=== PATIENT | female | born 1985 | race Caucasian/White ===

== ENCOUNTER 2023-02-04 10:53 | Outpatient (OUT) | payer BC, SELFPAY ==
--- NOTE | 2023-02-04 10:56 | US_ITS ---
The [address] [address] Patient Name: CAROLINE SOLOMON MRN: [id number] date: 1985 Sex: F Assigned Patient Location: US Current Patient Location: US Accession/Order Number: [id number] Exam Date: 02/04/2023 11:00 Report Date: 02/04/2023 15:38 At the request of: CLAUDIA LAMAS Procedure: US thyroid US thyroid, 02/04/2023 11:00 AM EDT, OH001 INDICATION: Localized Swelling Mass Of Neck R22.1 COMPARISON: Thyroid ultrasound from 01/08/2022 TECHNIQUE: US of the thyroid gland was performed using a small parts transducer. Color flow vascular imaging was also done FINDINGS: The right lobe of the thyroid gland measures 4.7 x 1.2 x 1.2 cm. Echogenicity is normal. Vascularity is normal. The left lobe of the thyroid gland measures 4.2 x 1.0 x 0.9 cm. Echogenicity is normal. Vascularity is normal. The isthmus measures 3 mm in the midline. Echogenicity within the isthmus is normal. In the soft tissues on the right at the level of palpable abnormality, there is a 2.5 x 1.0 x 0.8 cm slightly lobulated hypoechoic focus most consistent with a lymph node with a benign configuration, not significantly changed compared to the prior study. US/US thyroid IMPRESSION: Normal thyroid ultrasound. Note is again made of a benign-appearing lymph node on the right at the level of clinical concern, not significantly changed. Electronically authenticated by: ARACELIS GARCIA Date: 02/04/2023 15:38
== END 2023-02-04 10:54 | disposition home or self-care (01) ==
LOC: US 10:53
PROVIDERS: PCP Family Medicine; Visit Provider Family Medicine
DX: R22.1 Localized swelling, mass and lump, neck (principal)
CPT/HCPCS: 76536

== ENCOUNTER 2023-03-07 07:46 | Outpatient (OUT) | payer BC, SELFPAY ==
--- NOTE | 2023-03-07 08:44 | CT_ITS ---
[address] [address] Patient Name: CAROLINE SOLOMON MRN: [id number] date: 1985 Sex: F Assigned Patient Location: CT Current Patient Location: CT Accession/Order Number: [id number] Exam Date: 03/07/2023 09:00 Report Date: 03/07/2023 10:44 At the request of: CAMI HICKS Procedure: CT soft tissue neck w con EXAM: CT soft tissue neck w con CLINICAL INDICATION: Neck Mass R22.1 COMPARISON: CT neck soft tissues 03/06/2022. Ultrasound 02/04/2023. TECHNIQUE: Standard enhanced CT of the neck following intravenous administration of 100 cc of Omnipaque 300. Axial sections with coronal and sagittal reformats were obtained. Dose reduction techniques were achieved by using automated exposure control and/or adjustment of mA and/or kV according to patient size and/or use of iterative reconstruction technique. FINDINGS: Lymph Nodes/Soft Tissues: No extranodal soft tissue mass, abnormal enhancement, or fat stranding. No enlarged or morphologically abnormal lymph nodes. Nasopharynx: Normal. Suprahyoid Neck: Oropharynx, oral cavity, parapharyngeal, and retropharyngeal spaces are clear and symmetric. Infrahyoid Neck: Larynx, hypopharynx, and supraglottic area are clear and symmetric. Vocal cords are symmetric. Parotid Glands: Normal. Submandibular Glands: Normal. Thyroid: Normal. Orbits: Normal. Paranasal Sinuses: Mild bilateral maxillary sinus mucosal thickening. Remainder of the paranasal sinuses and the mastoid air cells are well-aerated. Mastoid Air Cells: Well-aerated. Skull Base: Normal. Thoracic Inlet: Visualized lung apices are clear. Vascular Structures: Symmetric and patent. Musculoskeletal: No acute osseous abnormality. Mild multilevel cervical spondylotic changes. CT/CT soft tissue neck w con IMPRESSION: No extranodal soft tissue mass, abnormal enhancement, or lymphadenopathy in the neck. No soft tissue abnormality to correspond with palpable abnormality. No substantial change since 03/06/2022. Electronically authenticated by: STEFANO MARQUEZ Date: 03/07/2023 10:44
== END 2023-03-07 07:47 | disposition home or self-care (01) ==
LOC: CT 07:47
PROVIDERS: PCP Family Medicine; Visit Provider Otolaryngology
DX: R22.1 Localized swelling, mass and lump, neck (principal)
CPT/HCPCS: 70491; Q9967

== ENCOUNTER 2023-10-31 15:58 | Outpatient (OUT) | payer BC, SELFPAY ==
--- NOTE | 2023-10-31 | XR_ITS ---
The [address] [address] Patient Name: CAROLINE SOLOMON MRN: [id number] date: 1985 Sex: F Assigned Patient Location: [facility] Current Patient Location: Accession/Order Number: [id number] Exam Date: 10/31/2023 16:15 Report Date: 11/01/2023 07:08 At the request of: CLAUDIA LAMAS Procedure: XR lumbar spine min 4V EXAMINATION: XR lumbar spine min 4V, XR sacrum coccyx min 2V HISTORY: Coccyx pain COMPARISON: No relevant comparison available. FINDINGS: BONES: Normal. No significant spondylosis, scoliosis, fracture, or visible bony lesion. DISC SPACES: Normal. No significant disc height narrowing, subluxation, or endplate abnormality. PARASPINOUS: Negative. No paraspinous abnormality is seen. OTHER: Negative. XR/XR lumbar spine min 4V IMPRESSION: No acute abnormality of the lumbar spine, sacrum or coccyx Electronically authenticated by: RANDY STANTON Date: 11/01/2023 07:08
--- NOTE | 2023-10-31 | XR_ITS ---
The [address] [address] Patient Name: CAROLINE SOLOMON MRN: [id number] date: 1985 Sex: F Assigned Patient Location: [facility] Current Patient Location: Accession/Order Number: [id number] Exam Date: 10/31/2023 16:15 Report Date: 11/01/2023 07:08 At the request of: CLAUDIA LAMAS Procedure: XR sacrum coccyx min 2V EXAMINATION: XR lumbar spine min 4V, XR sacrum coccyx min 2V HISTORY: Coccyx pain COMPARISON: No relevant comparison available. FINDINGS: BONES: Normal. No significant spondylosis, scoliosis, fracture, or visible bony lesion. DISC SPACES: Normal. No significant disc height narrowing, subluxation, or endplate abnormality. PARASPINOUS: Negative. No paraspinous abnormality is seen. OTHER: Negative. XR/XR sacrum coccyx min 2V IMPRESSION: No acute abnormality of the lumbar spine, sacrum or coccyx Electronically authenticated by: RANDY STANTON Date: 11/01/2023 07:08
--- OUTSIDE RECORDS SUMMARY | 2023-10-31 16:11 | XMS_ITS ---
Patient Summarization (C-CDA 2.1 CCD) Created on: October 31, 2023 MANJU ALDANA : 1985 Sex: Female Author Organization Sample organization Care Team Providers Care Manufacturing Engineer Supervisor Name Role Phone Claudia Oro Primary Care Provider MD Manuel Augustin Attending Provider Claudia Oro MD Primary Care Provider [phone] Claudia Oro MD Primary Care Provider [phone] CLAUDIA ORO Primary Care Unavailable HOY, CLAUDIA M Referring Unavailable BABAR TOUSSAINT Referring Unavailable HOY, CLAUDIA M Primary Care Unavailable BABAR TOUSSAINT Referring Unavailable HOY, CLAUDIA M Primary Care Unavailable DRE MEDRANO Referring Unavailable HOY, CLAUDIA M Primary Care Unavailable GISEL VELA Referring Unavailabl e HOY, CLAUDIA M Primary Care Unavailable GISEL VELA Referring Unavailabl e HOY, CLAUDIA M Primary Care Unavailable PHILLY JACOBSEN Admitting Unavail able PHILLY JACOBSEN Attending Unavail able HOY, CLAUDIA M Primary Care Unavailable HOY, CLAUDIA M Primary Care Unavailable GISEL VELA Referring Unavailabl NBA Rivera Admitting Unavailable NBA HESTER Attending Unavailable ADAMS Herrera, DR TAYLOR Primary Care Unavailable DR SHERRIE PABLO Consulting Unavailable NBA HESTER Consulting Unavailable HARSHADY ., DR TAYLOR Admitting Unavailable HOY ., DR TYALOR Attending Unavailable HOY ., DR TAYLOR Primary Care Unavailable HOY ., DR TAYLOR Consulting Unavailable HOY ., DR TAYLOR Admitting Unavailable HOY ., DR TAYLOR Attending Unavailable HOY ., DR TAYLOR Primary Care Unavailable HOY ., DR TAYLOR Consulting Unavailable LUX OKEEFE Consulting Unavailable HOY ., DR TAYLOR Admitting Unavailable HOY ., DR TAYLOR Attending Unavailable HOY ., DR TAYLOR Primary Care Unavailable HOY ., DR TAYLOR Consulting Unavailable NBA MCNEIL Consulting Unavailable CHARLI, DR CHAWLA Admitting Unavailable CHARLI, DR CHAWLA Attending Unavailable ADAMS ., DR TAYLOR Primary Care Unavailable CHARLI, DR CHAWLA Consulting Unavailable ALANS, CAMI [place] Attending Unavailable CLAUDIA ORO Referring Unavailable Allergies Allergy Classification Reported Allergen(s) Allergy Type Date of Onset Reaction(s) Facility (10 sources) Ciprofloxacin Drug Allergy 10-13-2013 [place], [place] (1 source) Ciprofloxacin Drug Allergy 03-14-2014 [facility] Repository Encounters Encounter Date Encounter Type Care Provider Facility Start: 03-23-2023 End: 03-23-2023 ambulatory CAMI HICKS Not Available Start: 07-12-2022 Encounter for genera l adult medical examination without abnormal findings DR CLAUDIA ORO . [facility] Start: 07-08-2022 End: 07-09-[address] CLAUDIA ORO . Facility:[facility] Start: 07-08-2022 End: 07-09-2022 Encounter for general adult medical examination without abnormal findings DR CLAUDIA ORO . Facility:[facility] Start: 03-06-2022 End: 03-07-[address] CLAUDIA ORO . Facility:[facility] Start: 01-29-2022 End: 01-29-2022 ambulatory PHILLYJOSE CARROLL [facility] Start: 01-29-2022 End: 01-29-2022 Subsequent hospital visit by physician Philly Nguyễn DO Work Phone: [facility] Comment on above: Post-op pain (Primar y Dx); Menorrhagia with regular cycle Start: 01-08-2022 End: 01-09-[address] CLAUDIA ORO . Facility:[facility] Start: 11-28-2021 End: 11-29-[address] CAMMY AUGUSTIN Facility:[facility] Start: 11-27-2021 End: 11-28-2021 ambulatory NBA HESTER Facility:[facility] Start: 11-05-2021 End: 11-06-2021 [facility] Start: 11-05-2021 End: 11-05-2021 Subsequent hospital visit by physician Claudia Oro MD Work Phone: [facility] Comment on above: Menorrhagia with irr egular cycle Start: 10-14-2021 End: 10-17-2021 ambulatory [facility] Start: 10-14-2021 End: 10-16-2021 Subsequent hospital visit by physician Magdy Mri Scanner [facility] Laboratory Comment on above: Spontaneous ocular n ystagmus; Optic nerve hypoplasia of both eyes Start: 09-24-2021 End: 09-24-2021 Patient encounter procedure MD Manuel Augustin Work Phone: [facility] [address] Start: 09-09-2021 End: 09-10-2021 ambulatory GISEL VELA [facility] Start: 09-09-2021 End: 09-09-2021 Subsequent hospital visit by physician Claudia Oro MD Work Phone: [facility] Laboratory Comment on above: Vaginal irritation Start: 06-10-2021 End: 06-13-[address] [facility] Start: 02-26-2020 End: 02-26-2020 Subsequent hospital visit by physician Claudia Oro [facility] Laboratory Comment on above: Screening for cervic al cancer; Irregular menses Start: 11-26-2019 End: 11-28-2019 Subsequent hospital visit by physician Magdy [facility] Comment on above: Breast pain, right Arrived Start: 03-01-2019 End: 03-03-2019 Subsequent hospital visit by physician [facility] Radiology Immunizations Immunization Date Immunization Notes Care Provider Marco Antonio quinteros 10-21-2014 tetanus toxoid, redu bacilio diphtheria toxoid, and acellular pertussis vaccine, adsorbed [facility] [place], [place] 10-09-2004 tetanus toxoid, redu bacilio diphtheria toxoid, and acellular pertussis vaccine, adsorbed [facility] Medications Current Medications Medication Drug Class(es) Dates Sig (Normalized) Sig (Original) Acetaminophen / HYDROcodone (2 sources) Opioid Agonist Start: 01-29-2022 End: 01-30-2022 HYDROcodone-acetam inophen (NORCO) 5-325 MG per tablet 1 tablet Start: 01-29-2022 End: 02-01-2022 HYDROcodone-acetaminophen (N ORCO) 5-325 MG per tablet Indications: Post-op pain Take 1 tablet by mouth every 8 hours as needed for Pain for up to 3 days. Intended supply: 3 days. Take lowest dose possible to manage pain 6 tablet 0 01/29/2022 02/01/2022 Active ARIPiprazole 5 mg oral tablet (5 sources) Atypical Antipsychotic Start: 09-04-2021 take 1 tablet by mouth once daily ARIPiprazole (ABILIFY) 5 MG tablet take 1 tablet by mouth once daily 0 09/04/2021 Active calcium chloride 0.0014 meq/ml / potassium chloride 0.004 meq/ml / sodium chloride 0.103 meq/ml / sodium lactate 0.028 meq/ml injectable solution (2 sources) Start: 01-29-2022 lactated ringers infusion 2 ml fentaNYL 0.05 mg/ml injection (2 sources) Opioid Agonist Start: 01-29-2022 fentaNYL (SUBLIMAZE) injection 50 mcg Start: 01-29-2022 fentaNYL (SUBL IMAZE) injection 25 mcg ketorolac tromethamine 10 mg oral tablet (1 source) Nonsteroidal Anti-inflammatory Drug, Cyclooxygenase Inhibitor Start: 01-29-2022 take 1 tablet by mouth every six hours as needed for pain ketorolac (TORADOL) 10 MG tablet Take 1 tablet by mouth every 6 hours as needed for Pain 12 tablet 0 01/29/2022 Active latanoprost 0.05 mg/ml ophthalmic solution (2 sources) Prostaglandin Analog Start: 09-15-2021 take 1 drop(s) into the eye(s) at bedtime latanoprost (XALATAN) 0.005 % ophthalmic solution place 1 drop into both eyes at bedtime 0 09/15/2021 Active 2 ml ondansetron 2 mg/ml injection (1 source) Serotonin-3 Receptor Antagonist Start: 01-29-2022 End: 01-30-2022 ondansetron (ZOFRAN) injection 4 mg phentermine hydrochloride 37.5 mg oral tablet (2 sources) Sympathomimetic Amine Anorectic Start: 11-02-2021 take 1 tablet by mouth once daily phentermine (ADIPEX-P) 37.5 MG tablet take 1 tablet by mouth once daily 0 11/02/2021 Active 2 ml prochlorperazine 5 mg/ml injection (1 source) Phenothiazine Start: 01-29-2022 End: 01-30-2022 prochlorperazine (COMPAZINE) injection 5 mg 5 ml sodium chloride 9 mg/ml injection (3 sources) Start: 01-29-2022 sodium chloride flush 0.9 % injection 5-40 mL Start: 01-29-2022 0.9 % sodium c hloride infusion Start: 01-29-2022 sodium chlorid e flush 0.9 % injection 5-40 mL Completed/Discontinued Medications Medication Drug Class(es) Dates Sig (Normalized) Sig (Original) acetaminophen 325 mg oral tablet (1 source) Start: 01-29-2022 End: 01-29-2022 acetaminophen (TYLENOL) tablet 650 mg dimenhyDRINATE 50 mg oral tablet (1 source) Start: 01-29-2022 End: 01-29-2022 dimenhyDRINATE (DRAMAMINE) tablet 50 mg gadoteridol (PROHANCE) injection 20 mL (1 source) Start: 10-14-2021 End: 10-14-2021 gadoteridol (PROHANCE) injection 20 mL Payers Date Payer Category Payer Unknown [employer] [address] xxxxxxxxxxxx 2017-Present [phone] [address] [place] [address] xxxxxxxxxxxx [id number] 2017 Unknown [employer] [place] [address] [id number] 2017-Present [phone] [address] [place] [id number] 2017 Unknown [employer] M [place] [address] [id number] 2017-Present [phone] [address] [place] [id number] 1985 Unknown [id number] [id number] 1985 Unknown [id number] [id number] 1985 Unknown [id number] [id number] 1985 Unknown [id number] [id number] 1985 Unknown [id number] [id number] 1985 Unknown [id number] [id number] 1985 Unknown [id number] [id number] 1985 Unknown [id number] [id number] 1985 Unknown [id number] [id number] 1985 Unknown [id number] 2.16.840.1.911557.3.579.2.593 1985 Unknown [id number] 2.16.840.1.430962.3.579.2.593 1985 Unknown [id number] 2.16.840.1.029778.3.579.2.593 1985 Unknown [id number] 2.16.840.1.787263.3.579.2.593 1985 Unknown [id number] [id number] 9 1959 Unknown [id number] Self-pay Self Pay [id number] Plan of Treatment Date Care Activity Detail Author Start: 02-25-2025 Screening for malign ant neoplasm of cervix [facility] Start: 10-21-2024 DTaP/Tdap/Td vaccine (9 - Td or Tdap) DTaP/Tdap/Td vaccine (9 - Td or Tdap) [facility] Start: 10-21-2024 DTaP/Tdap/Td vaccine (9 - Td) DTaP/Tdap/Td vaccine (9 - Td) [facility] [place], [place] Start: 02-25-2023 Screening for malign ant neoplasm of cervix Pap smear [facility] Start: 09-14-2022 End: 09-14-2022 Patient encounter procedure 09/14/2022 Office Visit Obstetrics and Gynecology Gisel Vela, SUDARSHAN - JORDAN [address] [facility] [place] [address] [facility] OBSTETRICS & GYNECOLOGY [facility] Start: 05-05-2022 End: 05-05-2022 Patient encounter procedure 05/05/2022 Office Visit Obstetrics and Gynecology Sujey Bentley, NICOLASA [address] [place] [address] [facility] OBSTETRICS GYNECOLOGY [facility] Start: 01-29-2022 End: 01-29-2022 Hysteroscopy bx endometrium&/polypc w/wo d&c DILATATION AND CURETTAGE HYSTEROSCOPY CAUTERY ABLATION Menorrhagia with regular cycle 01/29/2022 3:14 PM EDT [facility] Start: 01-07-2022 Influenza vaccination [facility] Start: 11-30-2021 End: 11-30-2021 Patient encounter procedure 11/30/2021 Office Visit Obstetrics and Gynecology Philly Jacobsen DO [address] [place] [address] [facility] OBSTETR[facility] & GYNECOLOGY [facility] Start: 11-05-2021 End: 11-05-2021 Patient encounter procedure 11/05/2021 Routine Obstetrics and Gynecology Gisel Vela, CANINE DEPUTY - CNM [address] [facility] [place] [address] [facility] Start: 11-05-2021 End: 11-05-2021 Professional / ancillary services management 11/05/2021 Ancillary Procedure Obstetrics and Gynecology [facility] OBSTETRICS [facility] Start: 09-30-2021 End: 09-30-2021 Patient encounter procedure 09/30/2021 Office Visit Obstetrics and Gynecology Gisel Vela, CANINE DEPUTY - CNM [address] [facility] [place], [place] [id number] [facility] Start: 09-30-2021 End: 09-30-2021 Professional / ancillary services management 09/30/2021 Ancillary Procedure Obstetrics and Gynecology [facility] Start: 02-25-2021 Depression Screen Depression Screen [facility] Start: 2020 Diabetes screen Diabetes screen [facility] Start: 03-12-2020 End: 03-12-2020 Ancillary Procedure [facility]ST[facility]ICS & GYNECOLOGY Start: 01-08-2020 Influenza vaccination Flu vaccine (# 1) [place] Start: 01-07-2019 Influenza vaccination Flu vaccine (# 1) [place] Start: 2006 Cervical cancer screen Cervical canc er screen [place] Start: 2006 Screening for malign ant neoplasm of cervix Cervical cancer screen [place] Start: 10-20-2003 Hepatitis C screening Hepatitis C sc reen [facility] Start: 1998 Varicella Vaccine (1 of 2 - 13+ 2-dose series) Varicella Vaccine (1 of 2 - 13+ 2-dose series) [place] Start: 10-20-1991 Pneumococcal 0-64 ye ars Vaccine (1 - PCV) Pneumococcal 0-64 years Vaccine (1 - PCV) [facility] Start: 1990 COVID-19 Vaccine (1) COVID-19 Vaccin e (1) [facility] Start: 1986 Varicella vaccine (1 of 2 - 2-dose childhood series) Varicella vaccine (1 of 2 - 2-dose childhood series) [facility] Start: 04-20-1986 COVID-19 Vaccine (#1) COVID-19 Vacci ne (#1) [facility] Actin smooth muscle IgG Ab [Units/volume] in Serum [facility] Work Phone: Aldolase measurement [facility] Work Phone: aPTT.lupus sensitive (LA screen) [facility] Work Phone: aPTT.lupus sensitive W excess phospholipid actual/Normal (normalized LA confirm) [facility] Work Phone: aPTT.lupus sensitive/aPTT.lupus sensitive W excess phospholipid (screen to confirm ra [facility] Work Phone: End: 09-09-2021 C.trachomatis N.gonorrhoeae DNA [facility] Work Phone: Comment on above: 1 Occurrences starti ng 09/09/2021 until 09/09/2021 End: 11-05-2021 C.trachomatis N.gonorrhoeae DNA [facility] Work Phone: Comment on above: 1 Occurrences starti ng 11/05/2021 until 11/05/2021 End: 02-26-2020 C.trachomatis N.gonorrhoeae DNA, Thin Prep C.trachomatis N.gonorrhoeae DNA, Thin Prep Microbiology Routine Irregular menses 1 Occurrences starting 02/26/2020 until [facility]: 1 Occurrences starti ng 02/26/2020 until 02/26/2020 C.trachomatis N.gonorrhoeae DNA, Thin Prep C.trachomatis N.gonorrhoeae DNA, Thin Prep Microbiology Routine Irregular menses 02/26/2020 12:[address] [facility] [place] Chromatin Ab [Units/volume] in Serum or Plasma [facility] Work Phone: Complement C3 [Mass/volume] in Serum or Plasma [facility] Work Phone: Complement C4 [Mass/volume] in Serum or Plasma [facility] Work Phone: End: 09-09-2021 Culture, Genital [facility] Work Phone: Comment on above: 1 Occurrences starti ng 09/09/2021 until 09/09/2021 End: 02-26-2020 Cytopathology procedure, preparation of smear, genital source [facility] SMEAR Lab Routine Screening for cervical cancer 1 Occurrences starting 02/26/2020 until 02/26/2020 [facility] [place] Comment on above: 1 Occurrences starti ng 02/26/2020 until 02/26/2020 dRVVT (LA screen) [facility] Work Phone: Hemolytic complement CH50 level [facility] Work Phone: Homogenous nuclear A b pattern [Titer] in Serum [facility] Work Phone: End: 01-29-2022 INITIATE PACU OXYGEN THERAPY PROTOCOL Initiate PACU Oxygen Therapy Protocol Respiratory Care Routine Continuous until discontinued starting 01/29/2022 [facility] Work Phone: Comment on above: Continuous until dis continued starting 01/29/2022 Lupus anticoagulant [Interpretation] in Platelet poor plasma [facility] Work Phone: Mitochondria M2 IgG Ab [Units/volume] in Serum [facility] Work Phone: Myoglobin [Mass/volu me] in Serum or Plasma [facility] Work Phone: Nuclear Ab [Titer] i n Serum [facility] Work Phone: Oxygen therapy [Mini mum Data Set] Initiate Oxygen Therapy Protocol Respiratory Care Routine As Needed until discontinued starting 01/29/2022 [facility] Work Phone: Comment on above: As Needed until disc ontinued starting 01/29/2022 Reagin Ab [Presence] in Serum by RPR [facility] Work Phone: Surgical Pathology Surgical Path ology Lab Routine Menorrhagia with regular cycle Release Upon Ordering for 1 Occurrences starting 01/29/2022 [facility] Work Phone: Comment on above: Release Upon Orderin g for 1 Occurrences starting 01/29/2022 End: 01-29-2022 SURGICAL PATHOLOGY REPORT SURGICAL PATHOLOGY REPORT Lab Routine Once for 1 Occurrences starting 01/29/2022 until 01/29/2022 [facility] Work Phone: Comment on above: Once for 1 Occurrenc es starting 01/29/2022 until 01/29/[address] [facility] Work Phone: Thyroglobulin Ab [Units/volume] in Serum or Plasma [facility] Work Phone: Thyroperoxidase Ab [Units/volume] in Serum or Plasma [facility] Work Phone: Problems Active Problems Problem Classification Problem Date Documented Date Episodic/Chronic Anxiety disorders (1 source) Anxiety disorder; Translations: [Anxiety disorder, unspecified] Onset: 06-26-2021 01-27-2022 Chronic Congestive heart failure; nonhypertensive (1 source) Diastolic heart failure; Translations: [Unspecified diastolic (congestive) heart failure] Onset: 09-14-2018 01-27-2022 Chronic Esophageal disorders (1 source) Gastroesophageal reflux disease without esophagitis; Translations: [Gastro-esophageal reflux disease without esophagitis] Onset: 04-03-2019 01-27-2022 Chronic Hypertension with complications and secondary hypertension (1 source) Hypertensive heart failure; Translations: [Hypertensive heart disease with heart failure] Onset: 09-14-2018 01-27-2022 Chronic Menstrual disorders (6 sources) Irregular periods; Translations: [Menometrorrhagia] Onset: 11-05-2021 Chronic Nonmalignant breast conditions (2 sources) Mastodynia of right breast; Translations: [Breast pain, right] Other eye disorders (1 source) Visual deprivation nystagmus; 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 Other eye disorders (1 source) Hypoplasia of the optic nerve; 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, 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 Other eye disorders (3 sources) Optic nerve hypoplasia, bilateral; 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, bilateral] Onset: 10-14-2021 Chronic Other eye disorders (1 source) Other forms of nystagmus; Translations: [Other forms of nystagmus] Onset: 10-14-2021 Chronic Other female genital disorders (1 source) Vaginal irritation; Translations: [Other specified noninflammatory disorders of vagina] Episodic Other nervous system disorders (1 source) Postoperative pain ; Translations: [Other acute postprocedural pain] Episodic Other nervous system disorders (1 source) Other acute postprocedural pain; Translations: [Other acute postprocedural pain] Onset: 01-29-2022 Episodic Unclassified (1 source) Cancer cervix screening status; Translations: [Screening for cervical cancer] Past or Other Problems Problem Classification Problem Date Documented Date Episodic/Chronic Deficiency and other anemia (1 source) Anemia; Translations: [Anemia, unspecified] Onset: 09-14-2018 01-27-2022 Episodic Diseases of mouth; excluding dental (1 source) Disturbances of salivary secretion; Translations: [DISTURBANCES OF SALIVARY SECRETION] Onset: 12-01-2021 Episodic Immunizations and screening for infectious disease (4 sources) Raised antibody titer; Translations: [RAISED ANTIBODY TITER] Onset: 11-28-2021 Episodic Other aftercare (1 source) Other group home (current) drug therapy; Translations: [OTH [facility] CURRENT DRUG THERAPY] Onset: 12-01-2021 Episodic Other connective tissue disease (1 source) Pain in left foot; Translations: [PAIN IN LEFT FOOT] Onset: 12-01-2021 Episodic Other female genital disorders (1 source) Other specified noninflammatory disorders of vagina; Translations: [Other specified noninflammatory disorders of vagina] Onset: 09-09-2021 Episodic Other non-traumatic joint disorders (4 sources) Pain in left ankle and joints of left foot; Translations: [PAIN IN LEFT ANKLE] Onset: 11-27-2021 Episodic Other screening for suspected conditions (not mental disorders or infectious disease) (1 source) Encounter for screening mammogram for malignant neoplasm of breast; Translations: [Encounter for screening mammogram for malignant neoplasm of breast] Onset: 06-10-2021 Episodic Other skin disorders (4 sources) Localized swelling, mass and lump, neck; Translations: [LOCALIZED SWELLING MASS AND LUMP NECK] Onset: 03-06-2022 Episodic Procedures Date Procedure Procedure Detail Performing Clinician Start: 01-29-2022 Urine test visual color cmprsn meths Goyo Witt 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 Start: 10-14-2021 Mri brain brain stem w/o w/contrast material Babar Toussaint MD Work Phone: Start: 10-14-2021 Creatinine blood Babar Toussaint MD Work Phone: Start: 02-26-2020 Microscopic observat ion [Identifier] in Cervix by Cyto stain Claudia Oro MD Work Phone: Start: 11-26-2019 Us breast uni real t chintan with image complete Gisel Vela Work Phone: Start: 11-26-2019 Tomosynthesis, mammo screen Gisel Vela Work Phone: Results Test Name Value Interpretation Reference Range Facility INSULINon 07-09-2022 Insulin 24.5 uIU/mL Normal 2.6-24.9 [facility] Comment on above: Performed By: #### I NSULIN #### [facility] [address] [place] [address] [address] Wu Broderick CBC AUTO DIFFon 07-08-2022 BASO # 0.1 103/ul Normal 0.0-0.1 [facility] Comment on above: Performed By: #### C BC ####[facility] [address] [place] [address]DrSharon Broderick Basophils/100 WBC (Bld) 1.2 % Normal 0.2-2.0 [facility] Comment on above: Performed By: #### C BC ####[facility] [address] [place] [id number] Broderick EO # 0.2 103/ul Normal 0.0-0.7 [facility] Comment on above: Performed By: #### C BC ####[facility] [address] [place] [id number] Broderick Eosinophils/100 WBC (Bld) 2.9 % Normal 0.9-7.0 [facility] Comment on above: Performed By: #### C BC ####[facility] [address] [place] [address]Dr. Wu Broderick Erythrocyte distribution width (RBC) [Ratio] 12.8 % Normal 11.0-15.0 [facility] Comment on above: Performed By: #### C BC ####[facility] [address] [place], [place] [address]Dr. Wu Broderick Hematocrit (Bld) [Volume fraction] 44.0 % Normal 36.0-48.0 [facility] Comment on above: Performed By: #### C BC ####[facility] [address] [place], [place] [address]Dr. Wu Broderick Hemoglobin (Bld) [Mass/Vol] 14.6 g/dL Normal 12.0-16.0 [facility] Comment on above: Performed By: #### C BC ####[facility] [address] [place], [place] [address]Dr. Wu Broderick IG # 0.02 10e3/ul Normal 0.00-0.03 [facility] Comment on above: Performed By: #### C BC ####[facility] [address] [place], [place] [address]Dr. Wu Broderick IG % 0.3 % Normal 0.0-0.5 [facility] Comment on above: Performed By: #### C BC ####[facility] [address] [place], [place] [address]Dr. Wu Broderick LYMPH # 1.8 103/ul Normal 1.2-3.8 [facility] Comment on above: Performed By: #### C BC ####[facility] [address] [place], [place] [address]Dr. Wu Broderick Lymphocytes/100 WBC (Bld) 31.5 % Normal 20.5-60.0 [facility] Comment on above: Performed By: #### C BC ####[facility] [address] [place], [place] [address]Dr. Wu Broderick MANUAL DIFF REQ NO Normal [facility] Comment on above: Performed By: #### C BC ####[facility] [address] [place] [id number]. Wu Davie MCH (RBC) [Entitic mass] 28.3 pg Normal 26.7-34.0 [facility] Comment on above: Performed By: #### C BC ####[facility] [address] [place] [id number]. Wu Davie MCHC (RBC) [Mass/Vol] 33.2 g/dL Normal 29.9-35.2 [facility] Comment on above: Performed By: #### C BC ####[facility] [address] [place] [address]Dr. Wu Broderick MCV (RBC) [Entitic vol] 85.4 fL Normal 81.0-99.0 [facility] Comment on above: Performed By: #### C BC ####[facility] D[address] [place], [place] [address]Dr. Wu Broderick MONO # 0.4 103/ul Normal 0.3-0.8 [facility] Comment on above: Performed By: #### C BC ####[facility] B[address] [place], [place] [address]Dr. Wu Broderick Monocytes/100 WBC (Bld) 6.2 % Normal 1.7-12.0 [facility] Comment on above: Performed By: #### C BC ####[facility] [address] [place], [place] [address]Dr. Wu Broderick NEUT # 3.4 103/ul Normal 1.4-6.5 [facility] Comment on above: Performed By: #### C BC ####[facility] Hz[address] [place], [place] [address]Dr. Wu Broderick Neutrophils/100 WBC (Bld) 57.9 % Normal 43.0-75.0 [facility] Comment on above: Performed By: #### C BC ####[facility] [address] [place], [place] [address]Dr. Wu Broderick Platelet mean volume (Bld) [Entitic vol] 9.0 fL Critically low 9.5-13.5 [facility] Comment on above: Performed By: #### C BC ####[facility] [address] [place] [phone]. Wu Broderick PLT 309 103/ul Normal 150-450 [facility] Comment on above: Performed By: #### C BC ####[facility] [address] [place] [phone]. Wu Broderick RBC 5.15 106/ul Normal 4.20-5.40 [facility] Comment on above: Performed By: #### C BC ####[facility] [address] [place] [phone]. Wu Broderick WBC 5.9 103/ul Normal 4.0-11.0 [facility] Comment on above: Performed By: #### C BC ####[facility] [address] [place] [phone]. Wu Broderick FREE THYROXINE INDEX T7on FTI 2.75 Normal 1.30-4.50 [facility] Comment on above: Performed By: #### L IPID, TSH, CMP, T7 ####[facility] [address] [place] [phone]. Wu Broderick T3U 32.0 % Normal 30.0-39.0 [facility] Comment on above: Performed By: #### L IPID, TSH, CMP, T7 ####[facility] [address] [place] [phone]. Wu Broderick T4 [Mass/Vol] 8.60 ug/dL Normal 4.80-13.[address] [facility] Comment on above: Performed By: #### L IPID, TSH, CMP, T7 ####[facility] [address] [place] [phone]. Wu Broderick GLYCOHEMOGLOBIN A1Con 2022 ADA RECOMMENDATION SEE BELOW Normal [facility] Comment on above: Result Comment: ADA RECOMMENDED LIMIT 4.0 - 6.0 ADA THERAPEUTIC TARGET < 7.0 ACTION SUGGESTED > 7.0 Performed By: #### A 1C #### [facility] [address] [address] [address] Wu Broderick Glucose [Mass/Vol] 111 mg/dL Normal [facility] Comment on above: Performed By: #### A 1C #### [facility] [address] [address] [address] Wu Broderick HbA1c (Bld) [Mass fraction] 5.5 % Normal 4.5-6.2 [facility] Comment on above: Performed By: #### A 1C #### [facility] [address] [address] [address] Wu Broderick IRONon 07-08-2022 Iron [Mass/Vol] 60.0 ug/dL Normal 50.0-170.0 [facility] Comment on above: Performed By: #### I LYRIC #### [facility] [address] [address] [address] Wu Brdoerick LIPID PROFILEon 07-08-2022 CHOL-HDL RATIO NORM SEE BELOW Normal [facility] Comment on above: Result Comment: 3.3 - 4.4 LOW RISK 4.4 - 7.1 AVERAGE RISK 7.1 - 11.0 MODERATE RISK >11.0 HIGH RISK Performed By: #### L IPID, TSH, CMP, T7 ####[facility] [address] [place] [address]DrSharon Broderick Cholesterol [Mass/Vol] 216 mg/dL Critically high <=200 [facility] Comment on above: Performed By: #### L IPID, TSH, CMP, T7 ####[facility] [address] [place] [phone] Broderick Cholesterol in HDL [Mass/Vol] 60 mg/dL Normal 40-60 [facility] Comment on above: Performed By: #### L IPID, TSH, CMP, T7 ####[facility] [address] [place] [phone] Broderick Cholesterol in LDL [Mass/Vol] 137.4 mg/dL Normal [facility] Comment on above: Performed By: #### L IPID, TSH, CMP, T7 ####[facility] [address] [place] [phone] Broderick Cholesterol.total/Chol esterol in HDL [Mass ratio] 3.6 {ratio} Normal [facility] Comment on above: Performed By: #### L IPID, TSH, CMP, T7 ####[facility] [address] [place] [phone] Broderick HDL NORMAL > or = 60 mg/dl - LOW CARDIOVASCULAR RISK <40 mg/dl - HIGH CARDIOVASCULAR RISK Normal [facility] Comment on above: Performed By: #### L IPID, TSH, CMP, T7 ####[facility] [address] [place] [phone] Broderick LDL CALC NORMAL SEE BELOW Normal [facility] Comment on above: Result Comment: <100 mg/dl OPTIMAL 100 - 129 mg/dl NEAR OR ABOVE OPTIMAL 130 - 159 mg/dl BORDERLINE HIGH 160 - 189 mg/dl HIGH >190 mg/dl VERY HIGH Performed By: #### L IPID, TSH, CMP, T7 ####[facility] [address] [place] [address]Dr. Wu Broderick Triglyceride [Mass/Vol] 93 mg/dL Normal <=150 [facility] Comment on above: Performed By: #### L IPID, TSH, CMP, T7 ####[facility] [address] [place] [phone] Broderick VLDL CALC 18.6 mg/dL Normal [facility] Comment on above: Performed By: #### L IPID, TSH, CMP, T7 ####[facility] [address] [place] [phone] Broderick PROF 14(COMP METB)on 023 Albumin [Mass/Vol] 4.0 g/dL Normal 3.4-5.0 [facility] Comment on above: Performed By: #### L IPID, TSH, CMP, T7 #### [facility] [address] [place], [place] [address] Dr. Wu Broderick Albumin/Globulin [Mass ratio] 1.0 {ratio} Normal [facility] Comment on above: Performed By: #### L IPID, TSH, CMP, T7 #### [facility] [address] [address] [address] Wu Broderick ALP [Catalytic activity/Vol] 79 U/L Normal 46-116 [facility] Comment on above: Performed By: #### L IPID, TSH, CMP, T7 #### [facility] [address] [address] [address] Wu Broderick ALT [Catalytic activity/Vol] 20 U/L Normal 14-59 [facility] Comment on above: Performed By: #### L IPID, TSH, CMP, T7 #### [facility] [address] [address] [address] Wu Broderick Anion gap [Moles/Vol] 11.9 mmol/L Normal Th [facility] Comment on above: Performed By: #### L IPID, TSH, CMP, T7 #### [facility] [address] [place] [address] Dr. Wu Broderick AST [Catalytic activity/Vol] 12 U/L Critically low 15-37 [facility] Comment on above: Performed By: #### L IPID, TSH, CMP, T7 #### [facility] [address] [address] [address] Wu Broderick Bilirubin [Mass/Vol] 0.3 mg/dL Normal 0.2-1.0 [facility] Comment on above: Performed By: #### L IPID, TSH, CMP, T7 #### [facility] [address] [address] [address] Wu Broderick Calcium [Mass/Vol] 9.0 mg/dL Normal 8.5-10.1 [facility] Comment on above: Performed By: #### L IPID, TSH, CMP, T7 #### [facility] [address] [address] [address] Wu Broderick Chloride [Moles/Vol] 104 mmol/L Normal 98-107 [facility] Comment on above: Performed By: #### L IPID, TSH, CMP, T7 #### [facility] [address] [address] [address] Wu Broderick CO2 [Moles/Vol] 27.3 mmol/L Normal 21.0-32.0 [facility] Comment on above: Performed By: #### L IPID, TSH, CMP, T7 #### [facility] [address] [place] [address] Dr. Wu Broderick Creatinine [Mass/Vol] 0.75 mg/dL Normal 0.55-1.02 [facility] Comment on above: Performed By: #### L IPID, TSH, CMP, T7 #### [facility] [address] [place] [address] Dr. Wu Broderick EGFR-AF HAITIAN >60 Normal >=60 [facility] Comment on above: Performed By: #### L IPID, TSH, CMP, T7 #### [facility] [address] [place] [address] Dr. Wu Broderick EGFR-NON AF HAITIAN >60 Normal >=60 [facility] Comment on above: Performed By: #### L IPID, TSH, CMP, T7 #### [facility] [address] [place] [address] Dr. Wu Broderick Globulin (S) [Mass/Vol] 4.2 g/dL Normal [facility] Comment on above: Performed By: #### L IPID, TSH, CMP, T7 #### [facility] [address] [place] [address] Dr. Wu Broderick Glucose [Mass/Vol] 97 mg/dL Normal 74-106 [facility] Comment on above: Performed By: #### L IPID, TSH, CMP, T7 #### [facility] [address] [place] [address] Dr. Wu Broderick Potassium [Moles/Vol] 4.2 mmol/L Normal 3.5-5.1 [facility] Comment on above: Performed By: #### L IPID, TSH, CMP, T7 #### [facility] [address] [place] [address] Dr. Wu Broderick Protein [Mass/Vol] 8.2 g/dL Normal 6.4-8.2 [facility] Comment on above: Performed By: #### L IPID, TSH, CMP, T7 #### [facility] [address] [place], [place] [address] Dr. Wu Broderick Sodium [Moles/Vol] 139 mmol/L Normal 136-145 [facility] Comment on above: Performed By: #### L IPID, TSH, CMP, T7 #### [facility] [address] [place], [place] [address] Dr. Wu Broderick Urea nitrogen [Mass/Vol] 10.0 mg/dL Normal 7.0-18.0 [facility] Comment on above: Performed By: #### L IPID, TSH, CMP, T7 #### [facility] [address] [address] [address] Wu Broderick Urea nitrogen/Creatinine [Mass ratio] 13.3 mg/mg Normal [facility] Comment on above: Performed By: #### L IPID, TSH, CMP, T7 #### [facility] [address] [address] [address] Wu Broderick TSHon 07-08-2022 TSH 1.181 uIU/mL Normal 0.358-3.[address] [facility] Comment on above: Performed By: #### L IPID, TSH, CMP, T7 #### [facility] [address] [place], [place] [id number] Dr. Wu Broderick CT NECK ST W CONon [address] W CON EXAMINATION: CT NECK ST W CON HISTORY: Mass of neck COMPARISON: None. TECHNIQUE: CT examination of the soft tissues of the neck following the administration of intravenous contrast. Coronal and sagittal reformations were performed. Dose reduction techniques were achieved by using automated exposure control and/or adjustment of mA and/or kV according to patient size and/or use of iterative reconstruction technique. FINDINGS: Visualized intracranial contents unremarkable. Mild mucosal thickening in the maxillary sinuses. Remainder of the paranasal sinuses clear. Mastoid air cells clear. Middle ear cavities clear. Skull base normal. The orbital contents normal. [employer] spaces are normal. Parotid glands normal. Submandibular glands normal. The tongue and floor of the mouth are normal. Nasopharynx, oropharynx and retropharyngeal space normal. Epiglottis normal. Vocal cords symmetric. No laryngeal edema or laryngeal mass. Thyroid gland normal. Visualized portion of the trachea and esophagus normal. No neck mass. No lymphadenopathy in the neck. IMPRESSION: No neck masses. No lymphadenopathy. No acute findings. Electronically authenticated by: LUX OKEEFE Date: 2022-03-08 07:30 Normal [facility] US THYROIDon 02-22-2022 US THYROID Begin Addendum #1 The first sentence in the first paragraph under IMPRESSIONS should read as follows: A small nodular structure is seen in the left lobe of the thyroid gland, considered TI RADS 3. The remainder of the dictation is unchanged. Begin Addendum #2 The patient had an ultrasound study of the soft tissues of the neck on 03/16/2013. That study reported one small nodular structures within each lobe of the gland, and no other soft tissue nodule is readily identified in the images provided. Report is not available for correlation, however. The images of the thyroid gland in the prior study do not correspond to the lump on the right side of the neck seen in the current study. Begin Addendum #3 If further evaluation or correlation with other studies continues to be clinically indicated, then a repeat ultrasound or CT of the soft tissues of the neck is recommended. The prior ultrasound study of the neck performed 03/16/2013 is too remote in time for adequate clinical correlation, and the report is not available. Original Report EXAM: US THYROID HISTORY: Palpable Mass of neck on right. COMPARISON: None. TECHNIQUE: Multiple sonographic images of the thyroid gland were obtained, supplemented with Doppler. FINDINGS: The right lobe measures 4.9 x 1.3 x 1.3 cm. Homogeneous echoes are noted throughout. No cystic or solid mass is identified. The left lobe measures 5.1 x 1.0 x 1.1 cm. Homogeneous echoes are noted throughout. There is a solid nodular structure in the mid aspect measuring 0.7 x 0.6 x 0.5 cm. No other cystic or solid mass is identified in the left lobe. The isthmus measures 3 mm in diameter. No abnormal fluid collection is seen surrounding the gland. At the site indicated by the patient's there is a small nodular structure measuring 2.7 x 0.8 x 0.6 cm. This is probably a lymph node. IMPRESSION: A small nodule is seen in the left lobe of the liver, considered TI RADS 3. Biopsy is not recommended at this time. Comparison with a previous study may be helpful. A follow-up study in 12 months recommended. Along the right side of the neck at the site of reported lump there is an oval solid nodular mass present, which may indicate enlarged lymph nodes, although the exact etiology is uncertain. This is not associated with the thyroid gland. Perhaps biopsy would be prudent. Normal [facility] HCG, ,Urineon 01-29 Beta HCG ( test) Ql (U) Negative Normal NEG [facility] Comment on above: Result Comment: Spec imens with hCG levels near the threshold of the test (25 mIU/mL) may give a negative or indeterminate result. In such cases, another test should be performed with a new specimen in 48-72 hours. If early is suspected clinically in this setting, correlation with quantitative serum b-hCG level is suggested. [facility] has confirmed the use of plasma for this test. This has not been cleared or approved by the U.S. Food and Drug Administration. The FDA has determined that such clearance is not necessary. Performed By: #### U HCG #### [facility] [address] [place] [address] [place] [address] Paper Inserter: Ernesto Edwards MD , Urineon Beta HCG ( test) Ql (U) Negative NEGATIVE [facility] Comment on above: Specimens with hCG l evels near the threshold of the test (25 mIU/mL) may give a negative or indeterminate result. In such cases, another test should be performed with a new specimen in 48-72 hours. If early is suspected clinically in this setting, correlation with quantitative serum b-hCG level is suggested. [facility] has confirmed the use of plasma for this test. This has not been cleared or approved by the U.S. Food and Drug Administration. The FDA has determined that such clearance is not necessary. [facility] Surgical Pathologyon 022 Surgical Pathology (NOTE) -- Diagnosis -- ENDOMETRIUM, CURETTINGS: - CONSISTENT WITH FRAGMENTS OF LATE PROLIFERATIVE TO INTERVAL PHASE ENDOMETRIUM AND POLYP FRAGMENTS. - SCATTERED FRAGMENTS OF SQUAMOCOLUMNAR CERVICAL MUCOSA WITH ACUTE AND CHRONIC CERVICITIS AND MICROGLANDULAR HYPERPLASIA. - NEGATIVE FOR ATYPIA OR MALIGNANCY. Quintin Kaur M.D. Electronically Signed Out 02/02/2022 Clinical Information Pre-op Diagnosis: MENORRHAGIA, ENDOMETRIAL POLYP Operative Findings: ENDOMETRIAL CURETTINGS Operation Performed: DILATATION AND CURETTAGE HYSTEROSCOPY CAUTERY ABLATION-NOVASURE, ENDOMETRIAL ABLATION Source of Specimen A: ENDOMETRIAL CURETTINGS Gross Description MANJU ALDANA, ENDOMETRIAL CURETTINGS Red-brown fragments, 4.5 x 3.5 x 0.6 cm in aggregate. Entirely 2cs. tm Microscopic Description Sections of endometrium show subnuclear vacuoles and fragmented endometrium with blood clot. Occasional fragments show proliferative phase glands. Focal fragments show increased fibrovascular appearing stroma. Fragments of squamocolumnar cervical mucosa are also included, with acute and chronic inflammation and microglandular hyperplasia. There is no evidence of glandular complexity, atypia or malignancy. SURGICAL PATHOLOGY CONSULTATION Patient Name: MANJU ALDANA [facility] Rec: [id number] Path Number: [id number] [facility] ANATOMIC PATHOLOGY [address] [place] [id number] Normal [facility] Comment on above: Performed By: #### P PPVS #### [address] [address] Paper Inserter: Xavier Wilder MD ANTICARDIOLIPIN AB (CESAR) IGA /IGG/IGMon 11-30-2021 Anticardiolipin Ab,IgA,Qn <9 Normal 0-11 [facility] Comment on above: Result Comment: Nega tive: <12 Indeterminate: 12 - 20 Low-Med Positive: >20 - 80 High Positive: >80 Performed By: #### A CAQUAN #### [facility] [address] [place] [address] [address] [address] Wu Broderick Anticardiolipin Ab,IgG,Qn <9 Normal 0-14 [facility] Comment on above: Result Comment: Nega tive: <15 Indeterminate: 15 - 20 Low-Med Positive: >20 - 80 High Positive: >80 Performed By: #### A CAQUAN #### [facility] [address] [address] [address] Wu Broderick Anticardiolipin Ab,IgM,Qn 12 MPL U/mL Normal 0-12 [facility] Comment on above: Result Comment: Nega tive: <13 Indeterminate: 13 - 20 Low-Med Positive: >20 - 80 High Positive: >80 Performed By: #### A CAQUAN #### [facility] [address] [address] [address] Wu Broderick B2-GLYCOPROTEIN 1 AB IGA/IGG /IGMon 11-30-2021 Beta-2 Glycoprotein I Ab, IgG <9 Normal 0-20 [facility] Comment on above: Result Comment: The reference interval reflects a 3SD or 99th percentile interval, which is thought to represent a potentially clinically significant result in accordance with the International Consensus Statement on the classification criteria for definitive antiphospholipid syndrome (APS). J Thromb Haem 2006;4:295-306. Performed By: #### B GLYCOA ####[facility] [address] [place] [place] [address]Dr. Wu Broderick Beta-2 Glycoprotein I Ab, IgM <9 Normal 0-32 [facility] Comment on above: Result Comment: The reference interval reflects a 3SD or 99th percentile interval, which is thought to represent a potentially clinically significant result in accordance with the International Consensus Statement on the classification criteria for definitive antiphospholipid syndrome (APS). J Thromb Haem 2006;4:295-306. Performed By: #### B GLYCOA ####[facility] [address] [place] [place] [address]DrSharon Broderick Beta-2 IgA <9 Normal 0-25 [facility] Comment on above: Result Comment: The reference interval reflects a 3SD or 99th percentile interval, which is thought to represent a potentially clinically significant result in accordance with the International Consensus Statement on the classification criteria for definitive antiphospholipid syndrome (APS). J Thromb Haem 2006;4:295-306. Performed By: #### B GLYCOA ####[facility] [address] [place] [id number] Broderick US NON OB TRANSVAGINALon US NON OB TRANSVAGINAL Formatting of thi s result is different from the original. UTERUS:anteverted, inhomogeneous echo pattern ?? ENDO:1.3cm in thickness, echogenic finding visualized in endo, ? Polyp chrsitiano- 0.7cm x 0.5cm x 0.3cm ?? RT. OVARY:not visualized ?? LT. OVARY:not visualized ?? Attempted to visualize ovaries both TV AND TA, unable to visualize them on today's US Interpreted by: Gisel Vela, CANINE DEPUTY - CNM Philly Nguyễn DO Signed by: Philly Nguyễn DO 11/29/21 Final result Normal [facility] Chlamydia/GC,DNA Ampon 11-06 Chlamydia Probe Negative Normal NEG [facility] Comment on above: Result Comment: CHLA MYDIA TRACHOMATIS DNA not detected by nucleic acid amplification. This test is intended for medical purposes only and is not valid for the evaluation of suspected sexual abuse or for other forensic purposes. In certain contexts, culture may be required to meet applicable laws and regulations for diagnosis of C. trachomatis and N. gonorrhoeae infections. Per 2014 CDC recommendations, this test does not include confirmation of positive results by an alternative nucleic acid target. Performed By: #### S WCGP #### [facility] [address] [place] [id number] Paper Inserter: Xavier Wilder MD Gonorrhea Probe Negative Normal NEG [facility] Comment on above: Result Comment: NEIS SERIA GONORRHOEAE DNA not detected by nucleic acid amplification. This test is intended for medical purposes only and is not valid for the evaluation of suspected sexual abuse or for other forensic purposes. In certain contexts, culture may be required to meet applicable laws and regulations for diagnosis of C. trachomatis and N. gonorrhoeae infections. Per 2014 CDC recommendations, this test does not include confirmation of positive results by an alternative nucleic acid target. Performed By: #### S WCGP #### [facility] [address] [place] [id number] Paper Inserter: Xavier Wilder MD BUNon 10-14-2021 Urea nitrogen (BldV) [Mass/Vol] 10 mg/dL 6 - 20 mg/dL [facility] BUN (Urea N)on 10-14-2021 Urea nitrogen [Mass/Vol] 10 mg/dL Normal 6-20 [facility] Comment on above: Performed By: #### C REG, BUN #### [facility] [address] [place] [address] Paper Inserter: Ernesto Edwards MD Creatinineon 10-14-2021 Creatinine [Mass/Vol] 0.62 mg/dL 0.50 - 0.90 mg/dL [facility] GFR >60 >60 mL/min [facility] GFR Non- >60 >60 mL/min [facility] Creatinine w/GFRon 2 (cont.) Normal [facility] Comment on above: Result Comment: Aver age GFR for 30-39 years old: 107 mL/min/1.73sq m Chronic Kidney Disease: <60 mL/min/1.73sq m Kidney failure: <15 mL/min/1.73sq m eGFR calculated using average adult body mass. Additional eGFR calculator available at: [email or web address] Performed By: #### C REG, BUN #### [facility] [address] [place] [address] Paper Inserter: Ernesto Edwards MD Creatinine [Mass/Vol] 0.62 mg/dL Normal 0.50-0.90 [facility] Comment on above: Performed By: #### C REG, BUN #### [facility] [address] [place] [address] Paper Inserter: Ernesto Edwards MD GFR, Amer >60 Normal >60 [facility] Comment on above: Performed By: #### C REG, BUN #### [facility] [address] [place] [address] Paper Inserter: Ernesto Edwards MD GFR,non Amer >60 Normal >60 [facility] Comment on above: Performed By: #### C REG, BUN #### [facility] [address] [place], [place] [id number] Paper Inserter: Ernesto Edwards MD Staging: Normal [facility] Comment on above: Result Comment: Stag e 1: Some kidney damage normal GFR Stage 2: Mild kidney damage GFR 60-89 Stage 3: Moderate kidney damage GFR 30-59 Stage 4: Severe kidney damage GFR 15-29 Stage 5: Severe kidney damage GFR <15 ESRD - chronic treatment by dialysis or transplant Performed By: #### C REG, BUN #### [facility] [address] [place], [place] [id number] Paper Inserter: Ernesto Edwards MD Laboratory - Chemistry and C hemistry - challengeon 10-14-2021 GFR/1.73 sq M.predicted MDRD (S/P/Bld) [Vol rate/Area] [facility] Comment on above: Average GFR for 30-3 9 years old: 107 mL/min/1.73sq m Chronic Kidney Disease: <60 mL/min/1.73sq m Kidney failure: <15 mL/min/1.73sq m eGFR calculated using average adult body mass. Additional eGFR calculator available at: [email or web address] Stage 1: Some kidney damage normal GFR Stage 2: Mild kidney damage GFR 60-89 Stage 3: Moderate kidney damage GFR 30-59 Stage 4: Severe kidney damage GFR 15-29 Stage 5: Severe kidney damage GFR <15 ESRD - chronic treatment by dialysis or transplant MRI BRAIN W WO CONTRASTon MRI BRAIN W WO CONTRAST EXAMINATION: MRI OF THE BRAIN WITHOUT AND WITH CONTRAST; MRI OF THE BRAIN AND MRI OF THE ORBITS WITH AND WITHOUT CONTRAST 10/14/2021 9:29 am TECHNIQUE: Multiplanar multisequence MRI of the head/brain was performed without and with the administration of intravenous contrast.; Multiplanar multisequence MRI of the brain and MRI of the orbits was performed with and without intravenous contrast. COMPARISON: None. 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 The craniocervical junction is unremarkable. There is no acute hemorrhage, mass effect, or midline shift. There is satisfactory overall storm-white matter differentiation. The ventricular structures are symmetric and unremarkable. The infratentorial structures including the cerebellopontine angles and internal auditory canals are unremarkable. There is no abnormal restricted diffusion. There is no abnormal blooming artifact on susceptibility weighted imaging. There is no abnormal postcontrast enhancement. SINUSES: There is mild chronic sinusitis. The mastoid air cells are normally aerated. BONES/SOFT TISSUES: The bone marrow signal intensity appears normal. The soft tissues demonstrate no acute abnormality. MRI ORBITS: Globes are symmetric. The optic nerves and optic nerve sheaths are unremarkable. The intraconal fat is normal. The extraocular muscles are normal. The lacrimal glands are normal. Periorbital soft tissues are unremarkable. There is no abnormal postcontrast enhancement. IMPRESSION: Unremarkable pre and post-contrast MRI of the brain and orbital structures. RECOMMENDATIONS: Unavailable Interpreted by: Abel Taveras MD Signed by: Abel Taveras MD 10/14/21 Final result Normal [facility] Radiology Study observation (narrative) [facility] Work Phone: Unremarkable pre and post-contrast MRI of the brain and orbital structures. RECOMMENDATIONS: Unavailable [facility] EXAMINATION: MRI OF THE BRAIN WITHOUT AND WITH CONTRAST; MRI OF THE BRAIN AND MRI OF THE ORBITS WITH AND WITHOUT CONTRAST 10/14/2021 9:29 am TECHNIQUE: Multiplanar multisequence MRI of the head/brain was performed without and with the administration of intravenous contrast.; Multiplanar multisequence MRI of the brain and MRI of the orbits was performed with and without intravenous contrast. COMPARISON: None. 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 The craniocervical junction is unremarkable. There is no acute hemorrhage, mass effect, or midline shift. There is satisfactory overall storm-white matter differentiation. The ventricular structures are symmetric and unremarkable. The infratentorial structures including the cerebellopontine angles and internal auditory canals are unremarkable. There is no abnormal restricted diffusion. There is no abnormal blooming artifact on susceptibility weighted imaging. There is no abnormal postcontrast enhancement. SINUSES: There is mild chronic sinusitis. The mastoid air cells are normally aerated. BONES/SOFT TISSUES: The bone marrow signal intensity appears normal. The soft tissues demonstrate no acute abnormality. MRI ORBITS: Globes are symmetric. The optic nerves and optic nerve sheaths are unremarkable. The intraconal fat is normal. The extraocular muscles are normal. The lacrimal glands are normal. Periorbital soft tissues are unremarkable. There is no abnormal postcontrast enhancement. [facility] Abel Tillman MD - 10/14/2021 EXAMINATION: MRI OF THE BRAIN WITHOUT AND WITH CONTRAST; MRI OF THE BRAIN AND MRI OF THE ORBITS WITH AND WITHOUT CONTRAST 10/14/2021 9:29 am TECHNIQUE: Multiplanar multisequence MRI of the head/brain was performed without and with the administration of intravenous contrast.; Multiplanar multisequence MRI of the brain and MRI of the orbits was performed with and without intravenous contrast. COMPARISON: None. 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 The craniocervical junction is unremarkable. There is no acute hemorrhage, mass effect, or midline shift. There is satisfactory overall storm-white matter differentiation. The ventricular structures are symmetric and unremarkable. The infratentorial structures including the cerebellopontine angles and internal auditory canals are unremarkable. There is no abnormal restricted diffusion. There is no abnormal blooming artifact on susceptibility weighted imaging. There is no abnormal postcontrast enhancement. SINUSES: There is mild chronic sinusitis. The mastoid air cells are normally aerated. BONES/SOFT TISSUES: The bone marrow signal intensity appears normal. The soft tissues demonstrate no acute abnormality. MRI ORBITS: Globes are symmetric. The optic nerves and optic nerve sheaths are unremarkable. The intraconal fat is normal. The extraocular muscles are normal. The lacrimal glands are normal. Periorbital soft tissues are unremarkable. There is no abnormal postcontrast enhancement. IMPRESSION: Unremarkable pre and post-contrast MRI of the brain and orbital structures. RECOMMENDATIONS: Unavailable [facility] Work Phone: MRI BRAIN W WO CONTRASTOrder ed By: Abel Taveras on 10-14-2021 [employer] Phone: MRI ORBITS FACE NECK W WO CO NTRASTon 10-14-2021 MRI ORBITS FACE NECK W WO CONTRAST EXAMINATION: MRI OF THE BRAIN WITHOUT AND WITH CONTRAST; MRI OF THE BRAIN AND MRI OF THE ORBITS WITH AND WITHOUT CONTRAST 10/14/2021 9:29 am TECHNIQUE: Multiplanar multisequence MRI of the head/brain was performed without and with the administration of intravenous contrast.; Multiplanar multisequence MRI of the brain and MRI of the orbits was performed with and without intravenous contrast. COMPARISON: None. 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 The craniocervical junction is unremarkable. There is no acute hemorrhage, mass effect, or midline shift. There is satisfactory overall storm-white matter differentiation. The ventricular structures are symmetric and unremarkable. The infratentorial structures including the cerebellopontine angles and internal auditory canals are unremarkable. There is no abnormal restricted diffusion. There is no abnormal blooming artifact on susceptibility weighted imaging. There is no abnormal postcontrast enhancement. SINUSES: There is mild chronic sinusitis. The mastoid air cells are normally aerated. BONES/SOFT TISSUES: The bone marrow signal intensity appears normal. The soft tissues demonstrate no acute abnormality. MRI ORBITS: Globes are symmetric. The optic nerves and optic nerve sheaths are unremarkable. The intraconal fat is normal. The extraocular muscles are normal. The lacrimal glands are normal. Periorbital soft tissues are unremarkable. There is no abnormal postcontrast enhancement. IMPRESSION: Unremarkable pre and post-contrast MRI of the brain and orbital structures. RECOMMENDATIONS: Unavailable Interpreted by: Abel Taveras MD Signed by: Abel Taveras MD 10/14/21 Final result Normal [facility] No Panel Informationon 10-14 [facility] Antinuclear Antibodieson 09-24-2021 Antinuclear Abs, IFA Negative Normal . [facility] Comment on above: Result Comment: Nega tive <1:80 Borderline 1:80 Positive >1:80 ICAP nomenclature: [id number] For more information about Hep-2 cell patterns use ANApatterns.org, the official website for the International Consensus on Antinuclear Antibody (CHASE) Patterns (ICAP). Performed at: [place] [id number] Paper Inserter: Rich Ritchie PhD, Phone: [phone] Performed By: #### P TT, PT #### [address] #### ALDOLASE #### [facility] , Activated partial thrombopla stin time (aPTT) in platelet poor plasma by coagulation aOrdered By: Cammy Augustin on 09-24-2021 aPTT Coag (PPP) [Time] 32.6 s 25.1-36.5 [facility] Albumin [Mass/volume] in Ser um or PlasmaOrdered By: Cammy Augustin on 09-24-2021 Albumin [Mass/Vol] 4.0 g/dL 3.2-5.5 [facility] Aldolaseon 09-24-2021 Aldolase 3.7 U/L Normal 3.3-10.3 [facility] Comment on above: Result Comment: Perf ormed at: [facility] [id number] Paper Inserter: Rich Ritchie PhD, Phone: [phone] PERFORMED BY: [place] [address] PATHOLOGIST [employer] REGINE JACOBO M.D. Performed By: #### P TT, PT #### [place] [address] [place] #### ALDOLASE #### [facility] , Antithyroglobulin Abon 09-24 Antithyroglobulin Ab <1.0 Normal 0.0-0.9 [facility] Comment on above: Result Comment: Thyr oglobulin Antibody measured by [employer] Performed at: [address] [id number] Paper Inserter: Rich Ritchie PhD, Phone: [phone] Performed By: #### P TT, PT #### [address] #### ALDOLASE #### [facility] , Automated erythrocytes count in urine sediment (number/area)Ordered By: Cammy Augustin on 09-24-2021 RBC Auto (Urine sed) [#/Area] 0-1 [HPF] [facility] Automated leukocytes count i n urine sediment (number/area)Ordered By: Cammy Augustin on 09-24-2021 WBC Auto (Urine sed) [#/Area] 1-2 [HPF] [facility] Basophils Auto (Bld) [#/Vol] Ordered By: Cammy Augustin on 09-24-2021 Basophils (Bld) [#/Vol] 0.1 10*3/uL 0.0-0.2 [facility] Basophils/100 WBC Auto (Bld) Ordered By: Cammy Augustin on 09-24-2021 Basophils/100 WBC (Bld) 0.9 % [facility] Bilirubin Test strip Ql (U)O rdered By: Cammy Augustin on 09-24-2021 Bilirubin Ql (U) Negative Negative [facility] Blood hemoglobin measurement (mass/volume)Ordered By: Cammy Augustin on 09-24-2021 Hemoglobin (Bld) [Mass/Vol] 13.5 g/dL 11.8-15.4 [facility] Blood leukocytes automated c ount (number/volume)Ordered By: Cammy Augustin on 09-24-2021 WBC (Bld) [#/Vol] 7.1 10*3/uL 4.5-11.0 [facility] C-Reactive Proteinon 022 C-Reactive Protein 0.8 mg/dL Normal 0.0-1.0 [facility] Comment on above: Performed By: #### P TT, PT #### [address] #### ALDOLASE #### [facility] , Chromatin Antibodyon 022 Chromatin Antibody <0.2 Normal 0.0-0.9 [facility] Comment on above: Result Comment: Perf ormed at: [facility] [place] [address] Paper Inserter: Rich Ritchie PhD, Phone: [phone] Performed By: #### P TT, PT #### [facility] [address] [place] [address] #### ALDOLASE #### [facility] , Color Auto (U)Ordered By: Arti Augustin on 09-24-2021 Color (U) Yellow Yellow [facility] Complement C3on 09-24-2021 Complement C3 178 mg/dL High 82-167 [facility] Comment on above: Result Comment: Perf ormed at: [facility] [id number] Paper Inserter: Rich Ritchie PhD, Phone: [phone] Performed By: #### C H50, C3, C4 #### [facility] , #### ADDONUAPLUS #### [facility] [address] [place] [address] Complement C4on 09-24-2021 Complement C4 29 mg/dL Normal 12-38 [facility] Comment on above: Performed By: #### C H50, C3, C4 #### [facility] , #### ADDONUAPLUS #### [address] Complement Total (CH50)on Complement Total (CH50) >60 Normal >41 [facility] Comment on above: Result Comment: Age Male Female 1 - 30 days Not Estab. Not Estab. 31 days - 6 months >32 >20 7 months - 17 years >39 >39 >17 years >41 >41 NOTE: The adult ( >17 years ) reference interval range is used to flag abnormals on this report. If the patient is 17 years old or younger, use the table above to determine out of range values. Performed at: - [facility] [id number] Paper Inserter: Rich Ritchie PhD, Phone: [phone] PERFORMED BY: [place] [address] PATHOLOGIST [employer] REGINE JACOBO M.D. Performed By: #### C H50, C3, C4 #### [facility] , #### ADDONUAPLUS #### [address] Complete Blood Count Auto Di ffon 09-24-2021 Basophils (Bld) [#/Vol] 0.1 10*3/uL Normal 0.0-0.2 [facility] Comment on above: Performed By: #### C BC, ESR #### [place] [address] [place] #### LUPANTCOAG #### [facility] , Basophils/100 WBC (Bld) 0.9 % Normal . [facility] Comment on above: Performed By: #### C BC, ESR #### [place] [address] [place] #### LUPANTCOAG #### [facility] , Eosinophils (Bld) [#/Vol] 0.1 10*3/uL Normal 0.0-0.45 [facility] Comment on above: Performed By: #### C BC, ESR #### [place] [address] [place] #### LUPANTCOAG #### [facility] , Eosinophils/100 WBC (Bld) 1.9 % Normal . [facility] Comment on above: Performed By: #### C BC, ESR #### [place] [address] [place] #### LUPANTCOAG #### [facility] , Erythrocyte distribution width (RBC) [Ratio] 14.6 % Normal 11.9-15.3 [facility] Comment on above: Performed By: #### C BC, ESR #### [place] [address] [place] #### LUPANTCOAG #### [facility] , Hematocrit (Bld) [Volume fraction] 40.7 % Normal 34.0-46.4 [facility] Comment on above: Performed By: #### C BC, ESR #### [place] [address] [place] #### LUPANTCOAG #### [facility] , Hemoglobin (Bld) [Mass/Vol] 13.5 g/dL Normal 11.8-15.4 [facility] Comment on above: Performed By: #### C BC, ESR #### [facility] [address] [place] [address] [place] #### LUPANTCOAG #### [facility] , Lymphocytes (Bld) [#/Vol] 1.6 10*3/uL Normal 1.00-4.8 [facility] Comment on above: Performed By: #### C BC, ESR #### [place] [address] [place] #### LUPANTCOAG #### [facility] , Lymphocytes/100 WBC (Bld) 22.6 % Normal . [facility] Comment on above: Performed By: #### C BC, ESR #### [facility] [address] [place] [address] [place] #### LUPANTCOAG #### [facility] , MCH (RBC) [Entitic mass] 27.4 pg Normal 24.7-34.3 [facility] Comment on above: Performed By: #### C BC, ESR #### [place] [address] [place] #### LUPANTCOAG #### [facility] , MCV (RBC) [Entitic vol] 82.5 fL Normal 80-100 [facility] Comment on above: Performed By: #### C BC, ESR #### [place] [address] [place] #### LUPANTCOAG #### [facility] , Mean Corpuscular HGB Conc 33.2 g/dL Normal 32.0-35.0 [facility] Comment on above: Performed By: #### C BC, ESR #### [address] #### LUPANTCOAG #### [facility] , Monocytes (Bld) [#/Vol] 0.5 10*3/uL Normal 0.0-0.8 [facility] Comment on above: Performed By: #### C BC, ESR #### [facility] [address] [place] [address] [place] #### LUPANTCOAG #### [facility] , Monocytes/100 WBC (Bld) 6.4 % Normal . [facility] Comment on above: Performed By: #### C BC, ESR #### [facility] [address] [place] [address] [place] #### LUPANTCOAG #### [facility] , Neutrophils (Bld) [#/Vol] 4.8 10*3/uL Normal 1.8-7.7 [facility] Comment on above: Performed By: #### C BC, ESR #### [place] [address] [place] #### LUPANTCOAG #### [facility] , Neutrophils/100 WBC (Bld) 68.2 % Normal . [facility] Comment on above: Performed By: #### C BC, ESR #### [facility] [address] [place] [address] [place] #### LUPANTCOAG #### [facility] , Nucleated RBC/100 WBC (Bld) [Ratio] 0.0 % Normal 0-0.5 [facility] Comment on above: Performed By: #### C BC, ESR #### [facility] [address] [place] [address] [place] #### LUPANTCOAG #### [facility] , Platelet mean volume (Bld) [Entitic vol] 8.4 fL Normal 6.3-10.7 [facility] Comment on above: Performed By: #### C BC, ESR #### [facility] [address] [place] [address] [place] #### LUPANTCOAG #### [facility] , Platelets (Bld) [#/Vol] 309 10*3/uL Normal 150-450 [facility] Comment on above: Performed By: #### C BC, ESR #### [facility] [address] [place] [address] [place] #### LUPANTCOAG #### [facility] , RBC (Bld) [#/Vol] 4.94 10*6/uL Normal 3.60-5.00 [facility] Comment on above: Performed By: #### C BC, ESR #### [address] [address] [place] #### LUPANTCOAG #### [facility] , WBC (Bld) [#/Vol] 7.1 10*3/uL Normal 4.5-11.0 [facility] Comment on above: Performed By: #### C BC, ESR #### [facility] [address] [place] [address] #### LUPANTCOAG #### [facility] , Comprehensive Metabolic Pane porsha 09-24-2021 Albumin [Mass/Vol] 4.0 g/dL Normal 3.2-5.5 [facility] Comment on above: Performed By: #### P TT, PT #### [facility] [address] [place] [address] #### ALDOLASE #### [facility] , Albumin/Globulin [Mass ratio] 1.4 {ratio} Normal [facility] Comment on above: Performed By: #### P TT, PT #### [facility] [address] [place] [address] #### ALDOLASE #### [facility] , ALP [Catalytic activity/Vol] 68 U/L Normal 32-92 [facility] Comment on above: Performed By: #### P TT, PT #### [facility] [address] [place] [address] [place] #### ALDOLASE #### [facility] , ALT [Catalytic activity/Vol] 17 U/L Normal 10-60 [facility] Comment on above: Performed By: #### P TT, PT #### [facility] [address] [place] [address] [place] #### ALDOLASE #### [facility] , AST [Catalytic activity/Vol] 16 U/L Normal 10-42 [facility] Comment on above: Performed By: #### P TT, PT #### [facility] [address] [place] [address] [place] #### ALDOLASE #### [facility] , Bilirubin [Mass/Vol] 0.3 mg/dL Normal 0.3-1.2 [facility] Comment on above: Performed By: #### P TT, PT #### [facility] [address] [place] [address] [place] #### ALDOLASE #### [facility] , Calcium [Mass/Vol] 9.2 mg/dL Normal 8.2-10.2 [facility] Comment on above: Performed By: #### P TT, PT #### [facility] [address] [place] [address] [place] #### ALDOLASE #### [facility] , Chloride [Moles/Vol] 104 mmol/L Normal 95-114 [facility] Comment on above: Performed By: #### P TT, PT #### [facility] [address] [place] [address] [place] #### ALDOLASE #### [facility] , CO2 [Moles/Vol] 23.9 mmol/L Normal 22.0-30.0 [facility] Comment on above: Performed By: #### P TT, PT #### [facility] [address] [place] [address] [place] #### ALDOLASE #### [facility] , Creatinine [Mass/Vol] 0.72 mg/dL Normal 0.44-1.03 [facility] Comment on above: Performed By: #### P TT, PT #### [facility] [address] [place] [address] [place] #### ALDOLASE #### [facility] , Estimated GFR ( Makayla > 60 Normal [facility] Comment on above: Result Comment: GFR estimated reference range: According to KDOQI guidelines, <60 ml/min/1.73m2 is sufficient to diagnose a patient with chronic kidney disease. Performed By: #### P TT, PT #### [facility] [address] [place] [address] [place] #### ALDOLASE #### [facility] , Estimated GFR (Non- Am > 60 Normal [facility] Comment on above: Performed By: #### P TT, PT #### [facility] [address] [place] [address] [place] #### ALDOLASE #### [facility] , Globulin (S) [Mass/Vol] 2.9 g/dL Normal [facility] Comment on above: Performed By: #### P TT, PT #### [facility] [address] [place] [address] [place] #### ALDOLASE #### [facility] , Glucose [Mass/Vol] 95 mg/dL Normal 70-100 [facility] Comment on above: Result Comment: [place] Glucose Reference Range is dependent on time and content of last meal. Glucose of more than 200 mg/dL in a nonstressed, ambulatory subject supports the diagnosis of Diabetes Mellitus. ADA recommended reference range Performed By: #### P TT, PT #### [facility] [address] [place] [address] [place] #### ALDOLASE #### [facility] , Potassium [Moles/Vol] 4.1 mmol/L Normal 3.5-5.1 [facility] Comment on above: Performed By: #### P TT, PT #### [facility] [address] [place] [address] [place] #### ALDOLASE #### [facility] , Protein [Mass/Vol] 6.9 g/dL Normal 6.1-7.9 [facility] Comment on above: Performed By: #### P TT, PT #### [facility] [address] [place] [address] [place] #### ALDOLASE #### [facility] , Sodium [Moles/Vol] 136 mmol/L Normal 136-146 [facility] Comment on above: Performed By: #### P TT, PT #### [facility] [address] [place] [address] #### ALDOLASE #### [facility] , Urea nitrogen [Mass/Vol] 8 mg/dL Low 01-29 [facility] Comment on above: Performed By: #### P TT, PT #### [facility] [address] [place] [address] #### ALDOLASE #### [facility] , Creatine Kinaseon 09-24-2021 CK [Catalytic activity/Vol] 44 U/L Normal [facility] Comment on above: Result Comment: PERF ORMED BY: [place] [address] PATHOLOGIST [employer] REGINE JACOBO M.D. Performed By: #### P TT, PT #### [address] #### ALDOLASE #### [facility] , Creatine kinase [Enzymatic a ctivity/volume] in Serum or PlasmaOrdered By: Cammy Augustin on 09-24-2021 CK [Catalytic activity/Vol] 44 U/L [facility] Creatinine and Glomerular fi ltration rate.predicted panel (S/P/Bld)Ordered By: Cammy Augustin on 09-24-2021 Creatinine [Mass/Vol] 0.72 mg/dL 0.44-1.03 [facility] Dipstick and Microscopicon 0 09-24-2021 Appearance (U) Clear Normal Clear [facility] Comment on above: Order Comment: Name Collection Type:: Clean-Voided Midstream Performed By: #### C H50, C3, C4 #### [facility] , #### ADDONUAPLUS #### [address] Bacteria,Urine None Seen Normal None Seen [facility] Comment on above: Order Comment: Name Collection Type:: Clean-Voided Midstream Performed By: #### C H50, C3, C4 #### [facility] , #### ADDONUAPLUS #### [address] Bilirubin,Urine Negative Normal Negative [facility] Comment on above: Order Comment: Name Collection Type:: Clean-Voided Midstream Performed By: #### C H50, C3, C4 #### [facility] , #### ADDONUAPLUS #### [address] Color (U) Yellow Normal Yellow [facility] Comment on above: Order Comment: Name Collection Type:: Clean-Voided Midstream Performed By: #### C H50, C3, C4 #### [facility] , #### ADDONUAPLUS #### [address] Glucose Ql (U) Normal Normal Normal [facility] Comment on above: Order Comment: Name Collection Type:: Clean-Voided Midstream Performed By: #### C H50, C3, C4 #### [facility] , #### ADDONUAPLUS #### [address] Hyaline Casts,Urine 0-8 Normal 0-8 [facility] Comment on above: Order Comment: Name Collection Type:: Clean-Voided Midstream Result Comment: PERF ORMED BY: [place] [address] PATHOLOGIST [employer] REGINE JACOBO M.D. Performed By: #### C H50, C3, C4 #### [facility] , #### ADDONUAPLUS #### [address] Ketones Ql (U) Negative Normal Negative [facility] Comment on above: Order Comment: Name Collection Type:: Clean-Voided Midstream Performed By: #### C H50, C3, C4 #### [facility] , #### ADDONUAPLUS #### [address] Leukocyte esterase Test strip Ql (U) 1+ High Negative [facility] Comment on above: Order Comment: Name Collection Type:: Clean-Voided Midstream Performed By: #### C H50, C3, C4 #### [facility] , #### ADDONUAPLUS #### [address] Nitrite,Urine Negative Normal Negative [facility] Comment on above: Order Comment: Name Collection Type:: Clean-Voided Midstream Performed By: #### C H50, C3, C4 #### [facility] , #### ADDONUAPLUS #### [address] Occult Blood,Urine Negative Normal Negative [facility] Comment on above: Order Comment: Name Collection Type:: Clean-Voided Midstream Performed By: #### C H50, C3, C4 #### [facility] , #### ADDONUAPLUS #### [address] pH (U) 6.0 [pH] Normal 5.0-9.0 [facility] Comment on above: Order Comment: Name Collection Type:: Clean-Voided Midstream Performed By: #### C H50, C3, C4 #### [facility] , #### ADDONUAPLUS #### [address] Protein,Urine Negative Normal Negative [facility] Comment on above: Order Comment: Name Collection Type:: Clean-Voided Midstream Performed By: #### C H50, C3, C4 #### [facility] , #### ADDONUAPLUS #### [address] RBC LM.HPF (Urine sed) [#/Area] 0 /[HPF] Normal 0-4 [facility] Comment on above: Order Comment: Name Collection Type:: Clean-Voided Midstream Performed By: #### C H50, C3, C4 #### [facility] , #### ADDONUAPLUS #### [address] Specificy [place],Urine 1.005 Normal 1.001-1.030 [facility] Comment on above: Order Comment: Name Collection Type:: Clean-Voided Midstream Performed By: #### C H50, C3, C4 #### [facility] , #### ADDONUAPLUS #### [address] Squamous Epithelial Cell,Urine 0-1 Normal 0-2 [facility] Comment on above: Order Comment: Name Collection Type:: Clean-Voided Midstream Performed By: #### C H50, C3, C4 #### [facility] , #### ADDONUAPLUS #### [address] Urobilinogen,Urine Normal Normal Normal [facility] Comment on above: Order Comment: Name Collection Type:: Clean-Voided Midstream Performed By: #### C H50, C3, C4 #### [facility] , #### ADDONUAPLUS #### [address] WBC,Urine 1-2 Normal 0-4 [facility] Comment on above: Order Comment: Name Collection Type:: Clean-Voided Midstream Performed By: #### C H50, C3, C4 #### [facility] , #### ADDONUAPLUS #### [address] Eosinophils Auto (Bld) [#/Vo l]Ordered By: Cammy Augustin on 09-24-2021 Eosinophils (Bld) [#/Vol] 0.1 10*3/uL 0.0-0.45 [facility] Eosinophils/100 WBC Auto (Bl d)Ordered By: Cammy Augustin on 09-24-2021 Eosinophils/100 WBC (Bld) 1.9 % [facility] Erythrocyte Sedimentation Ra sidra 09-24-2021 ESR (Bld) [Velocity] 27 mm/h High [facility] Comment on above: Result Comment: PERF ORMED BY: [place] [address] PATHOLOGIST [employer] REGINE JACOBO M.D. Performed By: #### C BC, ESR #### [facility] [address] [place] [address] #### LUPANTCOAG #### [facility] , Erythrocyte distribution wid th Auto (RBC) [Ratio]Ordered By: Cammy Augustin on 09-24-2021 Erythrocyte distribution width (RBC) [Ratio] 14.6 % 11.9-15.3 [facility] Erythrocyte sedimentation ra te by Photometric methodOrdered By: Cammy Augustin on 09-24-2021 ESR Photometric method (Bld) [Velocity] 27 mm/hr [facility] Estimated glomerular filtrat ion rate (GFR) non- AmericanOrdered By: Cammy Augustin on 09-24-2021 GFR/1.73 sq M.predicted among non-blacks MDRD (S/P/Bld) [Vol rate/Area] > 60 mL/Min [facility] Free T4 (Free Thyroxine)on 0 09-24-2021 Free T4 [Mass/Vol] 0.66 ng/dL Normal 0.61-1.12 [facility] Comment on above: Performed By: #### P TT, PT #### [facility] [address] [place] [address] [place] #### ALDOLASE #### [facility] , Globulin Calc (S) [Mass/Vol] Ordered By: Cammy Augustin on 09-24-2021 Globulin (S) [Mass/Vol] 2.9 g/dL [facility] Hematocrit Auto (Bld) [Volum e fraction]Ordered By: Cammy Augustin on 09-24-2021 Hematocrit (Bld) [Volume fraction] 40.7 % 34.0-46.4 [facility] Ketones Auto test strip (U) [Mass/Vol]Ordered By: Cammy Augustin on 09-24-2021 Ketones (U) [Mass/Vol] Negative Negative Fi [facility] Laboratory - CoagulationOrde red By: Cammy Augustin on 09-24-2021 PT Coag (PPP) [Time] 13.1 s 9.0-12.9 [facility] Laboratory - Hematology and Cell countsOrdered By: Cammy Augustin on 09-24-2021 Nucleated RBC/100 WBC (Bld) [Ratio] 0.0 % 0-0.5 [facility] Laboratory - UrinalysisOrder ed By: Cammy Augustin on 09-24-2021 Hyaline casts LM Ql (Urine sed) 0-8 [LPF] [facility] Lupus Anticoagulant Compon 0 09-24-2021 Dilute Prothrombin Time (dPt) 41.5 Normal 0.0-47.6 [facility] Comment on above: Performed By: #### C BC, ESR #### [place] [address] [place] #### LUPANTCOAG #### [facility] , dPT Confirm Ratio 1.09 Normal 0.00-1.34 [facility] Comment on above: Performed By: #### C BC, ESR #### [facility] [address] [place] [address] [place] #### LUPANTCOAG #### [facility] , DRVVT Lupus 44.4 Normal 0.0-47.0 [facility] Comment on above: Performed By: #### C BC, ESR #### [facility] [address] [place] [address] [place] #### LUPANTCOAG #### [facility] , Interpretation Comment: Normal . [facility] Comment on above: Result Comment: No l upus anticoagulant was detected. Performed at: - [facility] [address] [id number] Paper Inserter: Dina Bowden MD, Phone: [phone] PERFORMED BY: [place] [address] PATHOLOGIST [employer] REGINE JACOBO M.D. Performed By: #### C BC, ESR #### [facility] [address] [place] [address] [place] #### LUPANTCOAG #### [facility] , PTT-LA 33.2 Normal 0.0-51.9 [facility] Comment on above: Performed By: #### C BC, ESR #### [facility] [address] [place] [address] [place] #### LUPANTCOAG #### [facility] , Thrombin Time 16.6 Normal 0.0-23.0 [facility] Comment on above: Performed By: #### C BC, ESR #### [facility] [address] [place] [address] [place] #### LUPANTCOAG #### [facility] , Lymphocytes Auto (Bld) [#/Vo l]Ordered By: Cammy Augustin on 09-24-2021 Lymphocytes (Bld) [#/Vol] 1.6 10*3/uL 1.00-4.8 [facility] Lymphocytes/100 WBC Auto (Bl d)Ordered By: Cammy Augustin on 09-24-2021 Lymphocytes/100 WBC (Bld) 22.6 % [facility] MCH Auto (RBC) [Entitic mass ]Ordered By: Cammy Augustin on 09-24-2021 MCH (RBC) [Entitic mass] 27.4 pg 24.7-34.3 [facility] MCHC Auto (RBC) [Mass/Vol]Or dered By: Cammy Augustin on 09-24-2021 MCHC (RBC) [Mass/Vol] 33.2 g/dL 32.0-35.0 [facility] MCV Auto (RBC) [Entitic vol] Ordered By: Cammy Augustin on 09-24-2021 MCV (RBC) [Entitic vol] 82.5 fL 80-100 [facility] Mitochondrial (M2) Antibodyo n 09-24-2021 Mitochondrial (M2) Antibody <20.0 Normal 0.0-20.0 [facility] Comment on above: Result Comment: Nega tive 0.0 - 20.0 Equivocal 20.1 - 24.9 Positive >24.9 Mitochondrial (M2) Antibodies are found in 90-96% of patients with primary biliary cirrhosis. Performed By: #### P TT, PT #### [facility] [address] [place] [address] #### ALDOLASE #### [facility] , Monocytes Auto (Bld) [#/Vol] Ordered By: Cammy Augustin on 09-24-2021 Monocytes (Bld) [#/Vol] 0.5 10*3/uL 0.0-0.8 [facility] Monocytes/100 WBC Auto (Bld) Ordered By: Cammy Augustin on 09-24-2021 Monocytes/100 WBC (Bld) 6.4 % [facility] Myoglobinon 09-24-2021 Myoglobin [Mass/Vol] ng/mL Low 25-58 [facility] Comment on above: Result Comment: Perf ormed at: - [facility] [address] [id number] Paper Inserter: Rich Ritchie PhD, Phone: [phone] Performed By: #### P TT, PT #### [facility] [address] [place] [address] [place] #### ALDOLASE #### [facility] , Neutrophils Auto (Bld) [#/Vo l]Ordered By: Cammy Augustin on 09-24-2021 Neutrophils (Bld) [#/Vol] 4.8 10*3/uL 1.8-7.7 [facility] Neutrophils/100 WBC Auto (Bl d)Ordered By: Cammy Augustin on 09-24-2021 Neutrophils/100 WBC (Bld) 68.2 % [facility] Nitrite Test strip Ql (U)Ord ered By: Cammy Augustin on 09-24-2021 Nitrite Ql (U) Negative Negative [facility] No Panel InformationOrdered By: Cammy Augustin on 09-24-2021 Estimated GFR () > 60 mL/Min [facility] Comment on above: GFR estimated refere nce range: According to KDOQI guidelines, <60 ml/min/1.73m2 is sufficient to diagnose a patient with chronic kidney disease. Pharmacy Creatinine Clearance (Chem N/A [facility] Partial Thromboplastin Timeo n 09-24-2021 aPTT Coag (Bld) [Time] 32.6 s Normal 25.1-36.5 [facility] Comment on above: Order Comment: List the anticoagulant: NONE Result Comment: PERF ORMED BY: [place] [address] PATHOLOGIST [employer] REGINE JACOBO M.D. Performed By: #### P TT, PT #### [facility] [address] [place] [address] #### ALDOLASE #### [facility] , Platelet mean volume Auto (B ld) [Entitic vol]Ordered By: Cammy Augustin on 09-24-2021 Platelet mean volume (Bld) [Entitic vol] 8.4 fL 6.3-10.7 [facility] Platelet poor plasma interna tional normalized ratio (INR) by coagulation assay (relatOrdered By: Cammy Augustin on 09-24-2021 INR Coag (PPP) [Relative time] 1.2 {INR} [facility] Comment on above: INR Therapeutic Rang e A) Pre- and Peroperative OAT started two weeks before surgery. NOT HIP SURGERY: 1.5 - 2.5 HIP SURGERY: 2 - 3 B) Primary and secondary prevention of venous THROMBOSIS: 2 - 3 C) Active venous thrombosis, pulmonary embolism and prevention of recurrent venous thrombosis: 2 - 3 D) Prevention of arterial thromboembolism including patients with mechanical heart valves: 3 - 4.5 Platelets Auto (Bld) [#/Vol] Ordered By: Cammy Augustin on 09-24-2021 Platelets (Bld) [#/Vol] 309 10*3/uL 150-450 [facility] Protein Auto test strip (U) [Mass/Vol]Ordered By: Cammy Augustin on 09-24-2021 Protein (U) [Mass/Vol] Negative Negative Fi [facility] Protein [Mass/volume] in Ser um or PlasmaOrdered By: Cammy Augustin on 09-24-2021 Protein [Mass/Vol] 6.9 g/dL 6.1-7.9 [facility] Prothrombin Time INRon 09-24 INR Coag (PPP) [Relative time] 1.2 {INR} Normal [facility] Comment on above: Order Comment: List the anticoagulant: NONE Result Comment: INR Therapeutic Range A) Pre- and Peroperative OAT started two weeks before surgery. NOT HIP SURGERY: 1.5 - 2.5 HIP SURGERY: 2 - 3 B) Primary and secondary prevention of venous THROMBOSIS: 2 - 3 C) Active venous thrombosis, pulmonary embolism and prevention of recurrent venous thrombosis: 2 - 3 D) Prevention of arterial thromboembolism including patients with mechanical heart valves: 3 - 4.5 Performed By: #### P TT, PT #### [facility] [address] [place] [address] #### ALDOLASE #### [facility] , PT Coag (PPP) [Time] 13.1 s High 9.0-12.9 [facility] Comment on above: Order Comment: List the anticoagulant: NONE Performed By: #### P TT, PT #### [facility] [address] [place] [address] [place] #### ALDOLASE #### [facility] , RBC Auto (Bld) [#/Vol]Ordere d By: Cammy Charli on 09-24-2021 RBC (Bld) [#/Vol] 4.94 10*6/uL 3.60-5.00 [facility] RPR w/rfx to Quant TP Abson 09-24-2021 RPR, Rfx Quant RPR Non-Reactive Normal Non Reactive Fi [facility] Comment on above: Result Comment: Perf ormed at: CB - [facility] [address] [id number] Paper Inserter: Rich Ritchie PhD, Phone: [phone] PERFORMED BY: [place] [address] PATHOLOGIST [employer] REGINE JACOBO M.D. Performed By: #### P TT, PT #### [address] #### ALDOLASE #### [facility] , Serum or plasma C reactive p rotein measurement (mass/volume)Ordered By: Cammy Augustin on 09-24-2021 CRP [Mass/Vol] 0.8 mg/dL 0.0-1.0 [facility] Serum or plasma alanine eckert otransferase measurement without P-5'-P (enzymatic activiOrdered By: Cammy Augustin on 09-24-2021 ALT No additional P-5'-P [Catalytic activity/Vol] 17 U/L 10-60 [facility] Serum or plasma albumin/glob ulin mass ratioOrdered By: Cammy Augustin on 09-24-2021 Albumin/Globulin [Mass ratio] 1.4 {ratio} [facility] Serum or plasma alkaline nat sphatase measurement (enzymatic activity/volume)Ordered By: Cammy Augustin on 09-24-2021 ALP [Catalytic activity/Vol] 68 U/L 32-92 [facility] Serum or plasma aspartate am inotransferase measurement (enzymatic activity/volume)Ordered By: Cammy Augustin on 09-24-2021 AST [Catalytic activity/Vol] 16 U/L 10-42 [facility] Serum or plasma calcium christiano urement (mass/volume)Ordered By: Cammy Augustin on 09-24-2021 Calcium [Mass/Vol] 9.2 mg/dL 8.2-10.2 [facility] Serum or plasma chloride kings surement (moles/volume)Ordered By: Cammy Augustin on 09-24-2021 Chloride [Moles/Vol] 104 mmol/L 95-114 [facility] Serum or plasma glucose christiano urement (mass/volume)Ordered By: Cammy Augustin on 09-24-2021 Glucose [Mass/Vol] 95 mg/dL 70-100 [facility] Comment on above: ADA recommended refe rence range Random Glucose Reference Range is dependent on time and content of last meal. Glucose of more than 200 mg/dL in a nonstressed, ambulatory subject supports the diagnosis of Diabetes Mellitus. Serum or plasma potassium me asurement (moles/volume)Ordered By: Cammy Augustin on 09-24-2021 Potassium [Moles/Vol] 4.1 mmol/L 3.5-5.1 [facility] Serum or plasma sodium measu rement (moles/volume)Ordered By: Cammy Augustin on 09-24-2021 Sodium [Moles/Vol] 136 mmol/L 136-146 [facility] Serum or plasma total biliru bin measurement (mass/volume)Ordered By: Cammy Augustin on 09-24-2021 Bilirubin [Mass/Vol] 0.3 mg/dL 0.3-1.2 [facility] Serum or plasma total carbon dioxide measurement (moles/volume)Ordered By: Cammy Augustin on 09-24-2021 CO2 [Moles/Vol] 23.9 mmol/L 22.0-30.0 [facility] Serum or plasma urea nitroge n measurement (mass/volume)Ordered By: Cammy Augustin on 09-24-2021 Urea nitrogen [Mass/Vol] 8 mg/dL 9-23 [facility] Smooth Muscle Antibodyon Smooth Muscle Antibody 7 Normal 0-19 [facility] Comment on above: Result Comment: Nega tive 0 - 19 Weak positive 20 - 30 Moderate to strong positive >30 Actin Antibodies are found in 52-85% of patients with autoimmune hepatitis or chronic active hepatitis and in 22% of patients with primary biliary cirrhosis. Performed By: #### P TT, PT #### [facility] [address] [place] [address] #### ALDOLASE #### [facility] , Specific gravity Auto test s trip (U) [Rel density]Ordered By: Cammy Augustin on 09-24-2021 Specific gravity (U) [Rel density] 1.005 1.001-1.030 [facility] Squamous epithelial cells de tection in urine sediment by light microscopyOrdered By: Cammy Augustin on 09-24-2021 Epithelial cells.squamous LM Ql (Urine sed) 0-1 [HPF] [facility] TSH DL <= 0.005 mIU/L QnOrde red By: Cammy Augustin on 09-24-2021 TSH Qn 1.34 m[IU]/L 0.45-5.33 [facility] Thyroid Peroxidase Antibodie son 09-24-2021 Thyroid Peroxidase Antibodies <8 Normal 0-34 [facility] Comment on above: Performed By: #### P TT, PT #### [facility] [address] [place] [address] [place] #### ALDOLASE #### [facility] , Thyroid Stimulating Hormoneo n 09-24-2021 TSH Qn 1.34 m[IU]/L Normal 0.45-5.33 [facility] Comment on above: Result Comment: PERF ORMED BY: [place] [address] PATHOLOGIST [employer] REGINE JACOBO M.D. Performed By: #### P TT, PT #### [facility] [address] [place] [address] [place] #### ALDOLASE #### [facility] , Thyroxine (T4) free [Mass/vo lume] in Serum or PlasmaOrdered By: Cammy Augustin on 09-24-2021 Free T4 [Mass/Vol] 0.66 ng/dL 0.61-1.12 [facility] Urine bacteria detection by automated methodOrdered By: Cammy Augustin on 09-24-2021 Bacteria Auto Ql (U) None seen None Seen [facility] Urine clarity by refractomet ry automatedOrdered By: Cammy Augustin on 09-24-2021 Clarity Refractometry automated (U) Clear Clear [facility] Urine glucose measurement by automated test strip (mass/volume)Ordered By: Cammy Augustin on 09-24-2021 Glucose Auto test strip (U) [Mass/Vol] Normal mg/dL Normal [facility] Urine hemoglobin detection b y automated test stripOrdered By: Cammy Augustin on 09-24-2021 Hemoglobin Auto test strip Ql (U) Negative Negative [facility] Urine leukocyte esterase det ection by automated test stripOrdered By: Cammy Augustin on 09-24-2021 Leukocyte esterase Auto test strip Ql (U) 1+ Negative [facility] Urobilinogen Auto test strip (U) [Mass/Vol]Ordered By: Cammy Augustin on 09-24-2021 Urobilinogen (U) [Mass/Vol] Normal mg/dL Normal [facility] pH Auto test strip (U)Ordere d By: Cammy Augustin on 09-24-2021 pH (U) 6.0 [pH] 5.0-9.0 [facility] Cult,Genitalon 09-12-2021 Cult,Genital Specimen Description .VAGINA Culture NORMAL URO-GENITAL BERENIEC NEGATIVE FOR NEISSERIA GONORRHOEAE NEGATIVE FOR GROUP B STREPTOCOCCI Report Status FINAL 09/12/2021 Normal [facility] Comment on above: Performed By: #### G EC #### [facility] [address] [place] [address] Paper Inserter: Xavier Wilder MD [facility] [address] [place] [address] [place] [address] Paper Inserter: Ernesto Edwards MD Chlamydia/GC,DNA Ampon 09-11 Chlamydia Probe Result indeterminate. Amplification of target nucleic acid may have been Abnormal NEG [facility] Comment on above: Result Comment: affe cted by inhibitory substances present in the specimen. This test is intended for medical purposes only and is not valid for the evaluation of suspected sexual abuse or for other forensic purposes. In certain contexts, culture may be required to meet applicable laws and regulations for diagnosis of C. trachomatis and N. gonorrhoeae infections. Per 2014 CDC recommendations, this test does not include confirmation of positive results by an alternative nucleic acid target. Performed By: #### S WCGP #### [facility] [address] [place] [id number] Paper Inserter: Xavier Wilder MD Gonorrhea Probe Result indeterminate. Amplification of target nucleic acid may have been Abnormal NEG [facility] Comment on above: Result Comment: affe cted by inhibitory substances present in the specimen. This test is intended for medical purposes only and is not valid for the evaluation of suspected sexual abuse or for other forensic purposes. In certain contexts, culture may be required to meet applicable laws and regulations for diagnosis of C. trachomatis and N. gonorrhoeae infections. Per 2014 CDC recommendations, this test does not include confirmation of positive results by an alternative nucleic acid target. Performed By: #### [facility] #### [place] [id number] [place] [id number] Paper Inserter: Xavier Wilder MD Pre-Certification Formon Pre-Certification Form [id number] 220 [id number] #1.00CD:127 [facility] Pre-Certification Form [id number] 220 [id number] #1.00CD:127 [facility] Pre-Certification Formon Pre-Certification Form [id number] 220 [id number] #1.00CD:127 [facility] Coding Summary.on 06-12-2021 Coding Summary. CD:[id number] Gh0bWw+PGhlYWQ+PE1FV DMjQ46gbSFnqL7PG9qHH I2OOJZMZRLBKG2ICD3nn CF0GTphY2SmlpWf JifeuJBoAN08AIo7VJH0 gAicHMtdfL1zjQYeW7s0 OkAtBP30kM83BHzkPUFm NgT9KpXjzzkoqFOo K0upXkAnrYHoGny+PHRh YmxlIHdpZHRoPScxMDAl YlKnwWiyDJ8nHx0nFYUg LWNvbGxhcHNlOiBj o1ssCJHfPMrmZL0qxTdj N4WpdUB5YSAyh4s2Sa95 dHI+ZOEzMOM2oSzfTRyp s123NqImd4mjAMY9 mMGlTVktCEE8W33hq3M8 MOJtEGHkSGT1hLX0nX5i uEaqsepmS3QpvAMpUeT8 ZSX3aHLcxD6jpFuh wsgtzC3gMbi+F60IVX9D PYANJD5XFhb1T5LiFips dHI+JR83TTMtRR62dYYd nLQrq2mcuCj5TqEh EXGeHKE7hEkeTKqnt7Ua SDExK46ivDDhl8F0LYYt vNkeaHYeWiOojCD7oC6v UFxidlrpk9wqfybm Eiboq1xccr54bU79G59j ZLirIHBfBHE8MTQpSHMq nWwcqt0pjA7xDj9+IDxj l9pis9rbiFk2KlSw NZWxbfQwkLlfKFJ9j5Tm Tx59V8XtfMhbm6HcMvr0 bd54nOTik8W0eES6NKwv QGPsgV0dGRtkZxB9 BHVcZxYjcG57aNOlPVft Rg6qrZnlxVteLW5uOPSp oxqpCOSnmO4qNMPxmMYi zFmsIU3lZKUnirha n379WrXiOJD4KCCrbLDr F3FezD1bQnUgKQWoHWNy Z2BlnGQhEHdsY823RBai TsP7QPFvloAcS9Kr IJAdgLdqGiN0w9R0Et8M j7HerdlmFQF5PRqyRRXt PlU8LwQiBmG8P7MxMun6 WDOieCcuSQ1eH6Qt PVKumliagxoxdWM2XWMt BXZpkF09lSHaDKklRv4m o9E5i802ZQXiKGNidL05 Aw9eaYvvOZHquHUT oU1fkvdcl9fbjpqvTlNw LZUhEWn6XLv0PFSzzCal EvCdQQS1RgV7CSX7jYNg rZ8dgOrccidfvL1o Oyc+R67bmD9kRTC9IIR2 acjeJBShfuHyGD48LT96 I0HfUwwfeUVzlSN+PGRp dyIfcCxvII3cKpTm e1hdi8EkJKciE6VrIROh LIpmOis9KFIsEOT7iNS8 zI2rYFCiUVvqg1Q4pAF6 T2YlmqMaoz3qu4tf UHCjBYaaX51lrQFpu5P7 WKOthPZ3MGGqnNetAeYu pC96Okc+SVEtvEbzl5Fw Enjwt6omh7orlGe2 IjMwJSIgdmFsaWduPSJ0 t1VkKw69X88sWAdyAPMp QZZnNJYxUAJgcGkeco2m rQ4kKm3+PGNvbCB3 xCT8vG5lSEYeHbZ5SKxj V265BhQvcIYjExnrg3uc a3beiIo2JwFoCPHpmeMw zSmiYOE2d0UvNp90 C47qWNsmDUXjBBSaGAHx JYMswJsawm3spL5lNv5+ EL2iz5ymel79eE02rEI+ JDEwTIE2zKhoSVoi RZAsaT4nKJgaZnH4LFBh DaPciV74aKEpLYhkTa9v zTadeFxsWZ0qQCQfphcl k129RrMcg4zbRNPs rDAtSFrcEML7H63gz1V3 XSHaQCHwMIV6oCZ4yP2u bGlnbjogbGVmdDsgdmVy jVhjNJjkBDqhZ282 IHRvcDsnPlBhdGllbnQg FmZoNEx9P0QnPaq7KSTc iMbdGP9kgNKbMPwhFz8t dYczqLkvIK0kGPUx frznk918GvKej0wfVKVh uRYcIBxjYYC4M62jp8A9 RLAnGKHhDSO8uKQ4yP2g bGlnbjogbGVmdDsg rcSxmOvqIVqjJFreG377 IHRvcDsnPkJpcnRoIERh wVO1ML52MH03nXZqh7M6 bAF2Z8SwPBZlgloo xzmgsGQ3JSIlIUCkdL54 Nx4evDeuAx0jIHGoQRJ3 FSJldKObE6QtiQ5mNuGz SYFtBFTeC9SubPSy VRcvF719BSxwPkG1MFXx koKdF9OnRXDkuDzaZxR7 m4R0Pg5HN6P4JI11FD25 cJUfe2D4cOQ5T5Ag QEFutjemqwvrdDY0GEAg NXVvfB31Fz4ikTnwZi0h FYGmNYP2FBMdwVVvC0Qq dG3zYeCnDMWcZFMh D5WddIJwZLfrH567AQju FqK0CLRrrnPpC6IgJWCh oQkcGcV1q4I1Zi1UNAr8 FB99SC68eSWiz2Q1 yBP7Z3XnDXIrajahclqm iDH3FJUkADOqtF73Pu1e zYttFz2cWOKeUPP9BTZt rKSeD0IbaY5tLpGb GGOvVOWfA8CbwVXqJRma B496IZtdQdS0UVVrleZw V6HcYQLbpEgvUiC7u3G9 Qe6LZOZsKJ35AVN3 tUO4IU64GM07Y5LuJrtp dGFibGU+PHRhYmxlIHdp ZHRoPScxMDAlJyBzdHls MM0mSo4dZYUnHJPk wEyhuJLcYrTlw6tqUIPn YFzrKD0mjYuwV9NbtDY4 JVWlf8j3Tp85X19cP2Uc dXA+QHNgvRF7fPG7 cD1vMrZeTlK0MRjcF297 VtQkeLGxNhjai3ruv9sh tBy6RgL5USDvvmGumKzs PJS7z0ChEm42R73j IHdpZHRoPSIxNSUiIHZh hHsozk4iuX5jCl6+PGNv eXR3bEI7oQ4gRyGkMwL7 TRjnT028ShRfrISr Cyfzk6znk3bqkVp3InPu LXJdlzPidGfqNOO1i3Eq Ee24U0TiyKriq0DqFtn0 au06jBMmo7N4aPT2 G8XfKIIcdzaxbAEcfYwr LQ3iIVUxpmopHKBjxP6b ABVwU9a5QsRsLlI0HSlq H8JkfxJ4SFManDOq FTtzBXI0H90xi7N1NVRc HQDbKOE7hPH2fL0dgNto bjogbGVmdDsgdmVydGlj PXuoMOhkB774ZMOk uQfhQRLboO5pPRFypMFl cLkkTD6hDNNblhojKrHB KboPTWMDOAQOGZL4K9Tv Fnq6AWCwbHuwOV1v xLGwPCwsVj6hhOkkwZpx SO5fJDFkseqfVEBpiV3l GTOnyIJlpTqxZK6tOVCe rmgkz689WtGvVXQ7 ERBwdAOqM7HmhR3cEiRf YBIbPEWuC8WzmWWbBSyy M410FAysKeV1JTJigcUm D7MiXHHlsQaoHwO5 w2E9Ye0eLg6eSd0bBDc7 QP79OE06dWFov1P1gZT3 Z4KqOFYfkjztgueruJX0 ZLJuTESxrZ58pPTq FVivZa0dr2X4b594ATJt MKKuuZ46Vo1sdTfcUDNk sOPXiU8namsgg0gxebwz TxGoYHMtDWb7ZSd8 BHZrmCtrLiIyDOG8ZfW7 KFW0kZMehR5oqEmnigvj cD3cCeg+MzUgWWVhcnM8 S4YqThq3XQRelByn GK2joIUrAEktKj7spPqo jCeaEG3sNFDwkyswKQFu zC5lSDIbaDPptBvoGS4f GVAgkgdvb443XyPm UJC1CPFsnQQsS9BcjV5w NpUpUSNvTBXlN5HvwBNi HBlhF610NOsfCeZ2WHDi vvPxC6TqBLSykKyj SfT9g9K6Gy9LYT3bzRT3 W3UqXqn8PTYcqWbvWA4t aRJwKXnuYk6pfDdzcUnc RN1qZJSfelogPQPl gV4vMSRidPOkqOkyDE1v TXOfvdomz538AeVvVUV2 MYKvzMErK8IbkQ1kHbDq OMYsSNYqE9RtyXQa DWqrP008KQijRyG8WLVu cjGtF4DhMHAtuNnyDcD6 z2I1Wt0BqUXeUJBiOV73 OY09XM13D8XaLhfs dGFibGU+PHRhYmxlIHdp ZHRoPScxMDAlJyBzdHls XV5lLw8dTANiSBXrfPek qDBcZuJex1nwGSQk XRaaPO3rrKcgM1UjjJM1 YFKnw5y8Vk24H28kI4Eu dXA+TIImzVO3tUR1eE6v KoLdKuL6XLtrM612 FrDvdAFdArnkn5cxe7uv bXb2BmBcNMSkgaNqxYzs XEQ9r9MqQq49O64tYDhw ZHRoPSIyMCUiIHZh kEgkph7jdH7xKe9+PGNv vLS0gPB3jU8mDrWpNvK9 DBeeP847NsDnfXCmHdpo V22xU4MmiHI+PHRy Gdp4MOZfbLmiYB4pjTBr HPrxGq6zRVG9WjPyUrZm RKfrN7LpUASgvmnfivzx aPR9BSCeDGCyqL28 Hm8waHgmSj0lTLCmJGU5 NXKrxIVgO6VaoB1eTaDv RBYzCWPvA1VeaISfKTat R518UClvVfO4XMSg bjDzM8CsNZEbiQodElA7 n3H9Kv0MiTuqoHOsQV1l DwOmEHt6V0OxSkz7UGAh bQdcDD2zpKVjRHbm Qg5qfMzkcIxdUN3xVNPq rgniw359UbRij0kiWJUb bQGfFAzjDVX4S62fv3O4 PNKqQDIfORO9kGP9 vZ0boVnvvnxemPPqlRwr ymYylRzzYAmqJUvvJ472 ZXNcqUeoMdOZEzp3F6Mh Bqa3HAIntNqsWC3k uQCfXFuwKi2ylUepgFki SV2lBUKywpviq182NsMa y6pnDYCraHIjLLzkMEQ7 T77oq5Z1QGVrRPFi LOG0dFS5uU2nxJdjvwtr bGVmdDsgdmVydGljYWwt NRvzN616AWIssUanSb7Y Asz0H2QsKpx6DQIf gYmlDZ6uxZUgNLmyNg8j lEctmUfxPK6dFERfuovd k707EqJts4lbKYDsbFCe DGaoGKI6U14bd4E4 YWYfAFDwGUX3cZB1uL2g bGlnbjogbGVmdDsgdmVy lYqsWXvdFLdkZ868LZVl cDsnPlBheWVyOjwv dGQ+HW24zp79B5BkRkuf Bgr5TVYbLDS8sVT0cK3d KRYnNPfrs4R2yLG9X4Sv xaVyzl4vq2rvHMLh ZTog (more content not included)... Normal [facility] CHANDRIKA DIGITAL SCREEN SELF REFERRAL W OR WO CAD BILATERALon 06-10-2021 [facility] CHANDRIKA DIGITAL SCREEN SELF REFERRAL W OR WO CAD BILATERAL EXAMINATION: SCREENING DIGITAL BILATERAL MAMMOGRAM WITH TOMOSYNTHESIS, 06/10/2021 TECHNIQUE: Screening mammography of the bilateral breasts was performed with tomosynthesis. 2D standard and 3D tomosynthesis combination imaging performed through both breasts in the MLO and CC projection. Computer aided detection was utilized in the interpretation of this exam. COMPARISON: November 25, 2018 and July 04, 2017 HISTORY: Screening. FINDINGS: The breasts are heterogeneously dense which can obscure small masses. There is no dominant mass, architectural distortion or concerning grouping of microcalcification in either breast IMPRESSION: No mammographic evidence of malignancy. BIRADS: BIRADS - CATEGORY 1 Negative. Normal interval follow-up is recommended in 12 months. OVERALL ASSESSMENT - NEGATIVE A letter of notification will be sent to the patient regarding the results. [employer] recommends annual mammograms for women 40 years and older. Interpreted by: Naldo Iyer DO Signed by: Naldo Iyer DO 06/10/21 Final result Normal [facility] Pre-Authorization for Medica l Treatmenton 06-09-2021 Pre-Authorization for Medical Treatment [id number] Normal [facility] Gastroenterology Office/Clin ic Noteon 06-08-2021 Gastroenterology Office/Clinic Note Chief Complaint epigastric pain and bloating HPI Staff This is a 35 year old female who presents today for a self referral for complaints of epigastric and bloating. History of Present Illness Manju Aldana is a 35-year-old white female who presents today for epigastric pain and bloating. She was last seen in 2013. The patient states that her epispastic pain has been present for an extended period and she no longer wants to eat due to discomfort. She feels extremely full shortly after eating and lying down improves her symptoms. 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 She had a liver scan performed on 04/01/2021 which revealed a 19.6 cm liver. She was told that she had mild hepatomegaly; however, no liver testing was performed. The patient reports that her bowel habits have not changed since her last visit in 2013. She states that her stools are little and floaty. At times, the stools will be thin and pencil-like. The patient has a history of anxiety for which she takes no medications. She has taken antidepressants in the past but states that she is not depressed. She found that antidepressants made her really shaky, nauseous, yawn frequently, and feel like she was outside of her body. Review of Systems PHQ Score Initial Depression Screen Score: 2 Constitutional: no fever, no chills, no sweats, no weakness Skin: no Jaundice, no rash, no lesions, no petechiae ENMT: no ear pain, no sore throat, no congestion, no hoarseness Respiratory: no shortness of breath, no cough, no orthopnea, no wheezing Cardiovascular: no chest pain, no palpitations, no edema Gastrointestinal: no nausea, no vomiting, no diarrhea, no constipation, no GI bleeding, no dysphagia, no bloating, no heartburn. Positive for epigastric pain and bloating. Genitourinary: no dysuria, no hematuria, no discharge, no pain Musculoskeletal: no back pain, no trauma Neurologic: no numbness, no sleeping problems Additional ROS info: Except as noted in the above Review of Systems and in the History of Present Illness all other systems have been reviewed and are negative or noncontributory. Physical Exam Vitals & Measurements T: 36.3 ?C(Temporal Artery) HR: 105(Peripheral) RR: 16 BP: 138/90 HT: 172.0 cm HT: 172 cm WT: 99.4 kg WT: 99.4 kg BMI: 33.6 Constitutional: Appearance: well developed Skin: Inspection: no rashes, ulcers, icterus, or telangiectasias. Eyes: Conjunctivae/lids: normal conjunctivae and lids. ENMT: Hearing: within normal limits. Lips/Teeth/Gums: normal oral mucosa Neck: Neck: normal motion, central trachea Respiratory: Percussion: thorax normoresonant. Auscultation: normal breath sounds; no rubs, wheezes, rale or ronchi. Cardiovascular: Auscultation: normal rhythm, S1 and S2; no rubs, murmurs or gallop. Peripheral: no edema Gastrointestinal/Abd omen: Abdomen: normal consistency and bowel sounds; no tenderness or masses. Liver/Spleen: normal size and consistency, not palpable. Rectal: deferred Musculoskeletal: Gait/station: normal gait Assessment/Plan 1. Epigastric pain (R10.13: Epigastric pain) Postprandial. It worsens after meals and is associated with bloating and a feeling of early satiety. We will proceed with an EGD to rule out peptic ulcer disease, esophagitis, or gastritis. We will also proceed with a gastric emptying scan to rule out gastroparesis which can cause those symptoms. 2. Early satiety (R68.81: Early satiety) 3. Hepatomegaly (R16.0: Hepatomegaly, not elsewhere classified) This was discovered on an outside CT scan. 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 I will proceed with iron testing, and we will get the records of her CT scan. 4. Anxiety (F41.9: Anxiety disorder, unspecified) She was tried before on multiple anti-anxiety medications, but she stopped them secondary to side effects. I believe her anxiety is probably contributing to her GI symptoms. She was advised to follow up with her primary care physician regarding restarting treatment. ATTESTATION: Documentation services were performed by ELTON after patient consented to recording for virtual qa specialist and provider reviewed before signing. ELTON: Melinda Mckenzie. Follow-up With When Contact Information Hari STANLEY MD, GAS, MED Within 6 weeks [facility] [address] [place] [address] [place] [address]- Additional Instructions: Problem List/Past Medical History Ongoing No qualifying data Historical No qualifying data Medications No active medications Allergies Cipro (Itchy) Social History Tobacco Never (less than 100 in lifetime) Tobacco Use:. Never Smokeless Tobacco Use:., 06/03/2021 Immunizations Vaccine Date Status Comments influenza virus vaccine, inactivated - Not Given Patient Refuses Normal [facility] Comment on above: Result Comment: Elec tronically Signed By: Hari STANLEY MD\.br\Date and Time Signed: 06/08/21 09:42 EST\.br\Electronically Co-Signed By: Melinad Mckenzie\.br\Date and Time Co-Signed: 06/03/21 12:23 EST Ambulatory Visit Summaryon 0 06-03-2021 Ambulatory Visit Summary MANJU ALDANA :1985 Visit Date:06/03/2021 Ambulatory Visit Instructions Your Diagnosis Epigastric pain Early satiety Hepatomegaly Anxiety Your Care Team Attending Physician - Hari STANLEY MD Primary Care Physician - Claudia Oro MD Vitals Temperature (Temporal Artery) 36.3 ?C Heart Rate (Peripheral) 105 Respiratory Rate 16 Blood Pressure 138/90 Height 172.0 cm Height 172 cm Weight 99.4 kg Weight 99.4 kg BMI 33.6 What to do next You Need to Schedule the Following Appointments Follow Up with SALAM MD, Noriega, GAS, MED When: Within 6 weeks Where: [facility] [address] [place] [address]- You Need to Complete the Following CBC w/ Auto Diff, Blood, Routine collect, 06/03/21, Order for future visit, Lab Collect, Hepatomegaly, Print Label By Order Location Comprehensive Metabolic Panel, Blood, Routine collect, 06/03/21, Order for future visit, Lab Collect, Hepatomegaly, Print Label By Order Location Ferritin, Blood, Routine collect, 06/03/21, Order for future visit, Lab Collect, Hepatomegaly, Print Label By Order Location Iron Level, Blood, Routine collect, 06/03/21, Order for future visit, Lab Collect, Hepatomegaly, Print Label By Order Location Reticulocyte Count, Blood, Routine collect, 06/03/21, Order for future visit, Lab Collect, Hepatomegaly, Print Label By Order Location TIBC Calculated, Blood, Routine collect, 06/03/21, Order for future visit, Lab Collect, Hepatomegaly, Print Label By Order Location Transferrin, Blood, Routine collect, 06/03/21, Order for future visit, Lab Collect, Hepatomegaly, Print Label By Order Location NM Gastric Emptying Study, 06/03/21, Routine, Order for Future Visit, Transport Mode: Ambulatory, Reason: Other (please specify), Reason: Gastroparesis suspected, Hepatomegaly, No, pp_set_radiology_sub specialty, [facility] Medications and Immunizations Administered Not Given influenza virus vaccine, inactivated, Patient Refuses Allergies Cipro (Itchy) Normal [facility] Auto Diffon 06-03-2021 Basophils/100 WBC (Bld) 0.8 % Normal 0.0-2.0 [facility] Comment on above: Order Comment: Order Added by Discern Expert. Performed By: #### 2 137204, [id number], 2674885, 9543294, 4861610, 3752442, 91768688, 2039176 #### [facility] [address] [place] [address] Basophils/Leukocytes Auto (Bld) [Pure # fraction] 0.1 E9/L Normal 0.0-0.2 [facility] Comment on above: Order Comment: Order Added by Discern Expert. Performed By: #### 2 522046, 55285273, 9613527, 0759519, 5069379, 8671901, 64714273, 9905517 #### [facility] [address] [place] [address] Eosinophils/100 WBC (Bld) 1.3 % Normal 0.0-8.0 [facility] Comment on above: Order Comment: Order Added by Discern Expert. Performed By: #### 2 337337, 86523585, 0820655, 3481962, 5313833, 6898709, 53475568, 9251142 #### [facility] [address] [place] [address] Eosinophils/Leukocytes Auto (Bld) [Pure # fraction] 0.1 E9/L Normal 0.0-0.5 [facility] Comment on above: Order Comment: Order Added by Discern Expert. Performed By: #### 2 684505, 07709468, 8663301, 4430821, 7831050, 8442214, 19921951, 0957457 #### [facility] [address] [place] [address] Lymphocytes/100 WBC (Bld) 19.3 % Normal 14.0-50.0 [facility] Comment on above: Order Comment: Order Added by Discern Expert. Performed By: #### 2 181017, 63929206, 9604787, 4207993, 2436355, 3122141, 83422621, 0986853 #### [facility] [address] [place] [address] Lymphocytes/Leukocytes Auto (Bld) [Pure # fraction] 1.7 E9/L Normal 1.0-4.0 [facility] Comment on above: Order Comment: Order Added by Discern Expert. Performed By: #### 2 871502, 21852526, 1338862, 6430616, 7846494, 4266399, 50957321, 5263399 #### [facility] [address] [place] [address] Monocytes/100 WBC (Bld) 6.9 % Normal 4.0-14.0 [facility] Comment on above: Order Comment: Order Added by Discern Expert. Performed By: #### 2 641720, 63231446, 4725234, 0781389, 0229188, 2338779, 64902601, 6191379 #### [facility] [address] [place] [address] Monocytes/Leukocytes Auto (Bld) [Pure # fraction] 0.6 E9/L Normal 0.2-1.0 [facility] Comment on above: Order Comment: Order Added by Discern Expert. Performed By: #### 2 631229, 10142044, 7586463, 1749027, 2630428, 0026309, 05377051, 1859540 #### [facility] [address] [place] [address] Neutrophils/100 WBC (Bld) 71.7 % Normal 36.0-75.0 [facility] Comment on above: Order Comment: Order Added by Discern Expert. Performed By: #### 2 156575, 64177069, 4361081, 3565724, 1334103, 9980488, 96937505, 3851237 #### [facility] [address] [place] [address] Neutrophils/Leukocytes Auto (Bld) [Pure # fraction] 6.5 E9/L Normal 2.0-7.5 [facility] Comment on above: Order Comment: Order Added by Discern Expert. Performed By: #### 2 292072, 90683493, 8231390, 4591704, 5659737, 1080887, 80983574, 4838562 #### [facility] [address] [place] [address] CBC w/ Auto Diffon 2 Erythrocyte distribution width (RBC) [Ratio] 14.5 % High 10.9-14.2 [facility] Comment on above: Performed By: #### 2 732085, 86706732, 2980280, 8775038, 3997405, 3464351, 22204514, 6469725 #### [facility] [address] [place] [address] Hematocrit (Bld) [Volume fraction] 39.9 % Normal 34.0-46.0 [facility] Comment on above: Performed By: #### 2 572125, 64121524, 9045678, 4628569, 6700200, 2769155, 54839955, 3524442 #### [facility] [address] [place] [address] Hemoglobin (Bld) [Mass/Vol] 13.8 g/dL Normal 12.0-16.0 [facility] Comment on above: Performed By: #### 2 712873, 40683663, 3156180, 3175943, 9447108, 6552513, 12023298, 3052386 #### [facility] [address] [place], [place] [address] MCH (RBC) [Entitic mass] 27.6 pg Normal 27.0-34.0 [facility] Comment on above: Performed By: #### 2 024202, 53614580, 5498087, 8783017, 9878671, 0474822, 81496538, 7416566 #### [facility] [address] [place] [address] MCHC (RBC) [Mass/Vol] 34.5 g/dL Normal 31.4-36.0 [facility] Comment on above: Performed By: #### 2 531662, 73884039, 3234198, 8270755, 3097494, 0741010, 10008097, 6203691 #### [facility] [address] [place] [address] MCV (RBC) [Entitic vol] 79.9 fL Low 80.0-100.0 [facility] Comment on above: Performed By: #### 2 575443, 75377215, 6263047, 7913904, 6166504, 9600571, 93363198, 4199310 #### [facility] [address] [place] [address] Platelet mean volume (Bld) [Entitic vol] 7.2 fL Normal 6.4-10.8 [facility] Comment on above: Performed By: #### 2 994682, 95154040, 2451169, 8357933, 9459367, 2104727, 02847917, 6092292 #### [facility] [address] [place] [address] Platelets (Bld) [#/Vol] 338.0 E9/L Normal 150.0-500.0 [facility] Comment on above: Performed By: #### 2 037530, 41250662, 3947896, 4406720, 2832784, 0182593, 88293803, 8532862 #### [facility] [address] [place] [address] RBC (Bld) [#/Vol] 5.0 E12/L Normal 4.3-5.9 [facility] Comment on above: Performed By: #### 2 270798, 01889020, 2883368, 9536514, 0505037, 3754595, 57840200, 6614711 #### [facility] [address] [place] [address] WBC corrected for nucl RBC Auto (Bld) [#/Vol] 9.1 E9/L Normal 4.0-11.0 [facility] Comment on above: Performed By: #### 2 434802, 23919608, 1190104, 9260401, 2338308, 0802849, 55521143, 5853195 #### [facility] [address] [place] [address] CMPon 06-03-2021 Albumin [Mass/Vol] 4.0 g/dL Normal 3.3-5.0 [facility] Comment on above: Performed By: #### 2 185408, 29822176, 8505454, 8900925, 4940814, 2117783, 38610323, 5057417 #### [facility] [address] [place] [address] Albumin/Globulin (S) [Mass conc ratio] 1.3 Normal 1.1-2.2 [facility] Comment on above: Performed By: #### 2 016891, 48422631, 4220272, 0647104, 9813519, 6049089, 03673174, 0252981 #### [facility] [address] [place] [address] ALP [Catalytic activity/Vol] 72 Int._Unit/L Normal 21-98 [facility] Comment on above: Performed By: #### 2 646862, 59786173, 1466682, 4421087, 6861385, 0502368, 04049814, 1375488 #### [facility] [address] [place] [address] ALT No additional P-5'-P [Catalytic activity/Vol] 17 Int._Unit/L Normal 6-46 [facility] Comment on above: Performed By: #### 2 454078, 73775472, 6286934, 5038923, 9019004, 4793499, 07929701, 7834809 #### [facility] [address] [place] [address] Anion gap [Moles/Vol] 14 mmol/L Normal 6-16 [facility] Comment on above: Performed By: #### 2 032321, 01722140, 1696366, 9562298, 9370938, 9793587, 01755568, 1378530 #### [facility] [address] [place] [address] AST [Catalytic activity/Vol] 14 Int._Unit/L Normal 5-43 [facility] Comment on above: Performed By: #### 2 736466, 57386840, 2888122, 8494799, 7810316, 5437082, 81788967, 3315812 #### [facility] [address] [place] [address] Bilirubin [Mass/Vol] 0.9 mg/dL Normal 0.0-1.1 [facility] Comment on above: Performed By: #### 2 668209, 80124382, 6911463, 9495918, 2227638, 5178490, 60487250, 1894852 #### [facility] [address] [place] [address] Calcium [Mass/Vol] 8.9 mg/dL Normal 8.9-11.1 [facility] Comment on above: Performed By: #### 2 685231, 79761379, 1725499, 5317206, 0002809, 3502186, 15708085, 1034533 #### [facility] [address] [place] [address] Chloride [Moles/Vol] 102 mmol/L Normal 101-111 [facility] Comment on above: Performed By: #### 2 712478, 61726112, 3590543, 9388574, 5280479, 5377878, 89533286, 3863638 #### [facility] [address] [place] [address] CO2 [Moles/Vol] 25 mmol/L Normal 21-31 [facility] Comment on above: Performed By: #### 2 835220, 66930470, 1316261, 4202012, 7241852, 7635444, 80550200, 2703557 #### [facility] [address] [place] [address] Creatinine [Mass/Vol] 0.7 mg/dL Normal 0.5-1.3 [facility] Comment on above: Performed By: #### 2 604634, 43657318, 2216404, 7721076, 8987800, 1224119, 09074206, 2424739 #### [facility] [address] [place] [address] Globulin (S) [Mass/Vol] 3.0 g/dL Normal 1.4-4.0 [facility] Comment on above: Performed By: #### 2 645263, [id number], 0106365, 2035913, 8219495, 3050049, 14046276, 5251143 #### [facility] [address] [place] [address] Glucose [Mass/Vol] 102 mg/dL Normal 55-199 [facility] Comment on above: Result Comment: If t his glucose result represents a fasting glucose, interpretation should refer to the following reference range: 55-99 mg/dL Performed By: #### 2 190883, 50128166, 9666631, 8276523, 9404336, 4318670, 65850800, 9289478 #### [facility] [address] [place] [address] Potassium [Moles/Vol] 4.2 mmol/L Normal 3.5-5.3 [facility] Comment on above: Performed By: #### 2 630779, 74350961, 7399364, 0807301, 7568635, 1942493, 05817387, 5856710 #### [facility] [address] [place] [address] Protein [Mass/Vol] 7.0 g/dL Normal 6.0-7.8 [facility] Comment on above: Performed By: #### 2 091500, 76920019, 3303119, 2639212, 7179154, 9868635, 98153094, 1844617 #### [facility] [address] [place] [address] Sodium [Moles/Vol] 137 mmol/L Normal 135-145 [facility] Comment on above: Performed By: #### 2 567747, 32686852, 1279887, 8500934, 4179332, 8084739, 42349343, 9078871 #### [facility] [address] [place] [address] Urea nitrogen [Mass/Vol] 11 mg/dL Normal 5-21 [facility] Comment on above: Performed By: #### 2 906045, 71464599, 7911172, 3807416, 9303027, 4370037, 80580637, 7129234 #### [facility] [address] [place] [address] Urea nitrogen/Creatinine [Mass ratio] 16 No Units Normal 10-20 [facility] Comment on above: Performed By: #### 2 092175, 49103473, 1955492, 4739440, 5859711, 0710204, 93544960, 0210134 #### [facility] [address] [place] [address] Consent for Procedure/Surger yon 06-03-2021 Consent for Procedure/Surgery [id number] 0#1.00CD:127 Normal [facility] Consent for Treatmenton 05-10 Consent for Treatment [id number] #1.00CD:127 Normal [facility] Ferritinon 06-03-2021 Ferritin [Mass/Vol] 34 ng/mL Normal 11-307 [facility] Comment on above: Result Comment: NORM ALS MEN <30 YRS 16-132 ng/mL MEN >30 YRS 8-338 ng/mL WOMEN (PREMEN) 6-104 ng/mL WOMEN (POSTMEN) 12-210 ng/mL Performed By: #### 2 434917, 01381111, 3788328, 3784960, 9670989, 6746381, 03076063, 7221759 ####[facility] [id number] [place] [address] Ironon 06-03-2021 Iron [Mass/Vol] 130 microgram/dL Normal 35-153 [facility] Comment on above: Performed By: #### 2 [id number], [id number], [id number], [id number], [id number], [id number], [id number], [id number] #### [facility] [address] [place] [address] Retic Counton 06-03-2021 Reticulocytes/100 RBC (Bld) 2.0 % High 0.5-1.5 [facility] Comment on above: Performed By: #### 2 [id number], [id number], [id number], [id number], [id number], [id number], [id number], [id number] #### [facility] [address] [place] [address] TIBC Calculatedon 06-03-2021 Iron binding capacity [Mass/Vol] 374 microgram/dL Normal 250-400 [facility] Comment on above: Performed By: #### 2 [id number], [id number], [id number], [id number], [id number], [id number], [id number], [id number] #### [facility] [address] [place] [address] Transferrin [Mass/Vol] 267 mg/dL Normal 200-370 [facility] Comment on above: Performed By: #### 2 [id number], [id number], [id number], [id number], [id number], 4760856, [id number], [id number] #### [facility] [address] [place] [address] eGFRon 06-03-2021 GFR/1.73 sq M.predicted among blacks MDRD (S/P/Bld) [Vol rate/Area] mL/min/{1.73_m2} Normal >=59 [facility] Comment on above: Order Comment: Order added by Discern Expert. Result Comment: eGFR is race adjusted. AA=. Performed By: #### 2 [id number], [id number], [id number], 0079438, [id number], [id number], [id number], [id number] #### [facility] [address] [place] [address] GFR/1.73 sq M.predicted among non-blacks MDRD (S/P/Bld) [Vol rate/Area] mL/min/{1.73_m2} Normal >=59 [facility] Comment on above: Order Comment: Order added by Discern Expert. Result Comment: Land Law Examiner amber kidney disease could be indicated at eGFR's of less than 60 mL/min/1.73m2. Kidney failure is indicated at less than 15 mL/min/1.73m2. Performed By: #### 2 [id number], [id number], [id number], [id number], [id number], [id number], [id number], [id number] #### [facility] [address] [place] [address] Otheron 11-26-2019 1. No evidence of malignancy in either breast on mammography. 2. Corresponding to area of breast pain right breast at 6 o'clock is an echogenically prominent band of fibrous tissue. No worrisome cystic or solid mass lesions right breast are noted. The patient may be followed clinically. Any follow-up studies can be obtained as clinically necessary. BREAST DENSITY SUMMARY C: The breasts are heterogeneously dense which may obscure small masses. BI-RADS 2 BIRADS: BIRADS - CATEGORY 2 Benign, no evidence of malignancy. Normal interval follow-up is recommended in 12 months. OVERALL ASSESSMENT - BENIGN A letter of notification will be sent to the patient regarding the results. [employer] recommends annual mammograms for women 40 years and older. [place], [place] EXAMINATION: BILATERAL DIGITAL DIAGNOSTIC MAMMOGRAM; TARGETED ULTRASOUND OF THE RIGHT BREAST 11/26/2019 2:27 pm; 11/26/2019 2:16 pm TECHNIQUE: Diagnostic mammography of the bilateral breasts was performed. Computer aided detection was utilized in the interpretation of this exam.; Targeted ultrasound of the right breast was performed. VIEWS: MLO and craniocaudal full field digital mammographic images obtained bilaterally with 3D tomosynthesis. COMPARISON: 06 July 2017 HISTORY: ORDERING SYSTEM PROVIDED HISTORY: Breast pain, right TECHNOLOGIST PROVIDED HISTORY: right breast pain Is the patient ?->No; ORDERING SYSTEM PROVIDED HISTORY: Breast pain, right Negative family history of breast cancer. 2-month history of oral contraceptive usage. Negative history of hormonal replacement therapy. No prior breast interventions. Patient is complaining about right breast pain x2 weeks. Patient is mid cycle. Pain is predominant in the right breast at 5-7 o'clock. FINDINGS: Mammogram: The breasts are heterogeneously dense which can obscure small masses. No skin thickening, nipple contour changes, malignant-type microcalcifications, areas of architectural distortion, or significant interval changes are noted. Ultrasound over the area of pain is advised. Ultrasound: Targeted ultrasonography 5-7 o'clock right breast was performed. In the area of maximal pain, a band of echogenic fibrous tissue is noted. No worrisome cystic or solid mass lesions are noted. Examination of the right axilla reveals no abnormality. A small benign-appearing lymph node is demonstrated. [facility], [place], [facility] Incoming Radiant Results From [employer] - 11/26/2019 7:00 PM EDT EXAMINATION: BILATERAL DIGITAL DIAGNOSTIC MAMMOGRAM; TARGETED ULTRASOUND OF THE RIGHT BREAST 11/26/2019 2:27 pm; 11/26/2019 2:16 pm TECHNIQUE: Diagnostic mammography of the bilateral breasts was performed. Computer aided detection was utilized in the interpretation of this exam.; Targeted ultrasound of the right breast was performed. VIEWS: MLO and craniocaudal full field digital mammographic images obtained bilaterally with 3D tomosynthesis. COMPARISON: 06 July 2017 HISTORY: ORDERING SYSTEM PROVIDED HISTORY: Breast pain, right TECHNOLOGIST PROVIDED HISTORY: right breast pain Is the patient ?->No; ORDERING SYSTEM PROVIDED HISTORY: Breast pain, right Negative family history of breast cancer. 2-month history of oral contraceptive usage. Negative history of hormonal replacement therapy. No prior breast interventions. Patient is complaining about right breast pain x2 weeks. Patient is mid cycle. Pain is predominant in the right breast at 5-7 o'clock. FINDINGS: Mammogram: The breasts are heterogeneously dense which can obscure small masses. No skin thickening, nipple contour changes, malignant-type microcalcifications, areas of architectural distortion, or significant interval changes are noted. Ultrasound over the area of pain is advised. Ultrasound: Targeted ultrasonography 5-7 o'clock right breast was performed. In the area of maximal pain, a band of echogenic fibrous tissue is noted. No worrisome cystic or solid mass lesions are noted. Examination of the right axilla reveals no abnormality. A small benign-appearing lymph node is demonstrated. IMPRESSION: 1. No evidence of malignancy in either breast on mammography. 2. Corresponding to area of breast pain right breast at 6 o'clock is an echogenically prominent band of fibrous tissue. No worrisome cystic or solid mass lesions right breast are noted. The patient may be followed clinically. Any follow-up studies can be obtained as clinically necessary. BREAST DENSITY SUMMARY C: The breasts are heterogeneously dense which may obscure small masses. BI-RADS 2 BIRADS: BIRADS - CATEGORY 2 Benign, no evidence of malignancy. Normal interval follow-up is recommended in 12 months. OVERALL ASSESSMENT - BENIGN A letter of notification will be sent to the patient regarding the results. [employer] recommends annual mammograms for women 40 years and older. [facility] [place], [place] Social History Date Type Detail Facility Start: 09-09-2021 End: 01-29-2022 Alcohol intake Current drinker of alcohol (finding) [employer] Phone: Start: 09-09-2021 History SDOH Alcohol Comment occasional [employer] Phone: Start: 08-30-2021 End: 01-29-2022 Exposure to SARS-CoV-2 (event) Not sure [facility] [place], [place] Start: 11-21-2019 End: 01-27-2022 Tobacco use and exposure [facility] [place] Start: 11-21-2019 End: 02-26-2020 Alcohol intake Current non-drinker of alcohol (finding) [facility] [place] Start: 08-02-2017 End: 01-27-2022 Tobacco smoking status NHIS Never smoker [place], [place] Start: 08-02-2017 Alcohol intake No [facility] [place] [place] Start: 1985 Sex Assigned At Not on file M [place], [place] Start: 1985 Sex Assigned At Female [facility] Vital Signs Date Time Vital Sign Value Performing Clinician Annette decker 01-29-2022 16:15-0400 Diastolic blood pressure 69 mm[Hg] Philly [employer] Work Phone: [employer] 01-29-2022 16:15-0400 Heart rate 66 /min [employer]ly [employer] Work Phone: [employer] 01-29-2022 16:15-0400 Respiratory rate 17 /min Philly [employer] Work Phone: [employer] 01-29-2022 16:15-0400 SaO2% (BldA) [Mass fraction] 98 % Philly [employer] Work Phone: [employer] 01-29-2022 16:15-0400 Systolic blood pressure 104 mm[Hg] Philly [address] Work Phone: [employer] [facility] [employer] 01-29-2022 15:45-0400 Body temperature 97.3 [degF] Philly Nguyễn DO Work Phone: [facility] [employer] 01-29-2022 14:30-0400 Body height 172.7 cm Philly Nguyễn DO Work Phone: [facility] [employer] 01-29-2022 14:30-0400 Body mass index (BMI) [Ratio] 30.65 kg/m2 Philly Nguyễn DO [facility] Phone[facility] [employer] 01-29-2022 14:30-0400 Body weight 91.44 kg Philly Nguyễn DO Work Phone: [facility] History of Present illness Narrative 01-29-2022 Sally Rogers RN - 01/29/2022 4:20 PM Cynthia Harper RN - 01/25/2022 2:32 PM Cynthia Harper RN - 01/25/2022 2:10 PM Cynthia Harper RN - 01/25/2022 1:53 PM EDT Note Date & Type Note Facility 01-29-2022 History of Present illness Narrative Patient verbalizes readiness for discharge. Discharge instructions given to patient and responsible adult, answered all questions, and verbalized understanding of discharge instructions. Discharge Criteria Inpatients must meet Criteria 1 through 7. All other patients are either YES or N/A. If a NO is chosen then Anesthesia or Surgeon must be notified. 1. Minimum 30 minutes after last dose of sedative medication, minimum 120 minutes after last dose of reversal agent. Yes 2. Systolic BP stable within 20 mmHg for 30 minutes & systolic BP between 90 & 180 or within 10 mmHg of baseline. Yes 3. Pulse between 60 and 100 or within 10 bpm of baseline. Yes 4. Spontaneous respiratory rate >/= 10 per minute. Yes 5. SaO2 >/= 95 or >/= baseline. Yes 6. Able to cough and swallow or return to baseline function. Yes 7. Alert and oriented or return to baseline mental status. Yes 8. Demonstrates controlled, coordinated movements, ambulates with steady gait, or return to baseline activity function. Yes 9. Minimal or no pain or nausea, or at a level tolerable and acceptable to patient. Yes 10. Takes and retains oral fluids as allowed. Yes 11. Procedural / perioperative site stable. Minimal or no bleeding. Yes 12. If GI endoscopy procedure, minimal or no abdominal distention or passing flatus. N/A 13. Written discharge instructions and emergency telephone number provided. Yes 14. Accompanied by a responsible adult. Yes Ok for surgery per Rolanda ALVAREZ. Pt notified and reminded to discontinue adipex until after surgery. Patient instructed on the pre-operative, intra-operative, and post-operative process. Patient instructed on NPO status. Medication instructions and pre operative instruction sheet reviewed with the patient. Instructed pt to stop taking adipex and to take abilify with a small sip of water prior to arriving to the hospital the day of surgery. Verifying with anesthesia that surgery can continue as planned with pt just stopping adipex Tuesday01/22/22. Awaiting direction from anesthesia. Attempted PAT phone call; no answer; message left to return PAT phone call. documented in this encounter [facility] Hospital Discharge instructions 01-29-2022 Discharge Instructions Note Date & Type Note Facility 01-29-2022 Hospital Discharg e instructions Sally Rogers RN - 01/29/2022 4:00 PM EDT SAME DAY SURGERY DISCHARGE INSTRUCTIONS 1. Do not drive or operate hazardous machinery for 24 hours. 2. Do not make important personal or business decisions for 24 hours. 3. Do not drink alcoholic beverages for 24 hours. 4. Do not smoke tobacco products for 24 hours. 5. Eat light foods (Jell-O, soups, etc....) and drink plenty of fluids (water, Sprite, etc...) up to 8 glasses per day, as you can tolerate. 6. Limit your activities for 24 hours. Do not engage in heavy work until your surgeon gives you permission. 7. Notify your doctor immediately of any of the following: Excessive swelling of, or around the wound area. Redness. Temperature of 100 degrees (F) or above. Excessive pain. Unable to urinate or empty bladder 4-6 hours after surgery. Excessive bleeding at incision site. 8. Call your surgeon for any questions regarding your surgery. POST-OPERATIVE INSTRUCTIONS Activity as tolerated; may shower and change dressings/pads as needed. Pain medication to be taken as directed for discomfort. No sexual relations, douches, tampons, tub baths, swimming in ponds/pools, or hot tubs for 2 weeks or until seen by the doctor for your follow-up appointment. May have some vaginal drainage for 1-2 weeks, call if excessive. Call the office at [phone] ([place]) [phone] ([place]) for an appointment in 2 weeks. documented in this encounter [employer] Phone: Clinical Note 11-28-2021 Note Date & Type Note Facility 11-28-2021 Note PROCEDURE: XR ANKLE LT MIN 3 V, XR FOOT LT MIN 3 VIEWS HISTORY: Pain of left ankle joint COMPARISON: None. FINDINGS: BONES:No fracture, acute abnormality, or significant arthropathy. Small degenerative enthesophyte at Achilles tendon insertion. SOFT TISSUES:No visible soft tissue swelling. EFFUSION:None visible. OTHER: Negative. IMPRESSION: 1. No acute bone abnormality or significant degenerative joint disease to account for patient's symptoms. Electronically authenticated by: SHERRIE PABLO Date: 2021-11-28 20:09 [facility] Clinical Note 11-28-2021 Note Date & Type Note Facility 11-28-2021 Note PROCEDURE: XR ANKLE LT MIN 3 V, XR FOOT LT MIN 3 VIEWS HISTORY: Pain of left ankle joint COMPARISON: None. FINDINGS: BONES:No fracture, acute abnormality, or significant arthropathy. Small degenerative enthesophyte at Achilles tendon insertion. SOFT TISSUES:No visible soft tissue swelling. EFFUSION:None visible. OTHER: Negative. IMPRESSION: 1. No acute bone abnormality or significant degenerative joint disease to account for patient's symptoms. 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 documented in this encounter [facility] [employer] Phone: Evaluation note Note Date & Type Note Facility Evaluation note Diagnosis Menorrhagia with irregular cycle Excessive or frequent menstruation documented in this encounter [employer] Phone: Evaluation note Note Date & Type Note Facility Evaluation note Diagnosis Post-op pain- Primary Other acute postoperative pain Menorrhagia with regular cycle Excessive or frequent menstruation documented in this encounter [facility] [employer] Phone: Advance Directives No Advanced Directives Records FoundDocuments on File Type Date Recorded 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 Tuber Operator Expl anation Advance Directives and Living Will Power of Supervisor Winding Department Latest Code Status on File Code Status Date Activated Date Inactivated Comments Full Code 11/16/2016 12:56 PM 11/17/2016 6:00 PM Full Code 11/16/2016 10:54 AM 11/16/2016 12:56 PM Full Code 11/15/2016 5:42 PM 11/16/2016 10:54 AM Full Code 11/15/2016 1:25 PM 11/15/2016 5:42 PM Documents on File Type Date Recorded Patient Tuber Operator Expl anation Advance Directives and Living Will Power of Supervisor Winding Department Latest Code Status on File Code Status Date Activated Date Inactivated Comments Full Code 11/16/2016 12:56 PM 11/17/2016 6:00 PM Full Code 11/16/2016 10:54 AM 11/16/2016 12:56 PM Full Code 11/15/2016 5:42 PM 11/16/2016 10:54 AM Full Code 11/15/2016 1:25 PM 11/15/2016 5:42 PM Documents on File Type Date Recorded Patient Tuber Operator Expl anation ACP-Advance Directive ACP-Power of Supervisor Winding Department Documents on File Type Date Recorded Patient Tuber Operator Expl anation ACP-Advance Directive ACP-Power of Supervisor Winding Department Latest Code Status on File Code Status Date Activated Date Inactivated Comments Full Code 01/29/2022 2:15 PM Full Code 11/16/2016 12:56 PM 11/17/2016 6:00 PM Reason for Referral Status Reason Specialty Diagnoses / Procedures Referre d By Contact Referred To Contact Closed Radiology Diagnoses Breast pain, right Procedures DEYSI DIGITAL DIAGNOSTIC W OR WO CAD BILATERAL DEYSI DIAGNOSTIC W OR WO CAD BILATERAL Gisel Vela, CANINE DEPUTY - CNM [address] 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 [place] [address] [place] [address] Referral ID Status Reason Start Date Expiration Date Visits Re quested Visits Authorized [id number] Closed 10/08/2021 11/06/2021 1 1 Assessments Diagnosis Breast pain, right Mastodynia Diagnosis Breast pain, right Mastodynia Diagnosis Screening for cervical cancer Screening for malignant neoplasm of the cervix Irregular menses Irregular menstrual cycle Summary Purpose Family History No Family History Records FoundNo Family History Records FoundNo Family History Records FoundNo Family History Records FoundNo Family History Records FoundNo Family History Records Found Additional Source Comments Reason for Visit (unrecogniz ed section and content) Status Reason Specialty Diagnoses / Procedures Referre d By Contact Referred To Contact Closed Radiology Diagnoses Breast pain, right Procedures DEYSI DIGITAL DIAGNOSTIC W OR WO CAD BILATERAL DEYSI DIAGNOSTIC W OR WO CAD BILATERAL Gisel Vela APRN - [address] [place] [address] Status Reason Specialty Diagnoses / Procedures Referred By Contact Referred To Contact Pending Review Radiology Diagnoses Breast pain, right Procedures US BREAST COMPLETE RIGHT US Breast Limited Right Gisel Vela APRN - JORDAN[address] [place] [address] [facility] Ultrasound [address] [place] [address] Specialty Diagnoses / Procedures Referred By Contac t Referred To Contact Radiology Diagnoses 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 [place] [address] [place] [address] Referral ID Status Reason Start Date Expiration Date Visits Re quested Visits Authorized [id number] Closed 10/08/2021 11/06/2021 1 1 Specialty Diagnoses / Procedures Referred By Contac t Referred To Contact Diagnoses Menorrhagia with regular cycle MENORRHAGIA, ENDOMETRIAL POYLP Procedures NE HYSTEROSCOPY,W/ENDO BX DILATATION AND CURETTAGE HYSTEROSCOPY CAUTERY ABLATION-NOVASURE, ENDOMETRIAL ABLATION Philly Jacobsen, DO [address] [place] [address] [facility] [id number] [place] [address] Referral ID Status Reason Start Date Expiration Date Visits Re quested Visits Authorized [id number] 1 1 INFORMATION SOURCE (unrecogn ized section and content) DATE CREATED AUTHOR [facility]/25/2021 [facility] DATE CREATED AUTHOR AUTHOR'S ORGANIZ ATION 10/12/2021 [facility] DATE CREATED AUTHOR AUTHOR'S ORGANIZ ATION 02/06/2022 [facility] DATE CREATED AUTHOR AUTHOR'S ORGANIZ ATION 05/04/2022 [facility] DATE CREATED AUTHOR AUTHOR'S ORGANIZ ATION 07/14/2022 [facility] DATE CREATED AUTHOR AUTHOR'S ORGANIZ ATION 03/24/2023 [facility] Care Teams (unrecognized sec tion and content) Manufacturing Engineer Supervisor Relationship Specialty Start Date End Date Claudia Oro MD [address] [phone] PCP - General 03/15/13 Team Status: Inactive Member Role Status Dates Manuel Augustin MD Attending Provider Active Manufacturing Engineer Supervisor Relationship Specialty Start Date End Date Claudia Oro MD [address] [phone] PCP - General 03/15/13 Manufacturing Engineer Supervisor Relationship Specialty Start Date End Date Claudia Oro MD [address] [place] [address] PCP - General 03/15/13 Manufacturing Engineer Supervisor Relationship Specialty Start Date End Date Claudia Oro MD [address] [place] [address] PCP - General 03/15/13 Manufacturing Engineer Supervisor Relationship Specialty Start Date End Date Claudia Oro MD [address] [phone] PCP - General 03/15/13 Goals (unrecognized section and content) Goals may be documented in a n alternate section Ordered Prescriptions (unrec ognized section and content) Prescription Sig Dispensed Refills Start Date End Da te HYDROcodone-acetaminophe n (NORCO) 5-325 MG per tabletIndications:Post-o p pain Take 1 tablet by mouth every 8 hours as needed for Pain for up to 3 days. Intended supply: 3 days. Take lowest dose possible to manage pain 6 tablet 0 01/29/2022 02/01/2022 ketorolac (TORADOL) 10 MG tablet Take 1 tablet by mouth every 6 hours as needed for Pain 12 tablet 0 01/29/2022 Scheduled Active and Recently Administ ered Medications (unrecognized section and content) Medication Order 01/27/2022 01/28/2022 01/29/2022 acetaminophen (TYLENOL) tablet 650 mg (COMPLETED) 650 mg, Oral, ONCE, 1 dose, On Tue01/29/22 at 1445, Maximum dose of acetaminophen is 4000 mg from all sources in 24 hours., Pre-op (day of surgery) 1445 (Given - Provid er: Agnes Erickson RN) dimenhyDRINATE (DRAMAMINE) tablet 50 mg (COMPLETED) 50 mg, Oral, ONCE, 1 dose, On Tue01/29/22 at 1445, Pre-op (day of surgery) 1445 (Given - Provid er: Agnes Erickson RN) sodium chloride flush 0.9 % injection 5-40 mL 5-40 mL, IntraVENous, EVERY 12 HOURS SCHEDULED (2 times per day), First dose on Tue01/29/22 at 2100, Until Discontinued, For Line Patency: Peripheral IV = 5 mL; Midline or Central Line = 10 mL/lumen. If following IV push medication, administer flush at same rate as the IV push. Flush volume is determined by type of infusion therapy being given. For non-viscous solutions use: Peripheral IV = 5 mL Midline or Central Line = 10 mL/lumen For viscous solutions (i.e. blood components, parenteral nutrition, contrast media, or after obtaining blood sample) use: Peripheral IV = 10 mL Midline or Central Line = 20 mL/lumen 2100 (Due) Continuous Medication Order 01/27/2022 01/28/2022 01/29/2022 lactated ringers infusion IntraVENous, at 100 mL/hr, CONTINUOUS, Starting on Tue01/29/22 at 1445, Pre-op (day of surgery) 1446 (New Bag - Prov ider: Agnes Erickson RN)1616 (Stopped - Provider: Sally Rogers RN) lactated ringers infusion IntraVENous, at 125 mL/hr, CONTINUOUS, Starting on Tue01/29/22 at 1630, PACU only 1630 (Due) PRN Medication Order 01/27/2022 01/28/2022 01/29/2022 0.9 % sodium chloride infusion IntraVENous, at 5-250 mL/hr, PRN, if patient receiving piggyback infusions and maintenance fluids are not ordered OR KVO fluids to protect IV site / prevent frequent line interruptions/ long duration, Starting on Tue01/29/22 at 1607, For piggyback infusion, administer at same rate as piggyback for a total of 25 mL. Enter 25 mL into dose field and piggyback rate into rate field of order. If piggyback is infusing at a rate less than 100 mL/hr, enter 25 mL into dose field and 100 mL/hr into rate field of order. For KVO fluids, enter rate of 20 mL/hr or less into rate field of order. fentaNYL (SUBLIMAZE) injection 25 mcg 25 mcg, IntraVENous, EVERY 5 MIN PRN, 4 doses, Starting on Tue01/29/22 at 1607, Until Discontinued, Pain Moderate (4-6), Phase I - Initial therapy for moderate pain., PACU only fentaNYL (SUBLIMAZE) injection 50 mcg 50 mcg, IntraVENous, EVERY 5 MIN PRN, 4 doses, Starting on Tue01/29/22 at 1607, Until Discontinued, Pain Severe (7-10), Phase I - Initial therapy for severe pain., PACU only HYDROcodone-acetaminophen (NORCO) 5-325 MG per tablet 1 tablet(Linked Group 1) 1 tablet, Oral, ONCE PRN, 1 dose, Starting on Tue01/29/22 at 1607, Until 01/30/22 at 1607, Pain Moderate (4-6), Maximum dose of acetaminophen is 4000 mg from all sources in 24 hours., PACU only HYDROcodone-acetaminophen (NORCO) 5-325 MG per tablet 2 tablet(Linked Group 1) 2 tablet, Oral, ONCE PRN, 1 dose, Starting on Tue01/29/22 at 1607, Until 01/30/22 at 1607, Pain Severe (7-10), Maximum dose of acetaminophen is 4000 mg from all sources in 24 hours., PACU only ondansetron (ZOFRAN) injection 4 mg 4 mg, IntraVENous, ONCE PRN, 1 dose, Starting on Tue01/29/22 at 1607, Until 01/30/22 at 1607, Nausea, Initial antiemetic therapy., PACU only prochlorperazine (COMPAZINE) injection 5 mg 5 mg, IntraVENous, ONCE PRN, 1 dose, Starting on Tue01/29/22 at 1607, Until 01/30/22 at 1607, Nausea, Secondary antiemetic therapy., PACU only sodium chloride flush 0.9 % injection 5-40 mL 5-40 mL, IntraVENous, PRN, Starting on Tue01/29/22 at 1607, Until Discontinued, Line Care, After every IV line use, For Line Patency: Peripheral IV = 5 mL; Midline or Central Line = 10 mL/lumen. If following IV push medication, administer flush at same rate as the IV push. Flush volume is determined by type of infusion therapy being given. For non-viscous solutions use: Peripheral IV = 5 mL Midline or Central Line = 10 mL/lumen For viscous solutions (i.e. blood components, parenteral nutrition, contrast media, or after obtaining blood sample) use: Peripheral IV = 10 mL Midline or Central Line = 20 mL/lumen Linked Groups Order Group 1: HYDROcodone-acetaminophen (NORCO) 5-325 MG per tablet 1 tabletJump to med 1 tablet, Oral, ONCE PRN, 1 dose, Starting on Tue01/29/22 at 1607, Until 01/30/22 at 1607, Pain Moderate (4-6)
Maximum dose of acetaminophen is 4000 mg from all sources in 24 hours.
PACU only Or HYDROcodone-acetaminophen (NORCO) 5-325 MG per tablet 2 tabletJump to med 2 tablet, Oral, ONCE PRN, 1 dose, Starting on Tue01/29/22 at 1607, Until 01/30/22 at 1607, Pain Severe (7-10)
Maximum dose of acetaminophen is 4000 mg from all sources in 24 hours.
PACU only FOR RECORDS PERTAINING TO PATIENTS WHO ARE OR HAVE BEEN ENROLLED IN A CHEMICAL DEPENDENCY/SUBSTANCEABUSE PROGRAM, SOME INFORMATION MAY BE OMITTED. This clinical summary was aggregated from multiple sources. Caution should be exercised in using it in the provision of clinical care. This summary normalizes information from multiple sources, and as a consequence, information in this document may materially change the coding, format and clinical context of patient data. In addition, data may be omitted in some cases. CLINICAL DECISIONS SHOULD BE BASED ON THE PRIMARY CLINICAL RECORDS. [facility] provides no warranty or guarantee of the accuracy or completeness of information in this document.
== END 2023-10-31 15:59 | disposition home or self-care (01) ==
LOC: RAD 16:00
PROVIDERS: PCP Family Medicine; Visit Provider Family Medicine
DX: M53.3 Sacrococcygeal disorders, not elsewhere classified (principal)
CPT/HCPCS: 72110; 72220

== ENCOUNTER 2024-09-21 08:33 | Outpatient (OUT) | payer OTHER, SELFPAY ==
[2024-09-21 09:04] LABS: Basophils Absolute Auto 0.1 10^3/uL (0.0-0.1); Basophils Percent Auto 1.3 % (0.2-2.0); Eosinophils Absolute Auto 0.2 10^3/uL (0.0-0.7); Hematocrit 42.6 % (36.0-48.0); Hemoglobin 14.4 g/dL (12.0-16.0); Immature Granulocytes Abs Auto 0.02 10^3/uL (0.00-0.03); Immature Granulocytes Pct Auto 0.3 % (0.0-0.5); Lymphocytes Absolute Auto 2.3 10^3/uL (1.2-3.8); Lymphocytes Percent Auto 29.9 % (20.5-60.0); Mean Corpuscular HGB Conc 33.8 g/dL (29.9-35.2); Mean Corpuscular Hemoglobin 29.3 pg (26.7-34.0); Mean Corpuscular Volume 86.8 fL (81.0-99.0); Mean Platelet Volume 9.2 fL (9.5-13.5); Monocytes Absolute Auto 0.5 10^3/uL (0.3-0.8); Monocytes Percent Auto 6.4 % (1.7-12.0); Neutrophils Absolute Auto 4.6 10^3/uL (1.4-6.5); Neutrophils Percent Auto 59.1 % (43.0-75.0); Platelet Count 289 10^3/uL (150-450); Red Blood Count 4.91 10^6/uL (4.20-5.40); Red Cell Distribution Width 12.3 % (11.0-15.0); White Blood Count 7.7 10^3/uL (4.0-11.0)
[2024-09-21 10:19] LABS: Alanine Aminotransferase 28 U/L (14-59); Albumin Level 3.7 g/dL (3.4-5.0); Alkaline Phosphatase 85 U/L (46-116); Anion Gap 13.1; Aspartate Amino Transferase 18 U/L (15-37); BUN Creatinine Ratio 17.1; Bilirubin Total 0.4 mg/dL (0.2-1.0); Carbon Dioxide 27.1 mmol/L (21.0-32.0); Chloride 104 mmol/L (98-107); Chol HDL Ratio 4.1; Cholesterol 225 mg/dL (<=200); Estimated GFR (African America >60 (>=60 mL/min/1.73m^2); Estimated GFR (Non-African Ame >60 (>=60 mL/min/1.73m^2); Free T3 2.79 pg/mL (2.18-3.98); Globulin 3.8 g/dL; Glucose 95 mg/dL (74-106); HDL Cholesterol 55 mg/dL (40-60); Potassium 4.2 mmol/L (3.5-5.1); Sodium 140 mmol/L (136-145); Total Protein 7.5 g/dL (6.4-8.2); Triglycerides 168 mg/dL (<=150); VLDL CHOLESTEROL 33.6 mg/dL
[2024-09-21 11:21] LABS: Estimated Average Glucose 114 mg/dL; Glycohemoglobin A1C 5.6 % (4.5-6.2)
[2024-09-22 08:09] LABS: Insulin 27.9 uIU/mL (2.6-24.9)
== END 2024-09-21 08:34 | disposition home or self-care (01) ==
LOC: LAB 08:36
PROVIDERS: PCP Family Medicine; Visit Provider Family Medicine
DX: Z00.00 Encounter for general adult medical examination without abnormal findings (principal)
CPT/HCPCS: 36415; 80053; 80061; 82306; 83036; 83525; 83540; 84436; 84443; 84481; 85025

== ENCOUNTER 2024-11-01 06:58 | Outpatient (OUT) | payer OTHER, SELFPAY ==
--- OUTSIDE RECORDS SUMMARY | 2024-11-01 07:01 | XMS_ITS | CCD ---
Author Organization [facility] Care Team Providers Care Aircraft Engineer Name Role Phone Claudia Oro Primary Care Provider MD Manuel Augustin Attending Provider [phone] Claudia Oro MD Primary Care Provider [phone] Claudia Oro MD Primary Care Provider [phone] NBA HESTER Admitting Unavailable NBA HESTER Attending Unavailable ADAMS ., DR TAYLOR Primary Care Unavailable BEV, DR SHERRIE Moore Consulting Unavailable NBA HESTER Consulting Unavailable HOY ., DR TAYLOR Admitting [...] Care Unavailable CHARLI, DR CHAWLA Consulting Unavailable CAMI HICKS Attending Unavailable CLAUDIA ORO Referring Unavailable Claudia Oro Primary Care Physician Darleen Renae Attending Unavailable CAMI HICKS Attending Unavailable CLAUDIA ORO Referring Unavailable Claudia Oro MD Primary Care Provider [phone] Claudia Oro MD Primary Care Provider [phone] Gisel Vela CNM Unavailable Sumit MANAGER FASHION-FITNESS SERVICES MANAGERPauilna Unavailable Claudia Oro MD Primary Care Provider GISEL VELA Referring Unavailable APULINA ARANA Attending Unavailable CLAUDIA ORO Primary Care Unavailable PAULINA ARANA Attending Unavailable CLAUDIA ORO Primary Care Unavailable GISEL VELA Referring Unavailable PAULINA ARANA Attending Unavailable CLAUDIA ORO Primary Care Unavailable GISEL VELA Referring Unavailable CLAUDIA ORO Primary Care Unavailable GISEL VELA Referring Unavailabl e KAILEY, GISEL LOPEZ Referring Unavailabl e ADAMS, CLAUDIA M Primary Care Unavailable GISEL VELA Referring Unavailabl e HOY, CLAUDIA M Primary Care Unavailable GISEL VELA Attending Unavailabl e GISEL VELA Referring Unavailabl e HARSHADY, CLAUDIA M Primary Care Unavailable GISEL VELA Referring Unavailabl e CLAUDIA ORO M Primary Care Unavailable Allergies Allergy Classification Reported Allergen(s) Allergy Type Date of Onset Reaction(s) Facility (18 sources) Ciprofloxacin; Translations: [ciprofloxacin] Drug Allergy 4 Hives, Itching (finding), Itching [place], [place] (2 sources) Ciprofloxacin; Translations: [Cipro] Drug Allergy 4 [facility] Medications Current Medications Medication Drug Class(es) Dates [...] 02/01/2022 Active ARIPiprazole 5 mg oral tablet (9 sources) Atypical Antipsychotic Start: 09-04-2021 ARIPiprazole (ABILIFY) 5 MG tablet 09/04/2021 Active betamethasone 0.5 mg/ml / clotrimazole 10 mg/ml topical cream (2 sources) Azole Antifungal, Corticosteroid Start: 10-11-2024 clotrimazole-betam ethasone (LOTRISONE) 1-0.05 % cream Indications: Acute vulvitis Apply topically 2 times daily. 15 g 1 10/11/2024 Active calcium chloride 0.0014 meq/ml / potassium chloride 0.004 meq/ml / sodium chloride 0.103 meq/ml / sodium lactate 0.028 meq/ml injectable solution (2 sources) Start: 01-29-2022 lactated ringers infusion diclofenac sodium 75 mg delayed release oral tablet (1 source) Nonsteroidal Anti-inflammatory Drug Start: 10-30-2023 take 1 tablet by mouth twice daily 2 ml fentaNYL 0.05 mg/ml injection (2 sources) Opioid Agonist Start: 01-29-2022 fentaNYL (SUBLIMAZE) injection 50 mcg Start: 01-29-2022 fentaNYL (SUBL IMAZE) injection 25 mcg hydrocortisone acetate 25 mg/ml / pramoxine hydrochloride 10 mg/ml topical cream (3 sources) Corticosteroid Start: 12-23-2022 Pramoxine-HC (HYDROCORTISONE-PRAMOXINE) 2.5-1 % CREA cream Indications: Anal fissure Apply topically 2 times daily 28.4 g 1 12/23/2022 Active ketorolac tromethamine 10 mg oral tablet (1 source) Nonsteroidal Anti-inflammatory Drug, Cyclooxygenase Inhibitor Start: 01-29-2022 take 1 tablet by mouth every six hours as needed for pain ketorolac (TORADOL) 10 MG tablet Take 1 tablet by mouth every 6 hours as needed for Pain 12 tablet 0 01/29/2022 Active latanoprost 0.05 mg/ml ophthalmic solution (6 sources) Prostaglandin Analog Start: 09-15-2021 take 1 drop(s) into the eye(s) at bedtime latanoprost (XALATAN) 0.005 % ophthalmic solution place 1 drop into both eyes at bedtime 09/15/2021 Active Meclizine (1 source) Antiemetic Start: 07-04-2023 Multiple Vitamin (multivitamin) capsule (4 sources) take 1 capsule by mouth once daily Multiple Vitamin (multivitamin) capsule Take 1 capsule by mouth daily. Active 2 ml ondansetron 2 mg/ml injection (1 source) Serotonin-3 Receptor Antagonist Start: 01-29-2022 End: 01-30-2022 ondansetron (ZOFRAN) injection 4 mg oxaprozin 600 mg oral tablet (1 source) Nonsteroidal Anti-inflammatory Drug Start: 11-20-2023 phenazopyridine hydrochloride 200 mg oral tablet (1 source) Start: 10-17-2024 take 1 tablet by mouth three times daily as needed for pain phenazopyridine (PYRIDIUM) 200 MG tablet Take 1 tablet by mouth 3 times daily as needed for Pain 9 tablet 10/17/2024 Active phentermine hydrochloride 37.5 mg oral capsule (6 sources) Sympathomimetic Amine Anorectic Start: 12-04-2022 take 1 capsule by mouth once daily phentermine 37.5 MG capsule Take 1 capsule by mouth daily. 12/04/2022 Active Start: 11-02-2021 take 1 tablet by arlene th once daily phentermine (ADIPEX-P) 37.5 MG tablet take 1 tablet by mouth once daily 0 11/02/2021 Active 2 ml prochlorperazine 5 mg/ml injection (1 source) Phenothiazine Start: 01-29-2022 End: 01-30-2022 prochlorperazine (COMPAZINE) injection 5 mg 5 ml sodium chloride 9 mg/ml injection (3 sources) Start: 01-29-2022 sodium chlorid e flush 0.9 % injection 5-40 mL Start: 01-29-2022 0.9 % sodium c hloride infusion Start: 01-29-2022 sodium chlorid e flush 0.9 % injection 5-40 mL sulfamethoxazole 800 mg / trimethoprim 160 mg oral tablet (1 source) Dihydrofolate Reductase Inhibitor Antibacterial, Sulfonamide Antimicrobial Start: 10-13-2024 End: 10-20-2024 take 1 tablet by mouth twice daily sulfamethoxazole-trimethoprim (BACTRIM DS;SEPTRA DS) 800-160 MG per tablet Indications: Urinary tract infection without hematuria, site unspecified Take 1 tablet by mouth 2 times daily for 7 days 14 tablet 10/13/2024 10/20/2024 Active Completed/Discontinued Medications Medication Drug Class(es) Dates Sig (Normalized) Sig (Original) acetaminophen 325 mg oral tablet (1 source) Start: 01-29-2022 End: 01-29-2022 acetaminophen (TYLENOL) tablet 650 mg dimenhyDRINATE 50 mg oral tablet (1 source) Start: 01-29-2022 End: 01-29-2022 dimenhyDRINATE (DRAMAMINE) tablet 50 mg gadoteridol (PROHANCE) injection 20 mL (1 source) Start: 10-14-2021 End: 10-14-2021 gadoteridol (PROHANCE) injection 20 mL Problems Active Problems Problem Classification Problem Date Documented Da te Episodic/Chronic Anxiety disorders (6 sources) Anxiety disorder; Translations: [Anxiety disorder, unspecified] Onset: 2 01-27-2022 Chronic Congestive heart failure; nonhypertensive (1 source) Diastolic heart failure; Translations: [Unspecified diastolic (congestive) heart failure] Onset: 9 01-27-2022 Chronic Esophageal disorders (5 sources) Gastroesophageal reflux disease without esophagitis; Translations: [Gastro-esophageal reflux disease without esophagitis] Onset: 9 01-27-2022 Chronic Genitourinary symptoms and ill-defined conditions (2 sources) Dysuria; Translations: [Dysuria] Onset: 5 10-18-2024 Episodic Hypertension with complications and secondary hypertension (1 source) Hypertensive heart failure; Translations: [Hypertensive heart disease with heart failure] Onset: 9 01-27-2022 Chronic Inflammatory diseases of female pelvic organs (4 sources) Abscess of labia; Translations: [Abscess of vulva] Onset: 4 12-14-2023 Episodic Menstrual disorders (4 sources) Irregular periods; Translations: [Menometrorrhagia] Chronic Miscellaneous mental health disorders (2 sources) Psychosomatic factor in physical condition; Translations: [Psychological and behavioral factors associated with disorders or diseases classified elsewhere] Onset: 4 Chronic Nonmalignant breast conditions (20 sources) Pain of breast; Translations: [Lump in upper outer quadrant of right breast] Onset: 5 08-10-2024 Episodic Nonmalignant breast conditions (2 sources) Mastodynia of right breast; Translations: [Breast pain, right] Other eye disorders (1 source) Visual deprivation nystagmus; 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 Other eye disorders (1 source) Hypoplasia of the optic nerve; 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, 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 Other female genital disorders (1 source) Vaginal irritation; Translations: [Other specified noninflammatory disorders of vagina] Episodic Other gastrointestinal disorders (1 source) Swollen abdomen; Translations: [Abdominal distension (gaseous)] Onset: 4 Episodic Other gastrointestinal disorders (2 sources) Altered bowel function; Translations: [Change in bowel habit] Onset: 4 Episodic Other gastrointestinal disorders (1 source) Abdominal bloating 12-05-2023 Episodic Other liver diseases (3 sources) Large liver; Translations: [Hepatomegaly, not elsewhere classified] Onset: 4 Episodic Other nervous system disorders (1 source) Postoperative pain ; Translations: [Other acute postprocedural pain] Episodic Other upper respiratory infections (1 source) Acute sinusitis 12-05-2023 Episodic Residual codes; unclassified (1 source) Chronic pain 12-05-2023 Episodic Residual codes; unclassified (1 source) Early satiety 12-05-2023 Episodic Residual codes; unclassified (1 source) Insomnia 12-05-2023 Episodic Spondylosis; intervertebral disc disorders; other back problems (1 source) Disorder of sacrum 12-05-2023 Episodic Unclassified (1 source) Cancer cervix screening status; Translations: [Screening for cervical cancer] Urinary tract infections (2 sources) Urinary tract infectious disease; Translations: [Urinary tract infection, site not specified] Onset: 10-18-2024 Episodic Past or Other Problems Problem Classification Problem Date Documented Da te Episodic/Chronic Abdominal pain (2 sources) Epigastric pain; Translations: [Pelvic and perineal pain] Onset: 06-03-2021 12-05-2023 Episodic Deficiency and other anemia (5 sources) Anemia; Translations: [Anemia, unspecified] Onset: 09-14-2018 01-27-2022 Episodic Diseases of mouth; excluding dental (1 source) Disturbances of salivary secretion; Translations: [DISTURBANCES OF SALIVARY SECRETION] Onset: 12-01-2021 Episodic Immunizations and screening for infectious disease (4 sources) Raised antibody titer; Translations: [RAISED ANTIBODY TITER] Onset: 11-28-2021 Episodic Other aftercare (1 source) Other detention (current) drug therapy; Translations: [OTH SKILLED NURSING CURRENT DRUG THERAPY] Onset: 12-01-2021 Episodic Other connective tissue disease (1 source) Pain in left foot; Translations: [PAIN IN LEFT FOOT] Onset: 12-01-2021 Episodic Other non-traumatic joint disorders (4 sources) Pain in left ankle and joints of left foot; Translations: [PAIN IN LEFT ANKLE] Onset: 11-27-2021 Episodic Other screening for suspected conditions (not mental disorders or infectious disease) (4 sources) Patient encounter status; Translations: [Encounter for screening mammogram for malignant neoplasm of breast] Onset: 12-14-2023 02-22-2024 Episodic Other skin disorders (4 sources) Localized swelling, mass and lump, neck; Translations: [LOCALIZED SWELLING MASS AND LUMP NECK] Onset: 03-06-2022 Episodic Unclassified (4 sources) Breast pain, right 08-10-2024 Results Test Name Value Interpretation Reference Range Facility Cult,Urineon 2024 Cult,Urine Specimen Description .CLEAN CATCH URINE Special Requests Site: Urine Culture NO SIGNIFICANT GROWTH Report Status FINAL 2024 Normal [facility] Comment on above: Performed By: #### U RC #### [facility] [address] [place] [address] Claim Trainee: Xavier Wilder MD [facility] [address] [place] [address] Claim Trainee: Ernesto Edwards MD Microscopic Urinalysison Epithelial cells LM.HPF (Urine sed) [#/Area] 0 TO 2 [facility] RBC LM.HPF (Urine sed) [#/Area] None [facility] WBC LM.HPF (Urine sed) [#/Area] None [facility] Bon [facility] Urinalysison 10-18-2024 Bilirubin Ql (U) Negative NEGATIVE [facility] Clarity (U) Clear Clear [facility] Color (U) Yellow Yellow [employer] [facility] Glucose Test strip (U) [Mass/Vol] Negative NEGATIVE mg/dL [facility] Hemoglobin Auto test strip Ql (U) TRACE Abnormal NEGATIVE [facility] Interpretation and review of laboratory results Abnormal [facility] Ketones (U) [Mass/Vol] Negative NEGATIVE mg/dL [facility] Leukocyte esterase Test strip Ql (U) Negative NEGATIVE [facility] Nitrite Ql (U) Negative NEGATIVE [facility] pH (U) 6 [pH] 5.0 - 9.0 [facility] Protein (U) [Mass/Vol] Negative NEGATIVE mg/dL [facility] Specific gravity (U) [Rel density] 1.01 1.010 - 1.020 [facility] Urobilinogen Qn (U) Normal 0.0 - 1. 0 EU/dL [facility] Urinalysis, Routineon 2024 Bilirubin, SemiQt,Ur Negative Normal NEG [facility] Comment on above: Performed By: #### U A, UMICAO #### [facility] [address] [place] [address] Claim Trainee: Ernesto Edwards MD Blood, Urine TRACE Abnormal NEG [facility] Comment on above: Performed By: #### U A, UMICAO #### [facility] [address] [place] [address] Claim Trainee: Ernesto Edwards MD Clarity (U) Clear Normal CLEAR [facility] Comment on above: Performed By: #### U A, UMICAO #### [facility] [address] [place], [facility] Claim Trainee: Ernesto Edwards MD Color (U) Yellow Normal YEL [facility] Comment on above: Performed By: #### U A, UMICAO #### [facility] [address] [place] [address] Claim Trainee: Ernesto Edwards MD Glucose Ql (U) Negative Normal NEG [facility] Comment on above: Performed By: #### U A, UMICAO #### [facility] [address] [place] [address] Claim Trainee: Ernesto Edwards MD Ketones Ql (U) Negative Normal NEG [facility] in Hospital Comment on above: Performed By: #### U A, UMICAO #### [facility] [address] [place], [place] [id number] Claim Trainee: Ernesto Edwards MD Leukocyte esterase Test strip Ql (U) Negative Normal NEG [facility] Comment on above: Performed By: #### U A, UMICAO #### [facility] [address] [place] [address] Claim Trainee: Ernesto Edwards MD Nitrite,Ur Negative Normal NEG [facility] Comment on above: Performed By: #### U A, UMICAO #### [facility] [address] [place] [address] Dr. [place], [place] [id number] Claim Trainee: Ernesto Edwards MD PH,Ur 6.0 Normal 5.0-9.0 [facility] Comment on above: Performed By: #### U A, UMICAO #### [facility] [address] [place] [address] Dr. [place], [place] [id number] Claim Trainee: Ernesto Edwards MD Protein Ql (U) Negative Normal NEG [facility] in Hospital Comment on above: Performed By: #### U A, UMICAO #### [facility] [address] [place] [address] [place] [address] Claim Trainee: Ernesto Edwards MD Spec. [place],Ur 1.010 Normal 1.010-1.020 [facility] Comment on above: Performed By: #### U A, UMICAO #### [facility] [address] [place] [address] [place] [address] Claim Trainee: Ernesto Edwards MD Urobilinogen,Ur Normal Normal 0.0-1.0 [facility] Comment on above: Performed By: #### U A, UMICAO #### [facility] [address] [place] [address] [place] [address] Claim Trainee: Ernesto Edwards MD Urinalysis,Microon Epithelial cells LM Ql (Urine sed) 0 TO 2 Normal 0-25 [facility] Comment on above: Performed By: #### U A, UMICAO #### [facility] [address] [place] [id number] Claim Trainee: Ernesto Edwards MD Urine RBC's None Normal 0-2 [facility] Comment on above: Performed By: #### U A, UMICAO #### [facility] [address] [place] [address] Claim Trainee: Ernesto Edwards MD Urine WBC's None Normal 0-5 [facility] Comment on above: Performed By: #### U A, UMICAO #### [facility] [address] [place], [place] [id number] Claim Trainee: Ernesto Edwards MD Cult,Genitalon 10-14-2024 Cult,Genital Specimen Description .VAGINA Special Requests Site: Genital Culture NEGATIVE FOR GROUP B STREPTOCOCCI NORMAL URO-GENITAL BERENICE NEGATIVE FOR NEISSERIA GONORRHOEAE Report Status FINAL 10/14/2024 Normal [facility] Comment on above: Performed By: #### G EC #### [facility] [address] [place] [address] Claim Trainee: Xavier Wilder MD [facility] [address] [place] [address] Claim Trainee: Ernesto Edwards MD Cult,Urineon 10-13-2024 Cult,Urine Specimen Description .VOIDED URINE Culture ESCHERICHIA COLI 10 to 50,000 CFU/ML Report Status FINAL 10/13/2024 SUSCEPTIBILITY Organism ESCHERICHIA COLI Method RAFI Ampicillin >=32 RESISTANT Cefazolin <=4 SUSCEPTIBLE Cefazolin sensitivity results can be used to predict the effectiveness of oral cephalosporins (eg. Cephalexin) in uncomplicated Urinary Tract Infections due to E. coli, K. pneumoniae, and P. mirabilis Ceftriaxone <=0.25 SUSCEPTIBLE ESBL NEGATIVE Gentamicin <=1 SUSCEPTIBLE Levofloxacin <=0.12 SUSCEPTIBLE Nitrofurantoin <=16 SUSCEPTIBLE Piperacillin/Tazobact am <=4 SUSCEPTIBLE Tobramycin <=1 SUSCEPTIBLE Trimethoprim/Sulfa <=20 SUSCEPTIBLE Susceptible [facility] Comment on above: Performed By: #### U #### [facility] [address] [place] [address] Claim Trainee: Xavier Wilder MD [facility] [address] [place] [address] Claim Trainee: Ernesto Edwards MD MAMMO DIAGNOSTIC WITH CHANDRIKA B ILATERALon 09-11-2024 MAMMO DIAGNOSTIC WITH CHANDRIKA BILATERAL ADDENDUM #1 The patient previously presented for a bilateral diagnostic mammogram and right breast ultrasound however at the time of interpretation prior breast imaging had not been submitted for comparison. Prior breast imaging is now been submitted for comparison including mammograms from February 22, 2024, June 10, 2021, and July 04, 2017. When comparing the recent mammogram to the prior studies there is no new dominant mass, distortion, or suspicious microcalcification either breast. BI-RADS: 2: Benign Recommendation: Clinical correlation/managemen t. Recommendation Laterality: Right ORIGINAL REPORT EXAM: MAMMO DIAGNOSTIC WITH CHANDRIKA BILATERAL, US BREAST LIMITED UNILATERAL RIGHT, 08/10/2024 11:19 AM (accession [id number]), 08/10/2024 11:33 AM (accession [id number]) CLINICAL INDICATIONS AND HISTORY: right breast pain and density at 10:00, 8 cm FTN, marked. New onset right nipple plain. N64.4:Nipple pain N64.4:Breast pain, right N63.11:Mass of upper outer quadrant of right breast 38-year-old female presents with complaints of a palpable area of concern in the right breast 10:00 axis and right nipple pain. COMPARISON: No prior studies available for comparison. The patient's prior breast imaging studies were not submitted for comparison. MAMMOGRAM TECHNIQUE: 2-D MLO and CC views were obtained of the bilateral breasts. 3-D MLO and CC digital tomosynthesis images were also acquired. Computer aided detection was utilized. MAMMOGRAM FINDINGS: Breast Density: The breasts are heterogeneously dense, which may obscure small masses. There are no suspicious masses, calcifications, or architectural distortions. ULTRASOUND TECHNIQUE: Multiple real-time storm-scale images of the right breast in the 10 o'clock axis and subareolar region were performed. Color Doppler was used to assess vascular flow. ULTRASOUND FINDINGS: In the palpable area of concern in the right breast 10:00 axis zone 3, there is normal appearing soft tissue. No evidence of mass lesions, architectural distortion, or abnormal blood flow. The area of pain in the right breast subareolar region was also imaged and demonstrated a few dilated ducts. No mass lesion or abnormal blood flow. IMPRESSION: 1. No current specific mammographic evidence of malignancy in either breast. 2. No sonographic findings in the palpable area concern in the right breast 10:00 axis. 3. The targeted right breast ultrasound also demonstrated dilated ducts in the subareolar region. 4. The evaluation is incomplete as prior breast imaging was not submitted for comparison. The patient should submit her prior mammograms and at that time a final impression can be made. BI-RADS: 0: Incomplete: Need prior mammograms for comparison Recommendation: Comparison with prior examinations. Recommendation Laterality: Bilateral MQSA Facility: [facility] [place] [id number], I personally viewed and interpreted these images and I have reviewed and approved this report. Table formatting from the original result was not included. MAMMO STANDARD RISK MQSA SITE BEGIN The [address] [place] [address] MQSA SITE END Normal [facility] US BREAST LIMITED UNILATERAL RIGHTon 09-11-2024 US BREAST LIMITED UNILATERAL RIGHT ADDENDUM #1 The patient previously presented for a bilateral diagnostic mammogram and right breast ultrasound however at the time of interpretation prior breast imaging had not been submitted for comparison. Prior breast imaging is now been submitted for comparison including mammograms from February 22, 2024, June 10, 2021, and July 04, 2017. When comparing the recent mammogram to the prior studies there is no new dominant mass, distortion, or suspicious microcalcification either breast. BI-RADS: 2: Benign Recommendation: Clinical correlation/managemen t. Recommendation Laterality: Right ORIGINAL REPORT EXAM: MAMMO DIAGNOSTIC WITH CHANDRIKA BILATERAL, US BREAST LIMITED UNILATERAL RIGHT, 08/10/2024 11:19 AM (accession [id number]), 08/10/2024 11:33 AM (accession [id number]) CLINICAL INDICATIONS AND HISTORY: right breast pain and density at 10:00, 8 cm FTN, marked. New onset right nipple plain. N64.4:Nipple pain N64.4:Breast pain, right N63.11:Mass of upper outer quadrant of right breast 38-year-old female presents with complaints of a palpable area of concern in the right breast 10:00 axis and right nipple pain. COMPARISON: No prior studies available for comparison. The patient's prior breast imaging studies were not submitted for comparison. MAMMOGRAM TECHNIQUE: 2-D MLO and CC views were obtained of the bilateral breasts. 3-D MLO and CC digital tomosynthesis images were also acquired. Computer aided detection was utilized. MAMMOGRAM FINDINGS: Breast Density: The breasts are heterogeneously dense, which may obscure small masses. There are no suspicious masses, calcifications, or architectural distortions. ULTRASOUND TECHNIQUE: Multiple real-time storm-scale images of the right breast in the 10 o'clock axis and subareolar region were performed. Color Doppler was used to assess vascular flow. ULTRASOUND FINDINGS: In the palpable area of concern in the right breast 10:00 axis zone 3, there is normal appearing soft tissue. No evidence of mass lesions, architectural distortion, or abnormal blood flow. The area of pain in the right breast subareolar region was also imaged and demonstrated a few dilated ducts. No mass lesion or abnormal blood flow. IMPRESSION: 1. No current specific mammographic evidence of malignancy in either breast. 2. No sonographic findings in the palpable area concern in the right breast 10:00 axis. 3. The targeted right breast ultrasound also demonstrated dilated ducts in the subareolar region. 4. The evaluation is incomplete as prior breast imaging was not submitted for comparison. The patient should submit her prior mammograms and at that time a final impression can be made. BI-RADS: 0: Incomplete: Need prior mammograms for comparison Recommendation: Comparison with prior examinations. Recommendation Laterality: Bilateral MQSA Facility: The [address] , [place], [place] [address], I personally viewed and interpreted these images and I have reviewed and approved this report. Normal [facility] MG Breast - bilateral Diagno sticon 08-10-2024 Harris Bonds M D - 08/10/2024 EXAM: MAMMO DIAGNOSTIC WITH CHANDRIKA BILATERAL, US BREAST LIMITED UNILATERAL RIGHT, 08/10/2024 11:19 AM (accession [id number]), 08/10/2024 11:33 AM (accession [id number]) CLINICAL INDICATIONS AND HISTORY: right breast pain and density at 10:00, 8 cm FTN, marked. New onset right nipple plain. N64.4:Nipple pain N64.4:Breast pain, right N63.11:Mass of upper outer quadrant of right breast 38-year-old female presents with complaints of a palpable area of concern in the right breast 10:00 axis and right nipple pain. COMPARISON: No prior studies available for comparison. The patient's prior breast imaging studies were not submitted for comparison. MAMMOGRAM TECHNIQUE: 2-D MLO and CC views were obtained of the bilateral breasts. 3-D MLO and CC digital tomosynthesis images were also acquired. Computer aided detection was utilized. MAMMOGRAM FINDINGS: Breast Density: The breasts are heterogeneously dense, which may obscure small masses. There are no suspicious masses, calcifications, or architectural distortions. ULTRASOUND TECHNIQUE: Multiple real-time storm-scale images of the right breast in the 10 o'clock axis and subareolar region were performed. Color Doppler was used to assess vascular flow. ULTRASOUND FINDINGS: In the palpable area of concern in the right breast 10:00 axis zone 3, there is normal appearing soft tissue. No evidence of mass lesions, architectural distortion, or abnormal blood flow. The area of pain in the right breast subareolar region was also imaged and demonstrated a few dilated ducts. No mass lesion or abnormal blood flow. IMPRESSION IMPRESSION: 1. No current specific mammographic evidence of malignancy in either breast. 2. No sonographic findings in the palpable area concern in the right breast 10:00 axis. 3. The targeted right breast ultrasound also demonstrated dilated ducts in the subareolar region. 4. The evaluation is incomplete as prior breast imaging was not submitted for comparison. The patient should submit her prior mammograms and at that time a final impression can be made. BI-RADS: 0: Incomplete: Need prior mammograms for comparison Recommendation: Comparison with prior examinations. Recommendation Laterality: Bilateral MQSA Facility: The [place] [address], I personally viewed and interpreted these images and I have reviewed and approved this report. [facility] Radiology Study observation (narrative) [facility] No Panel Informationon 08-10 IMPRESSION: 1. No current specific mammographic evidence of malignancy in either breast. 2. No sonographic findings in the palpable area concern in the right breast 10:00 axis. 3. The targeted right breast ultrasound also demonstrated dilated ducts in the subareolar region. 4. The evaluation is incomplete as prior breast imaging was not submitted for comparison. The patient should submit her prior mammograms and at that time a final impression can be made. BI-RADS: 0: Incomplete: Need prior mammograms for comparison Recommendation: Comparison with prior examinations. Recommendation Laterality: Bilateral MQSA Facility: The [address] [place] [address], I personally viewed and interpreted these images and I have reviewed and approved this report. OLOGY EXAM: MAMMO DIAGNOSTIC WITH CHANDRIKA BILATERAL, US BREAST LIMITED UNILATERAL RIGHT, 08/10/2024 11:19 AM (accession [id number]), 08/10/2024 11:33 AM (accession [id number]) CLINICAL INDICATIONS AND HISTORY: right breast pain and density at 10:00, 8 cm FTN, marked. New onset right nipple plain. N64.4:Nipple pain N64.4:Breast pain, right N63.11:Mass of upper outer quadrant of right breast 38-year-old female presents with complaints of a palpable area of concern in the right breast 10:00 axis and right nipple pain. COMPARISON: No prior studies available for comparison. The patient's prior breast imaging studies were not submitted for comparison. MAMMOGRAM TECHNIQUE: 2-D MLO and CC views were obtained of the bilateral breasts. 3-D MLO and CC digital tomosynthesis images were also acquired. Computer aided detection was utilized. MAMMOGRAM FINDINGS: Breast Density: The breasts are heterogeneously dense, which may obscure small masses. There are no suspicious masses, calcifications, or architectural distortions. ULTRASOUND TECHNIQUE: Multiple real-time storm-scale images of the right breast in the 10 o'clock axis and subareolar region were performed. Color Doppler was used to assess vascular flow. ULTRASOUND FINDINGS: In the palpable area of concern in the right breast 10:00 axis zone 3, there is normal appearing soft tissue. No evidence of mass lesions, architectural distortion, or abnormal blood flow. The area of pain in the right breast subareolar region was also imaged and demonstrated a few dilated ducts. No mass lesion or abnormal blood flow. RADIOLOGY No Panel InformationOrdered By: Harris Bonds on 08-10-2024 [facility] Work Phone: US Breast - right limitedon 08-10-2024 Radiology Study observation (narrative) [facility] DBT Breast - bilateral colby camacho 02-22-2024 No mammographic evidence of malignancy BIRADS: BIRADS - CATEGORY 1 Negative. Normal interval follow-up is recommended in 12 months. OVERALL ASSESSMENT - NEGATIVE A letter of notification will be sent to the patient regarding the results. The [employer] recommends annual mammograms for women 40 years and older. Performing Facility: [place] [address] [facility] EXAMINATION: SCREENING DIGITAL BILATERAL MAMMOGRAM WITH TOMOSYNTHESIS, 02/22/2024 TECHNIQUE: Screening mammography of the bilateral breasts was performed with tomosynthesis. 2D standard and 3D tomosynthesis combination imaging performed through both breasts in the MLO and CC projection. Computer aided detection was utilized in the interpretation of this exam. COMPARISON: June 10, 2021 November 26, 2019 HISTORY: Screening. FINDINGS: The breasts are heterogeneously dense, which may obscure small masses. There is no dominant mass, architectural distortion or concerning grouping of microcalcification in either breast. [facility] Radiology Study observation (narrative) [facility] DBT Breast - bilateral scree ningOrdered By: Naldo Iyer on 02-22-2024 [facility] Work Phone: [facility] CHANDRIKA DIGITAL SCREEN SELF REFERRAL W OR WO CAD BILATERALon 02-22-2024 [facility] CHANDRIKA DIGITAL SCREEN SELF REFERRAL W OR WO CAD BILATERAL EXAMINATION: SCREENING DIGITAL BILATERAL MAMMOGRAM WITH TOMOSYNTHESIS, 02/22/2024 TECHNIQUE: Screening mammography of the bilateral breasts was performed with tomosynthesis. 2D standard and 3D tomosynthesis combination imaging performed through both breasts in the MLO and CC projection. Computer aided detection was utilized in the interpretation of this exam. COMPARISON: June 10, 2021 November 26, 2019 HISTORY: Screening. FINDINGS: The breasts are heterogeneously dense, which may obscure small masses. There is no dominant mass, architectural distortion or concerning grouping of microcalcification in either breast. IMPRESSION: No mammographic evidence of malignancy BIRADS: BIRADS - CATEGORY 1 Negative. Normal interval follow-up is recommended in 12 months. OVERALL ASSESSMENT - NEGATIVE A letter of notification will be sent to the patient regarding the results. The [employer] recommends annual mammograms for women 40 years and older. Performing Facility: [place] [address] Interpreted by: Naldo Iyer DO Signed by: Naldo Iyer DO 02/22/24 Final result Normal [facility] CT Pelvis w/ Contraston 12-07 CT Pelvis w/ Contrast Exam Performed at: [facility] Patient Name: Manju Aldana Patient : 1985 Referring Physician: Claudia Oro Exam Date: 11/17/2023 Exam Description: CT Pelvis w/ Contrast HISTORY: F 38 y/o c/o pain to the left of coccyx near rectum. no prev fx/sx or prior scan. chronic bilat radiculopathy. f/u tbd. denies preg. luan. mrs TECHNICAL FACTORS: Standard CT technique was utilized after contrast administration. Radiation Dosage (if supplied by facility): DLP = () mGycm. COMPARISON: CT scan 07/17/2021. FINDINGS: OSSEOUS PELVIS: Anatomically normal. Visualized sacrum/coccyx normal. No fracture. No erosive changes. RIGHT HIP: Minimal right hip degenerative osteoarthritis. No fractures or dislocation. No evidence of avascular necrosis. LEFT HIP: Minimal left hip degenerative osteoarthritis. No fractures or dislocation. No evidence of avascular necrosis. CONCLUSION: Minimal bilateral hip osteoarthritis without acute injury Harris Gloria MD A: LETICIA 11/19/2023 5:59 PM EST ADDENDUM, 12/20/2023: Visualized coccygeal segments are normal. No fracture. No bone destruction/periostit is. Thank you for the opportunity to provide your interpretation. Harris Gloria MD A: LETICIA 12/19/2023 7:55 PM EST Normal [facility] Cult,Woundon 12-17-2023 Cult,Wound Specimen Description .LABIA LEFT Direct Exam MANY GRAM NEGATIVE RODS RARE GRAM POSITIVE COCCI IN CLUSTERS NO NEUTROPHILS Culture ESCHERICHIA COLI MODERATE GROWTH Identification by MALDI-TOF NORMAL URO-GENITAL BERENICE LIGHT GROWTH Report Status FINAL 12/17/2023 SUSCEPTIBILITY Organism ESCHERICHIA COLI Method RAFI Ampicillin >=32 RESISTANT Cefazolin <=4 SUSCEPTIBLE Ceftriaxone <=0.25 SUSCEPTIBLE ESBL NEGATIVE Gentamicin <=1 SUSCEPTIBLE Levofloxacin <=0.12 SUSCEPTIBLE Piperacillin/Tazobact am <=4 SUSCEPTIBLE Tobramycin <=1 SUSCEPTIBLE Trimethoprim/Sulfa <=20 SUSCEPTIBLE Susceptible [facility] Comment on above: Performed By: #### W DC #### [employer] [address] [place] [address] Claim Trainee: Xavier Wilder MD US NON OB TRANSVAGINALon US NON OB TRANSVAGINAL UTERUS:anteverted, heterogeneous echo pattern; s/p ablation ENDO:8mm in thickness RT. OVARY:seen transabdominal, wnl LT. OVARY:attempted TA AND TV, ovary not visualized - due to overlying bowel Interpreted by: Gisel Vela APRN - Philly George DO Signed by: Philly Jacobsen DO 12/16/23 Final result Normal [facility] Cytology Reporton 12-14-2023 Cytology report Cyto stain.thin prep Doc (Cvx/Vag) (NOTE) Path Number: [id number] DIAGNOSIS Imaged ThinPrep Pap - Cervical (1 monolayer slide): Specimen Adequacy: Satisfactory for evaluation. - Endocervical/transfor mation zone component present. Descriptive Diagnosis: Negative for intraepithelial lesion or malignancy. Cytotech Screener: EY Electronically Signed Out Jyoti HERNANDEZ(ASCP) ey/12/22/2023 Source of Specimen: A: Imaged ThinPrep Pap - Cervical (1 monolayer slide) HPV Reflex?.............. ........HPV if ASCUS Clinical History Z12.4 Encounter for screening for malignant neoplasm of cervix LMP: 11/21/23 Processing Lab: [address] [address] Interpretation performed at [address] [address] This Pap Test has been evaluated with the assistance of the ThinPrep Pap Test Imaging System. The Pap smear is a screening test primarily for squamous epithelial lesions, which is subject to both false negative and false positive results. Your patient should be reminded to consult you immediately if she experiences any suspicious signs or symptoms, regardless of her Pap smear result. GYNECOLOGIC CYTOLOGY REPORT Patient Name: MANJU ALDANA [facility] Rec: [id number] [facility] [employer] [facility] ANATOMIC PATHOLOGY [address] [place] [address]. [place], [place] [address] Normal [facility] Ambulatory Visit Summaryon 0 12-05-2023 Ambulatory Visit Summary Ambulatory Visit Summary MANJU ALDANA :1985 Visit Date:12/05/2023 Ambulatory Visit Instructions Your Diagnosis Change in bowel habit Hepatomegaly Stress-related physiological response affecting medical condition Bloating Your Care Team Attending Physician - Darleen Renae MD Primary Care Physician - Claudia Oro MD This Is Your Medications List Contact prescribing physician if questions or concerns diclofenac (diclofenac sodium 75 mg Oral EC Tab) meclizine (meclizine 25 mg Tab) oxaprozin (Daypro 600 mg Tab) Procedures Performed Colonoscopy. Discharge Vitals Heart Rate (Peripheral) 79 Blood Pressure 123/87 Height 172 cm Height 68 in Weight 95.2 kg Weight 209.44 lb BMI 32.18 Medications What When Instructions Unchanged diclofenac (diclofenac sodium 75 mg Oral EC Tab) 2 times a day 1 Unknown, 0 Refill(s) Contact prescribing physician if questions or concerns Unchanged meclizine (meclizine 25 mg Tab) 4 times a day 1 Unknown, 0 Refill(s) Contact prescribing physician if questions or concerns Unchanged oxaprozin (Daypro 600 mg Tab) 2 Unknown, 0 Refill(s) Contact prescribing physician if questions or concerns Allergies Cipro (Itchy) Problems Ongoing - Any problem that you are currently receiving treatment for. Acute sinusitis Anxiety Bloating Change in bowel habit Chronic pain Disorder of sacrum Early satiety Epigastric pain Hepatomegaly Insomnia Irregular periods Large liver Stress-related physiological response affecting medical condition Patient Survey You may receive a survey via text or e-mail asking about your office visit. Please share your experience with us by completing your survey. We appreciate your feedback and thank you for choosing us for your care. Normal [facility] Gastroenterology Office/Clin ic Noteon 12-05-2023 Gastroenterology Office/Clinic Note Gastroenterology Office/Clinic Note Chief Complaint Change in bowel habits. HPI Staff Patient is a 38 year old female who is an established patient being referred by [facility] for change in bowel habits. Tailbone pain. Was scheduled for an EGD in 2021 - insurance denied. Does not feel like she is completely emptying - PCP started Metamucil. How many BM a day (normal <4): 2 is normal. When did it start: A little over a month. Constant? Or alternate with normal BM or constipation: Alternating with mucus. Associated symptoms: Pressure in pelvic area when pushing. Last visit 06/03/21 w/Dr. De Jesus: Assessment/Plan 1. Epigastric pain (R10.13: Epigastric pain) [...] her primary care physician regarding restarting treatment. Upper GI w/air 2015 @ [facility]: CONCLUSION: 1. Prominent gastroesophageal reflux which may account for the patient's symptoms. Colonoscopy w/ Dr De Jesus 03/22/14 Endoscopic diagnosis: 1. Normal TI, biopsy taken 2. Normal colonic mucosa 3. Small nonbleeding internal hemorrhoids Final diagnosis: TI, biopsy: -Ileal mucosa with no significant pathologic changes History of Present Illness I have reviewed HPI staff note, most recent labs and imaging, more than 30 minutes spent reviewing the chart, during encounter, placing orders and counseling the patient. Pt with low back pain preceded with some stress for multiple reasons was having issues with constipation tried miralax but stopped mucous and fishy smell BMs straining and some incomplete evacuation pt with some bugle when she is pushing moving bowels every day pt with good bowel movements adding more vegetables gave her more skins ++bloating all the times some stress Review of Systems PHQ Score Initial Depression Screen Score: 0 SCORE All systems reviewed, negative except as mentioned above Physical Exam Vitals & Measurements HR: 79(Peripheral) BP: 123/87 HT: 68 in HT: 172 cm WT: 95.2 kg WT: 209.44 lb BMI: 32.18 General: alert, no acute distress HEENT: atraumatic normocephalic Cardiovascular: regular rate and rhythm, normal peripheral perfusion Respiratory: Lungs CTA, respirations non labored Extremities: no deformity, no trauma Abdomen: Benign, soft, nontender nondistended Assessment/Plan 1. Change in bowel habit (R19.4: Change in bowel habit) 2. Hepatomegaly (R16.0: Hepatomegaly, not elsewhere classified) 3. Stress-related physiological response affecting medical condition (F54: Psychological and behavioral factors associated with disorders or diseases classified elsewhere) 4. Bloating (R14.0: Abdominal distension (gaseous)) Advised to get squatty potty and massage the colon Advised to consume prunes and kiwi fruits Advised to use MiraLAX/senna and titrate to have 1-2 bowel moods every day Advised to get stress under control Will get a second read at [facility] for her CAT scan to assess tailbone pain Will start on low FODMAP diet Might benefit from neuromodulator in the future Might benefit from an rectal manometry in the future Follow-up No qualifying data available Problem List/Past Medical History Ongoing Acute sinusitis Anxiety Bloating Change in bowel habit Chronic pain Disorder of sacrum Early satiety Epigastric pain Hepatomegaly Insomnia Irregular periods Large liver Stress-related physiological response affecting medical condition Historical No qualifying data Procedure/Surgical History Colonoscopy. Medications Daypro 600 mg Tab diclofenac sodium 75 mg Oral EC Tab, BID meclizine 25 mg Tab, QID Allergies Cipro (Itchy) Social History Tobacco Never (less than 100 in lifetime) Tobacco Use:. Never Smokeless Tobacco Use:., 12/05/2023 Family History Primary malignant neoplasm of colon: Grandparent. Immunizations Vaccine Date Status Comments influenza virus vaccine, inactivated - Not Given Patient Refuses Normal [facility] Comment on above: Result Comment: Elec tronically Signed By: Batool ALTAMIRANO, Darleen Daigle\.br\Date and Time Signed: 12/05/23 14:25 EDT INSULINon 07-09-2022 Insulin 24.5 uIU/mL Normal 2.6-24.9 The [facility] Comment on above: Performed By: #### I NSULIN #### [facility] Laboratory [address] [place], [place] [address] Dr. Wu Broderick CBC AUTO DIFFon 07-08-2022 BASO # 0.1 103/ul Normal 0.0-0.1 [facility] Comment on above: Performed By: #### C BC ####[facility] [address] [place] [id number] Broderick Basophils/100 WBC (Bld) 1.2 % Normal 0.2-2.0 The [facility] Comment on above: Performed By: #### C BC ####[facility] [address] [place] [address]DrSharon Broderick EO # 0.2 103/ul Normal 0.0-0.7 [facility] Comment on above: Performed By: #### C BC ####[facility] [address] [place] [address]DrSharon Broderick Eosinophils/100 WBC (Bld) 2.9 % Normal 0.9-7.0 The [facility] Comment on above: Performed By: #### C BC ####[facility] [address] [place] [address]DrSharon Broderick Erythrocyte distribution width (RBC) [Ratio] 12.8 % Normal 11.0-15.0 [facility] Comment on above: Performed By: #### C BC ####[facility] [address]ft[address] [place] [id number] Broderick Hematocrit (Bld) [Volume fraction] 44.0 % Normal 36.0-48.0 [facility] Comment on above: Performed By: #### C BC ####[facility] [address]haal[address] [place] [id number] Broderick Hemoglobin (Bld) [Mass/Vol] 14.6 g/dL Normal 12.0-16.0 The [facility] Comment on above: Performed By: #### C BC ####[facility] [address]eds60[address] [place] [address]DrSharon Broderick IG # 0.02 10e3/ul Normal 0.00-0.03 [facility] Comment on above: Performed By: #### C BC ####[facility] T[address]qib[address] [place] [id number]. Donnadestinee Broderick IG % 0.3 % Normal 0.0-0.5 [facility] Comment on above: Performed By: #### C BC ####[facility] [address] [place] [id number]. Donnadestinee Broderick LYMPH # 1.8 103/ul Normal 1.2-3.8 The [facility] Comment on above: Performed By: #### C BC ####[facility] [address]tvctbm[address] [place] [address]Dr. Donnadestinee Broderick Lymphocytes/100 WBC (Bld) 31.5 % Normal 20.5-60.0 [facility] Comment on above: Performed By: #### C BC ####[facility] [address] [place], [place] [address]Dr. Wu Broderick MANUAL DIFF REQ NO Normal [facility] Comment on above: Performed By: #### C BC ####[facility] [address] [place] [id number]. Wu Davie MCH (RBC) [Entitic mass] 28.3 pg Normal 26.7-34.0 [facility] Comment on above: Performed By: #### C BC ####[facility] [address]ou[address]pmbiw[address] [place] [address]Dr. Wu Davie MCHC (RBC) [Mass/Vol] 33.2 g/dL Normal 29.9-35.2 [facility] Comment on above: Performed By: #### C BC ####[facility] [address] [place] [address]Dr. Donnadestinee Broderick MCV (RBC) [Entitic vol] 85.4 fL Normal 81.0-99.0 The [facility] Comment on above: Performed By: #### C BC ####[facility] [address] [place], [place] [address]Dr. Wu Broderick MONO # 0.4 103/ul Normal 0.3-0.8 [facility] Comment on above: Performed By: #### C BC ####[facility] [address]fxxaspr5[address] [place] [id number]. Wu Broderick Monocytes/100 WBC (Bld) 6.2 % Normal 1.7-12.0 [facility] Comment on above: Performed By: #### C BC ####[facility] [address]av[address] [place] [id number]. Wu Broderick NEUT # 3.4 103/ul Normal 1.4-6.5 [facility] Comment on above: Performed By: #### C BC ####[facility] Xnoxqsstop7378 [place] [id number]. Wu Broderick Neutrophils/100 WBC (Bld) 57.9 % Normal 43.0-75.0 [facility] Comment on above: Performed By: #### C BC ####[facility] Figqqiuvex9928 [place] [address]Dr. Wu Broderick Platelet mean volume (Bld) [Entitic vol] 9.0 fL Critically low 9.5-13.5 [facility] Comment on above: Performed By: #### C BC ####[facility] [address]pmuskr[address] [place] [address]Dr. Wu Broderick PLT 309 103/ul Normal 150-450 [facility] Comment on above: Performed By: #### C BC ####[facility] Rhasvdumue[address] [place] [id number]. Wu Broderick RBC 5.15 106/ul Normal 4.20-5.40 [facility] Comment on above: Performed By: #### C BC ####[facility] R[address]wfkzxyu2386 [place] [id number]. Wu Brodreick WBC 5.9 103/ul Normal 4.0-11.0 [facility] Comment on above: Performed By: #### C BC ####[facility] [address]ib[address]ialpb[address] [place] [address]Dr. Wu Broderick FREE THYROXINE INDEX T7on FTI 2.75 Normal 1.30-4.50 [facility] Comment on above: Performed By: #### L IPID, TSH, CMP, T7 ####[facility] [address] [place], [place] [address]SjDr. Wu Broderick T3U 32.0 % Normal 30.0-39.0 [facility] Comment on above: Performed By: #### L IPID, TSH, CMP, T7 ####[facility] [address] [place], [place] [address]DyDr. Wu Broderick T4 [Mass/Vol] 8.60 ug/dL Normal 4.80-13.90 [facility] Comment on above: Performed By: #### L IPID, TSH, CMP, T7 ####[facility] [address]mcg[address] [place] [id number]. Wu Broderick GLYCOHEMOGLOBIN A1Con 2022 ADA RECOMMENDATION SEE BELOW Normal [facility] Comment on above: Result Comment: ADA RECOMMENDED LIMIT 4.0 - 6.0 ADA THERAPEUTIC TARGET < 7.0 ACTION SUGGESTED > 7.0 Performed By: #### A 1C #### [facility] [address] [place] [address] [address] Wu Broderick Glucose [Mass/Vol] 111 mg/dL Normal [facility] Comment on above: Performed By: #### A 1C #### [facility] Laboratory [address] [address] [address] Wu Broderick HbA1c (Bld) [Mass fraction] 5.5 % Normal 4.5-6.2 [facility] Comment on above: Performed By: #### A 1C #### [facility] Laboratory [address] [address] [address] Wu Broderick IRONon 07-08-2022 Iron [Mass/Vol] 60.0 ug/dL Normal 50.0-170.0 [facility] Comment on above: Performed By: #### I LYRIC #### [facility] Laboratory [address] [address] [address] Wu Broderick LIPID PROFILEon 07-08-2022 CHOL-HDL RATIO NORM SEE BELOW Normal [facility] Comment on above: Result Comment: 3.3 - 4.4 LOW RISK 4.4 - 7.1 AVERAGE RISK 7.1 - 11.0 MODERATE RISK >11.0 HIGH RISK Performed By: #### L IPID, TSH, CMP, T7 ####[facility] [address] [id number]. Wu Broderick Cholesterol [Mass/Vol] 216 mg/dL Critically high <=200 [facility] Comment on above: Performed By: #### L IPID, TSH, CMP, T7 ####[facility] [address] [id number]. Wu Broderick Cholesterol in HDL [Mass/Vol] 60 mg/dL Normal 40-60 [facility] Comment on above: Performed By: #### L IPID, TSH, CMP, T7 ####[facility] [address] [id number]. Donnadestinee Davie Cholesterol in LDL [Mass/Vol] 137.4 mg/dL Normal [facility] Comment on above: Performed By: #### L IPID, TSH, CMP, T7 ####[facility] [address] [id number]. Wu Broderick Cholesterol.total/Cho lesterol in HDL [Mass ratio] 3.6 {ratio} Normal [facility] Comment on above: Performed By: #### L IPID, TSH, CMP, T7 ####[facility] [address] [id number]. Donnadestinee Broderick HDL NORMAL > or = 60 mg/dl - LO W CARDIOVASCULAR RISK <40 mg/dl - HIGH CARDIOVASCULAR RISK Normal [facility] Comment on above: Performed By: #### L IPID, TSH, CMP, T7 ####[facility] [address] [id number]. Wu Broderick LDL CALC NORMAL SEE BELOW Normal [facility] Comment on above: Result Comment: <100 mg/dl OPTIMAL 100 - 129 mg/dl NEAR OR ABOVE OPTIMAL 130 - 159 mg/dl BORDERLINE HIGH 160 - 189 mg/dl HIGH >190 mg/dl VERY HIGH Performed By: #### L IPID, TSH, CMP, T7 ####[facility] [address] [id number]. Wu Broderick Triglyceride [Mass/Vol] 93 mg/dL Normal <=150 [facility] Comment on above: Performed By: #### L IPID, TSH, CMP, T7 ####[facility] [address] [place], [place] [address]XzDr. Wu Broderick VLDL CALC 18.6 mg/dL Normal [facility] Comment on above: Performed By: #### L IPID, TSH, CMP, T7 ####[facility] [address] [place], [place] [address]Dr. Wu Broedrick PROF 14(COMP METB)on 023 Albumin [Mass/Vol] 4.0 g/dL Normal 3.4-5.0 [facility] Comment on above: Performed By: #### L IPID, TSH, CMP, T7 #### [facility] Laboratory [address] [address] [address] Wu Broderick Albumin/Globulin [Mass ratio] 1.0 {ratio} Normal [facility] Comment on above: Performed By: #### L IPID, TSH, CMP, T7 #### [facility] Laboratory [address] [address] [address] Wu Broderick ALP [Catalytic activity/Vol] 79 U/L Normal 46-116 [facility] Comment on above: Performed By: #### L IPID, TSH, CMP, T7 #### [facility] Laboratory [address] [address] [address] Wu Broderick ALT [Catalytic activity/Vol] 20 U/L Normal 14-59 [facility] Comment on above: Performed By: #### L IPID, TSH, CMP, T7 #### [facility] Laboratory [address] [address] [address] Wu Broderick Anion gap [Moles/Vol] 11.9 mmol/L Normal [facility] Comment on above: Performed By: #### L IPID, TSH, CMP, T7 #### [facility] Laboratory [address] [address] [address] Wu Broderick AST [Catalytic activity/Vol] 12 U/L Critically low 15-37 [facility] Comment on above: Performed By: #### L IPID, TSH, CMP, T7 #### [facility] Laboratory [address] [place] [address] Dr. Wu Broderick Bilirubin [Mass/Vol] 0.3 mg/dL Normal 0.2-1.0 [facility] Comment on above: Performed By: #### L IPID, TSH, CMP, T7 #### [facility] Laboratory [address] [place] [address] Dr. Wu Broderick Calcium [Mass/Vol] 9.0 mg/dL Normal 8.5-10.1 [facility] Comment on above: Performed By: #### L IPID, TSH, CMP, T7 #### [facility] [address] [place] [address] Dr. Wu Broderick Chloride [Moles/Vol] 104 mmol/L Normal 98-107 [facility] Comment on above: Performed By: #### L IPID, TSH, CMP, T7 #### [facility] Laboratory [address] [place] [address] Dr. Wu Broderick CO2 [Moles/Vol] 27.3 mmol/L Normal 21.0-32.0 [facility] Comment on above: Performed By: #### L IPID, TSH, CMP, T7 #### [facility] Laboratory [address] [place] [address] Dr. Wu Broderick Creatinine [Mass/Vol] 0.75 mg/dL Normal 0.55-1.02 [facility] Comment on above: Performed By: #### L IPID, TSH, CMP, T7 #### [facility] Laboratory [address] [place] [address] Dr. Wu Broderick EGFR-AF FAROESE >60 Normal >=60 [facility] Comment on above: Performed By: #### L IPID, TSH, CMP, T7 #### [facility] Laboratory [address] [place] [address] Dr. Wu Broderick EGFR-NON AF FAROESE >60 Normal >=60 [facility] Comment on above: Performed By: #### L IPID, TSH, CMP, T7 #### [facility] [address] [place] [address] Dr. Wu Broderick Globulin (S) [Mass/Vol] 4.2 g/dL Normal [facility] Comment on above: Performed By: #### L IPID, TSH, CMP, T7 #### [facility] [address] [address] [address] Wu Broderick Glucose [Mass/Vol] 97 mg/dL Normal 74-106 [facility] Comment on above: Performed By: #### L IPID, TSH, CMP, T7 #### [facility] Laboratory [address] [address] [address] Wu Broderick Potassium [Moles/Vol] 4.2 mmol/L Normal 3.5-5.1 [facility] Comment on above: Performed By: #### L IPID, TSH, CMP, T7 #### [facility] Laboratory [address] [address] [address] Wu Broderick Protein [Mass/Vol] 8.2 g/dL Normal 6.4-8.2 [facility] Comment on above: Performed By: #### L IPID, TSH, CMP, T7 #### [facility] [address] [address] [address] Wu Broderick Sodium [Moles/Vol] 139 mmol/L Normal 136-145 [facility] Comment on above: Performed By: #### L IPID, TSH, CMP, T7 #### [facility] [address] [address] [address] Wu Broderick Urea nitrogen [Mass/Vol] 10.0 mg/dL Normal 7.0-18.0 [facility] Comment on above: Performed By: #### L IPID, TSH, CMP, T7 #### [facility] Laboratory [address] [address] [address] Wu Broderick Urea nitrogen/Creatinine [Mass ratio] 13.3 mg/mg Normal [facility] Comment on above: Performed By: #### L IPID, TSH, CMP, T7 #### [facility] Laboratory [address] [address] [address] Wu Broderick TSHon 07-08-2022 TSH 1.181 uIU/mL Normal 0.358-3.740 [facility] Comment on above: Performed By: #### L IPID, TSH, CMP, T7 #### [facility] Laboratory [address] [address] [address] NECK ST W CONon CT NECK ST W CON EXAMINATION: CT [...] Skull base normal. The orbital contents normal. 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 Parotid glands normal. Submandibular [...] LUX [place]EE[place] Date: 2022-03-08 07:30 Normal [facility] US THYROIDon 02-22-2022 US THYROID Begin Addendum # 1 The first sentence in the first paragraph [...] Perhaps biopsy would be prudent. Normal [facility] , Urineon 2 Beta HCG ( test) Ql (U) Negative NEGATIVE [facility] Comment on above: Specimens with hCG l evels near the threshold of the test (25 mIU/mL) may give a negative or indeterminate result. In such cases, another test should be performed with a new specimen in 48-72 hours. If early is suspected clinically in this setting, correlation with quantitative serum b-hCG level is suggested. [employer] has confirmed the use of plasma for this test. This has not been cleared or approved by the U.S. Food and Drug Administration. The FDA has determined that such clearance is not necessary. [facility] ANTICARDIOLIPIN AB (CESAR) IGA /IGG/IGMon 11-30-2021 Anticardiolipin Ab,IgA,Qn <9 Normal 0-11 [facility] Comment on above: Result Comment: Nega tive: <12 Indeterminate: 12 - 20 Low-Med Positive: >20 - 80 High Positive: >80 Performed By: #### A CAQUAN #### [facility] [address] [address] [address] Wu Broderick Anticardiolipin Ab,IgG,Qn <9 Normal 0-14 [facility] Comment on above: Result Comment: Nega tive: <15 Indeterminate: 15 - 20 Low-Med Positive: >20 - 80 High Positive: >80 Performed By: #### A CAQUAN #### [facility] [address] [address] [address] Wu Broderick Anticardiolipin Ab,IgM,Qn 12 MPL U/mL Normal 0-12 [facility] Comment on above: Result Comment: Nega tive: <13 Indeterminate: 13 - 20 Low-Med Positive: >20 - 80 High Positive: >80 Performed By: #### A CAQUAN #### [facility] [address] [address] [address] Wu Broderick B2-GLYCOPROTEIN 1 AB IGA/IGG /IGMon 11-30-2021 Beta-2 Glycoprotein I Ab, IgG <9 Normal 0-20 [facility] Comment on above: Result Comment: The reference interval reflects a 3SD or 99th percentile interval, which is thought to represent a potentially clinically significant result in accordance with the International Consensus Statement on the classification criteria for definitive antiphospholipid syndrome (APS). J Thromb Haem 2006;4:295-306. Performed By: #### B GLYCOA ####[facility] [address] [place], [place] [address]RtDr. Wu Broderick Beta-2 Glycoprotein I Ab, IgM <9 Normal 0-32 [facility] Comment on above: Result Comment: The reference interval reflects a 3SD or 99th percentile interval, which is thought to represent a potentially clinically significant result in accordance with the International Consensus Statement on the classification criteria for definitive antiphospholipid syndrome (APS). J Thromb Haem 2006;4:295-306. Performed By: #### B GLYCOA ####[facility] [address] [place], [place] [address]Ec. Wu Broderick Beta-2 IgA <9 Normal 0-25 [facility] Comment on above: Result Comment: The reference interval reflects a 3SD or 99th percentile interval, which is thought to represent a potentially clinically significant result in accordance with the International Consensus Statement on the classification criteria for definitive antiphospholipid syndrome (APS). J Thromb Haem 2006;4:295-306. Performed By: #### B GLYCOA ####[facility] [address] [place], [place] [address]Yn. Wu Broderick BUNon 10-14-2021 Urea nitrogen (BldV) [Mass/Vol] 10 mg/dL 6 - 20 mg/dL [facility] Creatinineon 10-14-2021 Creatinine [Mass/Vol] 0.62 mg/dL 0.50 - 0.90 mg/dL [facility] GFR >60 >60 mL/min [facility] GFR Non- >60 >60 mL/min [facility] Laboratory - Chemistry and C hemistry - challengeon 10-14-2021 GFR/1.73 sq M.predicted MDRD (S/P/Bld) [Vol rate/Area] [facility] Comment on above: Average GFR for 30-3 9 years old: 107 mL/min/1.73sq m Chronic Kidney Disease: <60 mL/min/1.73sq m Kidney failure: <15 mL/min/1.73sq m eGFR calculated using average adult body mass. Additional eGFR calculator available at: http://www.PLAXD.Clipyoo/multiple_crcl_2012.htm Stage 1: Some kidney damage normal GFR Stage 2: Mild kidney damage GFR 60-89 Stage 3: Moderate kidney damage GFR 30-59 Stage 4: Severe kidney damage GFR 15-29 Stage 5: Severe kidney damage GFR <15 ESRD - chronic treatment by dialysis or transplant MRI BRAIN W WO CONTRASTon Unremarkable pre and post-contrast MRI of the brain and orbital structures. RECOMMENDATIONS: [facility] RIS CONSOLIDATED EXAMINATION: MRI OF THE BRAIN WITHOUT [...] the sedation requirement?->None FINDINGS: MRI BRAIN: INTRACRANIAL STRUCTURES/VENTRICLES : The sellar and suprasellar structures, optic chiasm, [...] unremarkable. There is no abnormal postcontrast enhancement. [facility] Abel Tillman MD - 10/14/2021 EXAMINATION: MRI [...] the sedation requirement?->None FINDINGS: MRI BRAIN: INTRACRANIAL STRUCTURES/VENTRICLES : The sellar and suprasellar structures, optic chiasm, [...] the brain and orbital structures. RECOMMENDATIONS: Unavailable [employer] Phone: Radiology Study observation (narrative) [employer] Phone: MRI BRAIN W WO CONTRASTOrder ed By: Abel Tavears on 10-14-2021 [employer] Phone: No Panel Informationon 10-14 [facility]ASE Antinuclear Antibodieson 09-24-2021 Antinuclear Abs, IFA Negative Normal . [facility] Comment on above: Result Comment: Nega tive <1:80 Borderline 1:80 Positive >1:80 ICAP nomenclature: [id number] For more information about Hep-2 cell patterns use ANApatterns.org, the official website for the International Consensus on Antinuclear Antibody (CHASE) Patterns (ICAP). Performed at: [address] [id number] Claim Trainee: Rich Ritchie PhD, Phone: [phone] Performed By: #### P TT, PT #### [address] #### ALDOLASE #### [facility] , Activated partial thrombopla stin time (aPTT) in platelet poor plasma by coagulation aOrdered By: Cammy Augustin on 09-24-2021 aPTT Coag (PPP) [Time] 32.6 s 25.1-36.5 [facility] Albumin [Mass/volume] in Ser um or PlasmaOrdered By: Cammy Augustin on 09-24-2021 Albumin [Mass/Vol] 4.0 g/dL 3.2-5.5 [facility] Aldolaseon 09-24-2021 Aldolase 3.7 U/L Normal 3.3-10.3 [facility] Comment on above: Result Comment: Perf ormed at: [facility] [employer] [id number] Claim Trainee: Rich Ritchie PhD, Phone: [phone] PERFORMED BY: [place] [address] PATHOLOGIST RELOCATION DIRECTOR REGINE JACOBO M.D. Performed By: #### P TT, PT #### [address] #### ALDOLASE #### [facility] , Antithyroglobulin Abon 09-24 Antithyroglobulin Ab <1.0 Normal 0.0-0.9 [facility] Comment on above: Result Comment: Thyr oglobulin Antibody measured by [employer] Methodology Performed at: [employer] [id number] Claim Trainee: Rich Ritchie PhD, Phone: [phone] Performed By: #### P TT, PT #### [address] #### ALDOLASE #### [facility] , Automated erythrocytes count in urine sediment (number/area)Ordered By: Cammy Augustin on 09-24-2021 RBC Auto (Urine sed) [#/Area] 0-1 [HPF] [facility] Automated leukocytes count i n urine sediment (number/area)Ordered By: Cammy Augustin on 09-24-2021 WBC Auto (Urine sed) [#/Area] 1-2 [HPF] [facility] Basophils Auto (Bld) [#/Vol] Ordered By: Cammy Augustin on 09-24-2021 Basophils (Bld) [#/Vol] 0.1 10*3/uL 0.0-0.2 [facility] Basophils/100 WBC Auto (Bld) Ordered By: Cammy Augustin on 09-24-2021 Basophils/100 WBC (Bld) 0.9 % [facility] Bilirubin Test strip Ql (U)O rdered By: Cammy Augustin on 09-24-2021 Bilirubin Ql (U) Negative Negative [facility] Blood hemoglobin measurement (mass/volume)Ordered By: Cammy Augustin on 09-24-2021 Hemoglobin (Bld) [Mass/Vol] 13.5 g/dL 11.8-15.4 [facility] Blood leukocytes automated c ount (number/volume)Ordered By: Cammy Augustin on 09-24-2021 WBC (Bld) [#/Vol] 7.1 10*3/uL 4.5-11.0 [facility] C-Reactive Proteinon 022 C-Reactive Protein 0.8 mg/dL Normal 0.0-1.0 [facility] Comment on above: Performed By: #### P TT, PT #### [facility] [address] [place] [address] #### ALDOLASE #### [facility] , Chromatin Antibodyon 022 Chromatin Antibody <0.2 Normal 0.0-0.9 [facility] Comment on above: Result Comment: Perf ormed at: CB - [facility] [address] [id number] Claim Trainee: Rich Ritchie PhD, Phone: [phone] Performed By: #### P TT, PT #### [facility] [address] [place] [address] #### ALDOLASE #### [facility] , Color Auto (U)Ordered By: Arti reid Augustin on 09-24-2021 Color (U) Yellow Yellow [facility] Complement C3on 09-24-2021 Complement C3 178 mg/dL High 82-167 [facility] Comment on above: Result Comment: Perf ormed at: - [facility] [id number] Claim Trainee: Rich Ritchie PhD, Phone: [phone] Performed By: #### C H50, C3, C4 #### [facility] , #### ADDONUAPLUS #### [facility] [address] [place] [address] Complement C4on 09-24-2021 Complement C4 29 mg/dL Normal 12-38 [facility] Comment on above: Performed By: #### C H50, C3, C4 #### [facility] , #### ADDONUAPLUS #### [address] Complement Total (CH50)on Complement Total (CH50) >60 Normal >41 [facility] Comment on above: Result Comment: Age [...] determine out of range values. Performed at: [facility] [address] [id number] Claim Trainee: Rich Ritchie PhD, Phone: [phone] PERFORMED BY: [place] [address] PATHOLOGIST RELOCATION DIRECTOR REGINE JACOBO M.D. Performed By: #### C H50, C3, C4 #### [facility] , #### ADDONUAPLUS #### [address] Complete Blood Count Auto Di ffon 09-24-2021 Basophils (Bld) [#/Vol] 0.1 10*3/uL Normal 0.0-0.2 [facility] Comment on above: Performed By: #### C BC, ESR #### [place] [address] [place] #### LUPANTCOAG #### [facility] , Basophils/100 WBC (Bld) 0.9 % Normal . [facility] Comment on above: Performed By: #### C BC, ESR #### [address] #### LUPANTCOAG #### [facility] , Eosinophils (Bld) [#/Vol] 0.1 10*3/uL Normal 0.0-0.45 [facility] Comment on above: Performed By: #### C BC, ESR #### [place] [address] [place] #### LUPANTCOAG #### [facility] , Eosinophils/100 WBC (Bld) 1.9 % Normal . [facility] Comment on above: Performed By: #### C BC, ESR #### [place] [address] [place] #### LUPANTCOAG #### [facility] , Erythrocyte distribution width (RBC) [Ratio] 14.6 % Normal 11.9-15.3 [facility] Comment on above: Performed By: #### C BC, ESR #### [place] [address] [place] #### LUPANTCOAG #### [facility] , Hematocrit (Bld) [Volume fraction] 40.7 % Normal 34.0-46.4 [facility] Comment on above: Performed By: #### C BC, ESR #### [place] [address] [place] #### LUPANTCOAG #### [facility] , Hemoglobin (Bld) [Mass/Vol] 13.5 g/dL Normal 11.8-15.4 [facility] Comment on above: Performed By: #### C BC, ESR #### [place] [address] [place] #### LUPANTCOAG #### [facility] , Lymphocytes (Bld) [#/Vol] 1.6 10*3/uL Normal 1.00-4.8 [facility] Comment on above: Performed By: #### C BC, ESR #### [place] [address] [place] #### LUPANTCOAG #### [facility] , Lymphocytes/100 WBC (Bld) 22.6 % Normal . [facility] Comment on above: Performed By: #### C BC, ESR #### [place] [address] [place] #### LUPANTCOAG #### [facility] , MCH (RBC) [Entitic mass] 27.4 pg Normal 24.7-34.3 [facility] Comment on above: Performed By: #### C BC, ESR #### [place] [address] [place] #### LUPANTCOAG #### [facility] , MCV (RBC) [Entitic vol] 82.5 fL Normal 80-100 [facility] Comment on above: Performed By: #### C BC, ESR #### [place] [address] [place] #### LUPANTCOAG #### [facility] , Mean Corpuscular HGB Conc 33.2 g/dL Normal 32.0-35.0 [facility] Comment on above: Performed By: #### C BC, ESR #### [facility] [address] [place] [address] [place] #### LUPANTCOAG #### [facility] , Monocytes (Bld) [#/Vol] 0.5 10*3/uL Normal 0.0-0.8 [facility] Comment on above: Performed By: #### C BC, ESR #### [place] [address] [place] #### LUPANTCOAG #### [facility] , Monocytes/100 WBC (Bld) 6.4 % Normal . [facility] Comment on above: Performed By: #### C BC, ESR #### [place] [address] [place] #### LUPANTCOAG #### [facility] , Neutrophils (Bld) [#/Vol] 4.8 10*3/uL Normal 1.8-7.7 [facility] Comment on above: Performed By: #### C BC, ESR #### [place] [address] [place] #### LUPANTCOAG #### [facility] , Neutrophils/100 WBC (Bld) 68.2 % Normal . [facility] Comment on above: Performed By: #### C BC, ESR #### [facility] [address] [place] [address] [place] #### LUPANTCOAG #### [facility] , Nucleated RBC/100 WBC (Bld) [Ratio] 0.0 % Normal 0-0.5 [facility] Comment on above: Performed By: #### C BC, ESR #### [place] [address] [place] #### LUPANTCOAG #### [facility] , Platelet mean volume (Bld) [Entitic vol] 8.4 fL Normal 6.3-10.7 [facility] Comment on above: Performed By: #### C BC, ESR #### [facility] [address] [place] [address] [place] #### LUPANTCOAG #### [facility] , Platelets (Bld) [#/Vol] 309 10*3/uL Normal 150-450 [facility] Comment on above: Performed By: #### C BC, ESR #### [place] [address] [place] #### LUPANTCOAG #### [facility] , RBC (Bld) [#/Vol] 4.94 10*6/uL Normal 3.60-5.00 [facility] Comment on above: Performed By: #### C BC, ESR #### [place] [address] [place] #### LUPANTCOAG #### [facility] , WBC (Bld) [#/Vol] 7.1 10*3/uL Normal 4.5-11.0 [facility] Comment on above: Performed By: #### C BC, ESR #### [place] [address] [place] #### LUPANTCOAG #### [facility] , Comprehensive Metabolic Pane porsha 09-24-2021 Albumin [Mass/Vol] 4.0 g/dL Normal 3.2-5.5 [facility] Comment on above: Performed By: #### P TT, PT #### [facility] [address] [place] [address] [place] #### ALDOLASE #### [facility] , Albumin/Globulin [Mass ratio] 1.4 {ratio} Normal [facility] Comment on above: Performed By: #### P TT, PT #### [facility] [address] [place] [address] [place] #### ALDOLASE #### [facility] , ALP [Catalytic activity/Vol] 68 U/L Normal 32-92 [facility] Comment on above: Performed By: #### P TT, PT #### [facility] [address] [place] [address] [place] #### ALDOLASE #### [facility] , ALT [Catalytic activity/Vol] 17 U/L Normal 10-60 [facility] Comment on above: Performed By: #### P TT, PT #### [facility] [address] [place] [address] [place] #### ALDOLASE #### [facility] , AST [Catalytic activity/Vol] 16 U/L Normal 10-42 [facility] Comment on above: Performed By: #### P TT, PT #### [facility] [address] [place] [address] [place] #### ALDOLASE #### [facility] , Bilirubin [Mass/Vol] 0.3 mg/dL Normal 0.3-1.2 [facility] Comment on above: Performed By: #### P TT, PT #### [facility] [address] [place] [address] [place] #### ALDOLASE #### [facility] , Calcium [Mass/Vol] 9.2 mg/dL Normal 8.2-10.2 [facility] Comment on above: Performed By: #### P TT, PT #### [facility] [address] [place] [address] [place] #### ALDOLASE #### [facility] , Chloride [Moles/Vol] 104 mmol/L Normal 95-114 [facility] Comment on above: Performed By: #### P TT, PT #### [facility] [address] [place] [address] [place] #### ALDOLASE #### [facility] , CO2 [Moles/Vol] 23.9 mmol/L Normal 22.0-30.0 [facility] Comment on above: Performed By: #### P TT, PT #### [facility] [address] [place] [address] [place] #### ALDOLASE #### [facility] , Creatinine [Mass/Vol] 0.72 mg/dL Normal 0.44-1.03 [facility] Comment on above: Performed By: #### P TT, PT #### [facility] [address] [place] [address] [place] #### ALDOLASE #### [facility] , Estimated GFR ( Makayla > 60 [facility] Comment on above: Result Comment: GFR estimated reference range: According to KDOQI guidelines, <60 ml/min/1.73m2 is sufficient to diagnose a patient with chronic kidney disease. Performed By: #### P TT, PT #### [facility] [address] [place] [address] [place] #### ALDOLASE #### [facility] , Estimated GFR (Non- Am > 60 [facility] Comment on above: Performed By: #### P TT, PT #### [facility] [address] [place] [address] [place] #### ALDOLASE #### [facility] , Globulin (S) [Mass/Vol] 2.9 g/dL Normal [facility] Comment on above: Performed By: #### P TT, PT #### [facility] [address] [place] [address] [place] #### ALDOLASE #### [facility] , Glucose [Mass/Vol] 95 mg/dL Normal 70-100 [facility] Comment on above: Result Comment: [place] om Glucose Reference Range is dependent on time and content of last meal. Glucose of more than 200 mg/dL in a nonstressed, ambulatory subject supports the diagnosis of Diabetes Mellitus. ADA recommended reference range Performed By: #### P TT, PT #### [facility] [address] [place] [address] [place] #### ALDOLASE #### [facility] , Potassium [Moles/Vol] 4.1 mmol/L Normal 3.5-5.1 [facility] Comment on above: Performed By: #### P TT, PT #### [facility] [address] [place] [address] #### ALDOLASE #### [facility] , Protein [Mass/Vol] 6.9 g/dL Normal 6.1-7.9 [facility] Comment on above: Performed By: #### P TT, PT #### [facility] [address] [place] [address] [place] #### ALDOLASE #### [facility] , Sodium [Moles/Vol] 136 mmol/L Normal 136-146 [facility] Comment on above: Performed By: #### P TT, PT #### [facility] [address] [place] [address] #### ALDOLASE #### [facility] , Urea nitrogen [Mass/Vol] 8 mg/dL Low 9-23 [facility] Comment on above: Performed By: #### P TT, PT #### [facility] [address] [place] [address] #### ALDOLASE #### [facility] , Creatine Kinaseon 09-24-2021 CK [Catalytic activity/Vol] 44 U/L Normal 22-269 [facility] Comment on above: Result Comment: PERF ORMED BY: [place] [address] PATHOLOGIST RELOCATION DIRECTOR REGINE JACOBO M.D. Performed By: #### P TT, PT #### [facility] [address] [place] [address] [place] #### ALDOLASE #### [facility] , Creatine kinase [Enzymatic a ctivity/volume] in Serum or PlasmaOrdered By: Cammy Augustin on 09-24-2021 CK [Catalytic activity/Vol] 44 U/L 22-269 [facility] Creatinine and Glomerular fi ltration rate.predicted panel (S/P/Bld)Ordered By: Cammy Augustin on 09-24-2021 Creatinine [Mass/Vol] 0.72 mg/dL 0.44-1.03 [facility] Dipstick and Microscopicon 0 09-24-2021 Appearance (U) Clear Normal Clear [facility] Comment on above: Order Comment: Name Collection Type:: Clean-Voided Midstream Performed By: #### C H50, C3, C4 #### [facility] , #### ADDONUAPLUS #### [facility] [address] [place] [address] [place] Bacteria,Urine None Seen Normal None Seen [facility] Comment on above: Order Comment: Name Collection Type:: Clean-Voided Midstream Performed By: #### C H50, C3, C4 #### [facility] , #### ADDONUAPLUS #### [facility] [address] [place] [address] [place] Bilirubin,Urine Negative Normal Negative [facility] Comment on above: Order Comment: Name Collection Type:: Clean-Voided Midstream Performed By: #### C H50, C3, C4 #### [facility] , #### ADDONUAPLUS #### [facility] [address] [place] [address] [place] Color (U) Yellow Normal Yellow [facility] Comment on above: Order Comment: Name Collection Type:: Clean-Voided Midstream Performed By: #### C H50, C3, C4 #### [facility] , #### ADDONUAPLUS #### [facility] [address] [place] [address] [place] Glucose Ql (U) Normal Normal Normal [facility] Comment on above: Order Comment: Name Collection Type:: Clean-Voided Midstream Performed By: #### C H50, C3, C4 #### [facility] , #### ADDONUAPLUS #### [facility] [address] Hyaline Casts,Urine 0-8 Normal 0-8 [facility] Comment on above: Order Comment: Name Collection Type:: Clean-Voided Midstream Result Comment: PERF ORMED BY: [place] [address] PATHOLOGIST RELOCATION DIRECTOR REGINE JACOBO M.D. Performed By: #### C H50, C3, C4 #### [facility] , #### ADDONUAPLUS #### [address] Ketones Ql (U) Negative Normal Negative [facility] Comment on above: Order Comment: Name Collection Type:: Clean-Voided Midstream Performed By: #### C H50, C3, C4 #### [facility] , #### ADDONUAPLUS #### [address] Leukocyte esterase Test strip Ql (U) 1+ High Negative [facility] Comment on above: Order Comment: Name Collection Type:: Clean-Voided Midstream Performed By: #### C H50, C3, C4 #### [facility] , #### ADDONUAPLUS #### [facility] [address] [place] [address] Nitrite,Urine Negative Normal Negative [facility] Comment on above: Order Comment: Name Collection Type:: Clean-Voided Midstream Performed By: #### C H50, C3, C4 #### [facility] , #### ADDONUAPLUS #### [facility] [address] [place] [address] Occult Blood,Urine Negative Normal Negative [facility] Comment on above: Order Comment: Name Collection Type:: Clean-Voided Midstream Performed By: #### C H50, C3, C4 #### [facility] , #### ADDONUAPLUS #### [address] pH (U) 6.0 [pH] Normal 5.0-9.0 [facility] Comment on above: Order Comment: Name Collection Type:: Clean-Voided Midstream Performed By: #### C H50, C3, C4 #### [facility] , #### ADDONUAPLUS #### [address] Protein,Urine Negative Normal Negative [facility] Comment on above: Order Comment: Name Collection Type:: Clean-Voided Midstream Performed By: #### C H50, C3, C4 #### [facility] , #### ADDONUAPLUS #### [address] RBC LM.HPF (Urine sed) [#/Area] 0 /[HPF] Normal 0-4 [facility] Comment on above: Order Comment: Name Collection Type:: Clean-Voided Midstream Performed By: #### C H50, C3, C4 #### [facility] , #### ADDONUAPLUS #### [address] Specificy [place],Urine 1.005 Normal 1.001-1.030 [facility] Comment on above: Order Comment: Name Collection Type:: Clean-Voided Midstream Performed By: #### C H50, C3, C4 #### [facility] , #### ADDONUAPLUS #### [address] Squamous Epithelial Cell,Urine 0-1 Normal 0-2 [facility] Comment on above: Order Comment: Name Collection Type:: Clean-Voided Midstream Performed By: #### C H50, C3, C4 #### [facility] , #### ADDONUAPLUS #### [address] Urobilinogen,Urine Normal Normal Normal [facility] Comment on above: Order Comment: Name Collection Type:: Clean-Voided Midstream Performed By: #### C H50, C3, C4 #### [facility] , #### ADDONUAPLUS #### [facility] [address] [place] [address] WBC,Urine 1-2 Normal 0-4 [facility] Comment on above: Order Comment: Name Collection Type:: Clean-Voided Midstream Performed By: #### C H50, C3, C4 #### [facility] , #### ADDONUAPLUS #### [facility] [address] [place] [address] Eosinophils Auto (Bld) [#/Vo l]Ordered By: Cammy Augustin on 09-24-2021 Eosinophils (Bld) [#/Vol] 0.1 10*3/uL 0.0-0.45 [facility] Eosinophils/100 WBC Auto (Bl d)Ordered By: Cammy Augustin on 09-24-2021 Eosinophils/100 WBC (Bld) 1.9 % [facility] Erythrocyte Sedimentation Ra sidra 09-24-2021 ESR (Bld) [Velocity] 27 mm/h High [address] Comment on above: Result Comment: PERF ORMED BY: [place] [address] PATHOLOGIST RELOCATION DIRECTOR REGINE JACOBO M.D. Performed By: #### C BC, ESR #### [facility] [address] [place] [address] #### LUPANTCOAG #### [facility] , Erythrocyte distribution wid th Auto (RBC) [Ratio]Ordered By: Cammy Augustin on 09-24-2021 Erythrocyte distribution width (RBC) [Ratio] 14.6 % 11.9-15.3 [facility] Erythrocyte sedimentation ra te by Photometric methodOrdered By: Cammy Augustin on 09-24-2021 ESR Photometric method (Bld) [Velocity] 27 mm/hr [facility] Estimated glomerular filtrat ion rate (GFR) non- AmericanOrdered By: Cammy Augustin on 09-24-2021 GFR/1.73 sq M.predicted among non-blacks MDRD (S/P/Bld) [Vol rate/Area] > 60 mL/Min [facility] Free T4 (Free Thyroxine)on 0 09-24-2021 Free T4 [Mass/Vol] 0.66 ng/dL Normal 0.61-1.12 [facility] Comment on above: Performed By: #### P TT, PT #### [facility] [address] [place] [address] [place] #### ALDOLASE #### [facility] , Globulin Calc (S) [Mass/Vol] Ordered By: Cammy Augustin on 09-24-2021 Globulin (S) [Mass/Vol] 2.9 g/dL [facility] Hematocrit Auto (Bld) [Volum e fraction]Ordered By: Cammy Augustin on 09-24-2021 Hematocrit (Bld) [Volume fraction] 40.7 % 34.0-46.4 [facility] Ketones Auto test strip (U) [Mass/Vol]Ordered By: Cammy Augustin on 09-24-2021 Ketones (U) [Mass/Vol] Negative Negative [facility] - CoagulationOrde red By: Cammy Augustin on 09-24-2021 PT Coag (PPP) [Time] 13.1 s 9.0-12.9 [facility] - Hematology and Cell countsOrdered By: Cammy Augustin on 09-24-2021 Nucleated RBC/100 WBC (Bld) [Ratio] 0.0 % 0-0.5 [facility] - UrinalysisOrder ed By: Cammy Augustin on 09-24-2021 Hyaline casts LM Ql (Urine sed) 0-8 [LPF] [facility] Lupus Anticoagulant Compon 0 09-24-2021 Dilute Prothrombin Time (dPt) 41.5 Normal 0.0-47.6 [facility] Comment on above: Performed By: #### C BC, ESR #### [facility] [address] [place] [address] [place] #### LUPANTCOAG #### [facility] , dPT Confirm Ratio 1.09 Normal 0.00-1.34 [facility] Comment on above: Performed By: #### C BC, ESR #### [address] #### LUPANTCOAG #### [facility] , DRVVT Lupus 44.4 Normal 0.0-47.0 [facility] Comment on above: Performed By: #### C BC, ESR #### [facility] [address] [place] [address] #### LUPANTCOAG #### [facility] , Interpretation Comment: Normal . [facility] Comment on above: Result Comment: No l upus anticoagulant was detected. Performed at: - [address] [id number] Claim Trainee: Dian Bowden MD, Phone: [phone] PERFORMED BY: [place] [address] PATHOLOGIST RELOCATION DIRECTOR REGINE JACOBO M.D. Performed By: #### C BC, ESR #### [address] #### LUPANTCOAG #### [facility] , PTT-LA 33.2 Normal 0.0-51.9 [facility] Comment on above: Performed By: #### C BC, ESR #### [facility] [address] [place] [address] [place] #### LUPANTCOAG #### [facility] , Thrombin Time 16.6 Normal 0.0-23.0 [facility] Comment on above: Performed By: #### C BC, ESR #### [facility] [address] [place] [address] [place] #### LUPANTCOAG #### [facility] , Lymphocytes Auto (Bld) [#/Vo l]Ordered By: Cammy Augustin on 09-24-2021 Lymphocytes (Bld) [#/Vol] 1.6 10*3/uL 1.00-4.8 [facility] Lymphocytes/100 WBC Auto (Bl d)Ordered By: Cammy Augustin on 09-24-2021 Lymphocytes/100 WBC (Bld) 22.6 % [facility] MCH Auto (RBC) [Entitic mass ]Ordered By: Cammy Augustin on 09-24-2021 MCH (RBC) [Entitic mass] 27.4 pg 24.7-34.3 [facility] MCHC Auto (RBC) [Mass/Vol]Or dered By: Cammy Augustin on 09-24-2021 MCHC (RBC) [Mass/Vol] 33.2 g/dL 32.0-35.0 [facility] MCV Auto (RBC) [Entitic vol] Ordered By: Cammy Augustin on 09-24-2021 MCV (RBC) [Entitic vol] 82.5 fL 80-100 [facility] Mitochondrial (M2) Antibodyo n 09-24-2021 Mitochondrial (M2) Antibody <20.0 Normal 0.0-20.0 [facility] Comment on above: Result Comment: Nega tive 0.0 - 20.0 Equivocal 20.1 - 24.9 Positive >24.9 Mitochondrial (M2) Antibodies are found in 90-96% of patients with primary biliary cirrhosis. Performed By: #### P TT, PT #### [address] #### ALDOLASE #### [facility] , Monocytes Auto (Bld) [#/Vol] Ordered By: Cammy Augustin on 09-24-2021 Monocytes (Bld) [#/Vol] 0.5 10*3/uL 0.0-0.8 [facility] Monocytes/100 WBC Auto (Bld) Ordered By: Cammy Augustin on 09-24-2021 Monocytes/100 WBC (Bld) 6.4 % [facility] Myoglobinon 09-24-2021 Myoglobin [Mass/Vol] ng/mL Low 25-58 [facility] Comment on above: Result Comment: Perf ormed at: CB - [facility] [address] [id number] Claim Trainee: Rich Ritchie PhD, Phone: [phone] Performed By: #### P TT, PT #### [facility] [address] [place] [address] #### ALDOLASE #### [facility] , Neutrophils Auto (Bld) [#/Vo l]Ordered By: Cammy Augustin on 09-24-2021 Neutrophils (Bld) [#/Vol] 4.8 10*3/uL 1.8-7.7 [facility] Neutrophils/100 WBC Auto (Bl d)Ordered By: Cammy Augustin on 09-24-2021 Neutrophils/100 WBC (Bld) 68.2 % [facility] Nitrite Test strip Ql (U)Ord ered By: Cammy Augustin on 09-24-2021 Nitrite Ql (U) Negative Negative [facility] No Panel InformationOrdered By: Cammy Augustin on 09-24-2021 Estimated GFR () > 60 mL/Min [facility] Comment on above: GFR estimated refere nce range: According to KDOQI guidelines, <60 ml/min/1.73m2 is sufficient to diagnose a patient with chronic kidney disease. Pharmacy Creatinine Clearance (Chem N/A [facility] Partial Thromboplastin Timeo n 09-24-2021 aPTT Coag (Bld) [Time] 32.6 s Normal 25.1-36.5 [facility] Comment on above: Order Comment: List the anticoagulant: NONE Result Comment: PERF ORMED BY: [place] [address] PATHOLOGIST RELOCATION DIRECTOR REGINE JACOBO M.D. Performed By: #### P TT, PT #### [facility] [address] [place] [address] #### ALDOLASE #### [facility] , Platelet mean volume Auto (B ld) [Entitic vol]Ordered By: Cammy Augustin on 09-24-2021 Platelet mean volume (Bld) [Entitic vol] 8.4 fL 6.3-10.7 [facility] Platelet poor plasma interna tional normalized ratio (INR) by coagulation assay (relatOrdered By: Cammy Augustin on 09-24-2021 INR Coag (PPP) [Relative time] 1.2 {INR} [facility] Comment on above: INR Therapeutic Rang [...] 09-24-2021 Platelets (Bld) [#/Vol] 309 10*3/uL 150-450 [facility] Protein Auto test strip (U) [Mass/Vol]Ordered By: Cammy Augustin on 09-24-2021 Protein (U) [Mass/Vol] Negative Negative [facility] Protein [Mass/volume] in Ser um or PlasmaOrdered By: Cammy Augustin on 09-24-2021 Protein [Mass/Vol] 6.9 g/dL 6.1-7.9 [facility] Prothrombin Time INRon 09-24 INR Coag (PPP) [Relative time] 1.2 {INR} Normal [facility] Comment on above: Order Comment: List [...] Performed By: #### P TT, PT #### [address] #### ALDOLASE #### [facility] , PT Coag (PPP) [Time] 13.1 s High 9.0-12.9 [facility] Comment on above: Order Comment: List the anticoagulant: NONE Performed By: #### P TT, PT #### [facility] [address] [place] [address] [place] #### ALDOLASE #### [facility] , RBC Auto (Bld) [#/Vol]Ordere d By: Cammy Augustin on 09-24-2021 RBC (Bld) [#/Vol] 4.94 10*6/uL 3.60-5.00 [facility] RPR w/rfx to Quant TP Abson 09-24-2021 RPR, Rfx Quant RPR Non-Reactive Normal Non Reactive [facility] Comment on above: Result Comment: Perf ormed at: - [facility] [address] [id number] Claim Trainee: Rich Ritchie PhD, Phone: [phone] PERFORMED BY: [place] [address] PATHOLOGIST RELOCATION DIRECTOR REGINE JACOBO M.D. Performed By: #### P TT, PT #### [facility] [address] [place] [address] #### ALDOLASE #### [facility] , Serum or plasma C reactive p rotein measurement (mass/volume)Ordered By: Cammy Augustin on 09-24-2021 CRP [Mass/Vol] 0.8 mg/dL 0.0-1.0 [facility] Serum or plasma alanine eckert otransferase measurement without P-5'-P (enzymatic activiOrdered By: Cammy Augustin on 09-24-2021 ALT No additional P-5'-P [Catalytic activity/Vol] 17 U/L 10-60 [facility] Serum or plasma albumin/glob ulin mass ratioOrdered By: Cammy Augustin on 09-24-2021 Albumin/Globulin [Mass ratio] 1.4 {ratio} [facility] Serum or plasma alkaline nat sphatase measurement (enzymatic activity/volume)Ordered By: Cammy Augustin on 09-24-2021 ALP [Catalytic activity/Vol] 68 U/L 32-92 [facility] Serum or plasma aspartate am inotransferase measurement (enzymatic activity/volume)Ordered By: Cammy Augustin on 09-24-2021 AST [Catalytic activity/Vol] 16 U/L 10-42 [facility] Serum or plasma calcium christiano urement (mass/volume)Ordered By: Cammy Augustin on 09-24-2021 Calcium [Mass/Vol] 9.2 mg/dL 8.2-10.2 [facility] Serum or plasma chloride kings surement (moles/volume)Ordered By: Cammy Augustin on 09-24-2021 Chloride [Moles/Vol] 104 mmol/L 95-114 [facility] Serum or plasma glucose christiano urement (mass/volume)Ordered By: Cammy Augustin on 09-24-2021 Glucose [Mass/Vol] 95 mg/dL 70-100 [facility] Comment on above: ADA recommended refe rence range Random Glucose Reference Range is dependent on time and content of last meal. Glucose of more than 200 mg/dL in a nonstressed, ambulatory subject supports the diagnosis of Diabetes Mellitus. Serum or plasma potassium me asurement (moles/volume)Ordered By: Cammy Augustin on 09-24-2021 Potassium [Moles/Vol] 4.1 mmol/L 3.5-5.1 [facility] Serum or plasma sodium measu rement (moles/volume)Ordered By: Cammy Augustin on 09-24-2021 Sodium [Moles/Vol] 136 mmol/L 136-146 [facility] Serum or plasma total biliru bin measurement (mass/volume)Ordered By: Cammy Augustin on 09-24-2021 Bilirubin [Mass/Vol] 0.3 mg/dL 0.3-1.2 [facility] Serum or plasma total carbon dioxide measurement (moles/volume)Ordered By: Cammy Augustin on 09-24-2021 CO2 [Moles/Vol] 23.9 mmol/L 22.0-30.0 [facility] Serum or plasma urea nitroge n measurement (mass/volume)Ordered By: Cammy Augustin on 09-24-2021 Urea nitrogen [Mass/Vol] 8 mg/dL 9- [facility] Smooth Muscle Antibodyon Smooth Muscle Antibody 7 Normal 0-19 [facility] Comment on above: Result Comment: Nega tive 0 - 19 Weak positive 20 - 30 Moderate to strong positive >30 Actin Antibodies are found in 52-85% of patients with autoimmune hepatitis or chronic active hepatitis and in 22% of patients with primary biliary cirrhosis. Performed By: #### P TT, PT #### [facility] [address] [place] [address] [place] #### ALDOLASE #### [facility] , Specific gravity Auto test s trip (U) [Rel density]Ordered By: Cammy Augustin on 09-24-2021 Specific gravity (U) [Rel density] 1.005 1.001-1.030 [facility] Squamous epithelial cells de tection in urine sediment by light microscopyOrdered By: Cammy Augustin on 09-24-2021 Epithelial cells.squamous LM Ql (Urine sed) 0-1 [HPF] [facility] TSH DL <= 0.005 mIU/L QnOrde red By: Cammy Augustin on 09-24-2021 TSH Qn 1.34 m[IU]/L 0.45-5.33 [facility] Thyroid Peroxidase Antibodie son 09-24-2021 Thyroid Peroxidase Antibodies <8 Normal 0-34 [facility] Comment on above: Performed By: #### P TT, PT #### [facility] [address] [place] [address] [place] #### ALDOLASE #### [facility] , Thyroid Stimulating Hormoneo n 09-24-2021 TSH Qn 1.34 m[IU]/L Normal 0.45-5.33 [facility] Comment on above: Result Comment: PERF ORMED BY: [place] [address] PATHOLOGIST RELOCATION DIRECTOR REGINE JACOBO M.D. Performed By: #### P TT, PT #### [facility] [address] [place] [address] [place] #### ALDOLASE #### [facility] , Thyroxine (T4) free [Mass/vo lume] in Serum or PlasmaOrdered By: Cammy Augustin on 09-24-2021 Free T4 [Mass/Vol] 0.66 ng/dL 0.61-1.12 [facility] Urine bacteria detection by automated methodOrdered By: Cammy Augustin on 09-24-2021 Bacteria Auto Ql (U) None seen None Seen [facility] Urine clarity by refractomet ry automatedOrdered By: Cammy Augustin on 09-24-2021 Clarity Refractometry automated (U) Clear Clear [facility] Urine glucose measurement by automated test strip (mass/volume)Ordered By: Cammy Augustin on 09-24-2021 Glucose Auto test strip (U) [Mass/Vol] Normal mg/dL Normal [facility] Urine hemoglobin detection b y automated test stripOrdered By: Cammy Augustin on 09-24-2021 Hemoglobin Auto test strip Ql (U) Negative Negative [facility] Urine leukocyte esterase det ection by automated test stripOrdered By: Cammy Augustin on 09-24-2021 Leukocyte esterase Auto test strip Ql (U) 1+ Negative [facility] Urobilinogen Auto test strip (U) [Mass/Vol]Ordered By: Cammy Augutsin on 09-24-2021 Urobilinogen (U) [Mass/Vol] Normal mg/dL Normal [facility] pH Auto test strip (U)Ordere d By: Cammy Augustin on 09-24-2021 pH (U) 6.0 [pH] 5.0-9.0 [facility] Otheron 11-26-2019 1. No evidence of malignancy [...] to the patient regarding the results. [employer] recommends annual mammograms for women 40 years and older. [place], [place] EXAMINATION: BILATERAL DIGITAL DIAGNOSTIC MAMMOGRAM; TARGETED [...] A small benign-appearing lymph node is demonstrated. [place], [place], pn Incoming Radiant Results From [email or web address] - 11/26/2019 7:00 PM EDT EXAMINATION: BILATERAL [...] to the patient regarding the results. [employer] recommends annual mammograms for women 40 years and older. [place], [place] Vital Signs Date Time Vital Sign Value Performing Clinician Annette decker 08-10-2024 10: Body height 170.2 cm Paulina PEREZ Work Phone: [facility] 08-10-2024 10:040 Body mass index (BMI) [Ratio] 34.77 kg/m2 Paulina PEREZ Work Phone: [facility] 08-10-2024 10:040 Body weight 100.7 kg Paulina Sumit MANAGER FASHION-FITNESS SERVICES MANAGER Work Phone: [facility] 08-10-2024 10:24-0400 Diastolic blood pressure 77 mm[Hg] Paulina Arana MANAGER FASHION-FITNESS SERVICES MANAGER Work Phone: [facility] 08-10-2024 10:24-0400 Heart rate 70 /min Paulina Arana MANAGER FASHION-FITNESS SERVICES MANAGER Work Phone: [facility] 08-10-2024 10:24-0400 Systolic blood pressure 134 mm[Hg] Paulina Arana MANAGER FASHION-FITNESS SERVICES MANAGER Work Phone: [facility] 02-22-2024 10:45-0400 Body height 172.7 cm Gisel Monique CNBola Work Phone: [facility] 02-22-2024 10:45-0400 Body mass index (BMI) [Ratio] 31.93 kg/m2 Gisel Monique CNBola Work Phone: [facility] 02-22-2024 10:45-0400 Body weight 95.25 kg Gisel Monique CNBola Work Phone: [facility] 12-05-2023 13:55-0400 Blood Pressure Location Darleen Renae [facility] 12-05-2023 13:55-0400 Diastolic blood pressure 87 mm[Hg] Darleen Renae [facility] 12-05-2023 13:55-0400 Heart rate 79 /min Darleen Renae [facility] 12-05-2023 13:55-0400 Systolic blood pressure 123 mm[Hg] Darleen Renae [facility] 01-29-2022 16:15-0400 Diastolic blood pressure 69 mm[Hg] Philly Bojorquezg DO [facility] 01-29-2022 16:15-0400 Heart rate 66 /min Philly Bojorquezg DO [facility] 01-29-2022 16:15-0400 Respiratory rate 17 /min Philly Bojorquezg DO [facility] 01-29-2022 16:15-0400 SaO2% (BldA) [Mass fraction] 98 % Philly Nguyễn DO Work Phone: [facility] [employer] 01-29-2022 16:15-0400 Systolic blood pressure 104 mm[Hg] Philly Bojorquezg DO [facility] 01-29-2022 15:45-0400 Body temperature 97.3 [degF] Philly Nguyễn DO [facility] 01-29-2022 14:30-0400 Body height 172.7 cm Philly Nguyễn DO [facility] 01-29-2022 14:30-0400 Body mass index (BMI) [Ratio] 30.65 kg/m2 Philly Nguyễn DO [facility] 01-29-2022 14:30-0400 Body weight 91.44 kg Philly Nguyễn DO [facility] En[facility] Encounter Date Encounter Type Care Provider Facility Start: 10-18-2024 End: 10-18-2024 [facility] Start: 10-18-2024 End: 10-18-2024 Subsequent hospital visit by physician Claudia Oro MD Work Phone: [facility] Comment on above: Urinary tract infect ion without hematuria, site unspecified; Dysuria Start: 10-11-2024 End: 10-11-2024 [facility] Start: 10-11-2024 End: 10-11-2024 Subsequent hospital visit by physician Claudia Oro MD Work Phone: [facility] Comment on above: Acute vulvitis Start: 09-12-2024 End: 09-12-2024 Follow-up encounter Paulina Arana MANAGER FASHION-FITNESS SERVICES MANAGER Work Phone: Division of Surgical Oncology Comment on above: US BREAST LIMITED UN ILATERAL RIGHT Start: 08-10-2024 End: 08-10-2024 Office outpatient new 30 minutes Paulina Arana MANAGER FASHION-FITNESS SERVICES MANAGER Work Phone: Division of Surgical On[facility] Comment on above: Nipple pain (Primary Dx); Breast pain, right; Mass of upper outer quadrant of right breast; Macromastia Start: 08-10-2024 End: 08-10-2024 Subsequent hospital visit by physician Paulina Arana MANAGER FASHION-FITNESS SERVICES MANAGER Work Phone: [facility] Comment on above: Arrived Start: 08-10-2024 ambulatory GISEL VELA Facility:[facility] Start: 02-22-2024 End: 02-24-2024 [facility] Start: 02-22-2024 End: 02-24-2024 Subsequent hospital visit by physician Gisel Vela MANAGER FASHION - CNM Work Phone: [facility] Comment on above: Screening mammogram, encounter for Start: 12-14-2023 End: 12-14-2023 ambulatory [facility]EL [facility] Start: 12-14-2023 End: 12-14-2023 Subsequent hospital visit by physician Claudia Oro MD Work Phone: [facility] Comment on above: Left genital labial abscess; Screening for malignant neoplasm of cervix Start: 12-14-2023 End: 12-14-2023 ambulatory [facility] Start: 12-05-2023 End: 12-05-2023 ambulatory Darleen Renae Facility:[facility] Start: 12-05-2023 End: 12-05-2023 Patient encounter procedure Darleen Renae [facility] Start: 03-23-2023 End: 03-23-2023 ambulatory CAMI H TIMMIS Not Available Start: 03-23-2023 End: 03-23-2023 ambulatory CAMI H TIMMIS Not Available Start: 07-12-2022 Encounter for genera l adult medical examination without abnormal findings DR CLAUDIA ORO . [facility] Start: 07-08-2022 End: 07-09-[address] CLAUDIA ORO . Facility:[facility] Start: 07-08-2022 End: 07-09-2022 Encounter for general adult medical examination without abnormal findings DR CLAUDIA ORO . Facility:[facility] Start: 03-06-2022 End: 03-07-[address] CLAUDIA ORO . Facility:[facility] Start: 01-29-2022 End: 01-29-2022 Subsequent hospital visit by physician Philly Nguyễn DO Work Phone: [facility] Comment on above: Post-op pain (Primar y Dx); Menorrhagia with regular cycle Start: 01-08-2022 End: 01-09-[address] CLAUDIA ORO . Facility:[facility] Start: 11-28-2021 End: 11-29-[address] CAMMY AUGUSTIN Facility:[facility] Start: 11-27-2021 End: 11-28-2021 ambulatory NBA HESTER Facility:[facility] Start: 11-05-2021 End: 11-05-2021 Subsequent hospital visit by physician Claudia Oro MD Work Phone: [facility] Comment on above: Menorrhagia with irr egular cycle Start: 10-14-2021 End: 10-16-2021 Subsequent hospital visit by physician [facility] Mri Scanner [facility] Comment on above: Spontaneous ocular n ystagmus; Optic nerve hypoplasia of both eyes Start: 09-24-2021 End: 09-24-2021 Patient encounter procedure MD Manuel Augustin Work Phone: [facility] [address] Start: 09-09-2021 End: 09-09-2021 Subsequent hospital visit by physician Claudia Oro MD Work Phone: [facility] Comment on above: Vaginal irritation Start: 02-26-2020 End: 02-26-2020 Subsequent hospital visit by physician Claudia Oro [facility] Comment on above: Screening for cervic al cancer; Irregular menses Start: 11-26-2019 End: 11-28-2019 Subsequent hospital visit by physician [facility] Mammography [facility] Mamm[facility] Comment on above: Breast pain, right Arrived Start: 03-01-2019 End: 03-03-2019 Subsequent hospital visit by physician Claudia maren [facility] Radiology Procedures Date Procedure Procedure Detail Performing Clinician Start: 10-18-2024 Urinalysis microscop ic only Gisel Vela MANAGER FASHION - CN Work Phone: Start: 10-18-2024 Urnls dip stick/tabl et rgnt auto w/o microscopy Gisel Vela MANAGER FASHION - CNM Work Phone: Start: 08-10-2024 Us breast uni real t chintan with image limited Paulina Arana MANAGER FASHION-FITNESS SERVICES MANAGER Work Phone: Start: 08-10-2024 Diagnostic mammograp hy computer-aided detcj bi Paulina Arana MANAGER FASHION-FITNESS SERVICES MANAGER Work Phone: Start: 02-22-2024 Screening mammograph y bi 2-view breast inc cad Gisel Vela MANAGER FASHION - CN Work Phone: Start: 12-14-2023 Microscopic observat ion [Identifier] in Cervix by Cyto stain Gisel Vela MANAGER FASHION - CNM Work Phone: Start: 01-29-2022 Urine test visual color cmprsn lyn Witt MANAGER FASHION - CLOTH [employer] BACK TENDER Start: 10-14-2021 Mri brain brain stem w/o w/contrast material Jacques Toussaint MD Work Phone: Start: 10-14-2021 Creatinine blood Jacques Toussaint MD Work Phone: Start: 02-26-2020 Microscopic observat ion [Identifier] in Cervix by Cyto stain Claudia Oro MD Work Phone: Start: 11-26-2019 Us breast uni real t chintan with image complete Gisel Vela Work Phone: Start: 11-26-2019 Tomosynthesis, mammo screen Gisel Vela Work Phone: Colonoscopy Darleen Renae Comment on above: 2013 Plan of Treatment Date Care Activity Detail Author Start: 12-13-2026 Screening for malign ant neoplasm of cervix [facility] Start: 07-26-2025 Depression Screen Depression Screen [facility] Start: 04-03-2025 End: 04-03-2025 Patient encounter procedure 04/03/2025 9:45 AM EST Office Visit [facility]ECOLOG[facility] [address] [place] [address] Gisel Vela, MANAGER FASHION - CN [address] [facility] [address] [place] [address] yearly [facility]ST[facility] Comment on above: yearly Start: 02-25-2025 Screening for malign ant neoplasm of cervix [facility] Start: 01-10-2025 End: 01-10-2025 Patient encounter procedure 01/10/2025 11:30 AM EDT Office Visit [facility] [address] [place] [address] [address] [place] [address] [facility] Start: 01-07-2025 Influenza vaccination INFLUENZ A VACCINE (Season Ended) [facility] Start: 12-13-2024 Depression Screen Depression Screen [facility] Start: 12-07-2024 Influenza vaccination Flu vacc ine (Season Ended) [facility] Start: 10-21-2024 DTaP/Tdap/Td vaccine (9 - Td or Tdap) DTaP/Tdap/Td vaccine (9 - Td or Tdap) [facility] Start: 10-21-2024 DTaP/Tdap/Td vaccine (9 - Td) DTaP/Tdap/Td vaccine (9 - Td) [place] Start: 10-21-2024 Tetanus vaccination TETANUS [facility] Start: 01-23-2024 End: 01-23-2024 Patient encounter procedure 01/23/2024 3:00 PM EDT Office Visit [facility] GENERAL SURGERY [facility] [address] [facility] [address] [place] [address] Harris Yancey MD [address] [place] [id number] skin [facility] Comment on above: skin tag. anal fissu re Start: 01-08-2024 COVID-19 Vaccine ( season) COVID-19 Vaccine ( season) [facility] Start: 01-08-2024 COVID-19 VACCINE ( season) COVID-19 VACCINE ( season) [facility] Start: 12-08-2023 Influenza vaccination Flu vaccine (# 1) [facility] Start: 02-25-2023 Screening for malign ant neoplasm of cervix Pap smear [facility] Start: 09-14-2022 End: 09-14-2022 Patient encounter procedure 09/14/2022 Office Visit Obstetrics and Gynecology Gisel Vela, SUDARSHAN - DEVANTE [address] [place] [address] [facility]YNECOLOG[facility] Start: 05-05-2022 End: 05-05-2022 Patient encounter procedure 05/05/2022 Office Visit Obstetrics and Gynecology Sujey Bentley PA-C [address] [place] [address] [facility]ST[facility]YNECOLOGY [facility] Start: 01-29-2022 End: 01-29-2022 Hysteroscopy bx endometrium&/polypc w/wo d&c DILATATION AND CURETTAGE HYSTEROSCOPY CAUTERY ABLATION Menorrhagia with regular cycle 01/29/2022 3:14 PM EDT [facility] Start: 01-07-2022 Influenza vaccination [facility] Start: 11-30-2021 End: 11-30-2021 Patient encounter procedure 11/30/2021 Office Visit Obstetrics and Gynecology Philly Jacobsen, DO [address] [place] [address] [facility]ST[facility]YNECOLOG[facility] Start: 11-05-2021 End: 11-05-2021 Patient encounter procedure 11/05/2021 Routine Obstetrics and Gynecology Gisel Vela, MANAGER FASHION - CNM [address] [place], [place] [id number] [facility] OBSTETRICS GYNECOLOGY [facility] Start: 11-05-2021 End: 11-05-2021 Professional / ancillary services management 11/05/2021 Ancillary Procedure Obstetrics and Gynecology [facility] OBSTETRICS [facility] Start: 09-30-2021 End: 09-30-2021 Patient encounter procedure 09/30/2021 Office Visit Obstetrics and Gynecology Gisel Vela, MANAGER FASHION - CNM [address] [place] [address] [facility] Start: 09-30-2021 End: 09-30-2021 Professional / ancillary services management 09/30/2021 Ancillary Procedure Obstetrics and Gynecology [facility] Start: 02-25-2021 Depression Screen Depression Screen [facility] Start: 2020 Diabetes screen Diabetes screen [facility] Start: 03-12-2020 End: 03-12-2020 Ancillary Procedure [facility]ST[facility]YNECOLOGY Start: 01-08-2020 Influenza vaccination Flu vaccine (# 1) [facility] [place], [place] Start: 01-07-2019 Influenza vaccination Flu vaccine (# 1) [place], [place] Start: 2006 Cervical cancer screen Cervical canc er screen [place], [place] Start: 2006 Screening for malign ant neoplasm of cervix [facility] Start: 2004 Hepatitis B vaccine (1 of 3 - 19+ 3-dose series) Hepatitis B vaccine (1 of 3 - 19+ 3-dose series) [facility] Start: 10-20-2003 Hepatitis C screening Hepatitis C sc reen [facility] Start: 2000 HIV screening HIV SCREENING DISCUSSION [facility] Start: 1998 Varicella Vaccine (1 of 2 - 13+ 2-dose series) Varicella Vaccine (1 of 2 - 13+ 2-dose series) [facility] Start: 10-20-1991 Pneumococcal 0-64 ye ars Vaccine (1 - PCV) Pneumococcal 0-64 years Vaccine (1 - PCV) [facility] Start: 1990 COVID-19 Vaccine (1) COVID-19 Vaccin e (1) [facility] Start: 1986 Varicella vaccine (1 of 2 - 2-dose childhood series) Varicella vaccine (1 of 2 - 2-dose childhood series) [facility] Start: 04-20-1986 COVID-19 Vaccine (#1) COVID-19 Vacci ne (#1) [facility] Start: 1985 Hepatitis B vaccine (1 of 3 - 3-dose series) Hepatitis B vaccine (1 of 3 - 3-dose series) [facility] Start: 1985 Hepatitis C screening HEPATITI S C VIRUS SCREENING [facility] Actin smooth muscle IgG Ab [Units/volume] in Serum [facility] Work Phone: Aldolase measurement [facility] Work Phone: aPTT.lupus sensitive (LA screen) [facility] Work Phone: aPTT.lupus sensitive W excess phospholipid actual/Normal (normalized LA confirm) [facility] Work Phone: aPTT.lupus sensitive/aPTT.lupus sensitive W excess phospholipid (screen to confirm ra [facility] Work Phone: End: 09-09-2021 C.trachomatis N.gonorrhoeae DNA [facility] Work Phone: Comment on above: 1 Occurrences starti ng 09/09/2021 until 09/09/2021 End: 11-05-2021 C.trachomatis N.gonorrhoeae DNA [facility] Work Phone: Comment on above: 1 Occurrences starti ng 11/05/2021 until 11/05/2021 End: 02-26-2020 C.trachomatis N.gonorrhoeae DNA, Thin Prep C.trachomatis N.gonorrhoeae DNA, Thin Prep Microbiology Routine Irregular menses 1 Occurrences starting 02/26/2020 until 02/26/2020 [facility], [place] Comment on above: 1 Occurrences starti ng 02/26/2020 until 02/26/2020 C.trachomatis N.gonorrhoeae DNA, Thin Prep C.trachomatis N.gonorrhoeae DNA, Thin Prep Microbiology Routine Irregular menses 02/26/2020 12:19 PM EDT [place] Chromatin Ab [Units/volume] in Serum or Plasma [facility] Work Phone: Complement C3 [Mass/volume] in Serum or Plasma [facility] Work Phone: Complement C4 [Mass/volume] in Serum or Plasma [facility] Work Phone: End: 09-09-2021 Culture, Genital [facility] Work Phone: Comment on above: 1 Occurrences starti ng 09/09/2021 until 09/09/2021 End: 10-11-2024 Culture, Genital (with Gram Stain) [facility] Comment on above: 1 Occurrences starti ng 10/11/2024 until 10/11/2024 End: 10-11-2024 Culture, [facility]rine [facility] Comment on above: Once for 1 Occurrenc es starting 10/11/2024 until 10/11/2024 End: 10-18-2024 Culture, [facility]rine [facility] on above: 1 Occurrences starti ng 10/18/2024 until 10/18/2024 End: 12-14-2023 Culture, Wound [facility] Comment on above: 1 Occurrences starti ng 12/14/2023 until 12/14/2023 End: 02-26-2020 Cytopathology procedure, preparation of smear, genital source PAP SMEAR Lab Routine Screening for cervical cancer 1 Occurrences starting 02/26/2020 until 02/26/2020 [facility], [place] Comment on above: 1 Occurrences starti ng 02/26/2020 until 02/26/2020 End: 12-14-2023 Cytopathology procedure, preparation of smear, genital source PAP SMEAR Lab Routine Screening for malignant neoplasm of cervix 1 Occurrences starting 12/14/2023 until 12/14/2023 [facility] Comment on above: 1 Occurrences starti ng 12/14/2023 until 12/14/2023 dRVVT (LA screen) [facility] Work Phone: Hemolytic complement CH50 level [facility] Work Phone: Homogenous nuclear A b pattern [Titer] in Serum [facility] Work Phone: End: 01-29-2022 INITIATE PACU OXYGEN THERAPY PROTOCOL Initiate PACU Oxygen Therapy Protocol Respiratory Care Routine Continuous until discontinued starting 01/29/2022 [facility] Work Phone: Comment on above: Continuous until dis continued starting 01/29/2022 Lupus anticoagulant [Interpretation] in Platelet poor plasma [facility] Work Phone: Mitochondria M2 IgG Ab [Units/volume] in Serum [facility] Work Phone: Myoglobin [Mass/volu me] in Serum or Plasma [facility] Work Phone: Nuclear Ab [Titer] i n Serum [facility] Work Phone: Oxygen therapy [Mini mum Data Set] Initiate Oxygen Therapy Protocol Respiratory Care Routine As Needed until discontinued starting 01/29/2022 [facility] Work Phone: Comment on above: As Needed until disc ontinued starting 01/29/2022 Reagin Ab [Presence] in Serum by RPR [facility] Work Phone: Surgical Pathology Surgical Path ology Lab Routine Menorrhagia with regular cycle Release Upon Ordering for 1 Occurrences starting 01/29/2022 [employer] Work Phone: Comment on above: Release Upon Orderin g for 1 Occurrences starting 01/29/2022 End: 01-29-2022 SURGICAL PATHOLOGY REPORT SURGICAL PATHOLOGY REPORT Lab Routine Once for 1 Occurrences starting 01/29/2022 until 01/29/2022 [employer] Work Phone: Comment on above: Once for 1 Occurrenc es starting 01/29/2022 until 01/29/2022 Thrombin time [facility] Work Phone: Thyroglobulin Ab [Units/volume] in Serum or Plasma [facility] Work Phone: Thyroperoxidase Ab [Units/volume] in Serum or Plasma [facility] Work Phone: Immunizations Immunization Date Immunization Notes Care Provider [facility] 05-08-2019 influenza virus vaccine, unspecified formulation Paulina Arana APRN-FITNESS SERVICES MANAGER Work Phone: [facility] 10-21-2014 tetanus toxoid, reduced diphtheria toxoid, and acellular pertussis vaccine, adsorbed [facility], [place] 10-09-2004 tetanus toxoid, reduced diphtheria toxoid, and acellular pertussis vaccine, adsorbed [facility] NEGATED: Highlighted row has not occurred!06-03-2021 influenza virus vaccine, unspecified formulation Darleen Renae [facility] Payers Date Payer Category Payer Managed Care (unspecified) MMO [id number] 2017 Unknown [employer] M [employer] [address] xxxxxxxxxxxx 2017-Present [phone] [address] [place] [address] xxxxxxxxxxxx [id number] 2017 Unknown [employer] M [employer] [address] [id number] 2017-Present [phone] [address] [place] [address] [id number] 2017 Unknown [id number]. [id number] 1985 Unknown [id number] 2.16.840.1.520554.3.579.2. 593 1985 Unknown [id number] 2.16.840.1.971270.3.579.2. 593 1985 Unknown [id number] 2.16.840.1.976250.3.579.2. 593 1985 Unknown [id number] 2.16.840.1.051080.3.579.2. 593 1985 Unknown [id number] 2.16.840.1.506328.3.579.2. 593 1985 Unknown [id number] 2.16.840.1.575434.3.579.2. 1259 1985 Unknown [id number] 2.16.840.1.109917.3.579.2. 727 1985 Unknown [id number] 2.16.840.1.922964.3.579.2. 594 1985 Unknown [id number] 2.16.840.1.621414.3.579.2. 594 1985 Unknown [id number] 2.16.840.1.796382.3.579.2. 594 1985 Unknown [id number] 2.16.840.1.121736.3.579.2. 175 1985 Unknown [id number] 2.16.840.1.069785.3.579.2. 173 1985 Unknown [id number] 2.16.840.1.832460.3.579.2. 173 1985 Unknown [id number] 2.16.840.1.536878.3.579.2. 173 1985 Unknown [id number] 2.16.840.1.934695.3.579.2. 173 1959 Unknown [id number]. [id number] Self-pay Self Pay [id number] Social History Date Type Detail Facility Start: 08-02-2017 End: 01-27-2022 Tobacco smoking status NHIS Never smoker [place] Start: 08-02-2017 End: 07-26-2024 Alcohol intake No [facility] Start: 1985 Sex Assigned At Not on file [place] Start: 11-21-2019 End: 01-27-2022 Tobacco use and exposure Never used [place], [place] Start: 11-21-2019 End: 02-26-2020 Alcohol intake Current non-drinker of alcohol (finding) [place] Start: 08-30-2021 End: 01-29-2022 Exposure to SARS-CoV-2 (event) Not sure [place] Start: 09-09-2021 End: 12-14-2023 Alcohol intake Current drinker of alcohol (finding) [facility] Work Phone: Start: 09-09-2021 History SDOH Alcohol Comment occasional [employer] Work Phone: Start: 1985 Sex Assigned At Female F [facility] Tobacco smoking status Never [facility] Start: 02-22-2024 End: 07-26-2024 History of Social function [place] Start: 08-10-2024 End: 10-11-2024 Alcoholic beverage intake Ex-drinker (finding) [facility] Start: 06-18-2012 End: 07-26-2024 Sex Female (finding) [facility] Has the [employer], oil, or water [employer] threatened to shut off services in your home in past 12Mo No [place] (I/We) worried [facility] (my/our) food would run out before (I/we) got money to buy more. Never true [facility] [place] Functional Status Date Assessment Result Facility 12-05-2023 Functional Status N/A [facility] Clinical Notes 11-28-2021 to 09-12-2024 Telephone Encounter - ANA Nunez - 09/12/2024 3:57 PM EDTTelephone Encounter - ANA Nunez - 09/12/2024 3:57 PM EDTTpraneeth Miller - 08/10/2024 11:30 AM EDTAttachments Note Date & Type Note Facility 09-12-2024 Telephone encounter Note Returned call to Manju Aldana. We discussed BR 2 finding. No additional follow up is recommended. ANA Nunez [facility] Work Phone: 09-12-2024 Miscellaneous Notes Returned call to Manju Aldana. We discussed BR 2 finding. No additional follow up is recommended. ANA Nunez Patient is returning Paulina's call and shared that she has some additional follow up questions regarding her results. She is hoping to get another call back when possible and states she is free anytime this afternoon. Call placed to Manju Hamlin [facility]. Prior outside imaging was obtained for comparison. Reports from breast imaging 08/10/24 were completed and note benign imaging. Annual mammogram was recommended. Follow up with any breast changes. ANA Nunez documented in this encounter [facility] 09-12-2024 Telephone encounter Note Patient is returning Paulina's call and shared that she has some additional follow up questions regarding her results. She is hoping to get another call back when possible and states she is free anytime this afternoon. [facility] 09-12-2024 Telephone encounter Note Call placed to Manju Hamlin [facility]. Prior outside imaging was obtained for comparison. Reports from breast imaging 08/10/24 were completed and note benign imaging. Annual mammogram was recommended. Follow up with any breast changes. ANA Nunez [facility] 08-10-2024 History of Presen t illness Narrative Patient offered a medical payroll and benefits manager for sensitive exam. Pt declined documented in this encounter [facility] 08-10-2024 History of Presen t illness Narrative Diagnostic Breast Clinic Date of Service: 08/10/2024 History of Present Illness: Chief Complaint Patient presents with New Patient Chronic bilateral breast pain; nipple itching/ burning of rt breast. States the chronic pain in breasts has been going on for 10 years but the rt breast itching has been for last 4-5 months. States she has lumpy breasts, so not sure if anything new; denies any nipple discharge or skin discoloration. Manju Aldana is a 38 y.o. pre menopausal female who presents to the [facility] Diagnostic Breast Clinic on 08/10/2024 for evaluation regarding chronic breast pain and right nipple itching. She started mammograms in 2017 and was told she has dense fibrous breast tissue. Her last mammogram was in February 2024. She notes difficulty with breast feeding with the pain. She notes her breasts were red and tender. She notes the breast pain was occurring prior to lacating. In the right breast she notes increased breast itching. She can put nystatin cream and tenderness to the nipples. She notes her right breast is very tender. She denies new concerning masses but reports that she has lumpy breasts. She reports a history of breast cancer in maternal great aunt in her later years. She is getting evlauated fro Sjogren's. She lost weight with Adipex and she has regained weight recently. Medical/Surgical History: Past Medical History: Diagnosis Date Depression Past Surgical History: Procedure Laterality Date ABLATION ENDOMETRIUM HYSTEROSCOPIC HYDROTHERMAL FOOT SURGERY TONSILLECTOMY ADENOIDECTOMY Breast/MANAGER TRANSFER History: Social History Social History Narrative MANAGER TRANSFER: No LMP recorded. Patient has had an ablation.. Last PAP: 2023 Para: 3 Age at of first child: 19 Age of menarche: 13 Age of menopause: Patient denies hormonal therapy at this time. BREAST (GENERAL): Patient admits to self-breast exams and does them intermittently. Date of patient's first mammogram: 2017 Date of most recent mammogram: 02/22/24 Bra/Cup Size: BREAST(HISTORICAL BIOPSY/THERAPY/TREATMENT) Patient denies previous breast biopsy(s). Patient denies being told they personally have breast cancer or a breast malignancy. Patient denies chemotherapy, hormone therapy or radiation therapy during the last month. Family/Social History: She reports that she has never smoked. She has never used smokeless tobacco. She reports that she does not currently use alcohol. She reports that she does not use drugs. Family History Problem Relation Age of Onset Cancer- Other Maternal Grandfather 60 - 69 bladder Lung Cancer Maternal Grandmother 80 - 89 Breast Cancer Maternal Great Aunt postmenopausal Non-Hodgkins Lymphoma Maternal Cousin 36 Cancer- Other Maternal Great Uncle pancreas Ovarian Cancer Neg Hx Uterine Cancer Neg Hx Colorectal Cancer Neg Hx Prostate Cancer Neg Hx Medications/Allergies/Immunizat ions: Current Outpatient Medications Medication Sig Multiple Vitamin (multivitamin) capsule Take 1 capsule by mouth daily. Allergies Allergen Reactions Ciprofloxacin Hives and Itching Other Reaction(s): Unknown There is no immunization history on file for this patient. Review of Systems: The patient specifically denies unintentional weight loss, chest pain, shortness of breath, cough, or severe headaches. Other symptoms, per HPI. Physical Exam: Vital Signs: BP 134/77 Pulse 70 Ht 1.702 m (5' 7 ) Wt 100.7 kg (222 lb) BMI 34.77 kg/m Smoking Status Never , General/Constitutional: Well developed, well nourished female, who looks their stated age of 38 y.o.. No acute distress. HEENT: Head: Normocephalic and atraumatic. Eyes: Sclerae are anicteric. Neck: Supple, non-tender, with no lymphadenopathy. Pulmonary/Chest: Unlabored breathing on RA. Speaking in full sentences. Breast/ChestWall: Breasts appear symmetric. There are no nipple abnormalities or skin changes bilaterally. There is no supraclavicular or axillary adenopathy present. There is no significant breast pain or tenderness on exam today. Right breast with nodularity and pain at 10:00 8 cm FTN, marked. Left breast with no dominant masses Extremities: Normal range of motion in all four extremities, with normal strength equally and symmetrically. No cyanosis or clubbing or peripheral edema. Neurological: Conscious, alert and oriented. No focal neurologic deficit. Skin: Skin is warm and dry. She is not diaphoretic. Psychiatric: Appropiate mood and affect for her clinical situation. Imaging Data: MAMMO DIAGNOSTIC WITH CHANDRIKA BILATERAL, US BREAST LIMITED UNILATERAL RIGHT, 08/10/2024 11:19 AM (accession [id number]), 08/10/2024 11:33 AM (accession [id number]) CLINICAL INDICATIONS AND HISTORY: right breast pain and density at 10:00, 8 cm FTN, marked. New onset right nipple plain. N64.4:Nipple pain N64.4:Breast pain, right N63.11:Mass of upper outer quadrant of right breast 38-year-old female presents with complaints of a palpable area of concern in the right breast 10:00 axis and right nipple pain. COMPARISON: No prior studies available for comparison. The patient's prior breast imaging studies were not submitted for comparison. MAMMOGRAM TECHNIQUE: 2-D MLO and CC views were obtained of the bilateral breasts. 3-D MLO and CC digital tomosynthesis images were also acquired. Computer aided detection was utilized. MAMMOGRAM FINDINGS: Breast Density: The breasts are heterogeneously dense, which may obscure small masses. There are no suspicious masses, calcifications, or architectural distortions. ULTRASOUND TECHNIQUE: Multiple real-time storm-scale images of the right breast in the 10 o'clock axis and subareolar region were performed. Color Doppler was used to assess vascular flow. ULTRASOUND FINDINGS: In the palpable area of concern in the right breast 10:00 axis zone 3, there is normal appearing soft tissue. No evidence of mass lesions, architectural distortion, or abnormal blood flow. The area of pain in the right breast subareolar region was also imaged and demonstrated a few dilated ducts. No mass lesion or abnormal blood flow. IMPRESSION IMPRESSION: 1. No current specific mammographic evidence of malignancy in either breast. 2. No sonographic findings in the palpable area concern in the right breast 10:00 axis. 3. The targeted right breast ultrasound also demonstrated dilated ducts in the subareolar region. 4. The evaluation is incomplete as prior breast imaging was not submitted for comparison. The patient should submit her prior mammograms and at that time a final impression can be made. BI-RADS: 0: Incomplete: Need prior mammograms for comparison Recommendation: Comparison with prior examinations. Recommendation Laterality: Bilateral Impression and Plan: Impression: Manju Aldana is a 38 y.o. female who presented with right nipple itching and pain. She completed a diagnostic mammogram and targeted right ultrasound today with no concerning findings. However, her outside images are not available for comparison. Plan: Right breast pain - imaging today without concerns, however, no outside imaging available for comparison. Will continue to request outside records. - Today we discussed cyclical/noncyclical breast pain. I provided reassurance that breast pain is not a common sign of breast cancer and that today's clinical breast exam and breast imaging are without suspicious findings. We reviewed common causes of breast pain. - We discussed that chronic breast pain can be a difficult problem to manage and treat, both from the perspective of the patient and from the perspective of the treating provider as often times no clear etiology can be found. We reviewed strategies to mitigate breast pain including obtaining/maintaining a healthy weight which may lower circulating endogeneous estrogen levels thus decreasing chronic breast pain, elimination/reduction of caffeine, smoking cessation, participation in moderate physical activity, addition of oral Flax Seed 25 grams daily if deemed safe by a healthcare provider, decreasing sodium intake, and decreasing alcohol intake. I encouraged the utilization of a well fitting supportive bra, such as a sports bra. I advised that utilization of over the counter (OTC) analgesics could be helpful if deemed safe by a healthcare provider. Further, I advised that topical OTC Voltaren Gel 1% could be a helpful analgesic. Jacques patient education literature was provided regarding breast pain (mastalgia). Urged to call for any breast related changes or if the breast pain failed to improve or worsened. Contact information was provided. Macromastia - she is interested in a breast reduction, referral to plastics placed Return if symptoms worsen or fail to improve. ANA Nunez This patient was seen and evaluated in the Diagnostic Breast Clinic in the Division of Surgical Oncology at the [facility] at [facility]. documented in this encounter [facility] 08-10-2024 Instructions Izabella Pickens RN - 08/10/2024 10:15 AM EDT Patient Satisfaction Surveys: Your opinion matters! If you receive a patient satisfaction survey in the mail, we would appreciate your thoughts. Please help us get better! The following attachments cannot be sent through Care Everywhere.Breast Pain (Mastalgia) (The Jacques) ([place])documented in this encounter [facility] 01-29-2022 History of Presen t illness Narrative Patient verbalizes readiness for discharge. [...] adult. Yes Ok for surgery per Rolanda CLOTH MERCERIZER BACK TENDER. Pt notified and reminded to discontinue adipex [...] PAT phone call. documented [facility]: 01-29-2022 Hospital Discharg e instructions Sally Rogers [...] call if excessive. Call the office at [phone] ([place]) [phone] ([place]) for an appointment in 2 weeks. documented in this encounter [employer] Work Phone: 11-28-2021 Note PROCEDURE: XR ANKLE LT MIN [...] authenticated by: SHERRIE PABLO Date: 2021-11-28 20:09 [facility] 11-28-2021 Note PROCEDURE: XR ANKLE LT MIN [...] authenticated by: SHERRIE PABLO Date: 2021-11-28 20:09 [facility] Evaluation + Plan note No data available for this section [facility] Evaluation note Diagnosis Vaginal irritation Unspecified noninflammatory disorder of vagina documented in this encounter [employer] Work Phone: evaluation noteNo assessment information available [facility] Work Phone: Evaluation note* 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 documented in this encounter [employer] Phone: evaluation note* Diagnosis Menorrhagia with irregular cycle Excessive or frequent menstruation documented in this encounter [employer] Phone: evaluation note* Diagnosis Post-op pain- Primary Other acute postoperative pain Menorrhagia with regular cycle Excessive or frequent menstruation documented in this encounter [facility] [employer] Work Phone: evaluation note* Diagnosis Screening mammogram, encounter for [facility] Diagnosis Left genital labial abscess Other abscess of vulva Screening for malignant neoplasm of cervix Screening for malignant neoplasm of the cervix documented in this encounter [facility] note* Diagnosis Nipple pain Other sign and symptom in breast Breast pain, right Mastodynia Mass of upper outer quadrant of right breast [facility] Diagnosis Nipple pain Other sign and symptom in breast Breast pain, right Mastodynia Mass of upper outer quadrant of right breast [facility] Diagnosis Nipple pain- Primary Other sign and symptom in breast Breast pain, right Mastodynia Mass of upper outer quadrant of right breast Macromastia Hypertrophy of breast Nipple pain Other sign and symptom in breast Breast pain, right Mastodynia Mass of upper outer quadrant of right breast Nipple pain Other sign and symptom in breast Breast pain, right Mastodynia Mass of upper outer quadrant of right breast documented [facility] Diagnosis Acute vulvitis Vaginitis and vulvovaginitis, unspecified documented in this encounter [facility] note* Diagnosis Urinary tract infection without hematuria, site unspecified Dysuria [facility] No data available for this section [facility] Progress note No data available for this section [facility] Reason for visit Narrative* Consultation (Routine) - Pending Review Specialty Diagnoses / Procedures Referred By Contjulissa t Referred To Contact General Surgery Diagnoses Chronic breast pain Procedures [id number] ([email or web address]) - External Referral To Breast Clinic Gisel Vela CNM [address] [facility] [address] [place] [address] Phone: tel: fax: Joann Summers MD [address] [place] [address] [address]rd Floor, [address] [place] [address] Phone: tel: fax: Referral ID Status Reason Start Date Expiration Date V isits Requested Visits Authorized [id number] Pending Review 07/26/2024 01/22/2025 1 1 [facility] Advance Directives No Advanced Directives Records FoundDocuments on File Type Date Recorded Patient Contract Associate Expl anation Advance Directives and Living Will Power of Sanitation Manager Latest Code Status on File Code Status Date Activated Date Inactivated Comments Full Code 11/16/2016 12:56 PM 11/17/2016 6:00 PM Full Code 11/16/2016 10:54 AM 11/16/2016 12:56 PM Full Code 11/15/2016 5:42 PM 11/16/2016 10:54 AM Full Code 11/15/2016 1:25 PM 11/15/2016 5:42 PM Documents on File Type Date Recorded Patient Contract Associate Expl anation Advance Directives and Living Will Power of Sanitation Manager Latest Code Status on File Code Status Date Activated Date Inactivated Comments Full Code 11/16/2016 12:56 PM 11/17/2016 6:00 PM Full Code 11/16/2016 10:54 AM 11/16/2016 12:56 PM Full Code 11/15/2016 5:42 PM 11/16/2016 10:54 AM Full Code 11/15/2016 1:25 PM 11/15/2016 5:42 PM Documents on File Type Date Recorded Patient Contract Associate Expl anation ACP-Advance Directive ACP-Power of Sanitation Manager Documents on File Type Date Recorded Patient Contract Associate Expl anation ACP-Advance Directive ACP-Power of Sanitation Manager Latest Code Status on File Code Status Date Activated Date Inactivated Comments Full Code 01/29/2022 2:15 PM Full Code 11/16/2016 12:56 PM 11/17/2016 6:00 PM Date Activated Date Inactivated Comments 01/29/2022 2:15 PM 01/29/2022 6:33 PM Date Activated Date Inactivated Comments 11/16/2016 12:56 PM 11/17/2016 6:00 PM Date Activated Date Inactivated Comments 11/16/2016 10:54 AM 11/16/2016 12:56 PM Date Activated Date Inactivated Comments 11/15/2016 5:42 PM 11/16/2016 10:54 AM Date Activated Date Inactivated Comments 11/15/2016 1:25 PM 11/15/2016 5:42 PM Latest Code Status on File Code Status Date Activated Date Inactivated Comments Full Code 01/29/2022 2:15 PM 01/29/2022 6:33 PM Code Status History Code Status Date Activated Date Inactivated Comments Full Code 11/16/2016 12:56 PM 11/17/2016 6:00 PM Full Code 11/16/2016 10:54 AM 11/16/2016 12:56 PM Full Code 11/15/2016 5:42 PM 11/16/2016 10:54 AM Full Code 11/15/2016 1:25 PM 11/15/2016 5:42 PM Date Activated Date Inactivated Comments 01/29/2022 2:15 PM 01/29/2022 6:33 PM Date Activated Date Inactivated Comments 11/16/2016 12:56 PM 11/17/2016 6:00 PM Date Activated Date Inactivated Comments 11/16/2016 10:54 AM 11/16/2016 12:56 PM Date Activated Date Inactivated Comments 11/15/2016 5:42 PM 11/16/2016 10:54 AM Date Activated Date Inactivated Comments 11/15/2016 1:25 PM 11/15/2016 5:42 PM Reason for Referral Status Reason Specialty Diagnoses / Procedures Referre d By Contact Referred To Contact Closed Radiology Diagnoses Breast pain, right Procedures DEYSI DIGITAL DIAGNOSTIC W OR WO CAD BILATERAL DEYSI DIAGNOSTIC W OR WO CAD BILATERAL Gisel Vela, MANAGER FASHION - CNM [address] [place] [address] Specialty Diagnoses / Procedures Referred By Contac t Referred To Contact Radiology Diagnoses 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 [place] [address] [facility] [address] [place] [address] Referral ID Status Reason Start Date Expiration Date Visits Re quested Visits Authorized [id number] Closed 10/08/2021 11/06/2021 1 1 Assessments Diagnosis Breast pain, right Mastodynia Diagnosis Breast pain, right Mastodynia Diagnosis Screening for cervical cancer Screening for malignant neoplasm of the cervix Irregular menses Irregular menstrual cycle Summary Purpose Family History No Family History Records FoundNo Family History Records FoundNo Family History Records Found No data available for this section No Family History Records FoundNo Family History [...] WO CAD BILATERAL Gisel Vela APRN - [address] [place] [address] Status Reason Specialty Diagnoses / Procedures Referred By Contact Referred To Contact Pending Review Radiology Diagnoses Breast pain, right Procedures US BREAST COMPLETE RIGHT US Breast Limited Right [facility]N [facility] [address] [place] [address] [address] [place] [address] [facility] Ultrasound [address] [place] [address] Specialty Diagnoses / Procedures Referred By Contac t Referred To Contact Radiology Diagnoses 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 [place] [address] [place] [address] Referral ID Status Reason Start Date Expiration Date Visits Re quested Visits Authorized [id number] Closed 10/08/2021 11/06/2021 1 1 Specialty Diagnoses / Procedures Referred By Contac t Referred To Contact Diagnoses Menorrhagia with regular cycle MENORRHAGIA, ENDOMETRIAL POYLP Procedures WI HYSTEROSCOPY,W/ENDO BX DILATATION AND CURETTAGE HYSTEROSCOPY CAUTERY ABLATION-NOVASURE, ENDOMETRIAL ABLATION Philly Jacobsen, DO [address] [place] [address] [facility] [address] [place] [address] Referral ID Status Reason Start Date Expiration Date Visits Re quested Visits Authorized [id number] 1 1 Specialty Diagnoses / Procedures Referred By Shane campbell Referred To Contact Radiology Diagnoses Screening mammogram, encounter for Procedures DEYSI CHANDRIKA DIGITAL SCREEN SELF REFERRAL W OR WO CAD BILATERAL DEYSI CHANDRIKA DIGITAL SCREEN BILATERAL Gisel Vela APRN - [address] [place] [address] Referral ID Status Reason Start Date Expiration Date Visits Re quested Visits Authorized [id number] Closed 12/23/2022 12/23/2023 1 1 Reason Comments New Patient Chronic bilateral br east pain; nipple itching/ burning of rt breast. States the chronic pain in breasts has been going on for 10 years but the rt breast itching has been for last 4-5 months. States she has lumpy breasts, so not sure if anything new; denies any nipple discharge or skin discoloration. Specialty Diagnoses / Procedures Referred By Shane campbell Referred To Contact General Surgery Diagnoses Chronic breast pain Procedures [id number] ([email or web address]) - External Referral To Breast Clinic Gisel Vela CNM [address] [place] [address] [address] [place] [address] Phone: tel: fax: Joann Summers MD [address] [facility] 3rd Floor, [address] [place] [address] Phone: tel: fax: Referral ID Status Reason Start Date Expiration Date V isits Requested Visits Authorized [id number] Pending Review 07/26/2024 01/22/2025 1 1 Care Teams (unrecognized sec tion and content) Aircraft Engineer Relationship Specialty Start Date End Date Claudia Oro MD [address] [place] [address] PCP - General 03/15/13 Team Status: Inactive Member Role Status Dates Manuel Augustin MD Attending Provider Active Aircraft Engineer Relationship Specialty Start Date End Date Claudia Oro MD [address] [place] [address] PCP - General 03/15/13 Aircraft Engineer Relationship Specialty Start Date End Date Claudia Oro MD [address] [place] [address] PCP - General 03/15/13 Aircraft Engineer Relationship Specialty Start Date End Date Claudia Oro MD [address] [place] [address] PCP - General 03/15/13 Aircraft Engineer Relationship Specialty Start Date End Date Claudia Oro MD [address] [place] [address] PCP - General 03/15/13 Aircraft Engineer Relationship Specialty Start Date End Date Claudia Oro MD [address] [place] [address] PCP - General 03/15/13 Aircraft Engineer Relationship Specialty Start Date End Date Claudia Oro MD [address] [place] [address] (Work) PCP - General 03/15/13 Aircraft Engineer Relationship Specialty Start Date End Date Claudia Oro MD [address] [place] [address] PCP - General Family Medicine 08/10/24 Gisel Vela CNM [address] [place] [address] [place] [address] Case Management Rn Certified Nurse Case Management Rn 08/10/24 Paulina Arana, MANAGER FASHION-FITNESS SERVICES MANAGER [address] [address] Surgeon Certified Nurse Practitioner 08/10/24 Aircraft Engineer Relationship Specialty Start Date End Date Claudia Oro MD [address] [facility] [address] PCP - General Family Medicine 08/10/24 Gisel Vela CNM [address] [place] [address] [address] [place] [address] Case Management Rn Certified Nurse Case Management Rn 08/10/24 Paulina Arana MANAGER FASHION-FITNESS SERVICES MANAGER [address] [place] [address] Surgeon Certified Nurse Practitioner 08/10/24 Aircraft Engineer Relationship Specialty Start Date End Date Claudia Oro MD [address] [facility] [address] PCP - General Family Medicine 08/10/24 Gisel Vela CNM [address] [place] [address] [address] [place] [address] Case Management Rn Certified Nurse Case Management Rn 08/10/24 Paulina Arana MANAGER FASHION-FITNESS SERVICES MANAGER [facility] [address] [address] Surgeon Certified Nurse Practitioner 08/10/24 Aircraft Engineer Relationship Specialty Start Date End Date Claudia Oro MD PCP - General Family Medicine 08/10/24 Gisel Vela CNM [address] [place] [address] [address] [place] [address] Case Management Rn Certified Nurse Case Management Rn 08/10/24 Paulina Arana APRN-CHARMAINE [address] [facility] [address] [place] [address] Surgeon Certified Nurse Practitioner 08/10/24 Aircraft Engineer Relationship Specialty Start Date End Date Claudia Oro MD [address] [place] [address] PCP - General 03/15/13 Aircraft Engineer Relationship Specialty Start Date End Date Claudia Oro MD [address] [place] [address] PCP - General 03/15/13 Goals (unrecognized section and content) Goals may be documented in a n alternate section No data available for this section INFORMATION SOURCE (unrecogn ized section and content) DATE CREATED AUTHOR 10/12/2021 [facility] DATE CREATED AUTHOR AUTHOR'S ORGANIZ ATION 07/14/2022 [facility] DATE CREATED AUTHOR AUTHOR'S ORGANIZ ATION 03/24/2023 [facility] EPIC DATE CREATED AUTHOR AUTHOR'S ORGANIZ ATION 12/07/2023 Mayen Radu [facility] DATE CREATED AUTHOR AUTHOR'S ORGANIZ ATION 12/21/2023 [facility] DATE CREATED AUTHOR AUTHOR'S ORGANIZ ATION 02/25/2024 [facility] EPIC DATE CREATED AUTHOR AUTHOR'S ORGANIZ ATION 09/14/2024 [facility] DATE CREATED AUTHOR AUTHOR'S ORGANIZ ATION 10/14/[address] [facility] DATE CREATED AUTHOR AUTHOR'S ORGANIZ ATION 10/21/2024 [facility] Ordered Prescriptions (unrec ognized section and content) [...] Agnes Erickson RN)1616 (Stopped - Provider: Sally A Rogers, RN) lactated ringers infusion IntraVENous, at 125 [...] BE BASED ON THE PRIMARY CLINICAL RECORDS. [facility] [employer] [facility]. provides no warranty or guarantee of the accuracy or completeness of information in this document.
--- NOTE | 2024-11-01 07:02 | US_ITS ---
The [address] [address] Patient Name: CAROLINE SOLOMON MRN: [id number] date: 1985 Sex: F Assigned Patient Location: US Current Patient Location: US Accession/Order Number: [id number] Exam Date: 11/01/2024 08:38 Report Date: 11/01/2024 08:46 At the request of: CLAUDIA LAMAS MD Procedure: US pelvis w/ transvaginal PELVIC ULTRASOUND WITH TRANSVAGINAL CLINICAL DATA: Pelvic pain for the past few weeks. History of ablation. COMPARISON: None Real-time ultrasound evaluation the pelvis was performed utilizing both a transabdominal and transvaginal approach. TRANSABDOMINAL: Estimated uterine size is approximately 8.7 x 3.6 x 6.4 cm. No focal myometrial abnormalities are seen. The endometrial lining is estimated at 3 mm in thickness. Only the left ovary was identified. TRANSVAGINAL: Transvaginal imaging was performed to better evaluate the uterus and adnexa. By this approach, there is a subtle hypoechoic nodular area within the anterior myometrium slightly to the right of midline measuring 10 x 8 x 13 mm. This might be a fibroid. The endometrial lining is estimated at 4 - 5 mm. There are nabothian cysts. There are also hyperechoic foci at the cervix that might be calcification. Both ovaries are visualized. The right measures 2.3 x 1.4 x 1.5 cm. The left ovary measures 2.6 x 1.6 x 2.3 cm. There are small follicles measuring up to 1 cm. There are no dominant adnexal cysts. There is documentation of ovarian blood flow with resistive indices of 0.42 on the right and 0.53 on the left. No free fluid is seen. US/US pelvis w/ transvaginal IMPRESSION: POSSIBLE TINY UTERINE FIBROID. NABOTHIAN CYSTS. NO ADNEXAL CYSTS. Impression dictated by: Franny Gregorio M.D. 11/01/2024 8:46 AM Dictation Location: [place] [address] Electronically authenticated by: [id number] Y Date: 11/01/2024 08:46
== END 2024-11-01 06:59 | disposition home or self-care (01) ==
LOC: US 06:59
PROVIDERS: PCP Family Medicine; Visit Provider Family Medicine
DX: R10.2 Pelvic and perineal pain (principal); N88.8 Other specified noninflammatory disorders of cervix uteri
CPT/HCPCS: 76830; 76856

== ENCOUNTER 2025-04-12 07:10 | Outpatient (OUT) | payer OTHER, SELFPAY ==
--- OUTSIDE RECORDS SUMMARY | 2025-04-08 11:30 | XMS_ITS ---
Author Organization The [facility] in [place] Address [address] [place] [address] Care Team Providers Care Streaming Media Specialist Name Role Phone Salas Oro Primary Care Provider Allergies Allergen (clinical drug ingredient) Drug/Non Drug Allergy documented on EMR Reaction Allergy Type Onset Date Status ciprofloxacin Cipro itching Drug Allergy ActivesumatriptanImitrexunknownDrug AllergyActive REASON FOR VISIT BLOATED, WEIGHT LOSS, NOT FEELING WELL, lasting 2 weeks Medications Medication SIG (Take, Route, Frequency, Duration) Notes Start Date End Date Status CeleXA 20 MG 1 tablet Orally Once a day; Dura tion: 30 days 5ActiveTolterodine Tartrate ER 2 MG1 capsule Orally Once a day; Duration: 30 days10/26/2024Not-TakingProtonix 40 MG1 tablet Orally Once a day; Duration: 30 days5ActiveDiclofenac Sodium 75 MG1 tablet as needed Orally Twice a day; Duration: 30 days09/19/2024Not-TakingtiZANidine HCl 4 MG2 tabs Orally qhs; Duration: 30 days09/19/2024Not-Taking Social History Tobacco Use: Social History Observation Description Date Details (start date - stop date) Never Smoker NA - NA Tobacco Use/Smoking Question Answer Notes Patient is a nonsmoker AUDIT-C (Standard) Question Answer Notes Did you have a drink containing alcohol in the p ast year? No Gfkzah6RtejkeskndpawpScphaozu Vital Signs Weight 219 lbs 04/08/2025 Height 67 in 04/08/2025 Blood pressure systolic 110 mm Hg 04/08/20 25 Blood pressure diastolic 62 mm Hg 025 BMI 34.3 kg/m2 04/08/2025 Encounters Encounter Location Date Provider Diagnosis [facility] [address] [place] [address] 04/08/2025 Salas Oro Gastroenteritis K52. 9 Assessments Encounter Date Diagnosis (ICD Code) Assessment Notes Treatment Notes Treatment Clinical Notes Section Notes 04/08/2025 Gastroenteritis (ICD-10 - K52.9) Get plenty of rest. Stay hydrated by sucking on ice chips or taking small sips of water. You can also try drinking clear soda, clear broths or noncaffeinated sports drinks. Stop eating solid foods for a few hours to let your stomach settle. East back into eating by eating bland, njlk-gp-dnynut foods like crackers, toast, gelatin, bananas, rice and chicken. Try to avoid foods/substances including dairy products, caffeine, alcohol, nicotine and fatty or highly seasoned foods. Medications such as ibuprofen or tylenol can make your stomach more upset, so use sparingly if at all. Also avoid wrls-jul-bhzqfer anti-diarrheal medications because it can make it harder for your body to eliminate the virus. Plan Of Treatment Medication Medication Name Sig Start Date Stop Date Notes CeleXA 20 MG 1 tablet Orally Once a day; Duration: 30 days 04/08/2025 Protonix 40 MG1 tablet Orally Once a day; Duration: 30 days04/08/2025Treatment Notes Assessment Notes Gastroenteritis Get plenty of rest. Stay hydrated by sucking on ice chips or taking small sips of water. You can also try drinking clear soda, clear broths or noncaffeinated sports drinks. Stop eating solid foods for a few hours to let your stomach settle. East back into eating by eating bland, jets-ta-osifce foods like crackers, toast, gelatin, bananas, rice and chicken. Try to avoid foods/substances including dairy products, caffeine, alcohol, nicotine and fatty or highly seasoned foods. Medications such as ibuprofen or tylenol can make your stomach more upset, so use sparingly if at all. Also avoid jqel-bob-bphmmhj anti-diarrheal medications because it can make it harder for your body to eliminate the virus. Pending Test Test Name Order Date AMYLASE 04/08/2025 CBC AUTO DIFF 04/08/2025 LIPASE 04/08/2025 PROF 14(COMP METB) 04/08/2025 US ABD 04/08/2025 XR acute abdomen series 04/08/2025 Progress Notes * Manju ALDANA RDOB: 6 (39 yo F)Acc No.[id number]:04/08/2025 Progress Note Patient: Manju MOCTEZUMA :?Oscar Oro ([facility]), MDDOB:1985???Age: 39 Y???Sex:FemaleDate:04/08/2025Phone:[phone]:[address] [place] [address], [facility]-[id number] In:04:11 PM ESTCheck Out:05:05 PM EST Subjective: * Chief Complaints: * B LOATED, WEIGHT LOSS, NOT FEELING WELL, lasting 2 weeks * HPI: ???General:? 2 weeks - Reflux getting way woerse - tums at helps some omeprazole - helps some - but now that is not worsking pain into left side some constipation. ???Gastroenteritis:?The patient complains of?symptoms of the stomach flu.?The symptoms have been present for?1-2 days.?The symptoms are?moderate.?The patient?has not been exposed to sick contacts.?Symptomatic treatment has included?OTC medication.?Associated symptoms include?abdominal pain, diarrhea, stomach cramps, nausea, vomiting, chills, fever.? * ROS: ???General/Constitutional:?Recent Weight Gain?denies.?Skin:?Rash?denies.?Cardiovascular:?Edema?denies.?Palpitations?denies.?Gastrointestinal:?Comments?See HPI for details.? * Active Problem List R22.1 Localized swelling, mass and lump, neck Modified On:02/07/2023 Status:lakadozpnL50.81Early satiety Modified On:04/27/2023 Status:idkzlayoiY43.0Enlarged liver Modified On:04/27/2023 Status:ypfdttwyqP03.00Adult general medical exam Modified On:07/30/2022 Status:tavqfwtwgU76.9Post COVID-19 condition, unspecified Modified On:07/30/2022 Status:kfaylmvuvP05.29Other chronic pain Modified On:09/06/2022 Status:zfwapwcawU70.9Anxiety Modified On:03/28/2023 Status:lanskdrimW06.0Ventricular septal defect Modified On:07/30/2022 Status:dozamlhcuU50.9Depression Modified On:02/25/2023 Status:oxnzzztfsD55.00Insomnia Modified On:03/28/2023 Status:ymujcyncdY60.90Acute sinusitis Modified On:05/23/2023 Status:rzhaojyyaN71.3Sacral pain Modified On:11/03/2023 Status:tqbzzpysvW26.2Paresthesia Modified On:09/19/2024 Status:wzpnlckwqA25.83Snorings Modified On:09/19/2024 Status:agtwcagiqF77.83Fatigue Modified On:09/19/2024 Status:qsaiwdwwaO72.2Pelvic pain Modified On:10/26/2024 Status:otiivahnuT56.9Vaginal bleeding Modified On:10/26/2024 Status:confirmed * Medical History: * Surgical History: c yst removal (wrist) right foot surgery, left foot surgery tonsillectomy * Hospitalization/Major Diagno stic Procedure: s ee above * Family History: F ather: alive. M other: alive, diagnosed with Hypertension, Diabetes. B rother(s): alive. S ister(s): alive. P aternal Grandmother: stroke. P aternal Grandfather: diagnosed with Heart Disease. M aternal Grandfather: diagnosed with Cancer. M aternal Grandmother: diagnosed with Cancer, Diabetes. 1 brother(s) , 1 sister(s) - healthy. . * Social History: ???Tobacco Use:?Tobacco Use/Smoking?Patient is a?nonsmoker ???Drug/Alcohol:?AUDIT-C (Standard)?Did you have a drink containing alcohol in the past year??No ?Points?0 ?Interpretation?Negative * Medications: N ot-Taking/PRNDiclofenac Sodium 75 MG Tablet Delayed Release 1 tablet as needed Orally Twice a day tiZANidine HCl 4 MG Tablet 2 tabs Orally qhs Tolterodine Tartrate ER 2 MG Capsule Extended Release 24 Hour 1 capsule Orally Once a day Medication List reviewed and reconciled with the patientNot-Taking/PRN Diclofenac Sodium 75 MG Tablet Delayed Release 1 tablet as needed Orally Twice a day Not-Taking/PRN tiZANidine HCl 4 MG Tablet 2 tabs Orally qhs Not-Taking/PRN Tolterodine Tartrate ER 2 MG Capsule Extended Release 24 Hour 1 capsule Orally Once a day Medication List reviewed and reconciled with the patient * Allergies: C ipro: itchingImitrex: unknownno[Allergies Verified] Objective: * Vitals: W t:219lbs, Ht: 67 in, BP:110/62mm Hg, BMI:34.3Index, Ht-cm: 170.18 cm, Wt-k.34 kg. * Examination: ???General Examination: ?GENERAL APPEARANCE:? well developed, well nourished, in noacute distress.?ENT:? Normocephalic , Atraumatic.?EYES:? pupils equal, round, reactive to light and accomodations, sclera non-icteric.?EARS:? normal.?ORAL CAVITY:? mucosa moist.?THROAT:? clear.?LUNGS:? clear to auscultation bilaterally.?CARDIO:? regular rate and rhythm, S1, S2 normal, no murmurs.?ABDOMEN:? liver nontender, ___soft, no significant tenderness, liver, spleen not felt, no rebound, negative Back's sign, no guarding or rigidity, no hepatosplenomegaly, no hernias present, no masses palpable, no rebound tenderness.?SKIN:? warm and dry, no suspicious lesions.?EXTREMITIES:? no clubbing, cyanosis, or edema.?NEUROLOGIC:? nonfocal, motor strength of upper/lower extremities intact , sensory exam intact.?NECK/THYROID:? neck supple, full range of motion, no cervical lymphadenopathy.? Assessment: * Assessment: 1.?Gastroenteritis - K52.9 (Primary)??? Plan: * Treatment: Start Protonix Tablet Delayed Release, 40 MG, 1 tablet, Orally, Once a day, 30 days, 30, Refills 11;?Start CeleXA Tablet, 20 MG, 1 tablet, Orally, Once a day, 30 days, 30 Tablet, Refills 11. ?LAB: AMYLASE ?LAB: CBC AUTO DIFF ?LAB: LIPASE ?LAB: PROF 14(COMP METB) ?Imaging: US ABD ?Imaging: XR acute abdomen series Notes: Get plenty of rest. Stay hydrated by sucking on ice chips or taking small sips of water. Youcan also try drinking clear soda, clear broths or noncaffeinated sports drinks. Stop eating solid foods for a few hours to let your stomach settle. East back into eating by eating bland, jagh-np-eyxetn foods like crackers, toast, gelatin, bananas, rice and chicken. Try to avoid foods/substances including dairy products, caffeine, alcohol, nicotine and fatty or highly seasoned foods. Medications such as ibuprofen or tylenol can make your stomach more upset, so use sparingly if at all. Also llaamggxh-gva-ezntwoa anti- diarrheal medications because it can make it harder for your body to eliminate the virus.?? * Procedure Codes: * Preventive Medicine: ??Screenings/Counseling:?BMI ACTION PLAN?Above Normal BMI Follow-up?Dietary management education, guidance, and counseling * * Sign off status: CompletedVisit Status:?CHK (Check Out) true * Provider: Gato Oro ([facility])MD Date: 1 06/09/2024 Generated for Printing/FaAOI Medicalg/eTransmitting on:?04/12/2025 07:16 AM EST History and Physical Notes * HPI (History of Present Illness) CategorySub-CategoryDetailNotesCategory NotesGeneral 2 weeks - Reflux getting way woerse - tums at hs helps some omeprazole - helps some - but now that is not worsking pain into left side some constipation GastroenteritisThe patient complains ofsymptoms of the stomach fluThe symptoms have been present for1-2 daysThe symptoms aremoderateThe patienthas not been exposed to sick contactsSymptomatic treatment has includedOTC medication Associated symptoms includeabdominal pain, diarrhea, stomach cramps, nausea, vomiting, chills, fever Examination CategorySub-CategoryDetailNotesCategory NotesGeneral ExaminationGENERAL APPEARANCE:well developed, well nourished, in no acute distressENT:Normocephalic , AtraumaticEYES:pupils equal, round, reactive to light and accomodations, sclera non-ictericEARS:normalTHROAT:clearCARDIO:regular rate and rhythm, S1, S2 normal, no murmursLUNGS:clear to auscultation bilaterallyABDOMEN:liver nontender, ___soft, no significant tenderness, liver, spleen not felt, no rebound, negative Back's sign, no guarding or rigidity, no hepatosplenomegaly, no hernias present, no masses palpable, no rebound tendernessNEUROLOGIC: nonfocal, motor strength of upper/lower extremities intact , sensory exam intact SKIN:warm and dry, no suspicious lesionsEXTREMITIES:no clubbing, cyanosis, or edemaORAL CAVITY:mucosa moistNECK/THYROID:neck supple, full range of motion, no cervical lymphadenopathy
--- OUTSIDE RECORDS SUMMARY | 2025-04-12 07:14 | XMS_ITS | Clinical Summary ---
Author Organization [facility] Address [address] [place] [address] [place] [address] Care Team Providers Care Driver Guard Name Role Phone Oscar Oro MD Primary Care Provider [phone] Oanh Vela Unavailable Paulina Arana [facility] Unavailable Allergies Active AllergyReactionsCriticalityNoted DateCommentsCiprofloxacinHives,Itching 10/13/2013 Other Reaction(s): Unknown Medications MedicationSigDispense QuantityRefillsLast FilledStart DateEnd DateStatus Multiple Vitamin (multivitamin) capsule Take 1 capsule by mouth daily.Active Active Problems ProblemNoted DateDiagnosed DateObesity (BMI 30.0-34.9)01/10/2025 Family History Medical HistoryRelationNameCommentsNon-Hodgkins LymphomaMaternal CousinCancer- OtherMaternal GrandfatherBladderbladderLung CancerMaternal GrandmotherRoseVision ProblemsMaternal GrandmotherRoseBreast CancerMaternal Great Auntpostmenopausal Cancer- OtherMaternal Great UnclepancreasDiabetesMotherPamHeart Disease - Other Paternal GrandfatherRogerColorectal CancerNeg HxOvarian CancerNeg HxProstate CancerNeg HxUterine CancerNeg HxRelationNameStatusCommentsMaternal CousinAlive Maternal GrandfatherBladderDeceasedMaternal GrandmotherRoseDeceasedMaternal Great AuntDeceasedMaternal Great UncleMotherPamAlivePaternal GrandfatherRoger Alive Social History Tobacco UseTypesPacks/DayYears UsedDateSmoking Tobacco: NeverSmokeless Tobacco: NeverAlcohol UseStandard Drinks/WeekCommentsNot Currently0 (1 standard drink = 0.6 oz pure alcohol)CommentsNoSex and Gender InformationValueDate RecordedSex Assigned at BirthNot on fileLegal RasJmgwre59/20/2025 2:35 PM EDT Gender IdentityNot on fileSexual OrientationNot on file Last Filed Vital Signs Vital SignReadingTime TakenCommentsBlood Tbloalod045/7704 10:24 AM EDT Cbcdx2536 10:24 AM EDTTemperature--Respiratory Rate--Oxygen Saturation-- Inhaled Oxygen Concentration--Yuszqv88.6 kg (215 lb 3.2 oz)01/10/2025 11:35 AM SBUApxwjp565.7 cm (5' 8 )01/10/2025 11:35 AM EDTVerbalBody Mass Index32.72 01/10/2025 11:35 AM EDT Plan of Treatment Health MaintenanceDue DateLast DoneCommentsHEPATITIS C VIRUS RPALBSMUR03/13/1986 HIV SCREENING LPYHQTQQFY12/13/2001CERVICAL CANCER SCREENING WTDIZUXNZF62/13/2007 HPV VACCINE (1 - 3-dose SCDM series)10/19/20121402NJANHSW82, 03/23/2013, 10/09/2004COVID-19 VACCINE ( season)2025INFLUENZA VACCINE (#1), 03/21/2015, 04/18/2013HEP B VACCINECompleted 09/21/2013, 06/04/2013, 03/23/2013TDAP (ADULT)Lzbnrswno53/15/2015, 03/23/2013, 10/09/2004PNEUMOCOCCAL VACCINE SERIESAged OutNo longer eligible based on patient's age to complete this topic Insurance Care Teams Team MemberRelationshipSpecialtyStart DateEnd Oscar Oro MD PCP - GeneralFamily Medicine08/10/24 Oanh Vela CNM [address] [place] [address] [address] [place] [address] MidwifeCertified Nurse Midwife08/10/24 Paulina Arana APRN-LEGAL TECHNICIAN [address] [facility] [address] [place] [address] SurgeonCertified Nurse Practitioner08/10/24
--- OUTSIDE RECORDS SUMMARY | 2025-04-12 07:14 | XMS_ITS | CCD ---
Author Organization [facility] Care Team Providers Care Ems Driver Name Role Phone Claudia Lamas Primary Care Provider [phone] MD Manuel Augustin Attending Provider Claudia Lamas MD Primary Care Provider [phone] Claudia Lamas MD Primary Care Provider [phone] NBA HESTER Admitting Unavailable NBA HESTER Attending [...] Consulting Unavailable CAMI HICKS Attending Unavailable CLAUDIA LAMAS Referring Unavailable Claudia Lamas Primary Care Physician Claudia Lamas MD Primary Care Provider [phone] Claudia Lamas MD Primary Care Provider Gisel Vela CNM Unavailable Sumit HEATON-Paulina MONTANO Unavailable Claudia Lamas MD Primary Care Provider [phone] ADAMSCLAUDIA M Primary Care Unavailable GISEL VELA Referring Unavailadam stinson Vela Gisel LOW Unavailable Sumit DEVELOPMENT ENGINEER-ACADEMY EDUCATION DIRECTORPaulina Unavailable PAULINA ARANA Attending Unavailable ADAMSCLAUDIA M Primary Care Unavailable GISEL VELA Referring Unavailable KAILEY, GISEL Referring Unavailable PAULINA ARANA Attending Unavailable ADAMS CLAUDIA M Primary Care Unavailable KAILEY, GISEL Referring Unavailable PAULINA ARANA Attending Unavailable ADAMS CLAUDIA Plaza Primary Care Unavailable PAULINA ARANA Referring Unavailable ADAMS CLAUDIA Bola Primary Care Unavailable Claudia Lamas MD Primary Care Provider [phone] MARGARET ROSAS Attending Unavailable Chris BALDWIN, Silvina Rendon Attending Unavail able Adams ALTAMIRANO, Claudia Buck Primary Care Unavailjuan Saenz Jr., MD, Moises Couch Attending Mechlele adeline Lamas MD, Claudia Buck Primary Care Unavaila caitlyn Lamas MD, [facility] Unavaila caitlyn Hope MD, Jeremy Attending Unavailable Adams ALTAMIRANO, Cluadia Buck Primary Care Unavaila caitlyn Saenz Jr., MD, Moises Couch Attending Mechelle adeline Lamas MD, Claudia Buck Primary Care Unavaila caitlyn Perez PA-C, Silvina Rendon Attending Unavail able Chris BALDWIN, Silvina Rendon Attending Unavail able Adams ALTAMIRANO, Claudia Buck Primary Care Unavaila GISEL Rosenberg Referring Unavailabl e ADAMS, CLAUDIA M Primary Care Unavailable ADAMS, CLAUDIA M Primary Care Unavailable GISEL VELA Referring Unavailabl e HARSHADY, CLAUDIA M Primary Care Unavailable RENATO DOVER Referring Unavailable ADAMS CLAUIDA M Primary Care Unavailable GISEL VELA Referring Unavailabl e ADAMS, CLAUDIA M Primary Care Unavailable Bharti Banuelos Attending Unavailable Bharti Banuelos Attending Unavailable Bharti Banuelos Admitting Unavailable Allergies Allergy ClassificationReported Allergen(s)Allergy TypeDate of OnsetReaction(s) Facility (20 sources)Ciprofloxacin; Translations: [ciprofloxacin]Drug Ladsthf53-63-7021 Hives, Itching (finding), [facility] [place] (2 sources)Ciprofloxacin; Translations: [Cipro]Drug Pbukslh05-86-7308Yzc [facility] (3 sources)SUMAtriptanDrug Xtdrayc62-87-4524J[facility] Medications Current Medications MedicationDrug Class(es)DatesSig (Normalized)Sig (Original)Acetaminophen / HYDROcodone (2 sources)Opioid AgonistStart: 01-29-2022 End: 13-97-9058TBSATvqaqxt-acetaminophen (NORCO) 5-325 MG per tablet 1 tablet Start: 01-29-2022 End: 48-06-5601ZWSUOjbabqd-acetaminophen (NORCO) 5-325 MG per tablet Indications: Post-op pain Take 1 tablet by mouth every 8 hours as needed for Pain for up to 3 days. Intended supply: 3 days. Take lowest dose possible to manage pain 6 tablet 0 01/29/2022 02/01/2022 ActiveARIPiprazole 5 mg oral tablet (15 sources)Atypical AntipsychoticStart: 33-63-6255TQMBssoosvcy (ABILIFY) 5 MG tablet 09/04/2021 Activetake 1 tablet by mouth in the morningARIPiprazole (Abilify) 2 MG tablet Take 2 mg by mouth in the morning. Activebetamethasone 0.5 mg/ml / clotrimazole 10 mg/ml topical cream (5 sources)Azole Antifungal, CorticosteroidStart: 10-08-9911lstpgpupulcz- betamethasone (LOTRISONE) 1-0.05 % cream Indications: Acute vulvitis Apply topically 2times daily. 15 g 1 10/11/2024 Activecalcium chloride 0.0014 meq/ml / potassium chloride 0.004 meq/ml / sodium chloride 0.103 meq/ml / sodium lactate 0.028 meq/ml injectable solution (2 sources)Start: 95-03-9444dqbziemj ringers infusionclobetasol propionate 0.0005 mg/mg topical ointment (1 source)CorticosteroidStart: 46-47-1519oidzwromdl (TEMOVATE) 0.05 % ointment Indications: Acute vulvitis Apply topically 2 times daily. 45g 1 02/21/2025 Activedexamethasone 1 mg/ml / neomycin 3.5 mg/ml / polymyxin b 60168 unt/ml ophthalmic suspension (3 sources)Aminoglycoside Antibacterial, Polymyxin-class Antibacterial, CorticosteroidStart: 16-80-0077zqtg 2 drop(s) into the eye(s) every eight hours nrcwojfc-ruxciemys-hatZNYXVsubdm (Maxitrol) 3.5-67675-1.1 ophthalmic suspension 2 drops every 8 (eight) hours. 03/09/2022 Activediclofenac sodium 75 mg delayed release oral tablet (2 sources)Nonsteroidal Anti-inflammatory DrugStart: 36-46-9287lgik 1 tablet by mouth twice dailyDULoxetine 60 mg delayed release oral capsule (3 sources)Serotonin and Norepinephrine Reuptake Inhibitortake 1 capsule by mouth in the morningDULoxetine (Cymbalta) [address] capsule Take 60 mg by mouth in the morning. Do not crush or chew. . Active2 ml fentaNYL 0.05 mg/ml injection (2 sources)Opioid AgonistStart: 78-11-6097shmlgQZG (SUBLIMAZE) injection 50 mcg Start: 22-85-5800kuusqZNW (SUBLIMAZE) injection 25 mcgfluticasone propionate 0.05 mg/actuat metered dose nasal spray (3 sources)Corticosteroidtake 1 spray(s) nasal route once dailyfluticasone (Flonase) 50 MCG/ACT nasal spray Administer 1 spray into each nostril Daily Shake gently. Before first use, prime pump. After use, clean tip and replace cap. Activetake 1 spray(s) nasal route in the morningfluticasone (Flonase) 50 MCG/ACT nasal spray Administer 1 spray into each nostril in the morning. Shake gently. Before first use, prime pump. After use, clean tip and replace cap.. Activehydrocortisone acetate 25 mg/ml / pramoxine hydrochloride 10 mg/ml topical cream (3 sources)CorticosteroidStart: 94-37-9661Yqbbsrbve-HC (HYDROCORTISONE- PRAMOXINE) 2.5-1 % CREA cream Indications: Anal fissure Apply topically 2 times daily 28.4 g 1 12/23/2022 Activeketorolac tromethamine 10 mg oral tablet (1 source)Nonsteroidal Anti-inflammatory Drug, Cyclooxygenase InhibitorStart: 51-47-6849ivzj 1 tablet by mouth every six hours as needed for painketorolac (TORADOL) 10 MG tablet Take 1 tablet by mouth every 6 hours as needed for Pain 12 tablet 0 01/29/2022 Activelatanoprost 0.05 mg/ml ophthalmic solution (12 sources)Prostaglandin AnalogStart: 13-17-5723zrcj 1 drop(s) into the eye(s) at bedtimelatanoprost (Xalatan) 0.005 % ophthalmic solution Administer 1 drop into both eyes at bedtime. 09/07/2022 ActiveStart: 05-67-3900xqyc 1 drop(s) into the eye(s) at bedtimelatanoprost (XALATAN) 0.005 % ophthalmic solution place 1 drop into both eyes at bedtime 09/15/2021ctivemeclizine hydrochloride 25 mg oral tablet (2 sources)AntiemeticStart: 55-63-4990Kgpqu: hr methylphenidate 1.11 mg/hr transdermal system (3 sources)Central Nervous System Stimulantapply 1 dose transdermal route once in the morningmethylphenidate (Daytrana) 10 MG/9HR patch Place 1 patch on the skin in the morning. wear patch for9 hours only each day. ActiveMultiple Vitamin (multivitamin) capsule (5 sources)take 1 capsule by mouth once dailyMultiple Vitamin (multivitamin) capsule Take 1 capsule by mouth daily. ActiveMultivitamin preparation (1 source)Start: 31-11-2087oxumsuipvcyb Refill(s) 0 Start Date: 12/05/24 Status: Ordered Repeat number: 12 ml ondansetron 2 mg/ml injection (1 source)Serotonin-3 Receptor AntagonistStart: 01-29-2022 End: 83-74-1661qehzpstzzdw (ZOFRAN) injection 4 mgoxaprozin 600 mg oral tablet (2 sources)Nonsteroidal Anti-inflammatory DrugStart: 11-20-2023 perfluorohexyloctane 1340 MG/ML Ophthalmic Solution [Miebo] (1 source)Start: 46-15-6116Xfyjz ophthalmic solution Refill(s) 0 Start Date: 12/05/24 Status: Ordered Repeat number: 1phenazopyridine hydrochloride 200 mg oral tablet (4 sources)Start: 40-21-3430aayj 1 tablet by mouth three times daily as needed for painphenazopyridine (PYRIDIUM) 200 MG tablet Take 1 tablet by mouth 3 times daily as needed for Pain 9 tablet 10/17/2024 Activephentermine hydrochloride 37.5 mg oral capsule (9 sources)Sympathomimetic Amine AnorecticStart: 73-99-0805lpnn 1 capsule by mouth once dailyphentermine 37.5 MG capsule Take 1 capsule by mouth daily. 12/04/2022 ActiveStart: 68-73-8257bjbl 1 tablet by mouth once dailyphentermine (ADIPEX-P) 37.5 MG tablet take 1 tablet by mouth once daily 0 11/02/2021 Active2 ml prochlorperazine 5 mg/ml injection (1 source)PhenothiazineStart: 01-29-2022 End: 29-43-2901lvqdnqvaowqctwrb (COMPAZINE) injection 5 mg5 ml sodium chloride 9 mg/ml injection (3 sources)Start: 99-62-9178jvqggj chloride flush 0.9 % injection 5-40 mLStart: .9 % sodium chloride infusionStart: 29-53-8042mulhmq chloride flush 0.9 % injection 5-40 mLsulfamethoxazole 800 mg / trimethoprim 160 mg oral tablet (1 source)Dihydrofolate Reductase Inhibitor Antibacterial, Sulfonamide AntimicrobialStart: 10-13-2024 End: 77-38-8821akqx 1 tablet by mouth twice dailysulfamethoxazole-trimethoprim (BACTRIM DS;SEPTRA DS) 800-160 MG per tablet Indications: Urinary tract infection without hematuria, site unspecified Take 1 tablet by mouth 2 times daily for 7 days 14 tablet 10/13/2024 10/20/2024 Active Completed/Discontinued Medications MedicationDrug Class(es)DatesSig (Normalized)Sig (Original)acetaminophen 325 mg oral tablet (1 source)Start: 01-29-2022 End: 66-91-5541yjhtjxvmqvztc (TYLENOL) tablet 650 mgdimenhyDRINATE 50 mg oral tablet (1 source)Start: 01-29-2022 End: 01-21-2514vcqyrkdCDWKNNN (DRAMAMINE) tablet 50 mggadoteridol (PROHANCE) injection 20 mL (1 source)Start: 10-14-2021 End: 62-62-3546gvdqryzeghv (PROHANCE) injection 20 mL Problems Active Problems Problem ClassificationProblemDateDocumented DateEpisodic/ChronicAnxiety disorders (13 sources)Anxiety disorder; Translations: [Anxiety disorder, unspecified] Onset: 544012-11-2109QnhykovMnglmfx and circulatory congenital anomalies (3 sources)Ventricular septal defect; Translations: [Ventricular septal defect] Onset: 893406-01-8392PqhlpkgXccaxlwexb heart failure; nonhypertensive (1 source)Diastolic heart failure; Translations: [Unspecified diastolic (congestive) heart failure]Onset: 246311-87-2927PnroyjxTeajzoqqpi disorders (11 sources)Gastroesophageal reflux disease without esophagitis; Translations: [Gastro-esophageal reflux disease without esophagitis]Onset: 04-03-2019 84-52-1978GefaoimXqewmsfogqjm with complications and secondary hypertension (1 source)Hypertensive heart failure; Translations: [Hypertensive heart disease with heart failure]Onset: 476796-05-3029FffcdqiFjsntxvkaoif diseases of female pelvic organs (5 sources)Abscess of labia; Translations: [Abscess of vulva]Onset: 10-11-2024 97-64-2718BrhrzzgmJwvmoezib disorders (5 sources)Irregular periods; Translations: [Menometrorrhagia]Chronic Miscellaneous mental health disorders (3 sources)Psychosomatic factor in physical condition; Translations: [Psychological and behavioral factors associated with disorders or diseases classified elsewhere]Onset: 49-90-2853GupsdywHnmu disorders (3 sources)Depressive disorder; Translations: [Depression]Onset: 02-17-2023 14-74-6070TjmrulwWjvkfiqnryha breast conditions (20 sources)Pain of breast; Translations: [Lump in upper outer quadrant of right breast]Onset: 690932-79-1291LychemcvHiwxlnxokaqq breast conditions (2 sources)Mastodynia of right breast; Translations: [Breast pain, right]Other and unspecified benign neoplasm (1 source)Melanocytic nevus of trunk; Translations: [Melanocytic nevi of trunk] 36-65-8902RfapsxseUbdzj and unspecified benign neoplasm (1 source)Senile angioma; Translations: [Hemangioma of skin and subcutaneous tissue]70-61-8996RxqdbxflAgkwe eye disorders (1 source)Visual deprivation nystagmus; 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Other eye disorders (1 source)Hypoplasia of the optic nerve; 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, bilateral]ChronicOther female genital disorders (1 source)Vaginal irritation; Translations: [Other specified noninflammatory disorders of vagina]EpisodicOther gastrointestinal disorders (1 source)Swollen abdomen; Translations: [Abdominal distension (gaseous)]Onset: 25-08-1983YksoigdaBbetj gastrointestinal disorders (3 sources)Altered bowel function; Translations: [Change in bowel habit]Onset: 41-27-4145UumwvkshDnlhy gastrointestinal disorders (2 sources)Abdominal fucierlg01-24-9499BhinugsbFjooj nervous system disorders (1 source)Postoperative pain ; Translations: [Other acute postprocedural pain] EpisodicOther nutritional; endocrine; and metabolic disorders (1 source)Obese class I; Translations: [Obesity (BMI 30.0-34.9)]Onset: 707374-69-0970QdbaqxfBnppn screening for suspected conditions (not mental disorders or infectious disease) (2 sources)Patient encounter status; Translations: [Encounter for screening mammogram for malignant neoplasm of breast]89-85-8949XskxxatcWpakz skin disorders (1 source)Acne vulgaris; Translations: [Acne vulgaris]94-84-3598VrvhwzxvYzsct skin disorders (1 source)Inflamed seborrheic keratosis; Translations: [Inflamed seborrheic keratosis]94-13-7003FtpoxnuiHkata skin disorders (1 source)Keratosis; Translations: [Epidermal thickening, unspecified]02-08-2025 EpisodicOther upper respiratory infections (2 sources)Acute mcqihehst90-48-3443CqrlinmqXpefjlxj codes; unclassified (2 sources)Chronic ablg55-77-7699NocfklwdRdtsofsk codes; unclassified (2 sources)Early qenailw15-40-0062AucrcrmySyialevu codes; unclassified (2 sources)Pwggujzb11-30-6103ZnstaklmQxxobzpzfls; intervertebral disc disorders; other back problems (2 sources)Disorder of mwdsue61-12-7742WxnvpjpsFujdzlo and strains (2 sources)Sprain of left ankle; Translations: [Sprain of unspecified ligament of left ankle, initial encounter]Onset: 801440-53-1845XslkkyvjRiuwccqctakg (1 source)Cancer cervix screening status; Translations: [Screening for cervical cancer] Past or Other Problems Problem ClassificationProblemDateDocumented DateEpisodic/ChronicAbdominal pain (3 sources)Epigastric pain; Translations: [Pelvic and perineal pain]Onset: 862669-52-8080PeamwohxFhsumkahbv and other anemia (11 sources)Anemia; Translations: [Anemia, unspecified]Onset: 09-14-2018 95-91-8515OgglthfuUrhkyzxq of mouth; excluding dental (1 source)Disturbances of salivary secretion; Translations: [DISTURBANCES OF SALIVARY SECRETION]Onset: 73-18-9407UobukwdsPizzvqnpluqtm symptoms and ill- defined conditions (14 sources)Dysuria; Translations: [Dysuria]Onset: 547294-73-4128Dvhganbw Immunizations and screening for infectious disease (4 sources)Raised antibody titer; Translations: [RAISED ANTIBODY TITER]Onset: 23-67-4574FssnqgnnBagtm aftercare (1 source)Other terminal operations manager (current) drug therapy; Translations: [OTH DETENTION CURRENT DRUG THERAPY]Onset: 33-73-2000JybuaqpiOipne connective tissue disease (1 source)Pain in left foot; Translations: [PAIN IN LEFT FOOT]Onset: 12-01-2021 EpisodicOther liver diseases (8 sources)Large liver; Translations: [Hepatomegaly, not elsewhere classified] Onset: 84-05-0468GvvuhhxaOepmu non-traumatic joint disorders (4 sources)Pain in left ankle and joints of left foot; Translations: [PAIN IN LEFT ANKLE]Onset: 55-09-7041VdwwhynwNzidy skin disorders (4 sources)Localized swelling, mass and lump, neck; Translations: [LOCALIZED SWELLING MASS AND LUMP NECK]Onset: 98-69-5961HrvudtpwKpwsq skin disorders (3 sources)Mass of neck; Translations: [Localized swelling, mass and lump, neck] Onset: 192909-92-3096ViwiqzswXcyhledbmdjo (4 sources)Breast pain, tbams59-30-9860Flguksx tract infections (2 sources)Urinary tract infectious disease; Translations: [Urinary tract infection, site not specified]Onset: 563522-03-2064Bvbpxpkw Results Test NameValueInterpretationReference RangeFacilityReminderson 03-01-2025 RemindersReminders From: Phuong Pena To: EU - Administrative; Sent: 12/05/2024 14:36:45 EDT Show up: 12/26/2024 14:36:00 EDT Subject: Ambulatory Reminder Due Date/Time: 02/25/2025 14:36:00 EDT Reminder/Recall Please schedule patient with LT for a 3 month F/U when schedule is built. Due back in late February [employer] assistant director of residence life answered and said PT will call back later. Left VM asking PT to call back and get scheduled. LVM to schedule f/u unable to contact letter was sent 02/26, PT is not trackable.[facility] HospitalProvider Letteron [phone] LetterProvider Letter February 26, 20[address]NA [address] [place] [phone] : 1985 Dear Manju , We have been trying to reach you with no success. It is important that you return our call regarding your appointment with Bharti Banuelos upon receiving this letter. Also, at the time of your call, please provide us with your current information. Thank you for your prompt attention to this matter. Sincerely, ;;sigNClermont County HospitalCult,Genitalon 14-07-9737Cets,Genital Specimen Description .VAGINA Special Requests Site: Genital Culture NORMAL URO-GENITAL BERENICE MODERATE GROWTH NEGATIVE FOR BETA HEMOLYTIC STREPTOCOCCI NEGATIVE FOR NEISSERIA GONORRHOEAE ENTERIC BERENICE PRESENT Report Status FINAL 02/24/2025NormalMerBristol HospitalComment on above: Performed By: #### GE #### [facility] 15MinutesNOW [address] [place] [address] Offset Lithographic Press Setter: Xavier Wilder MD [facility] [address] [place] [address] Offset Lithographic Press Setter: Gregg Kearneyginitis DNA Probeon 64-68-4291OzalxxjXavnwljj NormalNEGPremier Health Miami Valley HospitalComment on above:Result Comment: for Ana sp. Method of testing is a DNA probe intended for detection and identification of Ana species, Gardnerella vaginalis, and Trichomonas vaginalis nucleic acid in vaginal fluid specimens from patients with symptoms of vaginitis/vaginosis. Performed By: #### VAGP #### [address] [address] Offset Lithographic Press Setter: Xavier Wilder MD [address] [place], [place] [id number] Offset Lithographic Press Setter: Ernesto Edwards MDGardnerellaPositiveAbCleveland Clinic Children's Hospital for RehabilitationComment on above:Result Comment: for Gardnerella vaginalisPerformed By: #### VAGP #### [address] [address] Offset Lithographic Press Setter: Xavier Wilder MD [address] [place], [place] [id number] Offset Lithographic Press Setter: Ernesto Edwards MDTrichomonasNegSouthern [facility] Medical Center Comment on above:Result Comment: for Trichomonas VaginalisPerformed By: #### VAGP #### [address] [address] Offset Lithographic Press Setter: Xavier Wilder MD [address] [place] [address] Offset Lithographic Press Setter: Gregg Kearneyginitis DNA Probeon 22-05-6217Xdsayc.VAGINAL SWABNoThe MetroHealth SystemComment on above:Performed By: #### VAGP #### [address] [address] Offset Lithographic Press Setter: Xavier Wilder MD [facility] [address] [place] [address] [place] [address] Offset Lithographic Press Setter: Ernesto Edwards MDUrology Office/Clinic Noteon 54-53-6983Xekyogt Office/Clinic NoteChief Complaint Patient states here for cystoscopy, review RBUS, UA, UCX History of Present Illness 01/02/2025 The patient is a 39-year-old female with a history of IBS and uterine ablation, presenting with urethral burning and persistent urinary symptoms. Hematuria and Persistent Urinary Symptoms Since the end of September, the patient has experienced pain, burning, and itchiness near the urethra, along with bladder stiffness, soreness, and achiness during urination and bowel movements. She reportsurinary urgency, especially during the day when standing, and sometimes needs to double void or notices a sluggish stream, though this is infrequent. Nocturia occurs two to three times nightly but isnot concerning to her. She notes no improvement with antibiotics and feels symptoms may worsen during antibiotic courses. She has attempted to reduce caffeine and increase water intake, perceiving slight improvement. Family history is notable for a grandfather with bladder cancer. She notes no improvement with antibiotics and feels symptoms may worsen during antibiotic courses. She has attempted to reduce caffeine and increase water intake, perceiving slight improvement. Previous evaluations include urinalyses and urine cultures, with a positive E. coli culture in with Bactrim, and subsequent minimal findings on repeat testing. She also received Flagyl empirically and for bacterial vaginosis, with no symptom resolution. A transvaginal and bladder ultrasound revealed a midline fibroid but no other abnormalities. Vaginal cultures were negative for group B strep and gonorrhea. She denies any history of urethral instrumentation or endometriosis. She underwent uterine ablation in March 2022. 02/12/2025 Manju Aldana is a 39 Years old Female being followed for urethral/bladder pain. Patient came alone. Patient has been doing better. She has had intermittent dysuria. Minimal today. Urine Patient denies interval UTI. _ _ _ Patient PRESENTS dysuria. Patient denies gross hematuria. Patient PRESENTS nocturia x 3-4 Patient PRESENTS urinary frequency. Patient PRESENTS urinary urgency. Patient denies urge-incontinence. Patient denies stress incontinence. _ _ Recent tests done includes: 01/04/2025 Renal/bladder ultrasound. Urology she normal ultrasound. No hydronephrosis. PVR 28 mL. 01/02/2025 Urinalysis 0 RBC 0 WBC, urine culture- Negative Maternal Grandfather Bladder cancer Patient denies prior urologic surgery(ies); _ Cystoscopy carried out as below described. Review of Systems Constitutional: No fevers. No chills. Cardiovascular: No chest pain. Respiratory: No shortness of breath. Gastrointestinal: No abdominal pain. No nausea. Genitourinary: No difficulty voiding. No hematuria._Yes Nocturia. Yes Dysuria. No Weak Stream. Yes Urgency. Physical Exam Vitals & Measurements HT: 173 cm WT: 98.6 kg WT: 98.6 kg (Dosing) BMI: 32.94 Multisystem physical exam: Constitutional: Well-nourished, No physical deformities. Normally developed. Good grooming. Respiratory: No labored breathing, no use of accessory muscle. Skin: No paleness, no jaundice, no cyanosis. Neurologic / Psychiatric: Oriented to time, oriented to place, oriented to person. No depression, no anxiety, no agitation. Head-normocephalic, atraumatic. Eyes-normal conjunctivae. Normal eyelids. Neck-neck is symmetrical, not swollen. Gastrointestinal: No mass, no tenderness, no rigidity. Musculoskeletal: No cyanosis. _ CYSTOSCOPY Discussed with the patient about the procedure, risks, benefits and expected outcomes including butnot limited to bleeding and infection. Antibiotic prophylactic: Bactrim DS tab given. DETAILS OF OPERATION: The patient was taken to the procedure room. She was placed on the procedure table in the dorsolithotomy position. The perineal and genital area was prepped and draped in the usual sterile manner. After lubricating the urethra with lidocaine gel and let this sit for a few minutes, cystoscopy was carried out with the flexible cystoscope. Patient tolerated well. (shown on the monitor to the patient). Findings: Meatus: normal Urethra: no strictures, no masses, normal mucosa. Bladder: The bladder mucosa was normal with no tumor or any exophytic mass; both ureteral orifices were visualized with efflux of clear urine. Urethra: No masses no tenderness. [All examination done in the presence of a female supervisor blood donor recruiters nurse]. Assessment/Plan 1. Urethral pain The patient stated that her urethral discomfort improved significantly. No trigger mechanism. Urinalysis results came back normal as well as negative urine culture. Cystoscopy done today?unremarkable. Normal urethra and bladder. 2. Urinary frequency Discussed with the patient some behavior changes including avoiding bladder irritants excess caffeine and carbonation [she drinks 3 cans of soda daily]. This may improve her frequency. Also to limit her fluid intake in the evening. Sh (more content not included)...[facility], skin lesionon [id number] St. LouisXR ANKLE LEFT (MIN 3 VIEWS) on [id number] ANKLE LEFT (MIN 3 VIEWS)EXAMINATION: THREE XRAY VIEWS OF THE LEFT FOOT; THREE XRAY VIEWS OF THE LEFT ANKLE 01/26/2025 6:42 pm COMPARISON: None. HISTORY: ORDERING SYSTEM PROVIDED HISTORY: injury TECHNOLOGIST PROVIDED HISTORY: injury; ORDERING SYSTEM PROVIDED HISTORY: injury TECHNOLOGIST PROVIDED HISTORY: Patient currently in ER waiting room injury FINDINGS: Ankle: No fracture or malalignment identified. The joint spaces are maintained. No discrete soft tissue abnormality identified. Foot: No fracture or malalignment identified. The joint spaces are maintained. No discrete soft tissue abnormality identified. IMPRESSION: 1. No acute osseous abnormality identified in the ankle. 2. No acute osseous abnormality identified in the foot. Interpreted by: Sunny Matias MD Signed by: Sunny Matias MD 01/26/25 Final resultNormalPremier Health Miami Valley HospitalXR FOOT LEFT (MIN 3 VIEWS)on [id number] FOOT LEFT (MIN 3 VIEWS)EXAMINATION: THREE XRAY VIEWS OF THE LEFT FOOT; THREE XRAY VIEWS OF THE LEFT ANKLE 01/26/2025 6:42 pm COMPARISON: None. HISTORY: ORDERING SYSTEM PROVIDED HISTORY: injury TECHNOLOGIST PROVIDED HISTORY: injury; ORDERING SYSTEM PROVIDED HISTORY: injury TECHNOLOGIST PROVIDED HISTORY: Patient currently in ER waiting room injury FINDINGS: Ankle: No fracture or malalignment identified. The joint spaces are maintained. No discrete soft tissue abnormality identified. Foot: No fracture or malalignment identified. The joint spaces are maintained. No discrete soft tissue abnormality identified. IMPRESSION: 1. No acute osseous abnormality identified in the ankle. 2. No acute osseous abnormality identified in the foot. Interpreted by: Sunny Matias MD Signed by: Sunny Matias MD 01/26/25 Final resultNormalPremier Health Miami Valley HospitalUS Renal and Bladderon [id number] Renal and BladderEXAM: US Renal and Bladder HISTORY: UTI. Urinary tract infection. COMPARISON: None. TECHNIQUE: Sonography of the kidneys and urinary bladder was obtained. FINDINGS: Study limited by patient related factors. In particular, there is limited sensitivity for the assessment of potential underlying renal masses. Right Kidney: 12.7 x 6.1 x 4.9 cm. Normal echogenicity and preserved renal parenchymal thickness. No hydronephrosis. Left Kidney: 11.5 x 6.3 x 6.2 cm. Normal echogenicity and preserved renal parenchymal thickness. Nohydronephrosis. Bladder: Prevoid bladder volume of 302 mL. Small post void bladder residual of 29 mL. Bilateral ureteral jets are noted. Mild increased echogenicity of the liver, a nonspecific finding, most often due to hepatic steatosis. IMPRESSION: 1. Small post void bladder residual. 2. No hydronephrosis. Final Dictated by: Vernon Rios MD Dictated DT/TM: 01/07/2025 3:50 pm Signed by: Vernon Rios MD Signed (Electronic Signature): 01/07/2025 4:00 pm (If Report Is Signed, Electronically Signed in Other Vendor System)Normal [facility] HospitalC Urineon 01-03-2025 Urine Final No growth of uropathogensNoMcKitrick HospitalComment on above: Performed By: #### URC #### [place] [address]. Microscp Aon [id number] MucusPresentNormalAbsentElyria Memorial HospitalComment on above:Performed By: #### .Urinalysis Microscopic Auto #### [place] [id number] RBC Quant0 /HPFNormal0-5BTrinity Health System Comment on above:Performed By: #### .Urinalysis Microscopic Auto #### [place], [place] [address]UA Squepi Cells Quant1 /HPFNormal0-29[facility] HospitalComment on above:Performed By: #### .Urinalysis Microscopic Auto #### [address] [address]HX WBC Quant0 /HPFNormal0-5BTrinity Health System Comment on above:Performed By: #### .Urinalysis Microscopic Auto #### [address] [address]UY w Culture if Indon [id number] (U)Light-YellowNormal YellowElyria Memorial HospitalComment on above:Performed By: #### [facility]CI #### [address] [address]Nqcnpxg Ql (U)NegativeNormalNegativeElyria Memorial HospitalComment on above:Performed By: #### [facility]CI #### [address] [address]TR BloodNegativeNormalNegativeElyria Memorial Hospital Comment on above:Performed By: #### [facility]CI #### [address] [address]HL ClarityClearNormalClearElyria Memorial HospitalComment on above:Performed By: #### [facility]CI #### [address] [place] [address]FY GlucoseNormalNormalNegativeElyria Memorial Hospital Comment on above:Performed By: #### [facility]CI #### [address], [place] [address]FM Leukocyte EsteraseNegativeNormalNegativeElyria Memorial HospitalComment on above:Performed By: #### UCI #### [address] [address]IN NitriteNegativeNormalNegClinton Memorial Hospital Comment on above:Performed By: #### UCI #### [address] [address]TE pH6.8Cismkk8.5 - 7.8BTrinity Health SystemComment on above:Performed By: #### [facility]CI #### [address], [place] [address]BM ProteinNegativeNormalNegativeElyria Memorial Hospital Comment on above:Performed By: #### UCI #### [address] [address]QN SourceClean CatchNormalOhiohealth Van Wert Hospital SystemComment on above:Performed By: #### UCI #### [address], [place] [address]OL Spec Grav1.456Ooavgx4.003-1.035[facility] HospitalComment on above:Performed By: #### UCI #### [address] [address]JO UrobilinogenNormalNormal0.2 - 1.0[facility] HospitalComment on above:Performed By: #### UCI #### [address] [address]Aqhusiraaqny (U) [Mass/Vol]NegativeNormalNegativeElyria Memorial HospitalComment on above:Performed By: #### UCI #### [address] [address]Fjihatp Office/Clinic Noteon [id number] Office/Clinic NoteThe content of this note was generated by an artificial intelligence (AI) language dictation. The patient or guardian has given their consent for the use of AI technology during the visit to capture and process the conversation. The AI will assist in providing information and support throughout thediscussion. The AI will not store personal or sensitive information beyond the scope of this session, and the purpose is solely to facilitate the conversation. Chief Complaint New patient states here for a referral per Gisel Vela due to urethral pain. History of Present Illness The patient or guardian has given their consent for the use of AI technology during the visit to capture and process the conversation. The AI will assist in providing information and support throughout the discussion. The AI will not store personal or sensitive information beyond the scope of this session, and the purpose is solely to facilitate the conversation. The patient is a 39-year-old female with a history of IBS and uterine ablation, presenting with urethral burning and persistent urinary symptoms. Hematuria and Persistent Urinary Symptoms Since the end of September, the patient has experienced pain, burning, and itchiness near the urethra, along with bladder stiffness, soreness, and achiness during urination and bowel movements. She reportsurinary urgency, especially during the day when standing, and sometimes needs to double void or notices a sluggish stream, though this is infrequent. Nocturia occurs two to three times nightly but isnot concerning to her. She notes no improvement with antibiotics and feels symptoms may worsen during antibiotic courses. She has attempted to reduce caffeine and increase water intake, perceiving slight improvement. Family history is notable for a grandfather with bladder cancer. She notes no improvement with antibiotics and feels symptoms may worsen during antibiotic courses. She has attempted to reduce caffeine and increase water intake, perceiving slight improvement. Previous evaluations include urinalyses and urine cultures, with a positive E. coli culture in with Bactrim, and subsequent minimal findings on repeat testing. She also received Flagyl empirically and for bacterial vaginosis, with no symptom resolution. A transvaginal and bladder ultrasound revealed a midline fibroid but no other abnormalities. Vaginal cultures were negative for group B strep and gonorrhea. She denies any history of urethral instrumentation or endometriosis. She underwent uterine ablation in March 2022. Review of Systems Cardiovascular Chest pain: No High blood pressure: No Varicose Veins: No Constitutional Chills: No Fever: No Headache: No Endocrine Heat intolerance: No Tired/sluggish: No ENMT Ear infection: No Sinus Problems: No Sore Throat: No Eyes Gastrointestinal Abdominal Pain: No Constipation: No Diarrhea: No Digestion/heartburn: No Nausea/vomiting: No Genitourinary Bloody urine: Yes Burning to urinate: Yes Dribbling: Yes Other Genitourine: Yes Slowing stream: Yes Urinary Frequency_Specialty Intake & Hx: Yes Urinary frequent at night: Yes Urinary Hesitancy: No Urinary retention: No Hematology/Lymphatic Blood clotting problems: No Swollen glands: No Integumentary/Skin Boils: No Persistent itching: Yes Skin rash: No Musculoskeletal Joint pain: No Neck pain: No Neurological Dizzy spells: No Numbness: No Tingling: No Tremors: No Psychiatric Depression: No Suicidal thoughts: No Respiratory Frequent cough: No Shortness of Breath: No Wheezing: No Physical Exam Vitals & Measurements BP: 116/72 HT: 173.0 cm WT: 100.8 kg WT: 100.8 kg (Dosing) BMI: 33.68 Ypkecaasjvpstf-ccbt-wusowbutx. No physical deformities. Normally developed. Good grooming. Neurologic/Psychiatric-oriented to time, oriented to place, oriented to person. No depression, anxiety or agitation. Head-normocephalic, atraumatic. Eyes-normal conjunctivae. Normal eyelids. Neck-neck is symmetrical, not swollen. Respiratory-no labored breathing, no use of accessory muscles. Skin-no paleness, no jaundice, no cyanosis. Musculoskeletal-normal gait and station of head and neck. Abdomen?soft, nontender, nondistended. Genitourinary- External genitalia-no rash, no scarring, no cyst, no erythematous lesion, no papillary lesion, no blanched lesion, no warty lesion and no edema. Vagina-no atrophy, no stenosis. No rectocele, no cystocele or enterocele. Cervix-nontender. Uterus-nontender. No descent. Urethra-no tenderness, no mass, no scarring. No hypermobility. No leakage. Bladder-normal to palpation, no tenderness, no mass, normal size. Additional Vitals BP Position/Location: Sitting, Left arm Assessment/Plan Patient is a 39-year-old female presenting today for evaluation of urinary burning, pain, and hematuria. 1. Urethral pain - Microscopic hematuria not clinically significant; dips (more content not included)...NormalElyria Memorial HospitalUTI (P4 Labs)on [id number] Reportsee referenceInvalid Interpretation [facility] CenterComment on above:Performed By: #### [id number] #### [facility] [address] [place], [place] [address]Arqehhlomu Visit Summaryon [id number] Visit Summary Ambulatory Visit Summary MANJU ALDANA :1985 Visit Date:12/05/2024 Ambulatory Visit Instructions Your Diagnosis UTI symptoms Dysuria Hx of urinary tract infection Urinary urgency Your Care Team Attending Physician - Lakisha BALDWIN, Bharti Primary Care Physician - Adams ALTAMIRANO, Claudia This Is Your Medications List diclofenac (diclofenac sodium 75 mg Oral EC Tab) meclizine (meclizine 25 mg Tab) multivitamin oxaprozin (Daypro 600 mg Tab) perfluorohexyloctane ophthalmic (Miebo ophthalmic solution) Procedures Performed Colonoscopy. Discharge Vitals Heart Rate (Peripheral) 77 Blood Pressure 123/83 Height 173 cm Height 68 in Weight 100.7 kg Weight 222.005 lb BMI 33.65 Medications What When Instructions Unchanged diclofenac (diclofenac sodium 75 mg Oral EC Tab) 2 times a day 1 Unknown, 0 Refill(s) Unchanged meclizine (meclizine 25 mg Tab) 4 times a day 1 Unknown, 0 Refill(s) Unchanged multivitamin Unchanged oxaprozin (Daypro 600 mg Tab) 2 Unknown, 0 Refill(s) Unchanged perfluorohexyloctane ophthalmic (Miebo ophthalmic solution) Allergies Cipro (Itchy) Problems Ongoing - Any problem that you are currently receiving treatment for. Acute sinusitis Anxiety Bloating Change in bowel habit Chronic pain Disorder of sacrum Dysuria Early satiety Epigastric pain Hepatomegaly Hx of urinary tract infection Insomnia Irregular periods Large liver Stress-related physiological response affecting medical condition Urinary urgency UTI symptoms Patient Survey You may receive a survey via text or e-mail asking about your office visit. Please share your experience with us by completing your survey. We appreciate your feedback and thank you for choosing us for your care. Patient Portal You may access all of your results and other medical record information on our secure patient portal. If you are not signed up for this yet, please contact [employer] at [phone] to get signed up today. Language Information Language assistance services are available as needed. NormalBucyrus Community HospitalUTI (P4 Labs)on [id number] Method of ExtractionVoidedNormalBucyrus Community HospitalComment on above: Performed By: #### [id number] #### [facility] [address] [place], [place] [address]XSF Number of Bzny6Srgjaez Interpretation CodeBucyrus Community HospitalComment on above:Performed By: #### [id number] #### [facility] [address] [place], [place] [address]QGX SpecimenUrineNoOhioHealth Berger HospitalComment on above:Performed By: #### [id number] #### [facility] [address] [place], [place] [address]MEX Type of ServiceGlobalNClermont County Hospital Comment on above:Performed By: #### [id number] #### [facility] [address] [place], [place] [address]Kjaffci Office/Clinic Noteon [id number] Office/Clinic NoteUrology Office/Clinic Note Chief Complaint new patient HPI Staff 39 year old female new patient self referral for recurrent utis Patient denies any gross hematuria. Denies any flank pain. Patient has dysuria, soreness in lower abdomen, discomfort left front of urethra, urgency, frequency History of Present Illness I have reviewed and verified the staff HPI to be accurate for this encounter. Review of Systems PHQ Score Initial Depression Screen Score: 0 SCORE no fever, chills, malaise, myalgia. no abdominal pain, nausea, vomiting. Physical Exam Vitals & Measurements HR: 77(Peripheral) BP: 123/83 HT: 173 cm HT: 68 in WT: 222.005 lb WT: 100.7 kg BMI: 33.65 General: Well developed, well nourished, in no acute distress. 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 UTI symptoms (R39.9: Unspecified symptoms and signs involving the genitourinary system) UCX: 10/11/24 - 10-50K E. Coli, tx w/ Bactrim 10/18/24 - no growth 11/24/24 - no growth Vaginitis panel 10/11/24 - negative TVUS 11/01/24 - possible small uterine fibroid, nabothian cysts, no adnexal cysts BBSQ 17 UA today w/ trace-intact blood only PVR 0 ml today Shares she has a hx of IBS. She had a bout of loose BM in September 2024, which resulted in a UTI. Tx with Bactrim at this time. Shares after this UTI, she has continued to have dysuria near left upper region of urethra. Pain felt w/ urination. She also has intermittent suprapubic pain and urgency since. She has been evaluated by PCP (Dr. Lamas) and Gynecology for her symptoms. Shares she is drinks very little water and ~20 oz diet pepsi daily. Discussed bladder irritants w/ patient. Recommend increasing water intake significantly to see if this helps with dysuria. Shares she also holds her urine at times due to occupation. Recommend timed voids q2-3 hours. Denies painful intercourse. Does not feel she strains with urination. Denies constipation. Reviewed UA today w/ patient. Not highly suspicious for infection. However, given symptoms, offeredto send urine for UTiD given recent standard cultures have been negative. She is agreeable. All questions answered. No concerns for STIs today. Pelvic exam offered to evaluate for abnormalities, but she declines. If she continues to have bothersome urinary symptoms, discussed possible suspicion for voiding dysfunction. She shares she would be interested in formal PFPT w/ biofeedback. She would like to research PFPT facilities closer to her home and will contact our office to fax referral if needed. -Send urine for UTiD, tx if infection present -OTC AZO for dysuria -Increase water intake, avoid bladder irritants -Timed voids q2-3h, emptying maneuvers -Consider formal PFPT w/ biofeedback in future. Pt to notify our office if interested. -F/U in 3 months, or sooner if needed Ordered: UTI (P4 Labs) 2. Dysuria (R30.0: Dysuria) -See #1 Ordered: UTI (P4 Labs) 3. Hx of urinary tract infection (Z87.440: Personal history of urinary (tract) infections) UCX: 10/11/24 - 10-50K E. Coli, tx w/ Bactrim 10/18/24 - no growth 11/24/24 - no growth -See #1 Ordered: UTI (P4 Labs) 4. Urinary urgency (R39.15: Urgency of urination) -See #1 Ordered: UTI (P4 Labs) Orders: [id number] Measure Post Void residual urine and/or bladder capacity by US- non-imaging Urnls Dip Stick Auto w/o Microscopy POC 31439 Follow-up With When Contact Information Bharti Banuelos PA-C, URL In 3 months Additional Instructions: Problem List/Past Medical History Ongoing Acute sinusitis Anxiety Bloating Change in bowel habit Chronic pain Disorder of sacrum Dysuria Early satiety Epigastric pain Hepatomegaly Hx of urinary tract infection Insomnia Irregular periods Large liver Stress-related physiological response affecting medical condition Urinary urgency UTI symptoms Historical No qualifying data Procedure/Surgical History Colonoscopy. Medications Daypro 600 mg Tab diclofenac sodium 75 mg Oral EC Tab, BID meclizine 25 mg Tab, QID Miebo ophthalmic solution multivitamin Allergies Cipro (Itchy) Social History Alcohol - Denies Alcohol Use, 12/05/2024 Tobacco - Denies Tobacco Use, 12/05/2024 Never (less than 100 in lifetime) Tobacco Use:. Never Smokeless Tobacco Use:., 12/05/2023 Family History Primary malignant neoplasm of colon: Grandparent. Immunizations Vaccine Date Status Comments influenza virus vaccine, inactivated - Not Given Patient Refuses Lab Results Ambulatory Point of Care Results Bilirubin Urine Dipstick: Negative (12/05/24 13:31:00) Blood Urine Dipstick: Trace-intact (12/05/24 13:31:00) Glucose Urine Dipstick: Negative (12/05/24 13:31:00) Ketones Urine Dipstick: Negative (12/05/24 13:31:00) Leukocytes Urine Dipstick: Negative (12/05/24 13:31:00) Nitrite Urine Dipstick: Negative (12/05/24 13:31:00) Protein Urine Dipstick: Ne (more content not included)...[facility] HospitalComment on above:Result Comment: Electronically Signed By: Lakisha BALDWIN, Bharti\.br\Date and Time Signed: 12/05/24 15:39 EDTCult,Urineon 11-24-2024 Cult,UrineSpecimen Description .CLEAN CATCH URINE Special Requests Site: Urine Culture NO GROWTH Report Status FINAL 11/24/2024NoThe MetroHealth SystemComment on above: Performed By: #### UR #### [facility] 15MinutesNOW [address] [place] [address] [employer] Lithographic Press Setter: Xavier Wilder MD [facility] [address] [place] [address] Offset Lithographic Press Setter: Ernesto Edwards MDUrinalysis w/ Microon [id number], SemiQt,UrNegativeNormalNEGPremier Health Miami Valley HospitalComment on above:Performed By: #### UAMIC #### [facility] [address] [place], [place] [address]83 [employer] Setter: Abram Kearney, UrineNegativeNorthwest Medical CenteralGalion Community Hospital Comment on above:Performed By: #### UAMIC #### [facility] [address] [place], [place] [address] [employer] Press Setter: STEPH Kearneylarity (U)ClearNormalCLEARPremier Health Miami Valley Hospital Comment on above:Performed By: #### UAMIC #### [facility] [address] [place] [address] Dr[address] [place], [place] 32[address] [employer] Setter: STEPH Kearneyolor (U)YellowNoalYMercy Health St. [facility] Comment on above:Performed By: #### UAMIC #### [facility] [address] [place] [address] Dr[address] [place], [place] 43[address] [employer] Setter: Ernesto Edwards MDEpithelial cells LM Ql (Urine sed)2 TO 8Vnkgvx5-48 [facility] HospitalComment on above:Performed By: #### UAMIC #### [facility] [address] [place] [address] [address] [place], [place] 267[address] [employer] Setter: Ernesto Edwards MDGlucose Ql (U)NegativeNormalNEGPremier Health Miami Valley HospitalComment on above:Performed By: #### UAMIC #### [facility] [address] [place], [place] [address] [employer] Setter: Ernesto Edwards MDKetones Ql (U)NegativeNormalNEGPremier Health Miami Valley HospitalComment on above:Performed By: #### UAMIC #### [facility] [address] [place], [place] [address] [employer] Setter: Ernesto Edwards MDLeukocyte esterase Test strip Ql (U)NegativeNormal NEGPremier Health Miami Valley HospitalComment on above:Performed By: #### UAMIC #### [facility] [address] [place] [address] [address] [place], [place] 288[address] [employer] Setter: Ernseto Edwards MDNitrite,UrNegativeNormalNEGPremier Health Miami Valley Hospital Comment on above:Performed By: #### UAMIC #### [facility] [address] [place] [address] Dr[address] [place], [place] [address] [employer] Setter: LASHANDA Kearney,Ur6.7Indohp1.0-9.0[facility] HospitalComment on above:Performed By: #### UAMIC #### [facility] [address] [place] [address] [place] [address] Offset [employer] Press Setter: Brunilda Kearney Ql (U)NegativeNormalNEGPremier Health Miami Valley HospitalComment on above:Performed By: #### UAMIC #### [facility] [address] [place] [address] [address] [place], [place] 9308383 [employer] Setter: DURAN Kearneypec. [place],Ur<1.247Reh6.010-1.020[facility] HospitalComment on above:Performed By: #### UAMIC #### [facility] [address] [place] [address] [place] [address] [employer] Press Setter: Brooks Kearney RBC's0 TO 1Yomfpz6-1ShryxFirelands Regional Medical Center [facility] Campus Comment on above:Performed By: #### UAMIC #### [facility] [address] [place] [address] Offset [employer] Press Setter: Brooks Kearney WBC's0 TO 5Sxkfgx1-1VzazkPremier Health Miami Valley Hospital Comment on above:Performed By: #### UAMIC #### [facility] [address] [place] [address] [place] [address] [employer] Setter: Ernesto Edwards MDUrobilinogen,UrNormalNormal0.0-1.0[facility] HospitalComment on above:Performed By: #### UAMIC #### [facility] [address] [place] [address] Offset [employer]ographic Press Setter: Ernesto Edwards MDUrinalysis with Microscopicon [id number] Ql (U)NegativeNEGATIVEBon Secours Mercy HealthClarity (U)ClearClearBon Secours Mercy HealthColor (U)YellowYellowBon Secours Mercy HealthEpithelial cells LM.HPF (Urine sed) [#/Area]2 TO 5[facility] Centery HealthGlucose Test strip (U) [Mass/Vol]NegativeNEGATIVE mg/dLBon Secours Mercy HealthHemoglobin Auto test strip Ql (U)NegativeNEGATIVEBon Secours Mercy HealthInterpretation and review of laboratory resultsAbnormalBon Secours Mercy HealthKetones (U) [Mass/Vol] NegativeNEGATIVE mg/dLBon Secours Mercy HealthLeukocyte esterase Test strip Ql (U)NegativeNEGATIVEBon Secours Mercy HealthNitrite Ql (U)NegativeNEGATIVEBon Secours Mercy HealthpH (U)6 [pH]5.0 - 9.0[facility] HealthProtein (U) [Mass/Vol]NegativeNEGATIVE mg/dLBon Secours Mercy HealthRBC LM.HPF (Urine sed) [#/Area]0 TO 2[facility] Mercy HealthSpecific gravity (U) [Rel density]Low1.010 - 1.020[facility] Centery HealthUrobilinogen Qn (U)Normal0.0 - 1.0 EU/dLBon Secours Mercy HealthWBC LM.HPF (Urine sed) [#/Area]0 TO 2[facility] HealthBon [facility] Centery HealthCult,Urineon 94-49-8775Mwgf,UrineSpecimen Description .CLEAN CATCH URINE Special Requests Site: Urine Culture NO SIGNIFICANT GROWTH Report Status FINAL 2024NoThe MetroHealth SystemComment on above: Performed By: #### URC #### [facility] [address] [place] [address] Offset Lithographic Press Setter: Xavier Wilder MD [facility] [address] [place] [address] Offset Lithographic Press Setter: BRANNON Kearneyicroscopic Urinalysison 68-94-1994Keaegwokcm cells LM.HPF (Urine sed) [#/Area]0 TO 2Bon SecPremier Health Miami [facility] Hospital SouthRBC LM.HPF (Urine sed) [#/Area]NoneBon [facility] HospitalWBC LM.HPF (Urine sed) [#/Area]NoneBon [facility] HealthBon SecPremier Health Miami Valley Hospital SouthUrinalysison 49-78-0918Lppiumeka Ql (U)NegativeNEGATIVEBon SecGlen[facility] HealthClarity (U)ClearClearBon SecGlenwood [facility] Center HealthColor (U)YellowYellowBon [facility] HospitalGlucose Test strip (U) [Mass/Vol]NegativeNEGATIVE mg/dLBon [facility] Memorial HospitalHemoglobin Auto test strip Ql (U)TRACEAbnormalNEGATIVEBon [facility] HospitalInterpretation and review of laboratory resultsAbnormalBon [facility] Memorial HospitalKetones (U) [Mass/Vol]NegativeNEGATIVE mg/dLBon [facility] HospitalLeukocyte esterase Test strip Ql (U)NegativeNEGATIVEBon SecPremier Health Miami Valley Hospital SouthNitrite Ql (U)Negative NEGATIVEBon [facility] HealthpH (U)6 [pH]5.0 - 9.0[facility] Protein (U) [Mass/Vol]NegativeNEGATIVE mg/dLBon [facility] HospitalSpecific gravity (U) [Rel density]1.011.010 - 1.020Bon [facility] Memorial HospitalUrobilinogen Qn (U)Normal0.0 - 1.0 EU/dLBon [facility] Urinalysis, Routineon 38-73-5663Pigdapvfr, SemiQt,UrNegativeNormalNEGPremier Health Miami Valley HospitalComment on above:Performed By: #### MAURICE GARCIA #### [facility] [address] [place] [address] Offset Lithographic Press Setter: Abram Kearney, UrineTRACEAbnormalGalion Community Hospital Comment on above:Performed By: #### MAURICE GARCIA #### [facility] [address] [place], [place] [address] Offset Lithographic Press Setter: STEPH Kearneylarity (U)ClearNormalCLEARPremier Health Miami Valley Hospital Comment on above:Performed By: #### UA, UMICAO #### [facility] [address] [place] [address] Dr[address] [place], [place] 488[address]83 [employer] Lithographic Press Setter: STEPH Kearneyolor (U)YellowNormalYELMerBristol Hospital Comment on above:Performed By: #### UA, UMICAO #### [address] [place], [place] [address]483 Offset Lithographic Press Setter: Ernesto Edwards MDGlucose Ql (U)NegativeNormalNEGPremier Health Miami Valley HospitalComment on above:Performed By: #### JOSE, UMICAO #### [facility] [address] [place] [address] Dr. [place], [place] 7322283 Offset Lithographic Press Setter: Ernesto Edwards MDKetones Ql (U)NegativeNormalNEGPremier Health Miami Valley HospitalComment on above:Performed By: #### JOSE, UMICAO #### [facility] [address] [place] [address] Dr. [place], [place] 1329483 Offset Lithographic Press Setter: Ernesto Edwards MDLeukocyte esterase Test strip Ql (U)NegativeNormal NEGPremier Health Miami Valley HospitalComment on above:Performed By: #### UA, UMICAO #### [facility] [address] [place] [address] Dr. [place], [place] [address]83 Offset Lithographic Press Setter: Ernesto Edwards MDNitrite,UrNegativeSalem Regional Medical Center Comment on above:Performed By: #### UA, UMICAO #### [facility] [address] [place], [place] 2249383 Offset Lithographic Press Setter: LASHANDA Kearney,Ur6.7Eljcee6.0-9.0Prem[facility] HospitalComment on above:Performed By: #### UA, UMICAO #### [facility] [address] [place] [address] Offset Lithographic Press Setter: LASHANDA Kearneyrotein Ql (U)NegativeNormalNEGPremier Health Miami Valley HospitalComment on above:Performed By: #### UA, UMICAO #### [facility] [address] [place] [address] Offset Lithographic Press Setter: DURAN Kearneypec. [place],Ur1.366Xwkioj6.010-1.020Prem[facility] Valley HospitalComment on above:Performed By: #### UA, UMICAO #### [address] [place], [place] [address]83 Offset Lithographic Press Setter: Ernesto Edwards MDUrobilinogen,UrNormalNormal0.0-1.0Prem[facility] Valley HospitalComment on above:Performed By: #### UA, UMICAO #### [facility] [address] [place] [address] [place] [address] Offset Lithographic Press Setter: Ernesto Edwards MDUrinalysis,Microon 35-83-1126Bmxhabffyt cells LM Ql (Urine sed)0 TO 9Jstooq7-78XffycPremier Health Miami Valley HospitalComment on above:Performed By: #### UA, UMICAO #### [facility] [address] [place] [address] [place] [address] Offset Lithographic Press Setter: Brooks Kearney RBC'sNoneNormal0-2MFirelands Regional Medical Center [facility] Campus Comment on above:Performed By: #### JOSE, UMICAO #### [facility] [address] [place] [address] Offset Lithographic Press Setter: Brooks Kearney WBC'sNoneNormal0-5[facility] Comment on above:Performed By: #### UA, UMICAO #### [facility] [address] [place], [facility] Offset Lithographic Press Setter: Tamra Kearney,Genitalon [id number],GenitalSpecimen Description .VAGINA Special Requests Site: Genital Culture NEGATIVE FOR GROUP B STREPTOCOCCI NORMAL URO-GENITAL BERENICE NEGATIVE FOR NEISSERIA GONORRHOEAE Report Status FINAL 10/14/2024NormalPremier Health Miami Valley HospitalComment on above: Performed By: #### GEC #### [facility] [address] [place] [address] Offset Lithographic Press Setter: Xavier Wilder MD [facility] [address] [place] [address] [place] [address] Offset Lithographic Press Setter: Tamra Kearney,Urineon 93-04-8320Shwg,UrineSpecimen Description .VOIDED URINE Culture ESCHERICHIA COLI 10 [...] SUSCEPTIBLE Levofloxacin <=0.12 SUSCEPTIBLE Nitrofurantoin <=16 SUSCEPTIBLE Piperacillin/Tazobactam <=4 SUSCEPTIBLE Tobramycin <=1 SUSCEPTIBLE Trimethoprim/Sulfa <=20 SUSCEPTIBLESusceptDunlap Memorial HospitalComment on above:Performed By: #### UR #### [facility] [address] [place] [address] Offset Lithographic Press Setter: Xavier Wilder MD [facility] [address] [place] [address] [place] [address] Offset Lithographic Press Setter: SHIRA KearneyMMO DIAGNOSTIC WITH CHANDRIKA BILATERALon 09-11-2024 MAMMO DIAGNOSTIC WITH CHANDRIKA BILATERAL ADDENDUM [...] either breast. BI-RADS: 2: Benign Recommendation: Clinical correlation/management. Recommendation Laterality: Right ORIGINAL REPORT EXAM: MAMMO DIAGNOSTIC WITH CHANDRIKA BILATERAL, US BREAST LIMITED UNILATERAL RIGHT, 08/10/2024 11:19 AM (accession [id number]), 08/10/2024 11:33 AM (accession [id number]) CLINICAL INDICATIONS AND HISTORY: right breast pain [...] examinations. Recommendation Laterality: Bilateral MQSA Facility: The [address] , [place], [place] [address], I personally viewed and interpreted these images and I have reviewed and approved this report. Table formatting from the original result was not included. MAMMO STANDARD RISK MQSA SITE BEGIN The [address] [place] [address] MQSA SITE [place] [facility] HospitalUS BREAST LIMITED UNILATERAL RIGHTon 03-05-4344XQ BREAST LIMITED UNILATERAL RIGHT ADDENDUM #1 The [...] either breast. BI-RADS: 2: Benign Recommendation: Clinical correlation/management. Recommendation Laterality: Right ORIGINAL REPORT EXAM: MAMMO DIAGNOSTIC WITH CHANDRIKA BILATERAL, US BREAST LIMITED UNILATERAL RIGHT, 08/10/2024 11:19 AM (accession [id number]), 08/10/2024 11:33 AM (accession [id number]) CLINICAL INDICATIONS AND HISTORY: right breast pain [...] examinations. Recommendation Laterality: Bilateral MQSA Facility: The [address] , [place], [place] [address], I personally viewed and interpreted these images and I have reviewed and approved this report. [facility]MG Breast - bilateral Diagnosticon 45-23-0672ZyjpqkHarris Bonds MD - 08/10/2024 EXAM: MAMMO DIAGNOSTIC WITH CHANDRIKA BILATERAL, US BREAST LIMITED UNILATERAL RIGHT, 08/10/2024 11:19 AM (accession [id number]), 08/10/2024 11:33 AM (accession [id number]) CLINICAL INDICATIONS AND HISTORY: right breast pain [...] Comparison with prior examinations. Recommendation Laterality: Bilateral SA Facility: The [address] , [place] [address], I personally viewed and interpreted these images and I have reviewed and approved this report. [facility] HospitalRadiology Study observation (narrative)[facility] HospitalNo Panel Informationon 70-86-3089ZBMKYDVFDF: 1. No current specific mammographic evidence of [...] examinations. Recommendation Laterality: Bilateral MQSA Facility: The [address], [place], [place] [address], I personally viewed and interpreted these images and I have reviewed and approved this report. RADIOLOGYEXAM: MAMMO DIAGNOSTIC WITH CHANDRIKA BILATERAL, US BREAST LIMITED UNILATERAL RIGHT, 08/10/2024 11:19 AM (accession [id number]), 08/10/2024 11:33 AM (accession [id number]) CLINICAL INDICATIONS AND HISTORY: right breast pain [...] No mass lesion or abnormal blood flow. RADIOLOGYNo Panel InformationOrdered By: Harris Bonds on 82-78-5729FIUAdams County Hospital Work Phone: us Breast - right limitedon 75-14-4140Ezykerurr Study observation (narrative)[facility] HospitalT Breast - bilateral screening on 92-98-1355Eg mammographic evidence of malignancy BIRADS: BIRADS - CATEGORY 1 Negative. Normal interval follow-up is recommended in 12 months. OVERALL ASSESSMENT - NEGATIVE A letter of notification will be sent to the patient regarding the results. The [employer] recommends annual mammograms for women 40 years and older. Performing Facility: [place] [address] [facility] CONSOLIDATEDEXAMINATION: SCREENING DIGITAL BILATERAL MAMMOGRAM WITH TOMOSYNTHESIS, 02/22/2024 [...] concerning grouping of microcalcification in either breast. [facility] CONSOLIDATEDRadiology Study observation (narrative)[facility] Breast - bilateral screeningOrdered By: Naldo Iyer on 02-22-2024 [facility] Work Phone: CT Pelvis w/ Contraston [id number] Pelvis w/ ContrastExam Performed at: [facility] Patient Name: Manju Aldana Patient : 1985 Referring Physician: Claudia Lamas Exam Date: 11/17/2023 Exam Description: CT Pelvis [...] osteoarthritis. No fractures or dislocation. No evidence ofavascular necrosis. CONCLUSION: Minimal bilateral hip osteoarthritis without acute injury Harris Gloria MD A: LETICIA 11/19/2023 5:59 PM EST ADDENDUM, 12/20/2023: Visualized coccygeal segments are normal. No fracture. No bone destruction/periostitis. Thank you for the opportunity to provide your interpretation. Harris Gloria MD A: LETICIA 12/19/2023 7:55 PM ESTNormalProScan ImagingUS NON OB TRANSVAGINALon 64-13-6785OL NON OB TRANSVAGINALUTERUS:anteverted, heterogeneous echo pattern; s/p ablation ENDO:8mm in thickness RT. OVARY:seen transabdominal, wnl LT. OVARY:attempted TA AND TV, ovary not visualized - due to overlying bowel Interpreted by: Gisel Vela APRN - CNM Doty Armstrong, Carmen F, DO Signed by: Philly Jacobsen DO 12/16/23 Final resultNormalMercy Los Angeles Community HospitalCT Neck W contrast Enrique [id number], [place] [address] CT Scan Report Signed Patient: MANJU ALDANA MR#: [id number] : 1985 Acct:[id number] Age/Sex: 37 / F ADM Date: 03/07/23 Loc: CT Attending Dr: Cami Hicks M.D. Ordering Physician: Cami Hicks M.D. Date of Service: 03/07/23 Procedure(s): CT soft tissue neck w con Accession Number(s): [id number] cc: Claudia Lamas M.D. [place] [address] Patient Name: MANJU ALDANA MRN: [id number] date: 1985 Sex: F Assigned Patient Location: CT Current Patient Location: CT Accession/Order Number: [id number] Exam Date: 03/07/2023 09:00 Report Date: 03/07/2023 10:44 At the request of: CAMI HICKS Procedure: CT soft tissue neck w con EXAM: CT soft tissue neck w con CLINICAL INDICATION: Neck Mass R22.1 COMPARISON: CT neck soft tissues 03/06/2022. Ultrasound 02/04/2023. TECHNIQUE: Standard enhanced CT of the neck following intravenous administration of 100 cc of Omnipaque 300. Axial sections with coronal and sagittal reformats were obtained. Dose reduction techniques were achieved by using automated exposure control and/or adjustment of mA and/or kV according to patient size and/or use of iterative reconstruction technique. FINDINGS: Lymph Nodes/Soft Tissues: No extranodal soft tissue mass, abnormal enhancement, or fat stranding. No enlarged or morphologically abnormal lymph nodes. Nasopharynx: Normal. Suprahyoid Neck: Oropharynx, oral cavity, parapharyngeal, and retropharyngeal spaces are clear and symmetric. Infrahyoid Neck: Larynx, hypopharynx, and supraglottic area are clear and symmetric. Vocal cords are symmetric. Parotid Glands: Normal. Submandibular Glands: Normal. Thyroid: Normal. Orbits: Normal. Paranasal Sinuses: Mild bilateral maxillary sinus mucosal thickening. Remainder of the paranasal sinuses and the mastoid air cells are well-aerated. Mastoid Air Cells: Well-aerated. Skull Base: Normal. Thoracic Inlet: Visualized lung apices are clear. Vascular Structures: Symmetric and patent. Musculoskeletal: No acute osseous abnormality. Mild multilevel cervical spondylotic changes. CT/CT soft tissue neck w con IMPRESSION: No extranodal soft tissue mass, abnormal enhancement, or lymphadenopathy in the neck. No soft tissue abnormality to correspond with palpable abnormality. No substantial change since 03/06/2022. Electronically authenticated by: STEFANO MARQUEZ Date: 03/07/2023 10:44 Dictated By: Stefano Marquez M.D. Signed By: 03/07/23 1048 DD/ 1044 TD/TT: Risk Control Field Representative:TBHRadiology, Radiologist, MD - 03/07/2023 [place] [address] CT Scan Report Signed Patient: MANJU ALDANA MR#: [id number] : 1985 Acct:[id number] Age/Sex: 37 / F ADM Date: 03/07/23 Loc: CT Attending Dr: Cami Hicks M.D. Ordering Physician: Cami Hicks M.D. Date of Service: 03/07/23 Procedure(s): CT soft tissue neck w con Accession Number(s): [id number] cc: Claudia Lamas M.D. [place] [address] Patient Name: MANJU ALDANA MRN: [id number] date: 1985 Sex: F Assigned Patient Location: CT Current Patient Location: CT Accession/Order Number: [id number] Exam Date: 03/07/2023 09:00 Report Date: 03/07/2023 10:44 At the request of: CAMI HICKS Procedure: CT soft tissue neck w con EXAM: CT soft tissue neck w con CLINICAL INDICATION: Neck Mass R22.1 COMPARISON: CT neck soft tissues 03/06/2022. Ultrasound 02/04/2023. TECHNIQUE: Standard enhanced CT of the neck following intravenous administration of 100 cc of Omnipaque 300. Axial sections with coronal and sagittal reformats were obtained. Dose reduction techniques were achieved by using automated exposure control and/or adjustment of mA and/or kV according to patient size and/or use of iterative reconstruction technique. FINDINGS: Lymph Nodes/Soft Tissues: No extranodal soft tissue mass, abnormal enhancement, or fat stranding. No enlarged or morphologically abnormal lymph nodes. Nasopharynx: Normal. Suprahyoid Neck: Oropharynx, oral cavity, parapharyngeal, and retropharyngeal spaces are clear and symmetric. Infrahyoid Neck: Larynx, hypopharynx, and supraglottic area are clear and symmetric. Vocal cords are symmetric. Parotid Glands: Normal. Submandibular Glands: Normal. Thyroid: Normal. Orbits: Normal. Paranasal Sinuses: Mild bilateral maxillary sinus mucosal thickening. Remainder of the paranasal sinuses and the mastoid air cells are well-aerated. Mastoid Air Cells: Well-aerated. Skull Base: Normal. Thoracic Inlet: Visualized lung apices are clear. Vascular Structures: Symmetric and patent. Musculoskeletal: No acute osseous abnormality. Mild multilevel cervical spondylotic changes. CT/CT soft tissue neck w con IMPRESSION: No extranodal soft tissue mass, abnormal enhancement, or lymphadenopathy in the neck. No soft tissue abnormality to correspond with palpable abnormality. No substantial change since 03/06/2022. Electronically authenticated by: STEFANO MARQUEZ Date: 03/07/2023 10:44 Dictated By: Stefano Marquez M.D. Signed By: 03/07/23 1048 DD/ 1044 TD/TT: Risk Control Field Representative: [facility] HealthcareRadiology Study observation (narrative)[facility] HealthcareCT Neck W contrast IVOrdered By: Radiologist Radiology on 60-23-0598QWILTenet St. [facility] Work Phone: INSULINon 92-37-1758Obfgklc37.5 uIU/mLNormal2.6-24.9 The [facility] HospitalComment on above:Performed By: #### INSULIN #### [facility] [address] [place], [place] [address] Dr. Wu White AUTO DIFFon 98-17-3570NGHT #0.1 103/ulNormal0.0-0.1The [facility] HospitalComment on above:Performed By: #### CBC ####[facility] [address] [place], [place] [address]Dr.Wu ChangBasophils/100 WBC (Bld)1.2 %Normal0.2-2.0The [facility] HospitalComment on above:Performed By: #### CBC ####[facility] [address] [place], [place] [address]Dr.Yilan ChangEO #0.2 103/ulNormal0.0-0.7The Armstrong HospitalComment on above:Performed By: #### CBC ####[facility] [address] [place], [place] [address]Dr.Donnalan ChangEosinophils/100 WBC (Bld)2.9 %Normal 0.9-7.0The [facility] HospitalComment on above:Performed By: #### CBC ####[facility] [address] [place], [place] [address]Dr.Donnadestinee Broderick Erythrocyte distribution width (RBC) [Ratio]12.8 %Dextdl12.0-15.0The [facility] HospitalComment on above:Performed By: #### CBC ####[facility] [address] [place], [place] [address]Dr.Wu ChangHematocrit (Bld) [Volume fraction]44.0 %Qrndtn32.0-48.0The [facility] HospitalComment on above:Performed By: #### CBC ####[facility] [address] [place], [place] [address]Dr.Wu ChangHemoglobin (Bld) [Mass/Vol]14.6 g/dL Syolmw85.0-16.0The [facility] HospitalComment on above:Performed By: #### CBC ####[facility] [address] [place], [place] [address]Dr. Yilan ChangIG #0.02 10e3/ulNormal0.00-0.03The [facility] HospitalComment on above: Performed By: #### CBC ####[facility] [address] [place], [place] [address]Dr.Yilan ChangIG %0.3 %Normal0.0-0.5The [facility] HospitalComment on above:Performed By: #### CBC ####[facility] [address] [place] [address]Dr.Wu DavieLYMPH #1.8 103/ulNormal1.2-3.8The [facility] HospitalComment on above:Performed By: #### CBC ####[facility] [address] [place] [address]Dr. Wu BroderickLymphocytes/100 WBC (Bld)31.5 %Lssxri43.5-60.0The [facility] Comment on above:Performed By: #### CBC ####[facility] [address] [place], [place] [address]Dr.Wu BroderickMANUAL DIFF REQNONormalThe [facility] HospitalComment on above:Performed By: #### CBC ####[facility] [address] [place], [place] [address]Dr.Wu BroderickH (RBC) [Entitic mass]28.3 vqBojgqq28.7-34.0The [facility] HospitalComment on above: Performed By: #### CBC ####[facility] [address] [place], [place] [address]Dr.Donnadestinee BroderickMCHC (RBC) [Mass/Vol]33.2 g/dLNormal 29.9-35.2The [facility] HospitalComment on above:Performed By: #### CBC ####[facility] [address] [place], [place] [address]Dr. Wu BroderickV (RBC) [Entitic vol]85.4 yZHgqhey04.0-99.0[facility] Comment on above:Performed By: #### CBC ####[facility] Af[address] [place], [place] [address]Dr.Wu DavieMONO #0.4 103/ulNormal0.3-0.8 The [facility] HospitalComment on above:Performed By: #### CBC ####[facility] [address] [place], [place] [address]Dr.Donnadestinee Broderick Monocytes/100 WBC (Bld)6.2 %Normal1.7-12.0The [facility] HospitalComment on above: Performed By: #### CBC ####[facility] [address] [place] [address]Dr.Wu BroderickNEUT #3.4 103/ulNormal1.4-6.5The [facility] HospitalComment on above:Performed By: #### CBC ####[facility] [address] [place], [place] [address]Dr.Wu BroderickNeutrophils/100 WBC (Bld)57.9 %Mmduuw41.0-75.0The Armstrong HospitalComment on above:Performed By: #### CBC ####[facility] [address] [place], [place] [address]Dr.Wu BroderickPlatelet mean volume (Bld) [Entitic vol]9.0 fLCritically low 9.5-13.5The [facility] HospitalComment on above:Performed By: #### CBC ####[facility] [address] [place], [place] [address]Dr. Yidestinee YpzfbNKI038 103/eeZzkfev632-231Smh Armstrong HospitalComment on above: Performed By: #### CBC ####[facility] [address] [place], [place] [address]Dr.Donnalan ChangRBC5.15 106/ulNormal4.20-5.40The [facility] HospitalComment on above:Performed By: #### CBC ####[facility] [address] [place], [place] [address]Dr.Wu ChangWBC5.9 103/ul Normal4.0-11.0The [facility] HospitalComment on above:Performed By: #### CBC ####[facility] [address] [place], [place] [address]Dr. Wu BroderickFREE THYROXINE INDEX T7on 28-11-4276MVI6.03Eumfhe4.30-4.50The [facility] HospitalComment on above:Performed By: #### LIPID, TSH, CMP, T7 ####[facility] [address] [place], [place] [address]Dr. Yilan AkxtfY2Q17.0 %Fnmlke90.0-39.0The [facility] HospitalComment on above: Performed By: #### LIPID, TSH, CMP, T7 ####[facility] [address] [place] [address]Dr. Wu BroderickT4 [Mass/Vol]8.60 ug/dLNormal 4.80-13.90The [facility] HospitalComment on above:Performed By: #### LIPID, TSH, CMP, T7 ####[facility] [address] [place] [address]Dr. Wu BroderickGLYCOHEMOGLOBIN A1Con 41-57-3025XRR RECOMMENDATIONSEE BELOW NormalThe [facility] on above:Result Comment: ADA RECOMMENDED LIMIT 4.0 - 6.0 ADA THERAPEUTIC TARGET < 7.0 ACTION SUGGESTED > 7.0Performed By: #### A1C #### [facility] [address] [place] [address] [address] Wu BroderickGlucose [Mass/Vol]111 mg/dLNoCincinnati Shriners HospitalComment on above:Performed By: #### A1C #### [facility] [address] [place] [address] [address] Wu BroderickHbA1c (Bld) [Mass fraction]5.5 %Normal4.5-6.2The [facility] on above:Performed By: #### A1C #### [facility] [address] [place] [address] [address] Wu Conde 44-51-8526Gxca [Mass/Vol]60.0 ug/yGFowssd22.0-170.0The [facility] on above:Performed By: #### IRON #### [facility] [address] [place] [address] [address] Wu BroderickLIPID PROFILEon 52-58-9271QUWB-HDL RATIO NORMSEE BELOWTrumbull Memorial HospitalComment on above:Result Comment: 3.3 - 4.4 LOW RISK 4.4 - 7.1 AVERAGE RISK 7.1 - 11.0 MODERATE RISK >11.0 HIGH RISKPerformed By: #### LIPID, TSH, CMP, T7 ####[facility] [address] [place] [id number]. Yilan ChangCholesterol [Mass/Vol]216 mg/dLCritically high<=200[facility] on above:Performed By: #### LIPID, TSH, CMP, T7 ####[facility] [address] [place] [address]Dr. Yilan ChangCholesterol in HDL [Mass/Vol]60 mg/bEPfsvqs57-63YixMercy Health St. [facility] Comment on above:Performed By: #### LIPID, TSH, CMP, T7 ####[facility] [address] [place] [address]Dr. Yilan ChangCholesterol in LDL [Mass/Vol]137.4 mg/dLTrumbull Memorial HospitalComment on above:Performed By: #### LIPID, TSH, CMP, T7 ####[facility] [address] [place] [address]Dr. Yilan ChangCholesterol.total/Cholesterol in HDL [Mass ratio]3.6 {ratio}NormalThe [facility] HospitalComuniversity of [facility] health on above:Performed By: #### LIPID, TSH, CMP, T7 ####[facility] [address] [place] [id number]. Yilan ChangHDL NORMAL> or = 60 mg/dl - LOW CARDIOVASCULAR RISK <40 mg/dl - HIGH CARDIOVASCULAR RISKTrumbull Memorial HospitalComment on above:Performed By: #### LIPID, TSH, CMP, T7 ####[facility] [address] [place] [address]Dr. Yilan ChangLDL CALC NORMALSEE BELOWNoCincinnati Shriners HospitalComment on above:Result Comment: <100 mg/dl OPTIMAL 100 - 129 mg/dl NEAR OR ABOVE OPTIMAL 130 - 159 mg/dl BORDERLINE HIGH 160 - 189 mg/dl HIGH >190 mg/dl VERY HIGHPerformed By: #### LIPID, TSH, CMP, T7 ####[facility] [address] [place] [address]Dr. Yilan ChangTriglyceride [Mass/Vol]93 mg/dLNormal <=150The Armstrong HospitalComment on above:Performed By: #### LIPID, TSH, CMP, T7 ####[facility] [address] [place] [address]Dr. Wu ShepherdLDL CALC18.6 mg/dLNormalThe [facility] HospitalComment on above: Performed By: #### LIPID, TSH, CMP, T7 ####[facility] [address] [place] [address]Dr. Wu ArchibaldF 14(COMP METB)on 07-08-2022 Albumin [Mass/Vol]4.0 g/dLNormal3.4-5.0The [facility] HospitalComment on above: Performed By: #### LIPID, TSH, CMP, T7 #### [facility] [address] [place] [address] [address] Wu BroderickAlbumin/Globulin [Mass ratio]1.0 {ratio}NormalThe [facility] HospitalComment on above:Performed By: #### LIPID, TSH, CMP, T7 #### [facility] [address] [place] [address] [address] Wu Samuel [Catalytic activity/Vol]79 U/FEhafdc17-187[facility] on above:Performed By: #### LIPID, TSH, CMP, T7 #### [facility] [address] [address] [address] Wu Collins [Catalytic activity/Vol]20 U/PJeewmr71-28Kjl [facility], Incment on above:Performed By: #### LIPID, TSH, CMP, T7 #### [facility] [address] [address] [address] Wu Sol gap [Moles/Vol]11.9 mmol/LNormalThe [facility] Comment on above:Performed By: #### LIPID, TSH, CMP, T7 #### [facility] [address] [address] [address] Wu Lyons [Catalytic activity/Vol]12 U/LCritically ukf94-45Ngd [facility], Incment on above:Performed By: #### LIPID, TSH, CMP, T7 #### [facility] [address] [address] [address] Wu BroderickBilirubin [Mass/Vol]0.3 mg/dLNormal0.2-1.0The [facility] Comment on above:Performed By: #### LIPID, TSH, CMP, T7 #### [facility] [address] [address] [address] Wu BroderickCalcium [Mass/Vol]9.0 mg/dLNormal8.5-10.1The [facility] Comment on above:Performed By: #### LIPID, TSH, CMP, T7 #### [facility] [address] [address] [address] Wu BroderickChloride [Moles/Vol]104 mmol/LXjknao43-026QkdMercy Health St. [facility] Comment on above:Performed By: #### LIPID, TSH, CMP, T7 #### [facility] [address] [place] [address] Dr. Wu BroderickCO2 [Moles/Vol]27.3 mmol/OWyhmyi48.0-32.0The [facility] Comment on above:Performed By: #### LIPID, TSH, CMP, T7 #### [facility] [address] [address] [address] Wu BroderickCreatinine [Mass/Vol]0.75 mg/dLNormal0.55-1.02The [facility] HospitalComment on above:Performed By: #### LIPID, TSH, CMP, T7 #### [facility] [address] [place] [address] Dr. Wu SelfGFR-AF DJIBOUTIAN>60Normal>=60The [facility] Memorial HospitalComment on above:Performed By: #### LIPID, TSH, CMP, T7 #### [facility] [address] [place] [address] Dr. Wu Leahy-NON AF DJIBOUTIAN>60Normal>=60The [facility] HospitalComment on above:Performed By: #### LIPID, TSH, CMP, T7 #### [facility] [address] [place] [address] Dr. Wu BroderickGlobulin (S) [Mass/Vol]4.2 g/dLNormSheltering Arms HospitalComment on above:Performed By: #### LIPID, TSH, CMP, T7 #### [facility] [address] [address] [address] Wu BroderickGlucose [Mass/Vol]97 mg/oWEkswcp39-739WzkMercy Health St. [facility] Comment on above:Performed By: #### LIPID, TSH, CMP, T7 #### [facility] [address] [address] [address] Wu BroderickPotassium [Moles/Vol]4.2 mmol/LNormal3.5-5.1The [facility] Comment on above:Performed By: #### LIPID, TSH, CMP, T7 #### [facility] [address] [place] [address] Dr. Wu BroderickProtein [Mass/Vol]8.2 g/dLNormal6.4-8.2The [facility] Comment on above:Performed By: #### LIPID, TSH, CMP, T7 #### [facility] [address] [place] [address] Dr. Wu BroderickSodium [Moles/Vol]139 mmol/QGkijfu576-577Ddy [facility] Comment on above:Performed By: #### LIPID, TSH, CMP, T7 #### [facility] [address] [place] [address] Dr. Wu BroderickUrea nitrogen [Mass/Vol]10.0 mg/dLNormal7.0-18.0The [facility] HospitalComment on above:Performed By: #### LIPID, TSH, CMP, T7 #### [facility] [address] [place] [address] Dr. Wu BroderickUrea nitrogen/Creatinine [Mass ratio]13.3 mg/mgNoCincinnati Shriners HospitalComment on above:Performed By: #### LIPID, TSH, CMP, T7 #### [facility] [address] [place] [address] Dr. Wu Lima 25-19-2536JAD5.181 uIU/mLNormal0.358-3.740The Kerri HospitalComment on above:Performed By: #### LIPID, TSH, CMP, T7 #### [facility] [address] [place], [place] [address] [address] W CONon 33-96-7969FT NECK ST W CONEXAMINATION: CT NECK ST W CON HISTORY: Mass [...] Skull base normal. The orbital contents normal. Chief Accountant spaces are normal. Parotid glands normal. Submandibular [...] Electronically authenticated by: LUX OKEEFE Date: 2022-03-08 07:30Trumbull Memorial HospitalUS THYROIDon 44-23-5732EU THYROID Begin Addendum #1 The first sentence [...] the thyroid gland. Perhaps biopsy would be prudent.NormalThe [facility] HospitalPregnancy, Urineon 24-90-4620Nfsc HCG ( test) Ql (U)NegativeNEGATIVEBON [facility]AP[facility] AKSEL GROUP [facility]ALTH SPRINGFIELDComment on above:Specimens with hCG levels near the threshold of the test (25 mIU/mL) may give a negative or indeterminate result. In such cases, another test should be performed with a new specimen in 48-72 hours. If early is suspected clinically in this setting, correlation with quantitative serum b-hCG level is suggested. [employer] has confirmed the use of plasma for this test. This has not been cleared or approved by the U.S. Food and Drug Administration. The FDA has determined that such clearance is not necessary. [facility] Health Market ScienceANTICARDIOLIPIN AB (CESAR) IGA/IGG/IGMon 11-30-2021 Anticardiolipin Ab,IgA,Qn<7Wnqlis3-82EurMercy Health St. Vincent Medical CenterComment on above: Result Comment: Negative: <12 Indeterminate: 12 - 20 Low-Med Positive: >20 - 80 High Positive: >80Performed By: #### ACAQUAN #### [facility] [address] [address] [address] Wu BroderickAnticardiolipin Ab,IgG,Qn<8Mmkawb0-32Tjp [facility] HospitalComment on above:Result Comment: Negative: <15 Indeterminate: 15 - 20 Low-Med Positive: >20 - 80 High Positive: >80Performed By: #### ACAQUAN #### [facility] [address] [address] [address] Wu BroderickAnticardiolipin Ab,IgM,Qn12 MPL U/mLNormal0-12The [facility] Memorial HospitalComuniversity of michigan health on above:Result Comment: Negative: <13 Indeterminate: 13 - 20 Low-Med Positive: >20 - 80 High Positive: >80Performed By: #### ACAQUAN #### [facility] [address] [place] [address] [address] Wu BroderickB2-GLYCOPROTEIN 1 AB IGA/IGG/IGMon 33-70-0923Qanj-2 Glycoprotein I Ab, IgG<5Cmmubj7-99Ftj [facility] HospitalComuniversity of mich[facility] health on above:Result Comment: The reference interval reflects a 3SD or 99th percentile interval, which is thought to represent a potentially clinically significant result in accordance with the International Consensus Statement on the classification criteria for definitive antiphospholipid syndrome (APS). J Thromb Haem 2006;4:295-306.Performed By: #### BGLYCOA ####[facility] [address] [place] [address]Dr. Wu BroderickBeta- 2 Glycoprotein I Ab, IgM<2Cvpbrw1-17Wbl [facility] HospitalComuniversity of mich[facility] health on above:Result Comment: The reference interval reflects a 3SD or 99th percentile interval, which is thought to represent a potentially clinically significant result in accordance with the International Consensus Statement on the classification criteria for definitive antiphospholipid syndrome (APS). J Thromb Haem 2006;4:295-306.Performed By: #### BGLYCOA ####[facility] [address] [place], [place] [address]Wf. Wu BroderickBeta- 2 IgA<6Eqgrrp8-55Ngh [facility] HospitalComment on above:Result Comment: The reference interval reflects a 3SD or 99th percentile interval, which is thought to represent a potentially clinically significant result in accordance with the International Consensus Statement on the classification criteria for definitive antiphospholipid syndrome (APS). J Thromb Haem 2006;4:295-306.Performed By: #### BGLYCOA ####[facility] [address] [place], [place] [address]If. Wu BroderickBUNon 79-05-3426Mxii nitrogen (BldV) [Mass/Vol]10 mg/dL6 - 20 mg/dLBON AVITA HEALTH SYSTEMCreatinineon 89-53-0665Viqzgufwji [Mass/Vol]0.62 mg/dL0.50 - 0.90 mg/dLBON AVITA HEALTH SYSTEMGFR >60>60 mL/minSENTARA LEIGH [facility]ITAL GFR Non->60>60 mL/minSENTARA LEIGH HOSPITALLaboratory - Chemistry and Chemistry - challengeon 90-22-3360KNY/1.73 sq M.predicted MDRD (S/P/Bld) [Vol rate/Area][facility] HOSPITALComment on above:Average GFR for 30-39 years old: 107 mL/min/1.73sq m Chronic Kidney Disease: <60 mL/min/1.73sq m Kidney failure: <15 mL/min/1.73sq m eGFR calculated using average adult body mass. Additional eGFR calculator available at: http://www.Lvgou.com.Platter/multiple_crcl_2012.htm Stage 1: Some kidney damage normal GFR Stage 2: Mild kidney damage GFR 60-89 Stage 3: Moderate kidney damage GFR 30-59 Stage 4: Severe kidney damage GFR 15-29 Stage 5: Severe kidney damage GFR <15 ESRD - chronic treatment by dialysis or transplant MRI BRAIN W WO CONTRASTon 69-34-8182Trdttdgwuvrw pre and post-contrast MRI of the brain and orbital structures. RECOMMENDATIONS: Unavailable [facility] RIS CONSOLIDATEDEXAMINATION: MRI OF THE BRAIN WITHOUT AND WITH [...] the sedation requirement?->None FINDINGS: MRI BRAIN: INTRACRANIAL STRUCTURES/VENTRICLES: The sellar and suprasellar structures, optic chiasm, [...] unremarkable. There is no abnormal postcontrast enhancement. Abel Hastings MD - 10/14/2021 EXAMINATION: MRI OF THE [...] the sedation requirement?->None FINDINGS: MRI BRAIN: INTRACRANIAL STRUCTURES/VENTRICLES: The sellar and suprasellar structures, optic chiasm, [...] the brain and orbital structures. RECOMMENDATIONS: Unavailable [employer] Phone: radiology Study observation (narrative)[employer] Phone: MRI BRAIN W WO CONTRASTOrdered By: Abel Taveras on 87-37-7284[employer] Phone: no Panel Informationon 56-62-4683MHA Ariste MedicalBANNER PA[facility] Antinuclear Antibodieson 32-00-3037Ebviskhxjes Abs, IFANegativeNormal. Corey HospitalComment on above:Result Comment: Negative <1:80 Borderline 1:80 Positive >1:80 ICAP nomenclature: AC-0 For more information about Hep-2 cell patterns use ANApatterns.org, the official website for the International Consensus on Antinuclear Antibody (CHASE) Patterns (ICAP). Performed at: [place] [id number] [employer] Lith[employer] Press Setter: Rich Ritchie PhD, Phone: [phone] By: #### PTT, PT #### [address] #### ALDOLASE #### [facility] ,Activated partial thromboplastin time (aPTT) in platelet poor plasma by coagulation aOrdered By: Cammy Augustin on 51-92-8653lHUM Coag (PPP) [Time]32.6 s25.1-36.5FSelect Medical Specialty Hospital - Columbus SouthAlbumin [Mass/volume] in Serum or PlasmaOrdered By: Cammy Augustin on 80-48-6169Tqgsnjn [Mass/Vol]4.0 g/dL3.2-5.5 Corey HospitalAldolaseon 19-22-4058Vmbzdetv0.7 U/LNormal 3.3-10.3FSelect Medical Specialty Hospital - Columbus SouthComment on above:Result Comment: Performed at: [facility] [place] [address] [employer] Press Setter: Rich Ritchie PhD, Phone: [phone] PERFORMED BY: [place] [address] PATHOLOGIST BUSINESS DEVELOPMENT SALES EXECUTIVE REGINE JACOBO M.D.Performed By: #### PTT, PT #### [address] #### ALDOLASE #### [facility] ,Antithyroglobulin Abon 82-73-9352Disxvosnpqhnkrtpw Ab<1.7Qlvrcg1.0-0.9Corey HospitalComment on above:Result Comment: Thyroglobulin Antibody measured by [employer] Methodology Performed at: [facility] [place] [address] [employer] Press Setter: Rich Ritchie PhD, Phone: [phone] By: #### PTT, PT #### [place] [address] [place] #### ALDOLASE #### [facility] ,Automated erythrocytes count in urine sediment (number/area)Ordered By: Cammy Augustin on 39-86-2267AUC Auto (Urine sed) [#/Area]0-1 [HPF]Corey HospitalAutomated leukocytes count in urine sediment (number/area)Ordered By: Cammy Augustin on 22-10-0690UBW Auto (Urine sed) [#/Area]1-2 [HPF]Corey HospitalBasophils Auto (Bld) [#/Vol]Ordered By: Cammy Augustin on 42-35-8391Lgxafqyxu (Bld) [#/Vol]0.1 10*3/uL0.0-0.2FSelect Medical Specialty Hospital - Columbus SouthBasophils/100 WBC Auto (Bld)Ordered By: Cammy Augustin on 09-24-2021 Basophils/100 WBC (Bld)0.9 %Corey HospitalBilirubin Test strip Ql (U)Ordered By: Cammy Augustin on 65-60-1552Pnjuudilj Ql (U)Negative NegativeCorey HospitalBlood hemoglobin measurement (mass/volume)Ordered By: Cammy Augustin on 26-95-3905Tmoxavvudt (Bld) [Mass/Vol] 13.5 g/dL11.8-15.4FSelect Medical Specialty Hospital - Columbus SouthBlood leukocytes automated count (number/volume)Ordered By: Cammy Augustin on 53-92-4431LAO (Bld) [#/Vol] 7.1 10*3/uL4.5-11.0Corey HospitalC-Reactive Proteinon 51-20-5435F-Reactive Protein0.8 mg/dLNormal0.0-1.0Corey HospitalComment on above:Performed By: #### PTT, PT #### [facility] [address] [place] [address] [place] #### ALDOLASE #### [facility] ,Chromatin Antibodyon 70-31-0359Suvbigrnr Antibody<0.7Zlkefs8.0-0.9Corey HospitalComment on above:Result Comment: Performed at: - [facility] [id number] [employer]ographic Press Setter: Rich Ritchie PhD, Phone: [phone] By: #### PTT, PT #### [facility] [address] [place] [address] [place] #### ALDOLASE #### [facility] ,Color Auto (U)Ordered By: Cammy Augustin on 88-58-8526Iljiy (U)YellowYellow Corey HospitalComplement C3on 16-73-5448Qzqynizzeq C3178 mg/nRZwcu90-349AlspnqbkdCorey HospitalComment on above:Result Comment: Performed at: - [facility] [id number] [employer] Lithographic Press Setter: Rich Ritchie PhD, Phone: [phone] By: #### CH50, C3, C4 #### [facility] , #### ADDONUAPLUS #### [facility] [address] [place] [address] USAComplement C4on 01-15-8827Mphjexyevf C429 mg/pEJedrcs99-30 Corey HospitalComment on above:Performed By: #### CH50, C3, C4 #### [facility] , #### ADDONUAPLUS #### [facility] [address] [place] [address] USAComplement Total (CH50)on 72-82-5666Mbviikddqv Total (CH50)>60Normal>41Corey HospitalComment on above:Result Comment: Age Male Female 1 - 30 [...] out of range values. Performed at: - [facility] [id number] Offset Lithographic Press Setter: Rich Ritchie PhD, Phone: [phone] PERFORMED BY: [place] [address] PATHOLOGIST BUSINESS DEVELOPMENT SALES EXECUTIVE REGINE JACOBO M.D.Performed By: #### CH50, C3, C4 #### [facility] , #### ADDONUAPLUS #### [place] [address] USAComplete Blood Count Auto Diffon 36-26-1816Kwfgjdqrv (Bld) [#/Vol]0.1 10*3/uLNormal0.0-0.2FSelect Medical Specialty Hospital - Columbus SouthComment on above:Performed By: #### CBC, ESR #### [place] [address] [place] #### LUPANTCOAG #### [facility] ,Basophils/100 WBC (Bld)0.9 %Normal.Corey HospitalComment on above:Performed By: #### CBC, ESR #### [place] [address] [place] #### LUPANTCOAG #### [facility] ,Eosinophils (Bld) [#/Vol]0.1 10*3/uLNormal0.0-0.45Corey HospitalComment on above:Performed By: #### CBC, ESR #### [place] [address] [place] #### LUPANTCOAG #### [facility] ,Eosinophils/100 WBC (Bld)1.9 %Normal.Corey HospitalComment on above:Performed By: #### CBC, ESR #### [place] [address] [place] #### LUPANTCOAG #### [facility] ,Erythrocyte distribution width (RBC) [Ratio]14.6 %Nqmghb02.9-15.3FSelect Medical Specialty Hospital - Columbus SouthComment on above:Performed By: #### CBC, ESR #### [place] [address] [place] #### LUPANTCOAG #### [facility] ,Hematocrit (Bld) [Volume fraction]40.7 %Azokjo76.0-46.4FSelect Medical Specialty Hospital - Columbus SouthComment on above:Performed By: #### CBC, ESR #### [place] [address] [place] #### LUPANTCOAG #### [facility] ,Hemoglobin (Bld) [Mass/Vol]13.5 g/qROgyutd74.8-15.4FSelect Medical Specialty Hospital - Columbus SouthComment on above:Performed By: #### CBC, ESR #### [place] [address] [place] #### LUPANTCOAG #### [facility] ,Lymphocytes (Bld) [#/Vol]1.6 10*3/uLNormal1.00-4.8Corey HospitalComment on above:Performed By: #### CBC, ESR #### [address] #### LUPANTCOAG #### [facility] ,Lymphocytes/100 WBC (Bld)22.6 %Normal.Corey HospitalComment on above:Performed By: #### CBC, ESR #### [place] [address] [place] #### LUPANTCOAG #### [facility] ,MCH (RBC) [Entitic mass]27.4 onRjbyrs36.7-34.3FSelect Medical Specialty Hospital - [facility] South Comment on above:Performed By: #### CBC, ESR #### [facility] [address] [place] [address] [place] #### LUPANTCOAG #### [facility] ,MCV (RBC) [Entitic vol]82.5 hIEunzjz95-318KuvgpegaeCorey Hospital Comment on above:Performed By: #### CBC, ESR #### [facility] [address] #### LUPANTCOAG #### [facility] ,Mean Corpuscular HGB Conc33.2 g/sKXfyuot66.0-35.0Corey HospitalComment on above:Performed By: #### CBC, ESR #### [address] #### LUPANTCOAG #### [facility] ,Monocytes (Bld) [#/Vol]0.5 10*3/uLNormal0.0-0.8Corey HospitalComment on above:Performed By: #### CBC, ESR #### [address] #### LUPANTCOAG #### [facility] ,Monocytes/100 WBC (Bld)6.4 %Normal.Corey HospitalComment on above:Performed By: #### CBC, ESR #### [address] #### LUPANTCOAG #### [facility] ,Neutrophils (Bld) [#/Vol]4.8 10*3/uLNormal1.8-7.7FSelect Medical Specialty Hospital - Columbus SouthComment on above:Performed By: #### CBC, ESR #### [place] [address] [place] #### LUPANTCOAG #### [facility] ,Neutrophils/100 WBC (Bld)68.2 %Normal.Corey HospitalComment on above:Performed By: #### CBC, ESR #### [place] [address] [place] #### LUPANTCOAG #### [facility] ,Nucleated RBC/100 WBC (Bld) [Ratio]0.0 %Normal0-0.5FSelect Medical Specialty Hospital - Columbus SouthComment on above:Performed By: #### CBC, ESR #### [place] [address] [place] #### LUPANTCOAG #### [facility] ,Platelet mean volume (Bld) [Entitic vol]8.4 fLNormal6.3-10.7FSelect Medical Specialty Hospital - Columbus SouthComment on above:Performed By: #### CBC, ESR #### [facility] [address] [place] [address] [place] #### LUPANTCOAG #### [facility] ,Platelets (Bld) [#/Vol]309 10*3/mQSvdkgu078-834QqdojetchCorey HospitalComment on above:Performed By: #### CBC, ESR #### [address] #### LUPANTCOAG #### [facility] ,RBC (Bld) [#/Vol]4.94 10*6/uLNormal3.60-5.00[facility] Comment on above:Performed By: #### CBC, ESR #### [place] [address] [place] #### LUPANTCOAG #### [facility] ,WBC (Bld) [#/Vol]7.1 10*3/uLNormal4.5-11.0[facility] Comment on above:Performed By: #### CBC, ESR #### [facility] [address] [place] [address] [place] #### LUPANTCOAG #### [facility] ,Comprehensive Metabolic Panelon 01-03-7653Aohwazh [Mass/Vol]4.0 g/dLNormal 3.2-5.5FSelect Medical Specialty Hospital - Columbus SouthComment on above:Performed By: #### PTT, PT #### [place] [address] [place] #### ALDOLASE #### [facility] ,Albumin/Globulin [Mass ratio]1.4 {ratio}[facility] Comment on above:Performed By: #### PTT, PT #### [facility] [address] [place] [address] [place] #### ALDOLASE #### [facility] ,ALP [Catalytic activity/Vol]68 U/ENimdgu53-57VxglqvkavCorey Hospital Comment on above:Performed By: #### PTT, PT #### [facility] [address] [place] [address] [place] #### ALDOLASE #### [facility] ,ALT [Catalytic activity/Vol]17 U/FEyxkun38-40FvrpgipvkCorey Hospital Comment on above:Performed By: #### PTT, PT #### [facility] [address] [place] [address] #### ALDOLASE #### [facility] ,AST [Catalytic activity/Vol]16 U/QQypuxr21-34HlgxsbtrxCorey Hospital Comment on above:Performed By: #### PTT, PT #### [facility] [address] [place] [address] [place] #### ALDOLASE #### [facility] ,Bilirubin [Mass/Vol]0.3 mg/dLNormal0.3-1.2FSelect Medical Specialty Hospital - [facility] South Comment on above:Performed By: #### PTT, PT #### [facility] [address] [place] [address] [place] #### ALDOLASE #### [facility] ,Calcium [Mass/Vol]9.2 mg/dLNormal8.2-10.[address] [place] [address] Comment on above:Performed By: #### PTT, PT #### [facility] [address] [place] [address] [place] #### ALDOLASE #### [facility] ,Chloride [Moles/Vol]104 mmol/TDakvyh96-247GmrbflldqCorey Hospital Comment on above:Performed By: #### PTT, PT #### [facility] [address] [place] [address] [place] #### ALDOLASE #### [facility] ,CO2 [Moles/Vol]23.9 mmol/MVmivre47.0-30.0[facility] Comment on above:Performed By: #### PTT, PT #### [facility] [address] [place] [address] [place] #### ALDOLASE #### [facility] ,Creatinine [Mass/Vol]0.72 mg/dLNormal0.44-1.03[facility] Comment on above:Performed By: #### PTT, PT #### [facility] [address] [place] [address] [place] #### ALDOLASE #### [facility] ,Estimated GFR ( Makayla> 60NoClinton Memorial Hospital Comment on above:Result Comment: GFR estimated reference range: According to KDOQI guidelines, <60 ml/min/1.73m2 is sufficient to diagnose a patient with chronic kidney disease.Performed By: #### PTT, PT #### [facility] [address] [place] [address] [place] #### ALDOLASE #### [facility] ,Estimated GFR (Non- Am> 60NoClinton Memorial HospitalComment on above:Performed By: #### PTT, PT #### [facility] [address] [place] [address] [place] #### ALDOLASE #### [facility] ,Globulin (S) [Mass/Vol]2.9 g/dLNoClinton Memorial HospitalComment on above:Performed By: #### PTT, PT #### [facility] [address] [place] [address] [place] #### ALDOLASE #### [facility] ,Glucose [Mass/Vol]95 mg/cIJnafys63-074XwasvaresCorey HospitalComment on above:Result Comment: Random Glucose Reference Range is dependent on time and content of last meal. Glucose of more than 200 mg/dL in a nonstressed, ambulatory subject supports the diagnosis of Diabetes Mellitus. ADA recommended reference rangePerformed By: #### PTT, PT #### [facility] [address] [place] [address] [place] #### ALDOLASE #### [facility] ,Potassium [Moles/Vol]4.1 mmol/LNormal3.5-5.1FSelect Medical Specialty Hospital - [facility] Comment on above:Performed By: #### PTT, PT #### [facility] [address] [place] [address] [place] #### ALDOLASE #### [facility] ,Protein [Mass/Vol]6.9 g/dLNormal6.1-7.9Corey HospitalComment on above:Performed By: #### PTT, PT #### [facility] [address] [place] [address] [place] #### ALDOLASE #### [facility] ,Sodium [Moles/Vol]136 mmol/RZekedr464-115JvwhypatrCorey Hospital Comment on above:Performed By: #### PTT, PT #### [facility] [address] [place] [address] [place] #### ALDOLASE #### [facility] ,Urea nitrogen [Mass/Vol]8 mg/dLLow9-23Corey HospitalComment on above:Performed By: #### PTT, PT #### [facility] [address] [place] [address] [place] #### ALDOLASE #### [facility] ,Creatine Kinaseon 55-90-4468RA [Catalytic activity/Vol]44 U/BMrsamw28-675 Corey HospitalComment on above:Result Comment: PERFORMED BY: [place] [address] PATHOLOGIST BUSINESS DEVELOPMENT SALES EXECUTIVE REGINE JACOBO M.D.Performed By: #### PTT, PT #### [facility] [address] [place] [address] [place] #### ALDOLASE #### [facility] ,Creatine kinase [Enzymatic activity/volume] in Serum or PlasmaOrdered By: Cammy Augustin on 93-05-4154BP [Catalytic activity/Vol]44 U/V26-753SyljrwycyCorey HospitalCreatinine and Glomerular filtration rate.predicted panel (S/P/Bld)Ordered By: Cammy Augustin on 52-24-1659Kevjwpmlcu [Mass/Vol]0.72 mg/dL 0.44-1.03Corey HospitalDipstick and Microscopicon 09-24-2021 Appearance (U)ClearNormalClearCorey HospitalComment on above: Order Comment: Name Collection Type:: Clean-Voided MidstreamPerformed By: #### CH50, C3, C4 #### [facility] , #### ADDONUAPLUS #### [place] [address] USABacteria,UrineNone SeenNormalNone SeenCorey HospitalComment on above:Order Comment: Name Collection Type:: Clean- Voided MidstreamPerformed By: #### CH50, C3, C4 #### [facility] , #### ADDONUAPLUS #### [place] [address] USABilirubin,UrineNegativeNormalNegativeCorey HospitalComment on above:Order Comment: Name Collection Type:: Clean- Voided MidstreamPerformed By: #### CH50, C3, C4 #### [facility] , #### ADDONUAPLUS #### [place] [address] USAColor (U)YellowNormalYMary Rutan HospitalComment on above:Order Comment: Name Collection Type:: Clean-Voided MidstreamPerformed By: #### CH50, C3, C4 #### [facility] , #### ADDONUAPLUS #### [place] [address] USAGlucose Ql (U)NormalNormalNormCleveland Clinic Marymount HospitalComment on above:Order Comment: Name Collection Type:: Clean-Voided MidstreamPerformed By: #### CH50, C3, C4 #### [facility] , #### ADDONUAPLUS #### [place] [address] USAHyaline Casts,Sxswn2-2Ksdohr3-7PwewmbttlCorey HospitalComment on above:Order Comment: Name Collection Type:: Clean-Voided MidstreamResult Comment: PERFORMED BY: [place] [address] PATHOLOGIST BUSINESS DEVELOPMENT SALES EXECUTIVE REGINE JACOBO M.D.Performed By: #### CH50, C3, C4 #### [facility] , #### ADDONUAPLUS #### [place] [address] USAKetones Ql (U)NegativeNormalNegCleveland Clinic Fairview HospitalComment on above:Order Comment: Name Collection Type:: Clean- Voided MidstreamPerformed By: #### CH50, C3, C4 #### [facility] , #### ADDONUAPLUS #### [place] [address] USALeukocyte esterase Test strip Ql (U)1+HighNegative Corey HospitalComment on above:Order Comment: Name Collection Type:: Clean-Voided MidstreamPerformed By: #### CH50, C3, C4 #### [facility] , #### ADDONUAPLUS #### [place] [address] USANitrite,UrineNegativeNormalNegativeCorey HospitalComment on above:Order Comment: Name Collection Type:: Clean- Voided MidstreamPerformed By: #### CH50, C3, C4 #### [facility] , #### ADDONUAPLUS #### [place] [address] USAOccult Blood,UrineNegativeNormalNegCleveland Clinic Fairview HospitalComment on above:Order Comment: Name Collection Type:: Clean- Voided MidstreamPerformed By: #### CH50, C3, C4 #### [facility] , #### ADDONUAPLUS #### [place] [address] USApH (U)6.0 [pH]Normal5.0-9.0Corey HospitalComment on above:Order Comment: Name Collection Type:: Clean-Voided MidstreamPerformed By: #### CH50, C3, C4 #### [facility] , #### ADDONUAPLUS #### [place] [address] USAProtein,UrineNegativeNormalNegCleveland Clinic Fairview HospitalComment on above:Order Comment: Name Collection Type:: Clean- Voided MidstreamPerformed By: #### CH50, C3, C4 #### [facility] , #### ADDONUAPLUS #### [place] [address] USARBC LM.HPF (Urine sed) [#/Area]0 /[HPF]Normal0-4FSelect Medical Specialty Hospital - Columbus SouthComment on above:Order Comment: Name Collection Type:: Clean-Voided MidstreamPerformed By: #### CH50, C3, C4 #### [facility] , #### ADDONUAPLUS #### [place] [address] USASpecificy [place],Urine1.689Udlbme2.001-1.030Corey HospitalComment on above:Order Comment: Name Collection Type:: Clean-Voided MidstreamPerformed By: #### CH50, C3, C4 #### [facility] , #### ADDONUAPLUS #### [facility] [address] [place] [address] USASquamous Epithelial Cell,Rwshg8-4Ghunql4-3EbyocnidjSelect Medical Specialty Hospital - [facility] SouthComment on above:Order Comment: Name Collection Type:: Clean-Voided MidstreamPerformed By: #### CH50, C3, C4 #### [facility] , #### ADDONUAPLUS #### [facility] [address] [place] [address] USAUrobilinogen,UrineNormalNormalNormalCorey HospitalComment on above:Order Comment: Name Collection Type:: Clean- Voided MidstreamPerformed By: #### CH50, C3, C4 #### [facility] , #### ADDONUAPLUS #### [facility] [address] [place] [address] USAWBC,Amqvx6-7Ynpecp0-7BjgmtgsmpSelect Medical Specialty Hospital [facility] Comment on above:Order Comment: Name Collection Type:: Clean-Voided Midstream Performed By: #### CH50, C3, C4 #### [facility] , #### ADDONUAPLUS #### [facility] [address] [place] [address] USAEosinophils Auto (Bld) [#/Vol]Ordered By: Cammy Augustin on 80-61-9513Cdbyiwwhkuk (Bld) [#/Vol]0.1 10*3/uL0.0-0.45Corey HospitalEosinophils/100 WBC Auto (Bld)Ordered By: Cammy Augustin on 47-51-7327Byzsbowaplw/100 WBC (Bld)1.9 %[facility] Erythrocyte Sedimentation Rateon 86-91-4424OFE (Bld) [Velocity]27 mm/hHigh0-19 Corey HospitalComment on above:Result Comment: PERFORMED BY: [place] [address] PATHOLOGIST BUSINESS DEVELOPMENT SALES EXECUTIVE JIANLAN SUN M.D.Performed By: #### CBC, ESR #### [facility] [address] [place] [address] [place] #### LUPANTCOAG #### [facility] ,Erythrocyte distribution width Auto (RBC) [Ratio]Ordered By: Cammy Augustin on 73-99-7655Lhbtsycxhyn distribution width (RBC) [Ratio]14.6 %11.9-15.3FSelect Medical Specialty Hospital - Columbus SouthErythrocyte sedimentation rate by Photometric method Ordered By: Cammy Augustin on 39-14-6339TDP Photometric method (Bld) [Velocity] 27 mm/hrCorey HospitalEstimated glomerular filtration rate (GFR) non- AmericanOrdered By: Cammy Augustin on 11-13-1983XKL/1.73 sq M.predicted among non-blacks MDRD (S/P/Bld) [Vol rate/Area]> 60 mL/Min Corey HospitalFree T4 (Free Thyroxine)on 20-33-9304Wqbi T4 [Mass/Vol]0.66 ng/dLNormal0.61-1.12Corey HospitalComment on above:Performed By: #### PTT, PT #### [facility] [address] [place] [address] [place] #### ALDOLASE #### [facility] ,Globulin Calc (S) [Mass/Vol]Ordered By: Cammy Augustin on 27-86-9874Rxowdnfw (S) [Mass/Vol]2.9 g/dLCorey HospitalHematocrit Auto (Bld) [Volume fraction]Ordered By: Cammy Augustin on 46-68-8400Iqordnswgg (Bld) [Volume fraction]40.7 %34.0-46.4FSelect Medical Specialty Hospital - Columbus SouthKetones Auto test strip (U) [Mass/Vol]Ordered By: Cammy Augustin on 55-04-6514Uexbqop (U) [Mass/Vol]NegativeNegativeCorey HospitalLaboratory - CoagulationOrdered By: Cammy Augustin on 59-89-5245HW Coag (PPP) [Time]13.1 s 9.0-12.9Corey HospitalLaboratory - Hematology and Cell counts Ordered By: Cammy Augustin on 63-32-3163Mksqhrdvl RBC/100 WBC (Bld) [Ratio]0.0 % 0-0.5FSelect Medical Specialty Hospital - Columbus SouthLaboratory - UrinalysisOrdered By: Cammy Augsutin on 02-69-5574Tfznbol casts LM Ql (Urine sed)0-8 [LPF]Corey HospitalLupus Anticoagulant Compon 38-80-7439Xemnxx Prothrombin Time (dPt) 41.9Itcyfj6.0-47.6FSelect Medical Specialty Hospital - Columbus SouthComment on above:Performed By: #### CBC, ESR #### [address] #### LUPANTCOAG #### [facility] ,dPT Confirm Ratio1.09Fahdoe6.00-1.34Corey HospitalComment on above:Performed By: #### CBC, ESR #### [address] #### LUPANTCOAG #### [facility] ,DRVVT Lupus44.1Pcplme1.0-47.0Corey HospitalComment on above: Performed By: #### CBC, ESR #### [address] #### LUPANTCOAG #### [facility] ,InterpretationComment:Normal.Corey HospitalComment on above: Result Comment: No lupus anticoagulant was detected. Performed at: - [facility] [id number] [employer] Lithographic Press Setter: Dian Bowden MD, Phone: [phone] PERFORMED BY: [place] [address] PATHOLOGIST BUSINESS DEVELOPMENT SALES EXECUTIVE REGINE JACOBO M.D.Performed By: #### CBC, ESR #### [place] [address] [place] #### LUPANTCOAG #### [facility] ,PTT-LA33.1Fpczok5.0-51.9Corey HospitalComment on above: Performed By: #### CBC, ESR #### [facility] [address] [place] [address] [place] #### LUPANTCOAG #### [facility] ,Thrombin Time16.0Yaoulz2.0-23.0Corey HospitalComment on above:Performed By: #### CBC, ESR #### [facility] [address] [place] [address] [place] #### LUPANTCOAG #### [facility] ,Lymphocytes Auto (Bld) [#/Vol]Ordered By: Cammy Augustin on 09-24-2021 Lymphocytes (Bld) [#/Vol]1.6 10*3/uL1.00-4.8[facility] Lymphocytes/100 WBC Auto (Bld)Ordered By: Cammy Augustin on 09-24-2021 Lymphocytes/100 WBC (Bld)22.6 %[facility] Auto (RBC) [Entitic mass]Ordered By: Cammy Augustin on 60-58-3975LZX (RBC) [Entitic mass] 27.4 pg24.7-34.3FNewark Hospital Auto (RBC) [Mass/Vol] Ordered By: Cammy Augustin on 49-08-7252ORXM (RBC) [Mass/Vol]33.2 g/dL32.0-35.0 [facility] DaytonV Auto (RBC) [Entitic vol]Ordered By: Cammy Augustin on 27-17-8173VLO (RBC) [Entitic vol]82.5 lA86-751UakmipydpCorey HospitalMitochondrial (M2) Antibodyon 09-62-4629Tdzmsymovcuqt (M2) Antibody<20.5Rtvwmo1.0-20.0Corey HospitalComment on above: Result Comment: Negative 0.0 - 20.0 Equivocal 20.1 - 24.9 Positive >24.9 Mitochondrial (M2) Antibodies are found in 90-96% of patients with primary biliary cirrhosis.Performed By: #### PTT, PT #### [facility] [address] [place] [address] [place] #### ALDOLASE #### [facility] ,Monocytes Auto (Bld) [#/Vol]Ordered By: Cammy Augustin on 49-00-8810Macnevdrd (Bld) [#/Vol]0.5 10*3/uL0.0-0.8Corey HospitalMonocytes/100 WBC Auto (Bld)Ordered By: Cammy Augustin on 89-32-7738Hezelbzbw/100 WBC (Bld)6.4 %Corey HospitalMyoglobinon 41-49-0588Odgxcksxb [Mass/Vol] ng/xSDyu54-41VongqcxwgCorey HospitalComment on above:Result Comment: Performed at: - [facility] [place] [id number] Offset Lithographic Press Setter: Rich Ritchie PhD, Phone: [phone] By: #### PTT, PT #### [facility] [address] [place] [address] #### ALDOLASE #### [facility] ,Neutrophils Auto (Bld) [#/Vol]Ordered By: Cammy Augustin on 09-24-2021 Neutrophils (Bld) [#/Vol]4.8 10*3/uL1.8-7.7FSelect Medical Specialty Hospital - [facility] South Neutrophils/100 WBC Auto (Bld)Ordered By: Cammy Augustin on 09-24-2021 Neutrophils/100 WBC (Bld)68.2 %Corey HospitalNitrite Test strip Ql (U)Ordered By: Cammy Augustin on 72-34-9209Ngtjesq Ql (U)Negative NegativeCorey HospitalNo Panel InformationOrdered By: Cammy Augustin on 37-22-2639Pqgrbaycn GFR ()> 60 mL/MinCorey HospitalComment on above:GFR estimated reference range: According to KDOQI guidelines, <60 ml/min/1.73m2 is sufficient todiagnose a patient with chronic kidney disease.Pharmacy Creatinine Clearance (ChemN/AFSelect Medical Specialty Hospital - Columbus SouthPartial Thromboplastin Timeon 28-48-1353pPNG Coag (Bld) [Time]32.6 wHtlfrx71.1-36.5FSelect Medical Specialty Hospital - Columbus SouthComment on above:Order Comment: List the anticoagulant: NONEResult Comment: PERFORMED BY: [place] [address] PATHOLOGIST BUSINESS DEVELOPMENT SALES EXECUTIVE REGINE JACOBO M.D.Performed By: #### PTT, PT #### [place] [address] [place] #### ALDOLASE #### [facility] ,Platelet mean volume Auto (Bld) [Entitic vol]Ordered By: Cammy Augustin on 78-57-6313Qsixnnvn mean volume (Bld) [Entitic vol]8.4 fL6.3-10.7FSelect Medical Specialty Hospital - Columbus SouthPlatelet poor plasma international normalized ratio (INR) by coagulation assay (relatOrdered By: Cammy Augustin on 56-39-4300FGK Coag (PPP) [Relative time]1.2 {INR}Corey HospitalComment on above: INR Therapeutic Range A) Pre- and Peroperative OAT started two weeks before surgery. NOT HIP SURGERY: 1.5 - 2.5 HIP SURGERY: 2 - 3 B) Primary and secondary prevention of venous THROMBOSIS: 2 - 3 C) Active venous thrombosis, pulmonary embolism and prevention of recurrent venous thrombosis: 2 - 3 D) Prevention of arterial thromboembolism including patients with mechanical heart valves: 3 - 4.5Platelets Auto (Bld) [#/Vol]Ordered By: Cammy Augustin on 00-09-6949Dzgnogiuk (Bld) [#/Vol]309 10*3/wX704-500YwevihphvCorey HospitalProtein Auto test strip (U) [Mass/Vol]Ordered By: Cammy Augustin on 55-01-2759Fsluvro (U) [Mass/Vol]Negative NegativeCorey HospitalProtein [Mass/volume] in Serum or PlasmaOrdered By: Cammy Augustin on 19-58-8729Wpcaspi [Mass/Vol]6.9 g/dL6.1-7.9 Corey HospitalProthrombin Time INRon 20-85-7672KWR Coag (PPP) [Relative time]1.2 {INR}NormalCorey HospitalComment on above:Order Comment: List the anticoagulant: NONEResult Comment: INR Therapeutic Range A) Pre- and [...] patients with mechanical heart valves: 3 - 4.5Performed By: #### PTT, PT #### [address] #### ALDOLASE #### [facility] ,PT Coag (PPP) [Time]13.1 sHigh9.0-12.9Corey HospitalComment on above:Order Comment: List the anticoagulant: NONEPerformed By: #### PTT, PT #### [address] #### ALDOLASE #### [facility] ,RBC Auto (Bld) [#/Vol]Ordered By: Cammy Augustin on 86-78-6046RWM (Bld) [#/Vol] 4.94 10*6/uL3.60-5.00Corey HospitalRPR w/rfx to Quant TP Abs on 13-25-4660WTY, Rfx Quant RPRNon-ReactiveNormalNon ReactiveCorey HospitalComment on above:Result Comment: Performed at: - [facility] [address] [id number] Offset Lithographic Press Setter: Rich Ritchie PhD, Phone: [phone] PERFORMED BY: [place] [address] PATHOLOGIST BUSINESS DEVELOPMENT SALES EXECUTIVE REGINE JACOBO M.D.Performed By: #### PTT, PT #### [place] [address] [place] #### ALDOLASE #### [facility] ,Serum or plasma C reactive protein measurement (mass/volume)Ordered By: Cammy Augustin on 14-04-5723GKB [Mass/Vol]0.8 mg/dL0.0-1.0[facility] West Campuserum or plasma alanine aminotransferase measurement without P-5'-P (enzymatic activiOrdered By: Cammy Augustin on 87-58-9194JMQ No additional P-5'-P [Catalytic activity/Vol]17 U/V16-40FbltpslqwTrinity Health System West Campuserum or plasma albumin/globulin mass ratioOrdered By: Cammy Augustin on 09-24-2021 Albumin/Globulin [Mass ratio]1.4 {ratio}[facility] Campuserum or plasma alkaline phosphatase measurement (enzymatic activity/volume)Ordered By: Cammy Augustin on 06-49-7854IQE [Catalytic activity/Vol]68 U/W01-03LkbttcjwaTrinity Health System West Campuserum or plasma aspartate aminotransferase measurement (enzymatic activity/volume)Ordered By: Cammy Augustin on 70-52-1168XAE [Catalytic activity/Vol]16 U/F73-89WjmnxljjtTrinity Health System West Campuserum or plasma calcium measurement (mass/volume)Ordered By: Cammy Augustin on 09-24-2021 Calcium [Mass/Vol]9.2 mg/dL8.2-10.2FWayne HealthCare Main Campuserum or plasma chloride measurement (moles/volume)Ordered By: Cammy Augustin on 14-97-5166Esjviakl [Moles/Vol]104 mmol/D77-512LtqewjxrjCorey Hospital Serum or plasma glucose measurement (mass/volume)Ordered By: Cammy Augustin on 91-83-4267Qfclehh [Mass/Vol]95 mg/gI39-004UtmxutojjCorey Hospital Comment on above:ADA recommended reference range Random Glucose Reference Range is dependent on time and content of last meal. Glucose of more than 200 mg/dL in a nonstressed, ambulatory subject supports the diagnosis of Diabetes Mellitus.Serum or plasma potassium measurement (moles/volume)Ordered By: Cammy Augustin on 67-74-5278Bqokaytxq [Moles/Vol]4.1 mmol/L3.5-5.1FWayne HealthCare Main Campuserum or plasma sodium measurement (moles/volume)Ordered By: Cammy Augustin on 22-45-4141Bowgpz [Moles/Vol]136 mmol/X120-921NnzcmgsqtTrinity Health System West Campuserum or plasma total bilirubin measurement (mass/volume)Ordered By: Cammy Augustin on 18-80-4672Ljtpyjujq [Mass/Vol]0.3 mg/dL0.3-1.2FWayne HealthCare Main Campuserum or plasma total carbon dioxide measurement (moles/volume)Ordered By: Cammy Augustin on 19-25-2070JT4 [Moles/Vol]23.9 mmol/L22.0-30.0[facility] Serum or plasma urea nitrogen measurement (mass/volume)Ordered By: Cammy Augustin on 40-75-5782Oynd nitrogen [Mass/Vol]8 mg/dL9-23[facility] Campusmooth Muscle Antibodyon 39-37-9117Fyxkan Muscle Ghiwvtsk5Vfeors 0-Corey HospitalComment on above:Result Comment: Negative 0 - 19 Weak positive 20 - 30 Moderate to strong positive >30 Actin Antibodies are found in 52-85% of patients with autoimmune hepatitis or chronic active hepatitis and in 22% of patients with primary biliary cirrhosis.Performed By: #### PTT, PT #### [address] #### ALDOLASE #### [facility] ,Specific gravity Auto test strip (U) [Rel density]Ordered By: Cammy Augustin on 01-12-0708Pwxbqjbc gravity (U) [Rel density]1.0051.001-1.030[facility] West Campusquamous epithelial cells detection in urine sediment by light microscopyOrdered By: Cammy Augustin on 28-36-7432Avrelnbliv cells.squamous LM Ql (Urine sed)0-1 [HPF][facility] <= 0.005 mIU/L Qn Ordered By: Cammy Augustin on 74-83-5795VMG Qn1.34 m[IU]/L0.45-5.33Corey HospitalThyroid Peroxidase Antibodieson 88-40-2396Tmramiw Peroxidase Antibodies<0Bzjfbo4-96LnvjpecnbCorey HospitalComment on above:Performed By: #### PTT, PT #### [facility] [address] [place] [address] [place] #### ALDOLASE #### [facility] ,Thyroid Stimulating Hormoneon 72-51-3229LEZ Qn1.34 m[IU]/LNormal0.45-5.33 Corey HospitalComment on above:Result Comment: PERFORMED BY: [place] [address] PATHOLOGIST BUSINESS DEVELOPMENT SALES EXECUTIVE REGINE JACOBO M.D.Performed By: #### PTT, PT #### [facility] [address] [place] [address] [place] #### ALDOLASE #### [facility] ,Thyroxine (T4) free [Mass/volume] in Serum or PlasmaOrdered By: Cammy Augustin on 14-33-1350Uwno T4 [Mass/Vol]0.66 ng/dL0.61-1.12Corey HospitalUrine bacteria detection by automated methodOrdered By: Cammy Augustin on 11-73-1017Dbnunyop Auto Ql (U)None seenNone SeenCorey HospitalUrine clarity by refractometry automatedOrdered By: Cammy Augustin on 95-10-3036Ybrnmqz Refractometry automated (U)ClearClePremier Health Atrium Medical CenterUrine glucose measurement by automated test strip (mass/volume) Ordered By: Cammy Augustin on 90-92-6771Itfnsbx Auto test strip (U) [Mass/Vol] Normal mg/dLNormalCorey HospitalUrine hemoglobin detection by automated test stripOrdered By: Cammy Augustin on 36-14-9434Ouuxsuzqnj Auto test strip Ql (U)NegativeNegativeCorey HospitalUrine leukocyte esterase detection by automated test stripOrdered By: Cammy Augustin on 09-53-7437Rlbseobjq esterase Auto test strip Ql (U)1+NegativeCorey HospitalUrobilinogen Auto test strip (U) [Mass/Vol]Ordered By: Cammy Augustin on 55-39-1588Didhqecdksak (U) [Mass/Vol]Normal mg/dLNoal Corey HospitalpH Auto test strip (U)Ordered By: Cammy Augustin on 19-34-1966pO (U)6.0 [pH]5.0-9.0Corey HospitalOther on . No evidence of malignancy in either breast [...] to the patient regarding the results. The [place] [employer] recommends annual mammograms for women 40 years and older.Holzer HospitalAMINATION: BILATERAL DIGITAL DIAGNOSTIC MAMMOGRAM; TARGETED ULTRASOUND OF [...] PROVIDED HISTORY: right breast pain Is the patient?->No; ORDERING SYSTEM PROVIDED HISTORY: Breast pain, right [...] obscure small masses. No skin thickening, nipple contourchanges, malignant-type microcalcifications, areas of architectural distortion, or significant interval changes are noted. Ultrasound over the area of pain is advised. Ultrasound: Targeted ultrasonogr aphy 5-7 o'clock right breast was performed. In the area of maximal pain, a band of echogenic fibrous tissue is noted. No worrisome cystic or solid mass lesions are noted. Examination of the right axilla reveals no abnormality. A small benign-appearing lymph node is demonstrated.[facility], Kris Crockett Incoming Radiant Results From [employer] - 11/26/2019 7:00 PM EDT EXAMINATION: BILATERAL [...] to the patient regarding the results. The [place] recommends annual mammograms for women 40 years and older. [place], [place] Vital Signs Date TimeVital SignValuePerforming AzvejcqwlNlwlggzk73-15-5813 18:23-0400Body kktjqgacsxw91.1 [degF]Claudia Lamas MD Work Phone: [facility]09-20-2025 18:23-0400Diastolic blood mm[Hg]Claudia Lamas MD Work Phone: [phone]09-20-2025 18:23-0400Heart rate68 /Yesika Lamas MD Work Phone: [phone]09-20-2025 18:23-0400 Respiratory rate16 /Yesika Lamas MD Work Phone: [phone]09-20-2025 18:23-1706BbP0% (BldA) [Mass fraction]99 %Claudia Lamas MD Work Phone: [phone]09-20-2025 18:23-0400Systolic blood kmygbcso280 mm[Hg]Claudia Lamas MD Work Phone: [facility]09-04-2025 11:35-0400Body aigpcs544.7 cmEnloe [facility] Pls Pa [facility] - AndersonComment on above: Uqtbre85-40-7560 11:35-0400Body mass index (BMI) [Ratio]32.72 kg/q6Zvgnkj Pls Pa [facility]09-04-2025 11:35-0400Body fqhocg93.61 kgEnloe Medical Center Pls Pa [facility]04-04-2025 10:24-0400Body lsumuc213.2 cm Paulina Arana APRN-ACADEMY EDUCATION DIRECTOR Work Phone: [facility]04-04-2025 10:24-0400Body mass index (BMI) [Ratio]34.77 kg/c4SvximfjutPaulina Arana DEVELOPMENT ENGINEER-ACADEMY EDUCATION DIRECTOR Work Phone: [phone]04-04-2025 10:24-0400Body stldyx554.7 kgPaulina Arana DEVELOPMENT ENGINEER-ACADEMY EDUCATION DIRECTOR Work Phone: [phone])CrisLucinda6[facility]04-04-2025 10:24-0400 Diastolic blood umsadbie45 mm[Hg]Paulina Arana DEVELOPMENT ENGINEER-ACADEMY EDUCATION DIRECTOR Work Phone: [phone])[facility] HealthLucinda[address] [place], [place] [address]04-04-2025 10:24-0400Heart rate70 /Ranjanliivania Arana DEVELOPMENT ENGINEER-ACADEMY EDUCATION DIRECTOR Work Phone: [phone])[facility] HealthLucinda[address] [place], [place] [address]04-04-2025 10:24-0400Systolic blood wrbreirm711 mm[Hg]Paulina Arana DEVELOPMENT ENGINEER-ACADEMY EDUCATION DIRECTOR Work Phone: [phone] [place], [place] [address]10-16-2024 10:45-0400Body tgubxf203.7 Caleb Vela DEVELOPMENT ENGINEER - CNM Work Phone: [facility]10-16-2024 10:45-0400Body mass index (BMI) [Ratio]31.93 kg/q5CnenvGisel Vela APRN - CNM Work Phone: [facility]10-16-2024 10:45-0400Body rpvbix29.25 kgGisle Vela APRN - CNM Work Phone: [facility]07-29-2024 13:55-0400Blood Pressure LocationDarleen Renae [phone]-JqvzrOhiohealth Grady [facility] Hospital07-29-2024 13:55-0400Diastolic blood uwgjswmt42 mm[Hg]Darleen Renae [phone]-MscnvOhiohealth Grady Memorial Hospital07-29-2024 13:55-0400Heart rate79 /minDarleen Renae [phone]-XppkyOhiohealth Grady Memorial Hospital07-29-2024 13:55-0400Systolic blood hmcjfuqv344 mm[Hg]Darleen Renae [phone]-UhxofOhiohealth Grady Memorial Hospital09-23-2022 16:15-0400Diastolic blood mjjoaroy51 mm[Hg]Philly Raiy Nguyễn DO Work Phone: [facility]09-23-2022 16:15-0400Heart rate66 /minCarmen Richard Nguyễn DO Work Phone: [facility] [employer] ZNYIXZ25-54-3446 16:15-0400 Respiratory rate17 /minCarmen Richard Nguyễn DO Work Phone: [facility] [employer] [facility] CENTERAnthillz EHUSUU80-84-6005 16:15-5892DfW0% (BldA) [Mass fraction]98 %Philly Raiy Nguyễn DO Work Phone: [employer] [facility] CENTERCodilityOXJKYA47-21-6421 16:15-0400Systolic blood mqvwtrei082 mm[Hg]Philly Raiy Nguyễn DO Work Phone: [facility]09-23-2022 15:45-0400Body gpmqthdtomt32.3 [degF]Philly Raiy Nguyễn DO Work Phone: [employer] [facility] CENTERCodilityQMOKIJ95-95-3847 14:30-0400Body xjeisp032.7 cmCarmen Richard Nguyễn DO Work Phone: [employer] [facility] CENTERAnthillz SVDLJH60-36-4319 14:30-0400Body mass index (BMI) [Ratio]30.65 kg/a2Ednbut Richard Nguyễn DO Work Phone: [facility]09-23-2022 14:30-0400Body .44 kgCarmen Richard Nguyễn DO Work Phone: [facility] Encounters Encounter DateEncounter TypeCare ProviderFacilityStart: 02-21-2025 End: 75-22-9344mqlqpaxgxaINFLD MICHELLE SMITHMercy Windham Hospitaltart: 02-21-2025 End: 45-31-8230Gbiwenyyue hospital visit by physicianClaudia Lamas MD Work Phone: [facility] LABComment on above:Acute vaginitisStart: 02-12-2025 End: 56-59-3041osscjznxpdDrgxmis Michael Hoy MDFacility:[facility] Urology AssociatesStart: 66-65-3448pntzeijyswIngeuuvJorge Alberto Lamas MDFacility:[facility] Urology AssociatesStart: 02-08-2025 End: 38-91-5650Bguxqf flowsheetAlison L Mishel PA Work Phone: [facility]ermatologyStart: 02-08-2025 End: 16-62-1305Cvemsp flowsheetAlison L Mishel PA Work Phone: [facility] [place] [facility]ermatologyStart: 02-08-2025 End: 90-42-5141Tzgura outpatient new 30 minutesAlison L Mishel PA Work Phone: noHenry [facility] DermatologyComment on above:Melanocytic nevus of trunk (Primary Dx); Acne vulgaris; Parada angioma; Inflamed seborrheic keratosis; Hyperkeratosis of skinStart: 02-08-2025 End: 74-84-6936igykstobwcNIAFGK L WINANSNot AvailableStart: 01-26-2025 End: 56-22-7646Qqvxjllij department patient visitCLAUDIA De La Paz [place] [facility] DepartmentComment on above:Sprain of left ankle, unspecified ligament, initial encounter (Primary Dx)Start: 01-10-2025 End: 63-14-3586Wwnvbk consultation new/estab patient [address] [facility] Surgery Eye and Ear InstituteComment on above:Macromastia (Primary Dx) Start: 95-22-6466wfbhfxhtnqQRONRREKS A KRESSFacility:[facility]OSPITALtart: 01-04-2025 End: 89-02-6712uaavphwzlaYmwxitMani Saenz Jr., MDFacility:[facility] Urology AssociatesStart: 01-02-2025 End: 12-99-0587noasovabcdVqnbrvx Michael Hoy MDFacility:[facility] Urology AssociatesStart: 01-02-2025 End: 71-77-4023ocekfoqgwqAoevsmoIsabell HERRERACFacility:[facility] Urology AssociatesStart: 12-05-2024 End: 47-69-5803lmirqjmpwlUqicyc TannaFacility:FTMCStart: 12-05-2024 End: 38-37-4857nrxzzyyzpoWbnozb TannaFacility:EU BellevueStart: 12-05-2024 End: 72-05-2953Vuggzhl encounter procedureLauren Lakisha [facility] start: 11-23-2024 End: 89-32-3250eopnifbofzOQCQFKOI E POOLMercy [facility]uma HospitalStart: 11-23-2024 End: 81-10-8626Sgwnzmnpls hospital visit by Selina Lamas MD Work Phone: [facility] [employer] LABComment on above:Hematuria, unspecified type; History of recurrent UTI (urinary tract infection)Start: 10-18-2024 End: 83-17-9764nctbnpctouDHBJD MICHELLE SMITHMercy [facility] HospitalStart: 10-18-2024 End: 36-06-1789Guwvddfuik hospital visit by Selina Lamas MD Work Phone: [facility] [employer]q[facility] LABComment on above:Urinary tract infection without hematuria, site unspecified; DysuriaStart: 10-11-2024 End: 15-33-0764hwpiufwgpzKTZNYDalia Villalobos [place] HospitalStart: 10-11-2024 End: 85-10-1562Wjatobzpgr hospital visit by Selina Lamas MD Work Phone: [facility] [employer]q[facility] LABComment on above:Acute vulvitis Start: 09-12-2024 End: 81-24-3755Ggqimh-up encounterEliivania PEREZ Work Phone: Division of Surgical OncologyComment on above:US BREAST LIMITED UNILATERAL RIGHTStart: 08-10-2024 End: 28-85-9269Zclqut outpatient new 30 minutesPaulina Arana DEVELOPMENT ENGINEER-ACADEMY EDUCATION DIRECTOR Work Phone: Division of Surgical Oncology [facility] [place] Comment on above:Nipple pain (Primary Dx); Breast pain, right; Mass of upper outer quadrant of right breast; MacromastiaStart: 08-10-2024 End: 55-72-8685Acrtmzyoeh hospital visit by Rolo Arana DEVELOPMENT ENGINEER-ACADEMY EDUCATION DIRECTOR Work Phone: [facility] OmahaComment on above:ArrivedStart: 72-26-7004ehsasvntndGWXTY SMITHcility:[facility] Start: 02-22-2024 End: 10-79-7554Qpksxlbojc hospital visit by Heber Vela DEVELOPMENT ENGINEER - CNM Work Phone: [facility] MammographyComment on above: Screening mammogram, encounter forStart: 12-14-2023 End: 49-54-9336Bgmihkmkia hospital visit by Selina Lamas MD Work Phone: mthz LaboratoryComment on above:Left genital labial abscess; Screening for malignant neoplasm of cervixStart: 12-14-2023 End: 87-35-2734pgcifffzjvAPCETZW M HOYMercy French Hospital Medical Centertart: 12-05-2023 End: 09-40-8955Jdvykuv encounter procedureDarleen Renae [phone]-OwsthOhiohealth Grady [facility] Hospital Digestive Health Start: 03-23-2023 End: 43-42-4616xawivtcjiuXSUEFM H TIMMISNot AvailableStart: 03-07-2023 End: 07-34-4955Nzdagajux Result EncounterCami Hicks MD Work Phone: [facility] External Department UnsolicitedStart: 03-07-2023 End: 03-27-1966Kpcomsysl Result EncounterCami Hicks MD Work Phone: [facility] External Department UnsolicitedStart: 07-12-2022 Encounter for general adult medical examination without abnormal findingsDR CLAUDIA HOY .[facility]Start: 07-08-2022 End: 87-60-7506tirokqwlbfUT CLAUDIA HOY .Facility:E3Iszoh: 07-08-2022 End: 36-32-6933Zslsomslj for general adult medical examination without abnormal findingsDR CLAUDIA HOY .Facility:B8Crmig: 03-06-2022 End: 88-79-2824fuvuqktvxpWA CLAUDIA HOY .Facility:J1Deigb: 01-29-2022 End: 02-37-4281Lltlzefnzg hospital visit by Darlin Nguyễn DO Work Phone: mthz ORComment on above:Post-op pain (Primary Dx); Menorrhagia with regular cycleStart: 01-08-2022 End: 89-32-4501ijbiawtetcGI CLAUDIA HOY .Facility:V4Rerzv: 11-28-2021 End: 06-34-8261hvtjwksvfzZC CAMMY AUGUSTINFacility:Y5Ehodq: 11-27-2021 End: 04-80-3886igunpcpdjuCZPHS D HIGHLANDERFacility:Y4Ouith: 11-05-2021 End: 78-62-8087Zrtnzuhxcl hospital visit by Selina Lamas MD Work Phone: mthz LaboratoryComment on above:Menorrhagia with irregular cycleStart: 10-14-2021 End: 57-85-0426Kzvmgtplgx hospital visit by physicianWeill [facility] Mri ScannerOHHZ LaboratoryComment on above:Spontaneous ocular nystagmus; Optic nerve hypoplasia of both eyesStart: 09-24-2021 End: 15-67-8765Mhxekow encounter Caesar Augustin Work Phone: [facility] Strub RdStart: 09-09-2021 End: 54-03-2179Boidgvdldi hospital visit by Selina Lamas MD Work Phone: mthz LaboratoryComment on above:Vaginal irritation Start: 02-26-2020 End: 38-52-9133Pmhjpxezvw hospital [facility] by [facility] Comment on above:Screening for cervical cancer; Irregular mensesStart: 11-26-2019 End: 77-90-3079Jzafqnkpui hospital visit by physicianWeill [facility] MammographyComment on above:Breast pain, rightArrivedStart: 03-01-2019 End: 98-56-8983Oblyrscfde hospital visit by [facility] Procedures DateProcedureProcedure DetailPerforming ClinicianStart: 73-93-6440XKTXPQIFQYS SKIN LESIONAlison L Mishel CHACON Work Phone: Start: 12-72-5458Mfgvd dip stick/tablet reagent auto microscopyKathleen E Pool DEVELOPMENT ENGINEER - CNM Work Phone: Start: 11-70-9722Ipvktnjfrj microscopic onlySusan Siri Vela DEVELOPMENT ENGINEER - CNM Work Phone: Start: 96-34-2141Qrnwd dip stick/tablet rgnt auto w/o microscopySusan Siri Vela DEVELOPMENT ENGINEER - CNM Work Phone: Start: 59-01-0054Uw breast uni real time with image limitedPaulina Arana APRN-ACADEMY EDUCATION DIRECTOR Work Phone: Start: 53-28-2650Ivohhkqwai mammography computer-aided detcj Georges Arana APRN-ACADEMY EDUCATION DIRECTOR Work Phone: Start: 81-01-4614Rnyrvmuex mammography bi 2-view breast inc cadSuellis Vela DEVELOPMENT ENGINEER - CNM Work Phone: Start: 72-83-4044Ctglvalejxt observation [Identifier] in Cervix by Cyto Armando Vela DEVELOPMENT ENGINEER - CNM Work Phone: Start: 30-64-2720Ki soft tissue neck w/contrast materialHicodey Hicks MD Work Phone: Start: 59-90-3117Qyvyw test visual color cmprsn methsJoseph Baiera DEVELOPMENT ENGINEER - CRNAStart: 32-48-9618Gzh brain brain stem w/o w/contrast Britt Toussaint MD Work Phone: Start: 86-36-1706Wymbepfltw Silvina Toussaint MD Work Phone: Start: 27-75-4644Lnbedgftcrk observation [Identifier] in Cervix by Cyto stainClaudia Lamas MD Work Phone: Start: 03-19-0976Bv breast uni real time with image completeSusaaleyda Vela Work Phone: Start: 80-37-1728Nzstlixrtwfcf, mammo screenSusaaleyda Vela Work Phone: ColonoscopyMohambenton Renae Comment on above:2013 Plan of Treatment DateCare ActivityDetailAuthorStart: 01-98-4860Vdluirlkw for malignant neoplasm of cervixBon [facility] HospitalStart: 02-14-2026 End: 08-61-4672Aysbfzc encounter harijxtjw35/09/2026 9:00 AM EDT Office Visit [facility] [address] [place] [address] Margaret Rosas, PA [address] [place] [address] [facility]ermatologyStart: 07-26-2025 Depression ScreenDepression [facility] CenterStart: 04-03-2025 End: 21-02-8838Xjtvpuh encounter tggafslyt12/26/2025 9:45 AM EST Office Visit [facility] OBSTETRICS & GYNECOLOGY Part of [address] [place] [address] Gisel Vela, DEVELOPMENT ENGINEER -[facility] [address] [facility] [address] [place] [address] [facility] OBSTETRICS & GYNECOLOGY Part [facility] HospitalComment on above:yearlyStart: 74-13-6141Mjxwbskxi for malignant neoplasm of cervixMercy Health [facility] HealthStart: 02-08-2025 End: 86-99-9023Ksgifcc encounter gtefkhodj86/03/2025 9:20 AM EDT Office Visit [facility] [address] [place] [address] Margaret Rosas, PA [address] [place] [address] [facility]Bay[facility] DermatologyComment on above:ArrivedStart: 01-10-2025 End: 37-36-4463Bcjngfr encounter ixendkdqf59/04/2025 11:30 AM EDT Office Visit [facility] [place] [address] [place] [address] [facility] InstituteStart: 01-07-2025 COVID-19 VACCINE ( season)COVID-19 VACCINE ()[facility] Hospitaltart: 07-17-7702Gyvsqghmi vaccinationOSUniversity Hospitals Elyria Medical Centertart: 50-70-3425Juvqxwiyvx ScreenDepression ScreenBon [facility]: 83-66-0582Rlnmekioq vaccinationBon [facility]: 51-57-9395JKdP/Tdap/Td vaccine (9 - Td or Tdap)DTaP/Tdap/Td vaccine (9 - Td or Tdap)[facility]: 77-57-9640RWeN/Tdap/Td vaccine (9 - Td)DTaP/Tdap/Td vaccine (9 - Td)[facility] [place]Start: 85-30-3958Ehafiag vaccinationTETANUS OSUniversity Hospitals Elyria Medical Centertart: 01-23-2024 End: 55-46-0453Xwvueoe encounter jyhyqocpc50/16/2024 3:00 PM EDT Office Visit [facility] GENERAL SURGERY Part of [address] [place] [address] Harris Yancey MD [address] [place] [address] skin tag. anal fissuHarrison Community Hospital GENERAL SURGERY Part of [place] HospitalComment on above:skin tag. anal fissureStart: 38-61-6825WZKEI-19 Vaccine ( season)COVID-19 Vaccine ( season)[facility] HospitalStart: 18-89-3765VIKPL-19 VACCINE ()COVID-19 VACCINE ( season)[facility]: 78-83-4008Apaesfnyb vaccinationFlu vaccine (#1)[facility] HospitalStart: 17-16-1681Hfvnqxtjm for malignant neoplasm of cervixPap smear [facility] AndersonStart: 09-14-2022 End: 35-20-0844Muwgqtm encounter fujvktkac88/09/2023 Office Visit Obstetrics and Gynecology Gisel Vela, SUDARSHAN - DEVANTE [address] [facility] [address] [place] [address] [facility] OBSTETRICS & GYNECOLOGY Part of [place] HospitalStart: 05-05-2022 End: 90-17-0769Vderozz encounter formlxdug46/28/2022 Office Visit Obstetrics and Gynecology Sujey Bentley PA-C [address] [place] [address] [facility] OBSTETRICS & GYNECOLOGY Part of [facility] HospitalStart: 01-29-2022 End: 53-55-9800Mfinyyumhrji bx endometrium&/polypc w/wo d&cDILATATION AND CURETTAGE HYSTEROSCOPY CAUTERY ABLATION Menorrhagia with regular cycle 01/29/2022 3:14 PM [facility] HospitalStart: 29-64-3310Seldehbbn vaccinationMercy Health [facility] HealthStart: 11-30-2021 End: 38-47-1954Oexfnox encounter zqmwsvizo86/25/2022 Office Visit Obstetrics and Gynecology Philly Jacobsen DO [address] [place] [address] [facility] OB[facility] Hospitaltart: 11-05-2021 End: 68-11-4687Xiohord encounter etkcixfkj41/30/2022 Routine Obstetrics and Gynecology Gisel Vela, DEVELOPMENT ENGINEER - CNM [address] [place] [address] [facility] OBSTETRICS & GYNECOLOGY [facility] HospitalStart: 11-05-2021 End: 23-32-2166Bcxbypdahbqs / ancillary services ecjnyiteor43/30/2022 Ancillary Procedure [facility] HospitalStart: 09-30-2021 End: 66-21-5464Dhckbhj encounter rjnilvotn46/25/2022 Office Visit Obstetrics and Gynecology Gisel Vela, DEVELOPMENT ENGINEER - CNM [address] [place] [address] [facility] OBSTETRICS & GYNECOLOGY [facility] HospitalStart: 09-30-2021 End: 43-95-5945Fnvjuartqmwv / ancillary services fmqjuinkdf70/25/2022 Ancillary Procedure [facility]cology[facility] Hospitaltart: 98-26-5290Aqgiddnwop ScreenDepression ScreenOur Lady Of Mercy Hospital - AndersonStart: 36-69-3670Wblhyooq screenDiabetes screenOur Lady Of Mercy Hospital - AndersonStart: 03-12-2020 End: 26-55-8190Hfclybhlx ProcedureAV[facility] OB[facility]ICS & GYNECOLOGYStart: 66-54-6432Pkixcfmeb vaccinationFlu vaccine (#1)[place], [place]: 55-05-3820Eylkwsdxu vaccinationFlu vaccine (#1)[place] Start: 58-50-6423BKW VACCINE (1 - 3-dose SCDM series)HPV VACCINE (1 - 3-dose SCDM series)OSUniversity Hospitals Elyria Medical Centertart: 84-84-8225Xjavgkzc cancer screen Cervical cancer screenLakeland, KYStart: 35-38-3675Ewmdqlsya for malignant neoplasm of cervixOSU ProMedica Memorial Hospitaltart: 27-35-0657Qqpvokuki B vaccine (1 of 3 - 19+ 3-dose series)Hepatitis B vaccine (1 of 3 - 19+ 3-dose series)[facility] Hospitalart: 83-04-7432Ndvbauxla C screeningHepatitis C screenOur Lady Of Mercy Hospital - AndersonStart: 06-80-6418LZA screeningHIV SCREENING DISCUSSIONOSUniversity Hospitals Elyria Medical Centertart: 18-33-9228Frubhbqxf Vaccine (1 of 2 - 13+ 2-dose series)Varicella Vaccine (1 of 2 - 13+ 2-dose series)[facility] Start: 63-13-7662Bxytdgnkigiz 0-64 years Vaccine (1 - PCV)Pneumococcal 0-64 years Vaccine (1 - PCV)[facility]: 37-86-6228YIKSU-19 Vaccine (1)COVID-19 Vaccine (1)[facility]: 28-44-0891Clmpxcnpr vaccine (1 of 2 - 2-dose childhood series)Varicella vaccine (1 of 2 - 2-dose childhood series) [facility]: 22-69-8648CGGRT-19 Vaccine (#1)COVID-19 Vaccine (#1)[facility] Hospitalart: 87-42-8104Ddtvyicnx B vaccine (1 of 3 - 3-dose series)Hepatitis B vaccine (1 of 3 - 3-dose series)[facility]: 82-34-9298Zujckxpty C screeningHEPATITIS C VIRUS SCREENINGAdams County HospitalActin smooth muscle IgG Ab [Units/volume] in SerumBucyrus Community Hospital Ctr Work Phone: Aldolase measurementHolzer Medical Center – Jackson Work Phone: aPTT.lupus sensitive (LA screen)[facility] Work Phone: aPTT.lupus sensitive W excess phospholipid actual/Normal (normalized LA confirm)[facility] Work Phone: aPTT.lupus sensitive/aPTT.lupus sensitive W excess phospholipid (screen to confirm [facility] Work Phone: End: 2C.trachomatis N.gonorrhoeae DNAMercy Health Work Phone: comment on above:1 Occurrences starting 09/09/2021 until 09/09/2021 End: 11-05-2021.trachomatis N.gonorrhoeae DNABON [facility] Work Phone: comvdvw on above:1 Occurrences starting 11/05/2021 until 11/05/2021 End: 02-26-2020C.trachomatis N.gonorrhoeae DNA, Thin PrepC.trachomatis N.gonorrhoeae DNA, Thin Prep Microbiology Routine Irregular menses 1 Occurrences starting 02/26/2020 until 02/26/2020[facility]- [place], [place]Comment on above:1 Occurrences starting 02/26/2020 until 02/26/2020C.trachomatis N.gonorrhoeae DNA, Thin PrepC.trachomatis N.gonorrhoeae DNA, Thin Prep Microbiology Routine Irregular menses 02/26/2020 12:19 PM EDTMercCentra Health- [place], KYChromatin Ab [Units/volume] in Serum or PlasmaBucyrus Community Hospital Ctr Work Phone: Complement C3 [Mass/volume] in Serum or Plasma [facility] Work Phone: Complement C4 [Mass/volume] in Serum or Plasma [facility] Work Phone: End: 40-85-4495Noiigrp, GenitalMercy Health Work Phone: comcfmx on above:1 Occurrences starting 09/09/2021 until 09/09/2021 End: 18-28-3144Vpiuguu, Genital (with Gram Stain)[facility] HealthComment on above:1 Occurrences starting 10/11/2024 until 10/11/2024 End: 74-04-9907Gotsrmw, Genital (with Gram Stain)[facility] HealthComment on above:1 Occurrences starting 02/21/2025 until 02/21/2025 End: 45-33-0480Twqhule, UrineBon Secours Mercy HealthComment on above:Once for 1 Occurrences starting 10/11/2024 until 10/11/2024 End: 96-95-1678Dtakcck, UrineBon Secours Mercy HealthComment on above:1 Occurrences starting 10/18/2024 until 10/18/2024 End: 47-64-4793Vimahwa, UrineBon [employer] Work Phone: Comment on above:1 Occurrences starting 11/23/2024 until 11/23/2024 End: 49-25-7809Hgkecjn, WoundBON Génie Numérique [facility] SPRINGFIELDComment on above:1 Occurrences starting 12/14/2023 until 12/14/2023 End: 40-52-2869Dzqwwktiuoxjq procedure, preparation of smear, genital sourcePAP SMEAR Lab Routine Screening for cervical cancer 1 Occurrences starting 02/26/2020 until 02/26/2020[facility] Health- [place], [place]Comment on above:1 Occurrences starting 02/26/2020 until 02/26/2020 End: 04-62-0334Lhmvmpardekzy procedure, preparation of smear, genital sourcePAP SMEAR Lab Routine Screening for malignant neoplasm of cervix 1 Occurrences starting 12/14/2023 until 4BON Génie Numérique [facility] SPRINGFIELDComment on above:1 Occurrences starting 12/14/2023 until 4dRVVT (LA screen)[facility] Work Phone: Hemolytic complement CH50 levelBucyrus Community Hospital Ctr Work Phone: Homogenous nuclear Ab pattern [Titer] in Serum [facility] Work Phone: End: 79-12-1198RCDFWYOB PACU OXYGEN THERAPY PROTOCOLInitiate PACU Oxygen Therapy Protocol Respiratory Care Routine Continuous until discontinued starting 01/29/2022[facility] Work Phone: Comment on above:Continuous until discontinued starting 01/29/2022Lupus anticoagulant [Interpretation] in Platelet poor plasma [facility] Work Phone: Mitochondria M2 IgG Ab [Units/volume] in Serum [facility] Work Phone: Myoglobin [Mass/volume] in Serum or PlasmaBucyrus Community Hospital Ctr Work Phone: Nuclear Ab [Titer] in SerumBucyrus Community Hospital Ctr Work Phone: Oxygen therapy [Minimum Data Set]Initiate Oxygen Therapy Protocol Respiratory Care Routine As Needed until discontinued starting 01/29/2022 [facility] Work Phone: comcqpy on above:As Needed until discontinued starting 2Reagin Ab [Presence] in Serum by [facility] Work Phone: Surgical PathologySurgical Pathology Lab Routine Menorrhagia with regular cycle Release Upon Ordering for 1 Occurrences starting 01/29/2022[facility] Work Phone: comment on above:Release Upon Ordering for 1 Occurrences starting 01/29/2022 End: 25-10-7151JWLQLWCO PATHOLOGY REPORTSURGICAL PATHOLOGY REPORT Lab Routine Once for 1 Occurrences starting 01/29/2022 until 01/29/2022 [facility] Work Phone: comrrhm on above:Once for 1 Occurrences starting 01/29/2022 until 01/29/2022Thrombin [facility] Work Phone: Thyroglobulin Ab [Units/volume] in Serum or Plasma [facility] Work Phone: Thyroperoxidase Ab [Units/volume] in Serum or Plasma [facility] Work Phone: End: 66-20-2008Qyflsztiy DNA ProbeBon Active InternationalComment on above:1 Occurrences starting 02/21/2025 until 02/21/2025 End: 83-81-2826QW Ankle - left 3 ViewsBon videScreen Networks HealthComment on above: Once for 1 Occurrences starting 01/26/2025 until 01/26/2025 End: 71-75-9105JW Foot - left 3 ViewsBon [employer] Work Phone: Comment on above:Once for 1 Occurrences starting 01/26/2025 until 01/26/2025 Immunizations Immunization DateImmunizationNotesCare RwajulukKvvdbhwh88-70-5369zaxuojhqq virus vaccine, unspecified formulationPaulina Arana DEVELOPMENT ENGINEER-ACADEMY EDUCATION DIRECTOR Work Phone: osu Grant HospitalMartzo28-98-2639ksglwrw toxoid, reduced diphtheria toxoid, and acellular pertussis vaccine, [facility], CQ99-62-3196cwlmbrxrz B vaccine, adult dosageAlison Mishel PA Work Phone: [phone] [address] StreetHevbdkyckw15-08-8202gqcsqcozv B vaccine, adult dosageAlison Mishel PA Work Phone: [phone] [address] StreetCjsynmhkgb44-33-1119wuxhdspgx B vaccine, adult dosageAlison Mishel PA Work Phone: [phone] [address] StreetKlbkyyeodr08-72-7142zdjhmkd toxoid, reduced diphtheria toxoid, and acellular pertussis vaccine, adsorbedAlison Mishel PA Work Phone: [phone] [address] StreetFgutfxccpq18-06-2199wwiuufv toxoid, reduced diphtheria toxoid, and acellular pertussis vaccine, [facility]08-11-1999measles, mumps and rubella virus vaccineAlison Mishel PA Work Phone: [phone] [address] StreetRzerszypse29-73-8807ctjkuzesyp, tetanus toxoids and pertussis vaccineAlison Mishel PA Work Phone: [phone] [address] StreetIexhnhabak32-17-1449qfgpzcugu poliovirus vaccine, live, oralAlison Mishel PA Work Phone: [phone] [address] StreetPrqcuevysd37-37-9894xwldbetokv, tetanus toxoids and pertussis vaccineAlison Mishel PA Work Phone: [phone] [place], [place] [address]Qnfvsxyzsb17-17-4896ujfuaawid poliovirus vaccine, live, oralAlison Mishel PA Work Phone: [phone] [address] StreetZkfsjwgtds75-11-1632xbqeaax, mumps and rubella virus vaccineAlison Mishel PA Work Phone: [phone] [address] StreetTxbturnpch29-21-6284lthvhuzhrw, tetanus toxoids and pertussis vaccineAlison Mishel PA Work Phone: [phone] [address] StreetZajrrnypcs92-90-9185mbtywlnvuf, tetanus toxoids and pertussis vaccineAlison Mishel PA Work Phone: [phone] [address] StreetIasrswfyyv48-05-7553zolnrcmey poliovirus vaccine, live, oralAlison Mishel PA Work Phone: noms Cmkastnqgv02-78-8100daneyidnre, tetanus toxoids and pertussis vaccineAlison Mishel PA Work Phone: NODY Bccgppmkde72-66-2141qyltdvwcx poliovirus vaccine, live, oralAlison Mishel PA Work Phone: noms HealthcareNEGATED: Highlighted row has not occurred!27-25-3318xvqqrgtgs virus vaccine, unspecified formulationMohamad Batool [phone]-SdafsOhiohealth Grady [facility] Hospital Digest[facility] Health Payers DatePayer CategoryPayerPolicy [id number] Care (unspecified)[id number] Health [id number] Cross Blue ShieldBCBS [id number] PONDER MEDICAL PONDER [address] xxxxxxxxxxxx 2017-Present [phone] [address] [place] [address]yljuxrliesuw 1.2.840.508848.1.13.239.2.7.3.250333.04389-11-0281JlwpunmCRRGCGT [employer] [address] [id number] 2017-Present [phone] [address] [place] [id number] 1.2.840.796887.1.13.239.2.7.3.884192.315 [id number] 1.2.840.212689.1.13.239.2.7.3.329265.17258-89-1277 [id number] 2.16.840.1.480587.3.579.[id number] 2.16.840.1.112458.3.579.[id number] 2.16.840.1.640235.3.579.[id number] 2.16.840.1.285333.3.57[id number] 2.16.840.1.204459.3.579.2.22680-56-1309Twsxnkh33894 2.16.840.1.750849.3.579.[id number] 2.16.840.1.293897.3.57[id number] 2.16.840.1.749638.3.57[id number] 2.16.840.1.835063.3.579.[id number] 2.16.840.1.513509.3.579.[id number] 2.16.840.1.424023.3.579.2.2[id number] 2.16.840.1.010822.3.579.2.[id number] 2.16.840.1.294192.3.579.[id number] 2.16840.1.290323.3.579.[id number] 2.840.1.162867.3.57[id number] 2..1.801298.3.57[id number] 2.840.1.586240.3.579.[id number] 2.0.1.607481.3.57[id number] 2.840.1.660398.3.579.[id number] 2.840.1.693735.3.57[id number] 2.840.1.109362.3.579.[id number] 2.0.1.698976.3.57[id number] 2.0.1.904427.3.579.2.[id number] 2.840.1.686826.3.579.2.[id number] 2.840.1.244960.3.579.2.003[id number] 1..225391.1.13.239.2.7.3.146359.315Self-paySelf Pay [id number] Social History DateTypeDetailFacilityStart: 08-02-2017 End: 79-42-0379Ppstttb smoking status NHISNever smokerK[facility]: 08-02-2017 End: 78-99-8999Eygthid intakeNoCincinnati Children's Hospital Medical Centertart: 43-43-1384Sgm Assigned At BirthNot on [facility]: 11-21-2019 End: 27-65-1529Ejreolh use and exposureNever usedKettering Health [facility]: 11-21-2019 End: 08-95-7637Zhwkjmq intakeCurrent non-drinker of alcohol (finding)[facility]: 08-30-2021 End: 02-21-7322Amqyaeug to SARS-CoV-2 (event)Not [facility]: 09-09-2021 End: 08-86-8171Hqmytbj intakeCurrent drinker of alcohol (finding)[facility] [employer] Phone: start: 19-79-3682Ymkevvn SDOH Alcohol Comment [facility] [employer] Phone: start: 14-54-1425Fzw Assigned At BirthFePremier Healthtart: 85-04-3209Ucevyef smoking statusNeverOhiohealth [facility] Digestive HealthStart: 02-22-2024 End: 92-89-0890Npxkvqf of Social functionBon Secours Our Lady Of Mercy Hospital - AndersonStart: 02-21-2023 End: 59-57-5962Llyushmmm beverage intakeEx-drinker (finding)[facility] Hospitaltart: 06-18-2012 End: 74-14-8835KykGublsc (finding)[facility] HospitalHa the [employer], gas, oil, or water NTRglobal threatened to shut off services in your home in past 12MoNoBon [employer](I/We) worried whether (my/our) food would run out before (I/we) got money to buy more.Never trueBon [facility] [place] [employer]Sexual OrientationExecutive Urology of [facility] Kerri Functional Status OxpuFaqeumikyySbisqbNxbrbuqp90-62-0577Rutjonntwd StatusN/AFMercy Health Digestive Health Clinical Notes 11-28-2021 to 02-08-2025 Note Date & IlvzAswlEejpkmkg47-31-8708 History of Present illness Narrative* INES Cárdenas - 02/08/2025 9:20 AM EDT Images from the original note were not included. Skin Check Location: Patient requests a full body skin examination Dermatologic history: no history of skin cancer, no history of atypical moles Last visit: 01/2020 Lesion #1 Location: cheeks Duration: off and on years Quality: denies pain, denies itch Modifying factors: take a while to go away Associated symptoms: pimples Treatments: face wash Lesion #2 Location: lower legs Duration: years Quality: itchy Modifying factors: aggravated by picking Associated symptoms: rough, raised Treatments: none Established patient of Mandy Haynes MD All pertinent medical history, medications, and allergies were reviewed. General Exam: alert, oriented to person, place, and time, normal affect, well appearing Scalp, Examined Right leg Examined Head, Face Examined Left leg Examined Neck Examined Right foot Examined Chest Examined Left foot Examined Back Examined Buttocks Examined Patient kept underwear on Abdomen Examined Digits,nails: Examined Right arm Examined Left arm Examined Lymphatics: Not examined Hands Examined Skin Exam 1. MELANOCYTIC NEVUS OF TRUNK (2) Generalized, Right Buttock Scattered benign appearing, regular brown to light brown melanocytic papules and macules with similar morphology Counseled regarding these benign growths. Rarely, a nevus can develop into malignant melanoma, so any changing nevi should be promptly re-evaluated. 2. ACNE VULGARIS Right Buccal Cheek Small resolving inflammatory pustule. The patient and/or parent were counseled that it may take up to 2-3 months to notice significant improvement of the acne. The use of non-comedogenic cleansers and moisturizers was recommended. As breakouts are mild, recommend OTC Differin 0.1% Gel. Instructed on proper use of the gel 3. PARADA ANGIOMA (2) Abdomen (Lower Torso, Anterior), Generalized Scattered parada-red papule(s). The patient was informed that angiomas are benign growths on the the skin. No treatment is necessary. 4. INFLAMED SEBORRHEIC KERATOSIS (3) Right Forearm - Posterior (2), Right Lower Leg - Anterior Inflamed seborrheic keratoses: pink and brown stuck on verrucous scaly papules with surrounding erythema and bloody crust. The patient was informed that symptomatic seborrheic keratoses are benign growths that become inflamed, itchy, tender, traumatized, caught on clothing, or bleed. Symptomatic lesions can be treated with cryotherapy or curretage. Thicker lesions treated with cryotherapy may require more than one treatment. The patient was instructed to notify the office if abnormal redness or tenderness develops atthe treatment site. Cryotherapy today, see procedure note. Diagnosis: Inflamed seborrheic keratosis Indication: Inflamed Consent: Verbal consent was obtained and risks were discussed, including, but not limited to risks of scarring, darker or basket operator pigmentary changes, recurrence, incomplete removal and infection. Method: Liquid nitrogen was used to treat the lesion(s) with two 5-10 second freeze-thaw cycles Number of lesions treated: 3 Post-procedure instructions: Instructions were given orally and in writing. The office will be contacted if the lesion fails to resolve despite treatment, or if a side effect develops such as abnormal crusting, scabbing, redness or tenderness Cryotherapy, skin lesion - Right Forearm - Posterior (2), Right Lower Leg - Anterior 5. HYPERKERATOSIS OF SKIN (2) Left Foot - Posterior, Right Foot - Posterior Thickened hyperkeratotic patches Reassurance given. Recommend OTC Urea 40% cream Next Visit: 1 year documented [facility] [address]. LouisBljlkirbuj28-42-1156 Hospital Discharge instructions* Discharge Instructions* Jacques Ashton II, PA-C - 01/26/2025 7:30 PM EDT Take ibuprofen as needed for pain. You will receive a survey in the next couple days regarding your experience in the ED. We are constantly striving to improve our care and welcome your feedback. Thank you very much for your time. The emergency department evaluation is not a complete evaluation, you're always required to followup with another doctor within the next few days to assess how your symptoms are progressing and to ensure that there is no indication for further testing or returning to the hospital. Even with treatment sometimes your condition worsens and you will need to return to the hospital. If you are having pain and it is getting worse you should return to the hospital. If you have any new symptoms that were not addressed at your original visit you should return to the hospital. If you're having difficulty breathing but it is getting worse you should return to the hospital. If you're vomiting and cannottake the medicines that were prescribed you should return to the hospital. If you're having persistent fevers you should return to the hospital. If you have any question of whether or not your symptoms are serious enough or for any other urgent concerns- always return to the hospital for repeat evaluation. * Attachments The following attachments cannot be sent through Care Everywhere. * Ankle Sprain ([place]) documented in this encounterBon [facility] History of Present illness Narrative* Shilpi Elias PA-C - 01/10/2025 11:30 AM EDT Plastic & Reconstructive Surgery H&P DATE: 01/10/2025 REF: Paulina Arana, DEVELOPMENT ENGINEER-ACADEMY EDUCATION DIRECTOR [address] [facility] [address], [address] [place] [address] Chief complaint: Chief Complaint Patient presents with New Patient Breast Reduction Consult HPI: Manju Aldana is a 39 y.o. female who presents for reduction mammaplasty evaluation. Associated symptoms and non-surgical management options that have not helped alleviate these problems are as follows: Patient complains of pain in the left upper back, right upper back, cervical, shoulders, and breasts that has lasted for 14 years. The patient does describe concurrent conservative treatment such as over the counter meds and anti- inflammatories for 14 years without success. She has tried support garments, without physical therapy by a licensed Physical Therapist, without therapy by a licensed Chiropractor, with therapy by a licensed massage therapist. She does perform routine exercises and posturing and goes to the gym regularly to help with her back and shoulder pain related to her breasts. 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 Specific medication includes: skin barrier, prescription anti-fungal/steroid creams for which she has noticed minimal improvement. She does have shoulder grooving without ulceration unresponsive to compliant, concurrent conventional therapy (wider bra straps). She does not have thoracic outlet syndrome (including ulnar parasthesia) that has not responded to at least three months of compliant conservative treatment. She does not have a history of recent weight change. She does not have a history of recent breast feeding. She does not feel that her breasts are equal size. She does not currently have nicotine exposure of any kind. Patient states that her large breasts cause her difficulty with running/ jogging, grocery shopping,housework, lifting with free weights. She is unaware of current cup size and she wishes to be more proportional to her body size and allow her to improve her quality of life. Patient denies any personal history of breast cancer, abnormal breast exam, nipple discharge, palpable breast masses. She does not have a family history of breast/ovarian cancer. Her last mammogram was 08/10/2024 and read as benign. Past Medical History[1] Denies DM, HTN, bleeding/clotting disorders, COPD, RENATO, asthma Past Surgical History[2] Family History Problem Relation Age of Onset Cancer- Other Maternal Grandfather 60 - 69 bladder Lung Cancer Maternal Grandmother 80 - 89 Vision Problems Maternal Grandmother Breast Cancer Maternal Great Aunt postmenopausal Non-Hodgkins Lymphoma Maternal Cousin 36 Cancer- Other Maternal Great Uncle pancreas Diabetes Mother Heart Disease - Other Paternal Grandfather Ovarian Cancer Neg Hx Uterine Cancer Neg Hx Colorectal Cancer Neg Hx Prostate Cancer Neg Hx Social History Socioeconomic History Marital status: Spouse name: Not on file Number of children: Not on file Years of education: Not on file Highest education level: Not on file Occupational History Not on file Tobacco Use Smoking status: Never Smokeless tobacco: Never Vaping Use Vaping status: Never Used Substance and Sexual Activity Alcohol use: Not Currently Drug use: Never Sexual activity: Yes Partners: Male Other Topics Concern Occupational Exposure No Hobby Hazards No Social History Narrative 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 Patient has had an [...] or radiation therapy during the last month. Social Drivers of Health Financial Resource Strain: Not on file Food Insecurity: No Food Insecurity (07/26/2024) Received from [facility] Hunger Vital Sign Within the past 12 months, you worried that your food would run out before you got the money to buymore.: Never true Within the past 12 months, the food you bought just didn't last and you didn't have money to get more.: Never true Transportation Needs: No Transportation Needs (07/26/2024) Received from [facility] PRAPARE - Transportation Lack of Transportation (Medical): No Lack of Transportation (Non-Medical): No Physical Activity: Not on file Stress: Not on file Social Connections: Not on file Personal Safety: Not on file Housing Stability: Low Risk (07/26/2024) Received from [facility] Housing Stability Vital Sign In the last 12 months, was there a time when you were not able to pay the mortgage or rent on time?: No In the past 12 months, how many times have you moved where you were living?: 0 At any time in the past 12 months, were you homeless or living in a assisted (including now)?: No Outpatient Medications Prior to Visit Medication Sig Dispense Refill Multiple Vitamin (multivitamin) capsule Take 1 capsule by mouth daily. No facility-administered medications prior to visit. Allergies[3] Physical examination: Ht 1.727 m (5' 8 ) Comment: Verbal Wt 97.6 kg (215 lb 3.2 oz) BMI 32.72 kg/m Smoking Status Never Body mass index is 32.72 kg/m . / Body surface area is 2.11 meters squared. Gen: Well appearing who appears at stated age and is in NAD Head/Eyes/ Nose/ Throat: Normocephalic, atraumatic, EOMI, sclera anicteric, mucosa pink and moist Neck: supple, trachea is midline, nl ROM Resp: Normal respiratory effort Breasts: Soft, non tender to palpation, no nipple discharge. Shoulder grooving present on both Intertrigo absent She does not have incision scars on her breast(s). Measurements: RIGHT LEFT Sternal notch to Nipple (cm) 30 32 Nipple to IMF (cm) 13 13 Breast width (cm) 17 17 Ptosis (grade) 3 3 Nipple sensation More sensitive normal Nipple inversion no no Breast size (larger) smaller larger IMAGING: Study Result Narrative & Impression ORIGINAL REPORT EXAM: MAMMO DIAGNOSTIC WITH CHANDRIKA BILATERAL, US BREAST LIMITED UNILATERAL RIGHT, 08/10/2024 11:19 AM (accession [id number]), 08/10/2024 11:33 AM (accession [id number]) CLINICAL INDICATIONS AND HISTORY: right breast pain [...] examinations. Recommendation Laterality: Bilateral MQSA Facility: The [address] [place], [place] [address], I personally viewed and interpreted these images and I have reviewed and approved this report. : No results found for: ALBUMIN , CREATSERUM , HGBA1C , CRP , WBC , HGB , HCT , PLATELET , TSH ASSESSMENT: Symptomatic macromastia PLAN: -Patient would be a good candidate for bilateral reduction mammoplasty as this procedure will improve her symptoms of back pain, shoulder grooving, skin rashes and overall ability to perform daily activities. We discussed that a breast reduction would improve some of her symptoms, but it may not completely resolve all of them including pain and asymmetry. -We discussed the technical details including the skin incision, implications of removal of breast tissue and the potential risks/complications related to reduction mammoplasty, including, but not limited to general anesthesia, infection, bleeding, scarring, hematoma, seroma, postoperative breast asymmetry, skin necrosis, nipple necrosis, nipple loss, inability to breastfeed, changes to the nipple in terms of sensation, wound dehiscense, delayed wound healing, fat necrosis, allergic reactions, thrombosis of vessels (deep venous thrombosis), less than desirable cosmetic results, and need for additional procedures. Patient's expectations, achievable post-reconstructive results, alternatives to the procedure were discussed, as well as limitations of the plastic surgeon. We went over surgicalprocedure that entails: resection of breast tissue, reposition of NAC with creation of a more pleasant breast mound and contour. Plan is for closure with absorbable sutures if all possible and placement of drains. -Postoperative restrictions were discussed: -No heavy lifting - max 10lbs for 6-8weeks -No exercising, specially those movements involving upper extremities -She will need to keep a breast BRA to minimize tension on suture line to avoid wound healing problems. -We reviewed the importance of staying active, maintain a healthy weight (BMI <35) and avoid nicotine to minimize the risks of complications (in surgery and after surgery) -Pre-operative photos were obtained in clinic today with patient's permission and uploaded into media tab We discussed next steps: Patient is medically optimized at this time and will be scheduled with an attending physician to further discuss surgical treatment and plan for macromastia. Manju Teresa Aldana was given the chance to ask questions, and these were answered to their satisfaction. The patient is welcome to call with any questions or concerns in the meantime. I spent 10 minutes prior to clinic visit reviewing pertinent medical history, images, lab results and referring physician notes and I spent 35 minutes of visit time with patient reviewing history of complaint, previous medical history, physical examination, discussion of findings on examination, review of images and discussion of treatment plan with indications, contraindications, possible risks and outcomes of the procedure as well as I gave the patient the opportunity to ask and have questions answered. REDUCTION MAMMOPLASTY Medical Necessity Reduction Mammoplasty - medically necessary for non-cosmetic indications for women aged 18 or olderor for whom growth is complete (breast size stable over one year) when any of the following criteria (A, B, C) is met: A. Macromastia: all of the following criteria must be met: [x] Member has persistent symptoms in at least two of the anatomical body areas below, directly attributed to macromastia and affecting daily activities for at least 1 year: a. [x] Headaches b. [] Pain in neck c. [x] Pain in shoulders d. [x] Pain in upper back e. [] Painful kyphosis documented by X-rays f. [x] Pain/discomfort/ulceration from bra straps cutting into shoulders g. [] Skin breakdown (severe soft tissue infection, tissue necrosis, ulceration hemorrhage) from overlying breast tissue h. [] Upper extremity parasthesia; and 2. [] All of the following criteria are met: a. [x] Member has severe breast hypertrophy, documented by high-quality color frontal-view and side-view photographs; and [x] There is a reasonable likelihood that the member's symptoms are primarily due to macromastia; and [x]Reduction mammoplasty (also spelled as 'mammaplasty') is likely to result in improvement of the chronic pain; and [x] Pain symptoms persist as documented by the physician despite at least a 3- month trial of therapeutic measures such as: i. [x] Analgesic/non-steroidal anti-inflammatory drugs (NSAIDs) interventions and/or muscle relaxants ii. [] Dermatologic therapy of ulcers, necrosis and refractory infection iii. [x] Physical therapy/exercises/posturing maneuvers iv. [x] Supportive devices (e.g., proper bra support, wide bra straps) v. []critical care unit manager or osteopathic manipulative treatment vi. []Medically supervised weight loss program vii. [] Orthopedic or spine surgeon evaluation of spinal pain; and b. [] Women 50 years of age or older are required to have a mammogram that was negative for cancer performed within the two years prior to the date of the planned reduction mammoplasty; and 3. [] The surgeon estimates that at least the following amounts (in grams) of breast tissue, not fatty tissue, will be removed from each breast, based on the member's body surface area (BSA) calculated using the Mosteller formula. * Note: Breast reduction surgery will be considered medically necessary for women meeting the symptomatic criteria specified above, regardless of BSA, with more than 1 kg of breast tissue to be removed per breast. CPT Codes 84542 - Reduction Mammoplasty Schnur Scale Body Surface Area Average grams of tissue per breast to be removed 1.35 199 1.40 218 1.45 238 1.50 260 1.55 284 1.60 310 1.65 338 1.70 370 1.75 404 1.80 441 1.85 482 1.90 527 1.95 575 2.00 628 2.05 687 2.10 750 2.15 819 2.20 895 2.25 978 2.30 1068 2.35 1167 2.40 1275 2.45 1393 2.50 1522 [1] Past Medical History: Diagnosis Date Depression Migraine [2] Past Surgical History: Procedure Laterality Date ABLATION ENDOMETRIUM HYSTEROSCOPIC HYDROTHERMAL FOOT SURGERY TONSILLECTOMY ADENOIDECTOMY [3] Allergies Allergen Reactions Ciprofloxacin Hives and Itching Other Reaction(s): Unknown * Jody Lynch - 01/10/2025 11:30 AM EDT This Transportation Refrigeration Technician verified the patients name and date of . Patient's pharmacy name and location verified with the patient. Plastic Surgery New Consultation Vitals: Ht 1.727 m (5' 8 ) Comment: Verbal Wt 97.6 kg (215 lb 3.2 oz) BMI 32.72 kg/m Smoking Status Never Estimated body mass index is 32.72 kg/m as calculated from the following: Height as of this encounter: 1.727 m (5' 8 ). Weight as of this encounter: 97.6 kg (215 lb 3.2 oz). Manju Aldana ([id number]) 39 y.o. female presenting to the plastics surgery office for a consultation. Referring Provider: Sumit Reason for consultation: Breast Reduction Consult Do you have any of the following? 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 We discussed BR 2 finding. No additional follow up is recommended. [facility] Work Phone: 1(905) 173-906205-07-2025 Miscellaneous Notes* Telephone Encounter - ANA Nunez - 09/12/2024 3:57 PM EDT Returned call to Manju Aldana. We discussed BR 2 finding. No additional follow up is recommended. ANA Nunez * Telephone Encounter - Opal Kerr - 09/12/2024 2:45 PM EDT Patient is returning Paulina's call and shared that she has some additional follow up questions regarding her results. She is hoping to get another call back when possible and states she is free anytime this afternoon. * Telephone Encounter - ANA Nunez - 09/12/2024 9:50 AM EDT Call placed to Manju Aldana. LVM. Prior outside imaging was obtained for comparison. Reports frombreast imaging 08/10/24 were completed and note benign imaging. Annual mammogram was recommended. Follow up with any breast changes. ANA Nunez documented in this encounterAd[facility]05-[facility]-2025 Telephone encounter Note* Telephone Encounter - Opal Kerr - 09/12/2024 2:45 PM EDT Patient is returning Paulina's call and shared that she has some additional follow up questions regarding her results. She is hoping to get another call back when possible and states she is free anytime this afternoon. [facility] Telephone encounter Note* Telephone Encounter - ANA Nunez - 09/12/2024 9:50 AM EDT Call placed to Manju Teresa Aldana. LVM. Prior outside imaging was obtained for comparison. Reports frombreast imaging 08/10/24 were completed and note benign imaging. Annual mammogram was recommended. Follow up with any breast changes. [facility] History of Present illness Narrative* Kiya Miller - 08/10/2024 11:30 AM EDT Patient offered a medical supervisor blood donor recruiters for sensitive exam. Pt declined [facility] History of Present illness Narrative* ANA Nunez - 08/10/2024 10:15 AM EDT Diagnostic Breast Clinic Date of Service: 08/10/2024 [...] who presents to the [facility] Breast [facility] on 08/10/2024 for evaluation regarding chronic breast pain and right nipple itching. 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 Patient has had an [...] Cancer Neg Hx Prostate Cancer Neg Hx Medications/Allergies/Immunizations: Current Outpatient Medications Medication Sig Multiple Vitamin [...] LIMITED UNILATERAL RIGHT, 08/10/2024 11:19 AM (accession [id number]), 08/10/2024 11:33 AM (accession [id number]) CLINICAL INDICATIONS AND HISTORY: right breast pain [...] related changes or if the breast pain failedto improve or worsened. Contact information was provided. Macromastia - she is interested in a breast reduction, referral to plastics placed Return if symptoms worsen or fail to improve. ANA Nunez This patient was seen and evaluated in the Diagnostic Breast Clinic in the Division of Surgical Oncology at the [facility] at [facility]. [facility] Instructions* Patient Instructions* Izabella Pickens RN - 08/10/2024 10:15 AM EDT Patient Satisfaction Surveys: Your opinion matters! If you receive a patient satisfaction survey in the mail, we would appreciateyour thoughts. Please help us get better! * Attachments The following attachments cannot be sent through Care Everywhere. * Breast Pain (Mastalgia) (The [place]) ([place]) [facility] History of Present illness Narrative* Sally Rogers RN - 01/29/2022 4:20 PM EDT Patient verbalizes readiness for discharge. Discharge instructions given to patient and responsibleadult, answered all questions, and verbalized understanding of [...] 14. Accompanied by a responsible adult. Yes * Luz Harper RN - 01/25/2022 2:32 PM EDT Ok for surgery per Rolanda ALVAREZ. Pt notified and reminded to discontinue adipex until after surgery. * Luz Harper RN - 01/25/2022 2:10 PM EDT Patient instructed on the pre-operative, intra-operative, and [...] stopping adipex Tuesday01/22/22. Awaiting direction from anesthesia. * Luz Harper RN - 01/25/2022 1:53 PM EDT Attempted PAT phone call; no answer; message left to return PAT phone call. [facility] Phone: 1(602) 174-167209-23-2022 Hospital Discharge instructions* Discharge Instructions* Sally Rogers RN - 01/29/2022 4:00 PM [...] call if excessive. Call the office at [phone] ([place]) [phone] ([place]) for an appointment in 2 weeks. documented in this encounterTHE [facility] Phone: [phone] 876-671607-23-2022 NotePROCEDURE: XR ANKLE LT MIN 3 V, XR [...] Electronically authenticated by: SHERRIE PABLO Date: 2021-11-28 20:09[facility]07-23-2022 NotePROCEDURE: XR ANKLE LT MIN 3 V, XR [...] Electronically authenticated by: SHERRIE PABLO Date: 2021-11-28 20:09[facility] note No data available for this section [facility] Evaluation note* Diagnosis Vaginal irritation Unspecified noninflammatory disorder of vagina documented in this encounter [employer] 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 documented in this encounter [facility] [employer] Phone: [email or web address] note* Diagnosis Menorrhagia with irregular cycle Excessive or frequent menstruation documented in this encounter [facility] [employer] Phone: evalpzkfor note* Diagnosis Post-op pain- Primary Other acute postoperative pain Menorrhagia with regular cycle Excessive or frequent menstruation documented in this encounter [facility] [employer] Phone: [email or web address] note* Diagnosis Screening mammogram, encounter for [facility]* Diagnosis Left genital labial abscess Other abscess of vulva Screening for malignant neoplasm of cervix Screening for malignant neoplasm of the cervix [facility] Diagnosis Nipple pain Other sign and symptom in breast Breast pain, right Mastodynia Mass of upper outer quadrant of right breast [facility] Diagnosis Nipple pain Other sign and symptom in breast Breast pain, right Mastodynia Mass of upper outer quadrant of right breast [facility] Diagnosis Nipple pain- Primary Other sign [...] of right breast [facility] Diagnosis Acute vulvitis Vaginitis and vulvovaginitis, unspecified [facility]* Diagnosis Urinary tract infection without hematuria, site unspecified Dysuria [facility]* Diagnosis Hematuria, unspecified type History of recurrent UTI (urinary tract infection) Personal history of urinary (tract) infection [facility] Diagnosis Macromastia- Primary Hypertrophy of breast [facility] Diagnosis Sprain of left ankle, unspecified ligament, initial encounter- Primary documented in this [facility]* Diagnosis Melanocytic nevus of trunk- Primary Benign neoplasm of skin of trunk, except scrotum Acne vulgaris Other acne Parada angioma Inflamed seborrheic keratosis Hyperkeratosis of skin Acquired keratoderma [facility] Diagnosis Acute vaginitis Vaginitis and vulvovaginitis, unspecified [facility] Dis[facility] instructions No data available for this section [facility] Progress note No data available for this section [facility] Reason for visit Narrative* Consultation (Routine) - Pending ReviewSpecialtyDiagnoses / ProceduresReferred By ContactReferred To ContactGeneral Surgery Diagnoses Chronic breast pain Procedures 34780 (Epic.EAP.ID) - External Referral To Breast Clinic Gisel Vela CNM [address] [place] [address] Phone: tel: fax: Joann Summers MD [address], [address] [place] [address] Phone: tel: fax: Referral IDStatusReasonStart DateExpiration DateVisits RequestedVisits [id number] Review/ [facility] Advance Directives TypeDate RecordedPatient RepresentativeExplanationAdvance Directives and Living WillPower of AttorneyCode StatusDate ActivatedDate InactivatedCommentsFull Code 11/16/2016 12:56 PM11/17/2016 6:00 PMFull Code11/16/2016 10:54 AM11/16/2016 12:56 PM Full Code11/15/2016 5:42 PM11/16/2016 10:54 AMFull Code11/15/2016 1:25 PM11/15/2016 5:42 PMTypeDate RecordedPatient RepresentativeExplanationAdvance Directives and Living WillPower of AttorneyCode StatusDate ActivatedDate InactivatedComments Full Code11/16/2016 12:56 PM11/17/2016 6:00 PMFull Code11/16/2016 10:54 AM11/16/2016 12:56 PMFull Code11/15/2016 5:42 PM11/16/2016 10:54 AMFull Code11/15/2016 1:25 PM 11/15/2016 5:42 PMTypeDate RecordedPatient RepresentativeExplanationACP-Advance DirectiveACP-Power of AttorneyTypeDate RecordedPatient RepresentativeExplanation ACP-Advance DirectiveACP-Power of AttorneyCode StatusDate ActivatedDate InactivatedCommentsFull Code01/29/2022 2:15 PMFull Code11/16/2016 12:56 PM 11/17/2016 6:00 PMDate ActivatedDate InactivatedComments01/29/2022 2:15 PM 01/29/2022 6:33 PMDate ActivatedDate InactivatedComments11/16/2016 12:56 PM 11/17/2016 6:00 PMDate ActivatedDate InactivatedComments11/16/2016 10:54 AM 11/16/2016 12:56 PMDate ActivatedDate InactivatedComments11/15/2016 5:42 PM 11/16/2016 10:54 AMDate ActivatedDate InactivatedComments11/15/2016 1:25 PM 11/15/2016 5:42 PMCode StatusDate ActivatedDate InactivatedCommentsFull Code 01/29/2022 2:15 PM01/29/2022 6:33 PMCode StatusDate ActivatedDate Inactivated CommentsFull Code11/16/2016 12:56 PM11/17/2016 6:00 PMFull Code11/16/2016 10:54 AM 11/16/2016 12:56 PMFull Code11/15/2016 5:42 PM11/16/2016 10:54 AMFull Code11/15/2016 1:25 PM11/15/2016 5:42 PMDate ActivatedDate InactivatedComments01/29/2022 2:15 PM 01/29/2022 6:33 PMDate ActivatedDate InactivatedComments11/16/2016 12:56 PM 11/17/2016 6:00 PMDate ActivatedDate InactivatedComments11/16/2016 10:54 AM 11/16/2016 12:56 PMDate ActivatedDate InactivatedComments11/15/2016 5:42 PM 11/16/2016 10:54 AMDate ActivatedDate InactivatedComments11/15/2016 1:25 PM 11/15/2016 5:42 PM Reason for Referral StatusReasonSpecialtyDiagnoses / ProceduresReferred By ContactReferred To ContactClosedRadiology Diagnoses Breast pain, right Procedures DEYSI DIGITAL DIAGNOSTIC W OR WO CAD BILATERAL DEYSI DIAGNOSTIC W OR WO CAD BILATERAL Gisel Vela, DEVELOPMENT ENGINEER - CNM [address] [place] [address] SpecialtyDiagnoses / ProceduresReferred By ContactReferred To ContactRadiology 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 [place] [address] [place] [address] Referral IDStatusReasonStart DateExpiration DateVisits RequestedVisits [id number]/2/20227/ Assessments Diagnosis Breast pain, right Mastodynia Diagnosis [...] for Visit (unrecogniz ed section and content) StatusReasonSpecialtyDiagnoses / ProceduresReferred By ContactReferred To ContactClosedRadiology Diagnoses Breast pain, right Procedures DEYSI DIGITAL DIAGNOSTIC W OR WO CAD BILATERAL DEYSI DIAGNOSTIC W OR WO CAD BILATERAL Gisel Vela APRN - CNBola [address] [place] [address] [place] [address] StatusReasonSpecialtyDiagnoses / ProceduresReferred By ContactReferred To ContactPending ReviewRadiology Diagnoses Breast pain, right Procedures US BREAST COMPLETE RIGHT US Breast Limited Right Gisel Vela, DEVELOPMENT ENGINEER - CNBola [address] [place] [address] [facility] Ultrasound [address] [place] [address] SpecialtyDiagnoses / ProceduresReferred By ContactReferred To ContactRadiology Diagnoses 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 [place] [address] [facility] [address] [facility] [address] [place] [address] Referral IDStatusReasonStart DateExpiration DateVisits RequestedVisits [id number]/2/20227/[id number] / Procedures Referred By ContactReferred To Contact Diagnoses Menorrhagia with regular cycle MENORRHAGIA, ENDOMETRIAL POYLP Procedures [place] HYSTEROSCOPY,W/ENDO BX DILATATION AND CURETTAGE HYSTEROSCOPY CAUTERY ABLATION-NOVASURE, ENDOMETRIAL ABLATION Philly Jacobsen, DO [address] [place] [address] [facility] [address] [place] [address] Referral IDStatusReasonStuart DateExpiration DateVisits RequestedVisits [id number] / ProceduresReferred By ContactReferred To ContactRadiology Diagnoses Screening mammogram, encounter for Procedures EDYSI CHANDRIKA DIGITAL SCREEN SELF REFERRAL W OR WO CAD BILATERAL DEYSI CHANDRIKA DIGITAL SCREEN BILATERAL Gisel Vela, DEVELOPMENT ENGINEER - CNM [address] [place] [address] Referral IDStatusReasonStart DateExpiration DateVisits RequestedVisits [id number]/17/20238/[id number] PatientChronic bilateral breast pain; nipple itching/ burning of rt breast. States the chronic pain in breasts has been going on for 10 years but the rt breast itching has been for last 4-5 months. States she has lumpy breasts, so not sure if anything new; denies any nipple discharge or skin discoloration.SpecialtyDiagnoses / ProceduresReferred By ContactReferred To ContactGeneral Surgery Diagnoses Chronic breast pain Procedures 75520 (Epic.EAP.ID) - External Referral To Breast Clinic Gisel Vela, DEVANTE [address] [facility] [address] [place] [address] Phone: tel: fax: Joann Summers MD [address] [facility] [address], [address] [place] [address] Phone: tel: fax: Referral IDStatusReasonStart DateExpiration DateVisits RequestedVisits [id number] Review/[id number] Patient Breast Reduction ConsultSpecialtyDiagnoses / ProceduresReferred By Contact Referred To ContactPlastic Surgery Diagnoses Paulina Randle, DEVELOPMENT ENGINEER-ACADEMY EDUCATION DIRECTOR Phone: tel: fax: Department of Plastic Surgery [address] [facility] [address] [place] [address] Phone: tel: fax: Referral IDStatusReasonStart DateExpiration DateVisits RequestedVisits [id number] Request/[id number] PainLeft foot painAnkle PainLeft ankle pain after twisting foot while walking [facility] Check Care Teams (unrecognized sec tion and content) Team MemberRelationshipSpecialtyStart [place] [address] [place] [address] PCP - Uzxwrtj91/7/13 Team Status: Inactive Member Role Status Dates Manuel Augustin MD Attending Provider Active Team MemberRelationshipSpecialtyStart [place] [address] [place] [address] PCP - Xreqlmb62/7/13Team MemberRelationshipSpecialtyStart DateEnd Date Claudia Lamas MD [address] [place] [address] PCP - Pxlrknm90/7/13Team MemberRelationshipSpecialtyStart DateEnd Date Claudia Lamas MD [address] [place] [address] PCP - Tjbapwp13/7/13Team MemberRelationshipSpecialtyStart DateEnd Date Claudia Lmaas MD [address] [place] [address] PCP - Jdvcqei60/7/13Team MemberRelationshipSpecialtyStart DateEnd Date Claudia Lamas MD [address] [place] [address] PCP - Gxvyguq31/7/13Team MemberRelationshipSpecialtyStart DateEnd [facility] Claudia Lamas MD [address] [place] [address] PCP - Ocgyveq18/7/13Team MemberRelationshipSpecialtyStart DateEnd [facility] Claudia Lamas MD [address] [place] [address] PCP - GeneralFamily Medicine08/10/24 Gisel Vela CNM [address] [place] [address] [place] [address] MidwifeCertified Nurse Midwife08/10/24 Paulina Arana APRN-ACADEMY EDUCATION DIRECTOR [address] [place] [address] SurgeonCertified Nurse Practitioner08/10/24Team MemberRelationshipSpecialtyStart DateEnd Date Claudia Lamas MD [address] [place] [address] PCP - GeneralFamily Medicine08/10/24 Gisel Vela CNM [address] [place] [address] [address] [place] [address] MidwifeCertified Nurse Midwife08/10/24 Paulina Arana, DEVELOPMENT ENGINEER-ACADEMY EDUCATION DIRECTOR [address] [place] [address] SurgeonCertified Nurse Practitioner08/10/24Team MemberRelationshipSpecialtyStart DateEnd Claudia Lamas MD [facility] [place] [address] PCP - Generalmily Medicine08/10/24 Gisel Vela CNM [address] [place] [address] [address] [place] [address] MidwifeCertified Nurse Midwife08/10/24 Paulina Arana, DEVELOPMENT ENGINEER-ACADEMY EDUCATION DIRECTOR [address] [place] [address] SurgeonCertified Nurse Practitioner08/10/24Team MemberRelationshipSpecialtyStart DateEnd Date Claudia Lamas MD PCP - GeneralFamily Medicine08/10/24 Gisel Vela CNM [address] [place] [address] [address] [place], [place] [id number] MidwifeCertified Nurse Midwife08/10/24 Paulina Arana, DEVELOPMENT ENGINEER-ACADEMY EDUCATION DIRECTOR [address] [place] [address] SurgeonCertified Nurse Practitioner08/10/24Team MemberRelationshipSpecialtyStart DateEnd Claudia Lamas MD [address] [place] [address] PCP - Jzzmaao47/7/13Team MemberRelationshipSpecialtyStart DateEnd Date Claudia Lamas MD [address] [place] [address] PCP - Poykdhp36/7/13Team MemberRelationshipSpecialtyStart [place] [address] [place] [address] PCP - Qlxtsaf09/7/13Team MemberRelationshipSpecialtyStart End Claudia Lamas MD PCP - GeneralFamily Medicine08/10/24 Gisel Vela CNM [address] [place] [address] Dr [address] [place] [id number] MidwifeCertified Nurse Midwife08/10/24 Paulian Arana, DEVELOPMENT ENGINEER-ACADEMY EDUCATION DIRECTOR [address] [place] [address] [address] [place], [place] [phone] SurgeonCertified Nurse Practitioner08/10/24Team MemberRelationshipSpecialty[place] [address] [place] [address] PCP - Tpcbimv48/7/13Team MemberRelationshipSpecialtyStart DateEnd Date Claudia Lamas MD PCP - [facility]02/09/23Team MemberRelationshipSpecialtyStart DateEnd Date Claudia Lamas MD PCP - [facility]02/09/23Team MemberRelationshipSpecialtyStart DateEnd Date Claudia Lamas MD PCP - [facility]02/09/23 Goals (unrecognized section and content) Goals may be documented in a n alternate section No data available for this section No data available for this section INFORMATION SOURCE (unrecogn ized section and content) DATE CREATED AUTHOR 10/12/2021 [facility] DATE CREATED AUTHOR AUTHOR'S ORGANIZ ATION 07/14/[address] [facility] DATE CREATED AUTHOR AUTHOR'S ORGANIZ ATION 03/24/2023 [facility] EPIC DATE CREATED AUTHOR AUTHOR'S ORGANIZ ATION 12/21/2023 [facility] DATE CREATED AUTHOR AUTHOR'S ORGANIZ ATION 10/14/2024 [facility] DATE CREATED AUTHOR AUTHOR'S ORGANIZ ATION 12/26/2024 [facility] DATE CREATED AUTHOR AUTHOR'S ORGANIZ ATION 01/12/2025 [facility] DATE CREATED AUTHOR AUTHOR'S ORGANIZ ATION 02/12/2025 [facility] Medical [facility] EPIC DATE CREATED AUTHOR AUTHOR'S ORGANIZ ATION 02/14/2025 [facility] DATE CREATED AUTHOR AUTHOR'S ORGANIZ ATION 02/25/2025 [facility] DATE CREATED AUTHOR AUTHOR'S ORGANIZ ATION 03/03/2025 [facility] Ordered Prescriptions (unrec ognized section and content) PrescriptionSigDispensedRefillsStart DateEnd Date HYDROcodone-acetaminophen (NORCO) 5-325 MG per tablet Indications:Post-op painTake 1 tablet by mouth every 8 hours as needed for Pain for up to 3 days. Intended supply: 3 days. Take lowest dose possible to manage pain 6 tablet // ketorolac (TORADOL) 10 MG tablet Take 1 tablet by mouth every 6 hours as needed for Pain 12 tablet Scheduled Active and Recently Administ ered Medications (unrecognized section and content) Medication Order/ acetaminophen (TYLENOL) tablet 650 mg (COMPLETED) 650 mg, Oral, ONCE, 1 dose, On Tue01/29/22 at 1445, Maximum dose of acetaminophen is 4000 mg from all sources in 24 hours., Pre-op (day of surgery) * 1445 (Given - Provider: Agnes Erickson RN) dimenhyDRINATE (DRAMAMINE) tablet 50 mg (COMPLETED) 50 mg, Oral, ONCE, 1 dose, On Tue01/29/22 at 1445, Pre-op (day of surgery) * 1445 (Given - Provider: Agnes Erickson RN) sodium chloride flush 0.9 % injection 5-40 mL 5-40 mL, IntraVENous, EVERY 12 HOURS SCHEDULED (2 times per day), First dose on Tue01/29/22 at 2100, Until Discontinued, For Line Patency: Peripheral IV = 5 mL; Midline or Central Line = 10 mL/lumen.If following IV push medication, administer flush at same rate as the IV push. Flush volume is determined by type of infusion therapy being given. For non-viscous solutions use: Peripheral IV = 5 mL Midline or Central Line = 10 mL/lumen For viscous solutions (i.e. blood components, parenteral nutrition, contrast media, or after obtaining blood sample) use: Peripheral IV = 10 mL Midline or CentralLine = 20 mL/lumen * 2100 (Due) Medication Order/ lactated ringers infusion IntraVENous, at 100 mL/hr, CONTINUOUS, Starting on Tue01/29/22 at 1445, Pre-op (day of surgery) * 1446 (New Bag - Provider: Agnes Erickson RN) * 1616 (Stopped - Provider: Sally Rogers RN) lactated ringers infusion IntraVENous, at 125 mL/hr, CONTINUOUS, Starting on Tue01/29/22 at 1630, PACU only * 1630 (Due) Medication Order 0.9 % sodium chloride infusion IntraVENous, at [...] doses, Starting on Tue01/29/22 at 1607, Until Discontinued,Pain Moderate (4-6), Phase I - Initial therapy for moderate pain., PACU only fentaNYL (SUBLIMAZE) injection 50 mcg 50 mcg, IntraVENous, EVERY 5 MIN PRN, 4 doses, Starting on Tue01/29/22 at 1607, Until Discontinued,Pain Severe (7-10), Phase I - Initial therapy [...] For viscous solutions (i.e. blood components, parenteral nutrition,contrast media, or after obtaining blood sample) use: Peripheral IV = 10 mL Midline or Central Line= 20 mL/lumen Order Group 1: HYDROcodone-acetaminophen (NORCO) 5-325 MG [...] BE BASED ON THE PRIMARY CLINICAL RECORDS. [facility] [employer] [facility]. provides no warranty or guarantee of the accuracy or completeness of information in this document.
--- OUTSIDE RECORDS SUMMARY | 2025-04-12 07:16 | XMS_ITS | Clinical Summary ---
Author Organization [facility] Address [address] [place] [address] Care Team Providers Care Switchboard Operator Name Role Phone Oscar Oro MD Primary Care Provider [phone] Allergies Active AllergyReactionsCriticalityNoted OttrCyttdtybEndcstyrkoinu89/12/2023 Other Reaction(s): Unknown Wewqjhbkpky22/12/2023 Medications MedicationSigDispense QuantityRefillsLast FilledStart DateEnd DateStatus ARIPiprazole (Abilify) 2 MG tablet Take 2 mg by mouth in the morning.Active latanoprost (Xalatan) 0.005 % ophthalmic solution Administer 1 drop into both eyes at bedtime.09/07/2022ctive kmbvxids-kwruywzfl-tvyYPBJCbrqaj (Maxitrol) 3.5-93072-5.1 ophthalmic suspension 2 drops every 8 (eight) hours.03/09/2022ctive DULoxetine (Cymbalta) [address] capsule Take 60 mg by mouth in the morning. Do not crush or chew. .Active methylphenidate (Daytrana) 10 MG/9HR patch Place 1 patch on the skin in the morning. wear patch for 9 hours only each day. Active fluticasone (Flonase) 50 MCG/ACT nasal spray Administer 1 spray into each nostril Daily Shake gently. Before first use, prime pump. After use, clean tip and replace cap.Active Active Problems ProblemNoted DateDiagnosed DateNeck mass02/17/2023Ventricular septal defect 02/17/20238461Sghnsfjdxp49/12/4126Zvfpsdo75/12/2023Enlarged liver02/17/2023astro- esophageal reflux disease without ywmrgnooliu16/26/2019Anemia, unspecified 09/14/2018 Encounters DateTypeDepartmentCare JstxIpgeggfzcye12/03/2025 9:20 AM EDTOffice Visit [facility] [address] [place] [address] Cynthia Florentino PA Melanocytic nevus of trunk (Primary Dx); Acne vulgaris; Pickering angioma; Inflamed seborrheic keratosis; Hyperkeratosis of skin02/08/2025amboo flowsheet [facility] [address] [facility] [place] [address] Cynthia Florentino PA 02/08/2025Travelfrom Last 3 Months Immunizations ImmunizationAdministration DatesNext GdyGQM0610/26/1990,04/19/1989,05/28/1986, 03/26/1986,1985Hep B, adult09/21/2013,06/04/2013,03/23/2013MMR12/17/1998, 06/08/1988OPV10/26/1990,04/19/1989,03/26/1986,1985Tdap10/21/2014, 03/23/2013 Family History Medical HistoryRelationNameCommentsDiabetesMotherHypertensionMotherCancer Paternal GrandfatherStrokePaternal GrandmotherRelationNameStatusCommentsMother Paternal GrandfatherPaternal Grandmother Social History Tobacco UseTypesPacks/DayYears UsedDateSmoking Tobacco: NeverSmokeless Tobacco: Never Tobacco Cessation:Counseling Given: Not Answered Alcohol UseStandard Drinks/WeekCommentsNot Currently0 (1 standard drink = 0.6 oz pure alcohol)CommentsUnknownSex and Gender InformationValueDate Recorded Sex Assigned at BirthNot on fileLegal DmmWvjbia69/15/2023 7:21 PM EDTGender IdentityNot on fileSexual OrientationNot on file Last Filed Vital Signs Vital SignReadingTime TakenCommentsBlood Uxxxatfg105/80105/23/2022 9:32 AM EST Pulse--Temperature--Respiratory Rate--Oxygen Saturation--Inhaled Oxygen Concentration--Tdgtiq76.2 kg (190 lb)03/23/2023 9:32 AM LQUQobznh884.7 cm (5' 8 )03/23/2023 9:32 AM ESTBody Mass Index28.8903/23/2023 9:32 AM EST Plan of Treatment DateTypeDepartmentCare Team (Latest Contact Info)Osrhtwpnrro08/09/2026 9:00 AM EDTOffice Visit [facility] [address] [place] [address] Cynthia Florentino, PA [address] [place] [address] Procedures Procedure NamePriorityDate/TimeAssociated DiagnosisCommentsCRYOTHERAPY SKIN TZZGCTSalvkbd21/03/2025 9:06 AM EDT Inflamed seborrheic keratosis from Last 3 Months Results * Cryotherapy, skin lesion (02/08/2025 9:06 AM EDT) Narrative Authorizing ProviderResult TypeResult StatusAlison Delilah ALVAREZ PROCEDURE ORDERABLESFinal Result from Last 3 Months Insurance [address] [place] [address] Care Teams Team MemberRelationshipSpecialtyStart DateEnd Date Oscar Oro MD [address] [place] [address] PCP - GeneralFamily Dfudojpo43/4/23
--- OUTSIDE RECORDS SUMMARY | 2025-04-12 07:16 | XMS_ITS | Patient Health Record ---
Author Organization [facility] [place] Address [address] [place] [address] Care Team Providers Care Medical Staff Coordinator Name Role Phone Salas Lamas Primary Care Provider [phone] Allergies Allergen (clinical drug ingredient) Drug/Non Drug Allergy documented on EMR Reaction Allergy Type Onset Date Status ciprofloxacin Cipro itching Drug Allergy ActivesumatriptanImitrexunknownDrug AllergyActive Results Component Value Reference Range Notes XR ABDOMEN (2 VIEWS) Reviewed date:04/10/2025 05:59:44 PM Interpretation: Performing Lab: Notes/Report: EXAM: Performed at: [address] [place] [address] US pelvis w/ transvaginal Reviewed date:11/01/2024 06:53:30 PM Interpretation: Performing Lab: Notes/Report: Source Facility: [place] [address] [facility] [place] [id number] Ultrasound Report Signed Patient: CAROLINE ALDANA MR#: [id number] : 1985 Acct:[id number] Age/Sex: 39 / F ADM Date: 11/01/24 Loc: US Attending Dr: Claudia Lamas M.D. Ordering Physician: Claudia Lamas M.D. Date of Service: 11/01/24 Procedure(s): US pelvis w/ transvaginal Accession Number(s): [id number] cc: Claudia Lamas M.D. [place] [address] Patient Name: CAROLINE ALDANA MRN: [id number] date: 1985 Sex: F Assigned Patient Location: US Current Patient Location: US Accession/Order Number: [id number] Exam Date: 11/01/2024 08:38 Report Date: 11/01/2024 08:46 At the request of: CLAUDIA LAMAS MD Procedure: US pelvis w/ transvaginal PELVIC ULTRASOUND WITH TRANSVAGINAL CLINICAL DATA: Pelvic pain for the past few weeks. History of ablation. COMPARISON: None Real-time ultrasound evaluation the pelvis was performed utilizing both a transabdominal and transvaginal approach. TRANSABDOMINAL: Estimated uterine size is approximately 8.7 x 3.6 x 6.4 cm. No focal myometrial abnormalities are seen. The endometrial lining is estimated at 3 mm in thickness. Only the left ovary was identified. TRANSVAGINAL: Transvaginal imaging was performed to better evaluate the uterus and adnexa. By this approach, there is a subtle hypoechoic nodular area within the anterior myometrium slightly to the right of midline measuring 10 x 8 x 13 mm. This might be a fibroid. The endometrial lining is estimated at 4 - 5 mm. There are nabothian cysts. There are also hyperechoic foci at the cervix that might be calcification. Both ovaries are visualized. The right measures 2.3 x 1.4 x 1.5 cm. The left ovary measures 2.6 x 1.6 x 2.3 cm. There are small follicles measuring up to 1 cm. There are no dominant adnexal cysts. There is documentation of ovarian blood flow with resistive indices of 0.42 on the right and 0.53 on the left. No free fluid is seen. US/US pelvis w/ transvaginal IMPRESSION: POSSIBLE TINY UTERINE FIBROID. NABOTHIAN CYSTS. NO ADNEXAL CYSTS. Impression dictated by: Franny Gregorio M.D. 11/01/2024 8:46 AM Dictation Location: [place] [address] Electronically authenticated by: [id number] Y Date: 11/01/2024 08:46 Dictated By: Franny Gregorio M.D. Signed By: 11/01/24 0848 DD/ TD/TT: Support Architect: VITAMIN D 25 [place] Reviewed date:09/23/2024 09:47:38 PM Interpretation: Performing Lab: Notes/Report: [facility] , Vitamin D 25.8 20-<30 ng/mL Vit D insufficient 30-100 ng/mL Vit D sufficient <20 ng/mL Vit D deficient >100 ng/mL Potential Toxicity Performing Lab:see noteML - [facility] LBTSH Reviewed date:09/23/2024 09:47:38 PM Interpretation: Performing Lab: Notes/Report: [facility] ,Thyroid Stimulating Hormone1.0900.358-3.740 uIU/mLPerforming Lab:see noteML - [facility] LBT4 Reviewed date:09/23/2024 09:47:38 PM Interpretation: Performing Lab: Notes/Report: [facility] ,T4 Thyroxine7.904.80-13.90 ug/dLPerforming Lab:see note - [facility] LBPROF 14(COMP METB) Reviewed date:09/23/2024 09:47:38 PM Interpretation: Performing Lab: Notes/Report: [facility] ,Rbuzmx498131-975 mmol/LPotassium4.23.5-5.1 mmol/LIpxvkqwd49348-265 mmol/LCarbon Fmnzajy94.121.0-32.0 mmol/LAnion Gap13.4Rbgonuj9021-803 mg/dLBlood Urea Nitrogen 12.07.0-18.0 mg/dLCreatinine0.700.55-1.02 mg/dLEstimated GFR ( Makayla>60 >=60 mL/min/1.73m 2Estimated GFR (Non- Christina>60>=60 mL/min/1.73m 2BUN Creatinine Ratio17.5Qjalguk9.08.5-10.1 mg/dLBilirubin Total0.40.2-1.0 mg/dL Aspartate Amino Qdzouhahxvd9548-30 U/LAlanine Baczbilitpxbycau1077-56 U/L Alkaline Egnvovjxcms0028-483 U/LTotal Protein7.56.4-8.2 g/dLAlbumin Level3.73.4- 5.0 g/dLGlobulin3.8Albumin Globulin Ratio1.0Performing Lab:see note - [facility] LBLIPID PROFILE Reviewed date:09/23/2024 09:47:38 PM Interpretation: Performing Lab: Notes/Report: [facility] ,Grdupkeiuqpfl500<=150 mg/hWYpaimrhzeep336<=200 mg/dLHDL Coeztuggucm9914-82 mg/dL > or =60 mg/dl - LOW CARDIOVASCULAR RISK <40 mg/dl - HIGH CARDIOVASCULAR RISK LDL Cholesterol Kaeqnrbnpw677.0 >190 mg/dl VERY HIGH 160-189 mg/dl HIGH 100-129 mg/dl NEAR OR ABOVE OPTIMAL 130-159 mg/dl BORDERLINE HIGH <100 mg/dl OPTIMAL VLDL XHGMNVSHOLX80.6Chol HDL Ratio4.1 4.4 - 7.1 AVERAGE RISK 3.3 - 4.4 LOW RISK >11.0 HIGH RISK 7.1 - 11.0 MODERATE RISK Performing Lab:see noteML - [facility] LBIRON Reviewed date:09/23/2024 09:47:38 PM Interpretation: Performing Lab: Notes/Report: [facility] ,Iron89.050.0-170.0 ug/dLPerforming Lab:see note - [facility] LB INSULIN Reviewed date:09/23/2024 09:47:38 PM Interpretation: Performing Lab: Notes/Report: [facility] ,Ugoyhhf88.92.6-24.9 uIU/mL [address] [place], [place] [id number] Performed at: [facility] Machining Supervisor: Rich Ritchie PhD, Phone: [phone] Performing Lab[facility] LBGLYCOHEMOGLOBIN A1C Reviewed date:09/23/2024 09:47:38 PM Interpretation: Performing Lab: Notes/Report: [facility] ,Glycohemoglobin A1C5.64.5-6.2 % ADA RECOMMENDED LIMIT 4.0 - 6.0 ACTION SUGGESTED ADA THERAPEUTIC TARGET < 7.0 > 7.0 Estimated Average Czmeccl412Hyzmydcgjd Lab:see note - [facility] LB FREE T3 Reviewed date:09/23/2024 09:47:38 PM Interpretation: Performing Lab: Notes/Report: [facility] ,Free T32.792.18-3.98 pg/mLPerforming Lab:see noteML - [facility] LB CBC AUTO DIFF Reviewed date:09/23/2024 09:47:38 PM Interpretation: Performing Lab: Notes/Report: [facility] ,White Blood Count7.74.0-11.0 10 3/uLRed Blood Count4.914.20-5.40 10 6/uL Nvkcdwmxpc65.412.0-16.0 g/sEHpmhrjtdll26.636.0-48.0 %Mean Corpuscular Kdoggl93.8 81.0-99.0 fLMean Corpuscular Fwsbuesbmm15.326.7-34.0 pgMean Corpuscular HGB Conc 33.829.9-35.2 g/dLRed Cell Distribution Width12.311.0-15.0 %Platelet Ozivt405 150-450 10 3/uLMean Platelet Volume9.29.5-13.5 fLNeutrophils Percent Auto59.1 43.0-75.0 %Lymphocytes Percent Auto29.920.5-60.0 %Monocytes Percent Auto6.41.7- 12.0 %Eosinophils Percent Auto3.00.9-7.0 %Basophils Percent Auto1.30.2-2.0 % Immature Granulocytes Pct Auto0.30.0-0.5 %Neutrophils Absolute Auto4.61.4-6.5 10 3/uLLymphocytes Absolute Auto2.31.2-3.8 10 3/uLMonocytes Absolute Auto0.50.3-0.8 10 3/uLEosinophils Absolute Auto0.20.0-0.7 10 3/uLBasophils Absolute Auto0.10.0- 0.1 10 3/uLImmature Granulocytes Abs Auto0.020.00-0.03 10 3/uLPerforming Lab:see noteML - [facility] LB Reason For Referral No Information Medications Medication SIG (Take, Route, Frequency, Duration) Notes Start Date End Date Status CeleXA 20 MG 1 tablet Orally Once a day; Dura tion: 30 days 5ActiveOndansetron 4 MG1 tablet on the tongue and allow to dissolve Orally qid15ActiveTolterodine Tartrate ER 2 MG1 capsule Orally Once [...] Question Answer Notes Patient is a nonsmoker Alcohol Screen (Audit-C) Question Answer Notes Did you have a drink containing alcohol in the p ast year? No Znzfwz4DnnmfnbkaphgfyYkugujbfYEBKG-A (Standard) Question Answer Notes Did you have a drink containing alcohol in the p ast year? No Mxwhoi0UwmuodyczojivmKtblxjgr Problems Problem Type SNOMED Code ICD Code Onset Dates Problem Status W/U Status Risk Notes Problem Chronic pain (69066747) Other chronic fiona n (G89.29) ActiveconfirmedProblemVentricular septal defect (69184973)Ventricular septal defect (Q21.0)ActiveconfirmedProblemLocalized swelling, mass and lump, neck (R22.1)ActiveconfirmedProblemEarly satiety (087649358)Early satiety (R68.81) ActiveconfirmedProblemFatigue (56902145)Fatigue (R53.83)ActiveconfirmedProblem Anxiety (27241226)Anxiety (F41.9)ActiveconfirmedProblemDepression (959295342) Depression (F32.9)ActiveconfirmedProblemInsomnia (369999893)Insomnia (G47.00) ActiveconfirmedProblemAcute sinusitis (34006686)Acute sinusitis (J01.90)Active confirmedProblemParesthesia (23206092)Paresthesia (R20.2)ActiveconfirmedProblem Vaginal bleeding (874101342)Vaginal bleeding (N93.9)ActiveconfirmedProblemPain in sacrum (finding) (3465585281)Sacral pain (M53.3)ActiveconfirmedProblemLarge liver (13889731)Enlarged liver (R16.0)ActiveconfirmedProblemPain in pelvis (43136285)Pelvic pain (R10.2)ActiveconfirmedProblemSnoring (87817921)Snorings (R06.83)ActiveconfirmedProblemAdult health examination (054926280)Adult general medical exam (Z00.00)ActiveconfirmedProblemPost-acute COVID-19 (disorder) (6142803305)Post COVID-19 condition, 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 Vital Signs Blood pressure diastolic 62 mm Hg 04/08/2025 Haheod48 in04/08/2025lood pressure friqqjhj082 mm Hg04/08/20256475Pvjqbo792 lbs 04/08/2025BMI34.3 kg/m204/08/2025 Procedures Procedure Date Ordered Date Performed Result Body Sit e Sleep study - Diagnostic Polysonogram 09/19/2024 N/A Encounters Encounter Location Date Provider Diagnosis [facility] [address] [place] [address] 09/23/2024 Salas Lamas [facility] [place] [address] 11/01/2024Doug [facility] [place] [address]/07/2024Doug [facility] [place] [address]/08/2024Doug [facility] [place] [address]/Doug HoyFatigue R53.83 ; Paresthesia R20.2 ; Snorings R06.83 and [facility].00[facility] [place] [address]/Doug HoyPelvic pain R10.2 and Vaginal bleeding N93.9[facility] [place] [address]/05/2024Doug HoyGastroenteritis K52.9 Assessments Encounter Date Diagnosis (ICD Code) Assessment Notes Treatment Notes Treatment Clinical Notes Section Notes 09/19/2024 Fatigue (ICD-10 - R53.83) 09/19/2024Paresthesia (ICD-10 - R20.2)10/26/2024Pelvic pain (ICD-10 - R10.2) 10/26/2024Vaginal bleeding (ICD-10 - N93.9)04/08/2025Gastroenteritis (ICD-10 - K52.9)Get plenty of rest. Stay hydrated by sucking on ice chips or taking small sips of water. You can also try drinking clear soda, clear broths or noncaffeinated sports drinks. Stop eating solid foods for a few hours to let your stomach settle. East back into eating by eating bland, crnh-it-cvtieo foods like crackers, toast, gelatin, bananas, rice and chicken. Try to avoid foods/substances including dairy products, caffeine, alcohol, nicotine and fatty or highly seasoned foods. Medications such as ibuprofen or tylenol can make your stomach more upset, so use sparingly if at all. Also avoid nntp-mgg-vvvitdm anti-diarrheal medications because it can make it harder for your body to eliminate the virus.09/19/2024Snorings (ICD-10 - R06.83)09/19/2024Well adult (ICD-10 - Z00.00)09/19/2024OtherRecommended to rest and use a heating pad on the area. Take NSAIDs for pain as needed Plan Of Treatment Pending Test Test Name Order Date HEMOGLOBIN A1C (GLYCO) 09/19/2024 IRON, TOTAL 09/19/2024 LIPID PANEL (CHOL/TRIG/HDL/LDL) 09/20/19 25 VITAMIN D, 25 LEVEL (TOTAL) 09/19/2024 Sleep study - Diagnostic Polysonogram Insulin Level 09/19/2024 US Head/Neck Soft Tissue 02/03/2023 AMYLASE 04/08/2025 CBC AUTO DIFF 04/08/2025 CULTURE SPUTUM 06/03/2023 LIPASE 04/08/2025 PROF 14(COMP METB) 04/08/2025 CT PELVIS W CON 11/03/2023 US ABD 04/08/2025 US PELVIS 10/26/2024 XR CHEST 2 V 06/03/2023 XR SACRUM_COCCYX 10/31/2023 THYROID PANEL (T4/TSH/FREE T3) XR acute abdomen series 04/08/2025 CMP (COMP MET KC) w/eGFR CKD-EPI 2024 CBC WITH DIFF 09/19/2024 Insurance Providers Payer Name Payer Address Payer Phone Subscriber Number Group Number Insured Name Patient Relationship to Insured Coverage Start Date Coverage End Date MMO [address] [facility] [id number] David Aldana - patient is the insured Medical (General) History Medical History History ICD Code Breast pain, left N64.4 Delayed gastric emptying K30 Other fatigue R53.83 Abnormal weight gain R63.5 Localized swelling, mass and lump, neck R22.1 Other chronic pain G89.29 Pain in unspecified ankle and joints of unspecified foot M25.579 Abdominal pain, left upper quadrant R10. 12 Post COVID-19 condition, unspecified U09 .9 Anxiety F41.9 Enlarged liver R16.0 Early satiety R68.81 Abdominal pain, epigastric R10.13 COVID-19 U07.1 Pyelonephritis N12 Adult general medical exam Z00.00 Ventricular septal defect Q21.0 Surgical History Surgery Date(Month/Year) tonsillectomy right foot surgery, left foot surgerycyst removal (wrist)Hospitalization History Reason Date(Month/Year) see above
--- OUTSIDE RECORDS SUMMARY | 2025-04-12 07:16 | XMS_ITS | Clinical Summary ---
Author Organization [facility] Address [address] [facility] [facility], [address] [place] [address] Care Team Providers Care Fashion Coordinator Name Role Phone Oscar Oro MD Primary Care Provider [phone] Allergies Active AllergyReactionsCriticalityNoted OgooTdxlrfzfCofgkngvxbpfjDdjyv86/07/2014 Medications MedicationSigDispense QuantityRefillsLast FilledStart DateEnd DateStatus ARIPiprazole (ABILIFY) 5 MG tablet 09/04/2021ctive latanoprost (XALATAN) 0.005 % ophthalmic solution place 1 drop into both eyes at tgnnctu7109/15/2021ctive phentermine 37.5 MG capsule Take 1 capsule by mouth daily.12/04/2022ctive clotrimazole-betamethasone (LOTRISONE) 1-0.05 % cream Indications:Acute vulvitisApply topically 2 times daily. 15 g 5Active Additional Information Patient not taking.Reported on 02/21/2025 phenazopyridine (PYRIDIUM) 200 MG tablet Take 1 tablet by mouth 3 times daily as needed for Pain 9 tablet 5Active Additional Information Patient not taking.Reported on 02/21/2025 clobetasol (TEMOVATE) 0.05 % ointment Indications:Acute vulvitisApply topically 2 times daily. 45 g 5Active Active Problems ProblemNoted DateDiagnosed DateAnxiety glrixadr34/18/2022Gastro-esophageal reflux disease without ykomzepqvde48/26/2019Anemia, tyybfdgfbfo38/09/2019 Encounters DateTypeDepartmentCare GunkDjkapxryfhf67/02/2025 - 04/11/2025 11:59 PM EST Hospital Encounter [facility] Radiology [address] [id number] Gastroenteritis Discharge Disposition: Home or Self Care02/25/2025Refill [facility] OBSTETRICS & GYNECOLOGY [address] [id number] Oanh Vela APRN - CNM Medication Olpjdi2202/22/2025Results Follow-Up [facility] Obstetrics and Gynecology [address] [place] [address], [place] [address] Oanh Vela APRN - CNM 02/21/2025 12:18 PM EDT - 02/21/2025 11:59 PM EDTHospital Encounter [facility] LAB [address] [place] [address] Acute vaginitis Discharge Disposition: Home or Self Care02/21/2025 10:30 AM EDTOffice Visit [facility] OBSTETRICS & GYNECOLOGY Part [address] [place] [address] Oanh Vela, SUDARSHAN Monique CNM Acute vaginitis (Primary Dx); Acute eqaedobi99/20/2025 7:11 PM EDT - 01/26/2025 8:06 PM EDTEmergency [facility] [address] [place], [place] [phone] Sprain of left ankle, unspecified ligament, initial encounter (Primary Dx) Discharge Disposition: Home or Self Care01/26/2025Travelfrom Last 3 Months Immunizations ImmunizationAdministration DatesNext DueTDaP, ADACEL (age 10y-64y), BOOSTRIX (age 10y+), IM, 0.5mL10/21/2014,10/09/2004 Family History Medical HistoryRelationNameCommentsHypertensionFatherCancerMaternal Grandfather bladderCancerMaternal GrandmotherlungDiabetesMaternal GrandmotherHypertension Maternal GrandmotherHypertensionMotherStrokePaternal GrandmotherRelationName StatusCommentsBrotherAliveFatherAliveMaternal GrandfatherDeceasedMaternal GrandmotherDeceasedMotherAliveOtherOtherPaternal GrandfatherDeceasedPaternal GrandmotherDeceasedSisterAlive Social History Tobacco UseTypesPacks/DayYears UsedDateSmoking Tobacco: NeverSmokeless Tobacco: Never Tobacco Cessation:Counseling Given: Not Answered Alcohol UseStandard Drinks/WeekCommentsNot Currently0 (1 standard drink = 0.6 oz pure alcohol)occasionalAHC UtilitiesAnswerDate RecordedIn the past 12 months has the electric, gas, oil, or water [employer] threatened to shut off services in your home?No07/26/2024PHQ-2AnswerDate RecordedPHQ-9 Total Vnkue798Hunger Vital SignAnswerDate RecordedWithin the past 12 months, you worried that your food would run out before you got the money to buymore.Never true07/26/2024 Within the past 12 months, the food you bought just didn't last and you didn't have money to get more.Never true07/26/2024PRAPARE - TransportationAnswerDate RecordedIn the past 12 months, has lack of transportation kept you from medical appointments or from getting medications?No07/26/2024In the past 12 months, has lack of transportation kept you from meetings, work, or from getting things needed for daily living?07/26/2024Housing Stability Vital SignAnswerDate RecordedIn the last 12 months, was there a time when you were not able to pay the mortgage or rent on time?No07/26/2024In the past 12 months, how many times have you moved where you were living?t any time in the past 12 months, were you homeless or living in a fdc (including now)?No07/26/2024 Food InsecurityAnswerDate RecordedWithin the past 12 months, you worried that your food would run out before you got the money to buymore.Within the past 12 months, the food you bought just didn't last and you didn't have money to get more.CommentsNoSex and Gender InformationValue Date RecordedSex Assigned at BirthNot on fileLegal LbrAfutcg49/10/2013 8:46 PM ESTGender IdentityNot on fileSexual OrientationNot on file Last Filed Vital Signs Vital SignReadingTime TakenCommentsBlood Ytaplyke490/801 10:39 AM EDT Bjwhv677801/26/2025 6:23 PM EKTEccqifqmzrv98.3 ??C (99.1 ??F)01/26/2025 6:23 PM EDTRespiratory Nigk256301/26/2025 6:23 PM EDTOxygen Fhjvjmtina73%01/26/2025 6:23 PM EDTInhaled Oxygen Concentration--Omzqeg446 kg (222 lb 9.6 oz)02/21/2025 10:39 AM JLYYhqyir930.7 cm (5' 8 )02/21/2025 10:39 AM EDTBody Mass Index33.85 02/21/2025 10:39 AM EDT Plan of Treatment DateTypeDepartmentCare Team (Latest Contact Info)Zlyaaegctlb00/24/2026 11:15 AM EDTOffice Visit [facility] OBSTETRICS & GYNECOLOGY Part of [address] [place] [address] Oanh Vela APRN - JORDAN[address] [place] [address] yearly--RS'd from 04/03/25 per ptHealth MaintenanceDue DateLast DoneComments Varicella vaccine (1 of 2 - 13+ 2-dose series)1998Hepatitis C screen 10/20/2003Hepatitis B vaccine (1 of 3 - 19+ 3-dose series)2004Diabetes /, 10/08/2011DTaP/Tdap/Td vaccine (9 - Td or Tdap) /, 03/23/2013, 10/09/2004, Additional history existsFlu vaccine (#1)COVID-19 Vaccine ( - season)2025 HPV (without or with Pap)51Depression Hjixbq7207/26/2025 07/26/2024, 5Cervical cancer hrzzbt9612/13/2026Pap smear12/13/2026 12/14/2023, 02/26/2020Polio cjsuvbgYhypeqpew58/20/1991, 04/19/1989, 03/26/1986, Additional history existsHIV igqbryAbcorcuwp61/22/2016HPV vaccine (No Doses Required)CompletedHepatitis A vaccineAged OutNo longer eligible based on patient's age to complete this topicHib vaccineAged OutNo longer eligible based on patient's age to complete this topicMeningococcal (ACWY) vaccineAged OutNo longer eligible based on patient's age to complete this topicMeningococcal B vaccineAged OutNo longer eligible based on patient's age to complete this topic Pneumococcal 0-49 years VaccineAged OutNo longer eligible based on patient's age to complete this topic Procedures Procedure NamePriorityDate/TimeAssociated DiagnosisCommentsXR ABDOMEN (2 VIEWS) Obbpugq3904/09/2025 9:15 AM EST Gastroenteritis VAGINITIS DNA DRTPFFjioufh42/16/2025 11:31 AM EDT Acute vaginitis CULTURE, GENITAL (WITH GRAM STAIN)Ycswurw3902/21/2025 11:31 AM EDT Acute vaginitis POCT URINALYSIS VITEKNRAJcorpmu97/16/2025 10:57 AM EDT Acute vaginitis XR FOOT LEFT (MIN 3 VIEWS)STAT01/26/2025 6:43 PM EDT XR ANKLE LEFT (MIN 3 VIEWS)STAT01/26/2025 6:42 PM EDT SPECIAL EVENTS PLANNER AFVWZTAJWodfezs63/07/2024 12:00 AM EDT HPV, HIGH RISK WITH RFCOMRSTZCTvrqjlg29/20/2020 12:06 PM EDT HIV EBLVDGWngdltx92/22/2016 HEMOGLOBIN C7BNhpbtjk59/18/2016 8:19 AM EST from Last 3 Months or Most Recently Relevant to Health Maintenance Results * XR ABDOMEN (2 VIEWS) (04/09/2025 9:15 AM EST)Anatomical RegionLaterality ModalityAbdomenComputed RadiographySpecimen (Source)Anatomical Location / LateralityCollection Method / VolumeCollection TimeReceived Time04/10/2025 9:39 AM EST Impressions 04/10/2025 9:39 AM EST 1. Nonspecific bowel gas pattern. Narrative 04/10/2025 9:39 AM EST EXAM: 2 VIEW XRAY OF THE ABDOMEN 04/09/2025 09:15:52 AM COMPARISON: None available. CLINICAL HISTORY: Gastroenteritis. FINDINGS: BOWEL: Nonspecific bowel gas pattern. SOFT TISSUES: No opaque urinary calculi. BONES: No acute osseous abnormality. Procedure Note Nikolas Taveras MD - 04/10/2025 EXAM: 2 VIEW XRAY OF THE ABDOMEN 04/09/2025 09:15:52 AM COMPARISON: None available. CLINICAL HISTORY: Gastroenteritis. FINDINGS: BOWEL: Nonspecific bowel gas pattern. SOFT TISSUES: No opaque urinary calculi. BONES: No acute osseous abnormality. IMPRESSION: 1. Nonspecific bowel gas pattern. Authorizing ProviderResult TypeResult StatusDojusta Oro MDIMG DIAGNOSTIC IMAGING ORDERABLESFinal Result * (ABNORMAL) Vaginitis DNA Probe (02/21/2025 11:31 AM EDT)ComponentValueRef RangeTest MethodAnalysis TimePerformed AtPathologist SignatureSource.VAGINAL SWAB02/21/2025 11:31 AM [facility] LABTrichomonasNEGATIVE SLUYVVSN51/16/2025 11:31 AM EDTMERCY LABORATORIESComment:for Trichomonas VaginalisGARDNERELLA VAGINALISPOSITIVE(A)OMWUSLNQ84/16/2025 11:31 AM EDTMERCY LABORATORIESComment:for Gardnerella vaginalisCandida speciesNEGATIVENEGATIVE 02/21/2025 11:31 AM EDTMERCY LABORATORIESComment: for Ana sp. Method of testing is a DNA probe intended for detection and identification of Ana species, Gardnerella vaginalis, and Trichomonas vaginalis nucleic acid in vaginal fluid specimens from patients with symptoms of vaginitis/vaginosis. Specimen (Source)Anatomical Location / LateralityCollection Method / Volume Collection TimeReceived TimeSPECIMEN FROM CERVIX OR VAGINA / Fnegzro1402/21/2025 11:31 AM EDT1 1:07 PM EDT Narrative Authorizing ProviderResult TypeResult StatusSujaved Monique CNM MICROBIOLOGY - GENERAL ORDERABLESFinal ResultPerforming OrganizationAddress City/State/ZIP CodePhone Number [facility] [address] [place] [address], [facility] [phone] [facility] [phone] * Culture, Genital (with Gram Stain) (02/21/2025 11:31 AM EDT)ComponentValueRef RangeTest MethodAnalysis TimePerformed AtPathologist SignatureSpecimen Description.UACAAC0202/21/2025 11:31 AM [facility] Special RequestsSite: Eeimmap1602/21/2025 11:31 AM [facility] LABCultureNORMAL URO-GENITAL BERENICE MODERATE JLYTLU1702/21/2025 11:31 AM EDTMERCY LABORATORIESCultureNEGATIVE FOR BETA HEMOLYTIC ULYBZLOVQHPT63/16/2025 11:31 AM EDTMERCY LABORATORIESCultureNEGATIVE FOR NEISSERIA GONORRHOEAE 02/21/2025 11:31 AM EDTMERCY LABORATORIESCultureENTERIC BERENICE PRESENT 02/21/2025 11:31 AM EDTMERCY LABORATORIESSpecimen (Source)Anatomical Location / LateralityCollection Method / VolumeCollection TimeReceived TimeGenital SPECIMEN FROM CERVIX OR VAGINA / Npfqeeg0502/21/2025 11:31 AM EDT1 1:07 PM EDT Narrative Authorizing ProviderResult TypeResult StatusSujaved Monique CNM MICROBIOLOGY - GENERAL ORDERABLESFinal ResultPerforming OrganizationAddress City/State/ZIP CodePhone Number [facility] [address] [place] [address], [facility] [phone] [place] [address] * POCT Urinalysis Dipstick no Micro (02/21/2025 10:57 AM EDT)ComponentValueRef RangeTest MethodAnalysis TimePerformed AtPathologist SignatureColor, UAyellow Clarity, UAclearGlucose, UA POCnegativemg/dLBilirubin, UAnegativeKetones, UA negativemg/dLSpec Grav, UA1.015Blood, UA POCtracepH, UA7.0Protein, UA POC negativemg/dLUrobilinogen, UA0.2mg/dLLeukocytes, UAnegativeNitrite, UAnegative Specimen (Source)Anatomical Location / LateralityCollection Method / Volume Collection TimeReceived Time02/21/2025 10:57 AM EDT Narrative Authorizing ProviderResult TypeResult StatusSusan Siri Vela SPREADER BOX OPERATOR - CNMPOINT OF CARE TEST ORDERABLESFinal Result * XR FOOT LEFT (MIN 3 VIEWS) (01/26/2025 6:43 PM EDT)Anatomical RegionLaterality ModalityFoot, AnkleComputed RadiographySpecimen (Source)Anatomical Location / LateralityCollection Method / VolumeCollection TimeReceived Time01/26/2025 9:09 PM EDT Impressions 01/26/2025 9:13 PM EDT 1. No acute osseous abnormality identified in the ankle. 2. No acute osseous abnormality identified in the foot. Narrative 01/26/2025 9:13 PM EDT EXAMINATION: THREE XRAY VIEWS OF THE LEFT FOOT; THREE XRAY VIEWS OF THE LEFT ANKLE 01/26/2025 6:42 pm COMPARISON: None. HISTORY: ORDERING SYSTEM PROVIDED HISTORY: injury TECHNOLOGIST PROVIDED HISTORY: injury; ORDERING SYSTEM PROVIDED HISTORY: injury TECHNOLOGIST PROVIDED HISTORY: Patient currently in ER waiting room injury FINDINGS: Ankle: No fracture or malalignment identified. ??The joint spaces are maintained. ??No discrete soft tissue abnormality identified. Foot: No fracture or malalignment identified. ??The joint spaces are maintained. ??No discrete soft tissue abnormality identified. Procedure Note Sunny Matias MD - 01/26/2025 EXAMINATION: THREE XRAY VIEWS OF THE LEFT FOOT; [...] acute osseous abnormality identified in the foot. Authorizing ProviderResult TypeResult StatusRichmaribeth ParedesWashington Health System Greene DIAGNOSTIC IMAGING ORDERABLESFinal Result * XR ANKLE LEFT (MIN 3 VIEWS) (01/26/2025 6:42 PM EDT)Anatomical Region LateralityModalityLeg, Ankle, FootComputed RadiographySpecimen (Source) Anatomical Location / LateralityCollection Method / VolumeCollection Time Received Time01/26/2025 9:09 PM EDT Impressions 01/26/2025 9:13 PM EDT 1. No acute osseous abnormality identified in the ankle. 2. No acute osseous abnormality identified in the foot. Narrative 01/26/2025 9:13 PM EDT EXAMINATION: THREE XRAY VIEWS OF THE LEFT FOOT; THREE XRAY VIEWS OF THE LEFT ANKLE 01/26/2025 6:42 pm COMPARISON: None. HISTORY: ORDERING SYSTEM PROVIDED HISTORY: injury TECHNOLOGIST PROVIDED HISTORY: injury; ORDERING SYSTEM PROVIDED HISTORY: injury TECHNOLOGIST PROVIDED HISTORY: Patient currently in ER waiting room injury FINDINGS: Ankle: No fracture or malalignment identified. ??The joint spaces are maintained. ??No discrete soft tissue abnormality identified. Foot: No fracture or malalignment identified. ??The joint spaces are maintained. ??No discrete soft tissue abnormality identified. Procedure Note Sunny Matias MD - 01/26/2025 EXAMINATION: THREE XRAY VIEWS OF THE LEFT FOOT; [...] acute osseous abnormality identified in the foot. Authorizing ProviderResult TypeResult StatusAverymaribeth Paredesfrancisco jrenee IMG DIAGNOSTIC IMAGING ORDERABLESFinal Result * SPECIAL EVENTS PLANNER Cytology (12/14/2023 12:00 AM EDT)ComponentValueRef RangeTest Method Analysis TimePerformed AtPathologist SignatureCytology ReportPath Number: [id number] DIAGNOSIS Imaged ThinPrep Pap - Cervical (1 monolayer slide): Specimen Adequacy: ? Satisfactory for evaluation. ? - Endocervical/transformation zone component present. Descriptive Diagnosis: ? Negative for intraepithelial lesion or malignancy. ?? Cytotech Screener: ??EY Electronically Signed Out E. Young CT(ASCP) /12/22/2023 Source of Specimen: A: Imaged ThinPrep Pap - Cervical (1 monolayer slide) HPV Reflex?......................HPV if ASCUS Clinical History Z12.4 Encounter for screening for malignant neoplasm of cervix LMP: ??11/21/23 Processing Lab: [address] [id number] Interpretation performed at [address] [id number] This Pap Test has been evaluated with [...] smear result. GYNECOLOGIC CYTOLOGY REPORT Patient Name: CAROLINE ALDANASharon [facility] Rec: [id number] [facility] ??[facility] ANATOMIC PATHOLOGY [address] [place] [address]. ??[place], [place] [address] bon [facility] LABSSpecimen (Source)Anatomical Location / LateralityCollection Method / VolumeCollection TimeReceived Time CERVICAL HOKZBBVU63/07/462577/12/2023 9:37 AM EDT Narrative Authorizing ProviderResult TypeResult StatusSujaved Monique CNM PATHOLOGY/CYTOLOGY ORDERABLESFinal ResultPerforming OrganizationAddress City/State/ZIP CodePhone Number [facility] [address] [id number], [facility] [phone] [facility] * HPV, High Risk with Genotyping (02/26/2020 12:06 PM EDT)ComponentValueRef RangeTest MethodAnalysis TimePerformed AtPathologist SignatureHPV SOURCE .UYAQVA1902/26/2020 12:06 PM EDTMERCY LABORATORIESHPV, Genotype 16Not Detected 02/26/2020 12:06 PM EDTARUP LABORATORYHPV, High Risk OtherNot Detected 02/26/2020 12:06 PM EDTARUP LABORATORYComment: (NOTE) Performed By: Ke[address] Row [address] [place] [id number] Sox Analyst: Isa De Leon MD HPV, Genotype 18Not Cgtakdkx30/20/2020 12:06 PM EDTARUP LABORATORYComment: (NOTE) INTERPRETIVE INFORMATION: HPV by Nucleic Acid Amplification This test detects High Risk HPV types (16, 18, 31, 33, 35, 39, 45, 51, 52, 56, 58, 59, 66, and 68) and differentiates HPV 16 and 18 associated with cervical cancer and its precursor lesions. Sensitivity may be affected by specimen collection methods, stage of infection, and the presence of interfering substances. Results should be interpreted in conjunction with other available laboratory and clinical data. A negative high-risk HPV result does not exclude the presence of other high-risk HPV types, the possibility of future cytologic abnormalities, underlying CIN2-3, or cancer. This test is intended for medical purposes only and is not valid for the evaluation of suspected sexual abuse or for other forensic purposes. HPV testing should not be used for screening or management of atypical squamous cells of undetermined significance (ASCUS) in women under age 21. Specimen (Source)Anatomical Location / LateralityCollection Method / Volume Collection TimeReceived Time02/26/2020 12:06 PM EDT1 12:06 PM EDT Narrative Authorizing ProviderResult TypeResult StatusSujaved Monique CNM CHEMISTRY ORDERABLESFinal ResultPerforming OrganizationAddressCity/State/ZIP CodePhone Number [facility] [address] [place] [address], [facility] [phone] [id number] [place] [address], [facility] [phone] [facility] [address] [place] [address], [facility] [phone] * HIV Screen (04/29/2016)ComponentValueRef RangeTest MethodAnalysis Time Performed AtPathologist SignatureHIV Ag/Abnon-reactiveSpecimen (Source) Anatomical Location / LateralityCollection Method / VolumeCollection Time Received TimeBLOOD SPECIMEN / Unknown Narrative Authorizing ProviderResult TypeResult StatusHistorical Provider MDIMMUNOLOGY ORDERABLESFinal Result * Hemoglobin A1C (06/26/2015 8:19 AM EST)ComponentValueRef RangeTest Method Analysis TimePerformed AtPathologist SignatureHemoglobin A1C4.84.8 - 5.9 % 06/26/2015 9:02 AM ESTMHPN LABEstimated Avg Eesnigh69lj/dL06/26/2015 9:02 AM ESTMHPN LABComment: The ADA and AACC recommend providing the estimated average glucose result to permit better patient understanding of their HBA1c result. Performed at [address] [place] [address] ([phone] Specimen (Source)Anatomical Location / LateralityCollection Method / Volume Collection TimeReceived Time06/26/2015 8:19 AM EST06/26/2015 8:20 AM EST Narrative Authorizing ProviderResult TypeResult StatusDojusta Oro MDCHEMISTRY ORDERABLES Final ResultPerforming OrganizationAddressCity/State/ZIP CodePhone Number [facility] [address], [place] [address] [phone] [facility] from Last 3 Months or Most Recently Relevant to Health Maintenance Insurance [address] [place] [address] Advance Directives * Full Code (Latest Code Status on File) Date ActivatedDate InactivatedComments01/29/2022 2:15 PM01/29/2022 6:33 PM * Full Code Date ActivatedDate InactivatedComments11/16/2016 12:56 PM11/17/2016 6:00 PM * Full Code Date ActivatedDate InactivatedComments11/16/2016 10:54 AM11/16/2016 12:56 PM * Full Code Date ActivatedDate InactivatedComments11/15/2016 5:42 PM11/16/2016 10:54 AM * Full Code Date ActivatedDate InactivatedComments11/15/2016 1:25 PM11/15/2016 5:42 PM Care Teams Team MemberRelationshipSpecialtyStart DateEnd Date Oscar Oro MD [address] [id number] [facility] - Mirwydo71/7/13
--- NOTE | 2025-04-12 07:17 | US_ITS ---
The [address] [address] Patient Name: CAROLINE SOLOMON MRN: [id number] date: 1985 Sex: F Assigned Patient Location: [place] Current Patient Location: Accession/Order Number: [id number] Exam Date: 04/12/2025 07:20 Report Date: 04/12/2025 08:56 At the request of: CLAUDIA LAMAS MD Procedure: US abdomen complete COMPLETE ABDOMINAL ULTRASOUND CLINICAL HISTORY: Nausea, constipation and bloating COMPARISON: 07/04/2021 The gallbladder is physiologically distended without shadowing calculi, wall thickening or pericholecystic fluid. No intra- or extrahepatic biliary dilatation is evident. The common duct measures 2 - 3 mm. The liver is normal in echogenicity. No intrahepatic masses are seen. There is appropriate hepatopetal flow within the main portal vein. The pancreas shows no significant sonographic abnormality. The spleen is normal in size and echogenicity with craniocaudal dimension of 12 cm. The right kidney measures 12.2 cm and the left 10.8 cm in craniocaudal dimension. There is no hydronephrosis. The IVC is patent. There is no aortic aneurysm. US/US abdomen complete IMPRESSION: NEGATIVE ULTRASOUND OF THE ABDOMEN. Impression dictated by: Franny Gregorio M.D. 04/12/2025 8:56 AM Dictation Location: [place] [address] Electronically authenticated by: [id number] Y Date: 04/12/2025 08:56
--- OUTSIDE RECORDS SUMMARY | 2025-04-12 07:17 | XMS_ITS | Clinical Summary ---
Author Organization [facility] Address [address] [place] [address] Care Team Providers Care Counseling Center Manager Name Role Phone Unavailable Primary Care Provider Unavailabl e Social History Tobacco UseTypesPacks/DayYears UsedDateSmoking Tobacco: Never Assessed CommentsUnknownSex and Gender InformationValueDate RecordedSex Assigned at Not on fileLegal HjnDyfcuj11/30/2022 12:14 AM EDTGender IdentityNot on file Sexual OrientationNot on file Plan of Treatment Not on file
--- OUTSIDE RECORDS SUMMARY | 2025-04-12 07:20 | XMS_ITS | Clinical Summary ---
Author Organization [facility] Address [facility] [address] [place] [address] Care Team Providers Care Mail Order Clerk Name Role Phone Oscar Oro MD Primary Care Provider [phone] Social History Tobacco UseTypesPacks/DayYears UsedDateSmoking Tobacco: Never AssessedChildcare AnswerDate NdypndzhEphyznxnvIecckfv79/12/2019EmploymentAnswerDate Recorded PmhkddwizsHbyyvdi86/12/2019Purpose - LifeAnswerDate RecordedPurpose and direction in mwuoOpccpda52/12/2021CommentsUnknownSex and Gender InformationValueDate RecordedSex Assigned at BirthNot on fileLegal SexFemale 12/12/2014 12:12 PM EDTGender IdentityNot on fileSexual OrientationNot on file Plan of Treatment Health MaintenanceDue DateLast DoneCommentsDepression Ruacfwjsc88/13/1998Tobacco Tajbvduqf20/13/1998Adult BMI Jkkzwufbg95/13/2004Pap Smear2006DTaP,Tdap and Td Vaccines (3 - Td or Tdap), 10/09/2004Influenza Vaccine 01/07/2025 Medical Devices Not on file Insurance [address] [place] [address] Care Teams Team MemberRelationshipSpecialtyStart DateEnd Oscar Oro MD [facility] - General10/25/14
== END 2025-04-12 07:11 | disposition home or self-care (01) ==
LOC: US 07:11
PROVIDERS: PCP Family Medicine; Visit Provider Family Medicine
DX: K52.9 Noninfective gastroenteritis and colitis, unspecified (principal)
CPT/HCPCS: 76700